=== PATIENT | female | born 1985 | race Caucasian/White ===

== ENCOUNTER 2023-10-04 14:52 | Emergency (ER) | payer BC, SELFPAY ==
[2023-10-04 14:54] VITALS: BP 149/94; PULSE 121; RESP 18; TEMP 37.6; O2SAT 96; BMI 41.0
[2023-10-04 15:13] VITALS: BP 152/85; PULSE 120; RESP 20; O2SAT 96
--- NOTE | 2023-10-04 15:29 | EX.ED.DYSGE1 ---
HPI History of Present Illness Chief Complaint: General Illness Detail of Chief Complaint: Presents from [facility] urgent care because of near syncope Informant: patient and spouse/S.O. Onset/Context/Timing Onset: Hours Context: Sudden Onset Timing: Intermittent Quality: Near syncopal episode Location: Urgent care Current Severity: Gone Maximum Severity: Moderate Worsened by: Patient was sitting at the urgent care for 45 minutes Relieved by: Not applicable Associated Symptoms Associated Symptoms: Nausea, pallor tunnel vision Narrative Narrative: Patient is a 38-year-old female who went to the urgent care because of viral-like symptoms. She had an influenza, COVID-19 and rapid strep performed. The rapid strep was negative. Results for the influenza and COVID will not be available until later this evening or tomorrow morning. She does report fever, headache, left ear pain, congestion, sore throat and cough. Cough is productive. There is no hemoptysis. There is no pleuritic chest pain. She also endorsed 1 loose bowel movement today. She apparently was at a elementary school and hugged by 30 different children. She presently has headache and upper respiratory symptoms. The near-syncopal episode is no longer present. She denies black or maroon-colored stool. She denies urologic symptoms. Prior similar symptoms: Yes Recent Illness/Hospitalization: No PFSH PFSH Medical History HTN (hypertension) Home Medications amlodipine 10 mg tablet 10 mg PO DAILY 10/04/23 [History Last Taken Unknown] Allergy/AdvReac Type Severity Reaction Status Date / Time Penicillins Allergy Mild PT UNSURE Verified 10/04/23 14:55 OF REACTION Family History no significant family his Surgical History no surgical history Social History household members: spouse housing: house current occupational status: employed Smoking Status: Never smoker ROS ROS ED Constitutional Constitutional ED: Reports chills, fever(s) and subjective; Denies sweats or weight loss Eyes Eyes: Reports other Details: Tunnel vision ; Denies blurry vision, change in vision or diplopia ENT ENT ED: Reports ear pain left and sore throat; Denies rhinorrhea Cardiovascular Cardiovascular: Reports chest pain, palpitations and racing heartbeat; Denies orthopnea or paroxysmal nocturnal dyspnea Respiratory/Chest Respiratory/Chest: Reports cough, dyspnea and sputum; Denies dyspnea on exertion, orthopnea or paroxysmal nocturnal dyspnea Gastrointestinal Gastrointestinal: Reports diarrhea and nausea; Denies abdominal pain, melena or vomiting Genitourinary Genitourinary ED: Denies dysuria, hematuria or urinary frequency Musculoskeletal Musculoskeletal: Reports myalgias; Denies back pain or neck pain Integumentary Denies rash Neurologic Neurologic: Reports headache(s); Denies paresthesias or weakness Psychiatric Psychiatric: Denies anxiety or depression Endocrine Endocrinology: Denies cold intolerance or heat intolerance Hematologic/Lymphatic Hematologic/Lymphatic: Reports systems reviewed and no addt'l complaints, except as documented EXAM Physical Exam Const Vital Signs: 10/04/23 14:54 10/04/23 15:02 10/04/23 15:13 Temperature 99.7 F H Temperature Source Temporal Pulse Rate 121 H 120 H Pulse Rate [Lying] Pulse Rate [Sitting (for 1 minute prior to obtaining)] Pulse Rate [Standing (for 1 minute prior to obtaining)] Respiratory Rate 18 20 H Respiratory Effort Normal Respiratory Pattern Normal Blood Pressure 149/94 H 152/85 H Blood Pressure [Lying] Blood Pressure [Sitting (for 1 minute prior to obtaining)] Blood Pressure [Standing (for 1 minute prior to obtaining)] Blood Pressure Mean 112 107 Blood Pressure Mean [Lying] Blood Pressure Mean [Sitting (for 1 minute prior to obtaining)] Blood Pressure Mean [Standing (for 1 minute prior to obtaining)] Pulse Ox 96 96 Oxygen Delivery Method Room Air Room Air 10/04/23 15:47 Temperature Temperature Source Pulse Rate Pulse Rate [Lying] 102 H Pulse Rate [Sitting (for 1 minute prior to obtaining)] 117 H Pulse Rate [Standing (for 1 minute prior to obtaining)] 124 H Respiratory Rate Respiratory Effort Respiratory Pattern Blood Pressure Blood Pressure [Lying] 150/74 H Blood Pressure [Sitting (for 1 minute prior to obtaining)] 131/77 H Blood Pressure [Standing (for 1 minute prior to obtaining)] 140/98 H Blood Pressure Mean Blood Pressure Mean [Lying] 99 Blood Pressure Mean [Sitting (for 1 minute prior to obtaining)] 95 Blood Pressure Mean [Standing (for 1 minute prior to obtaining)] 112 Pulse Ox Oxygen Delivery Method Positive well nourished, well developed and obese General Appearance ED: well developed and NAD; Negative for cyanotic, diaphoretic or pallor Nutritional Appearance: obese HEENT Reports dry mucous membranes HEENT Narrative: Head is atraumatic and normocephalic. Ears are normal. TMs are normal. Nares patent. Posterior pharynx erythema or exudate. Mouth ED: Yes dry mucous membranes Mouth: dry mucous membranes Eyes PERRL and EOMs intact bilaterally General Eye ED: Negative for pale conjunctiva or scleral icterus Neck no lymphadenopathy, supple and no JVD Chest Wall inspection of chest normal and palpation of chest normal Resp normal respiratory effort and clear to auscultation bilaterally Cardio regular rhythm, S1 normal heart sound, S2 normal heart sound and no murmurs Rate: tachycardic GI normal to inspection, nondistended, normoactive bowel sounds, non-tender, non-distended and no masses; Negative for hepatosplenomegaly Back/Spine no CVA tenderness Thoracic Spine / Upper Back: Negative for thoracic spinal tenderness Lumbar Spine / Lower Back: Negative for lumbar spinal tenderness Extremity normal to inspection General Extremety ED: Negative for edema or tenderness General Extremity: Negative for edema Neuro oriented x3, CN's II-XII intact bilaterally and no sensory deficits noted Sensorium / Orientation: alert Motor Exam: strength 5/5 throughout Psych mental status grossly normal Skin no rashes or lesions noted, no wounds and skin turgor normal General Skin Exam: Negative for jaundice or pallor MDM MDM MDM Narrative Medical decision making narrative: Has viral upper respiratory symptoms. Patient's near syncopal sounds consistent with near syncope due to vasovagal episode. Will have nurse perform orthostatic vital signs and place patient on monitor for observation and rule out dysrhythmia. History & Record Review Additional record(s) reviewed:: No prior records Treatment and Re-Evaluation :: Static vitals are equivocal. She patient is tachycardic and did complain of dizziness. 1 L of normal saline was ordered since clinically she did appear dehydrated. Reassess after 500 cc of normal saline had infused. Plan is to discharge once the liter has infused. Discharge Plan Triage Chief Complaint: General Illness ED Provider: Chicho Mckeon Dx/Rx/DC Orders Clinical Impression: Acute dehydration, Upper respiratory infection with cough and congestion, Sinus tachycardia seen on cardiac care unit nurse, Diarrhea, Viral infection, Vasovagal near-syncope, Orthostatic dizziness, Hypertension Instructions: ED Viral Syndrome (Adult) Prescriptions: No Action amlodipine 10 mg tablet 10 mg PO DAILY Primary Care Provider: Brendon Roche Referrals: Brendon Roche MD [Primary Care Provider] - 3-5 Days if not improving Disposition Disposition: Home, Self Care
[2023-10-04 15:47] VITALS: BP 131/77; BP 140/98; BP 150/74; PULSE 102; PULSE 117; PULSE 124
[2023-10-04] MEDS: 0.9% Normal Saline (1000mL) 1,000 ML 1000 ML IV (16:55)
[2023-10-04 18:13] VITALS: BP 146/84; PULSE 104; RESP 16; O2SAT 96
== END 2023-10-04 18:14 | disposition home or self-care (01) ==
PROVIDERS: Emergency Provider Emergency Medicine; PCP Family Medicine; Visit Provider Emergency Medicine
DX: E86.0 Dehydration (principal); J06.9 Acute upper respiratory infection, unspecified; R42 Dizziness and giddiness; I10 Essential (primary) hypertension; R55 Syncope and collapse; R00.0 Tachycardia, unspecified; H92.02 Otalgia, left ear; R51.9 Headache, unspecified; Z79.899 Other long term (current) drug therapy; E66.9 Obesity, unspecified
CPT/HCPCS: 96360; 99285; J7030; A4216

== ENCOUNTER 2024-08-10 15:22 | Inpatient (IN) | payer BC, SELFPAY ==
[2024-08-10 15:23] VITALS: BP 130/89; PULSE 74; RESP 20; TEMP 36.1; O2SAT 97; BMI 42.3
--- NOTE | 2024-08-10 15:25 | EKG12_ITS ---
Test Reason : CP Blood Pressure : / mmHG Vent. Rate : 066 BPM Atrial Rate : 066 BPM P-R Int : 154 ms QRS Dur : 116 ms QT Int : 412 ms P-R-T Axes : 040 -17 024 degrees QTc Int : 431 ms Normal sinus rhythm Left ventricular hypertrophy Abnormal ECG Confirmed by BRIAN MEI, [place] ([id number]), communications editor BENNY ESCAMILLA ([id number]) on 08/13/2024 1:57:19 PM Referred By: Jatin Baker Confirmed By:FLORIDA TORRES MD
[2024-08-10 16:07] LABS: Absolute Lymphocyte Count 2.04 X10^3/uL (0.83-4.51); Absolute Neutrophil Count 6.9 X10^3/uL (2.0-7.7); Basophil# 0.07 X10^3/uL; Basophil% 0.7 % (0-1); Eosinophil# 0.06 X10^3/uL; Eosinophils% 0.6 % (0-5); Hematocrit 48.2 % (37-47); Hemoglobin 15.5 g/dL (12.0-15.0); Lymphocyte # 2.04 X10^3/ul (0.83-4.51); Lymphocyte % 21.2 % (19-41); Mean Corp Hgb Conc 32.2 g/dL (32-36); Mean Corpuscular Hgb 28.9 pg (27.0-32.0); Mean Corpuscular Volume 89.8 fL (81-99); Mean Platelet Vol. 8.9 fl (6.2-12.0); Monocyte# 0.54 X10^3/uL; Monocyte% 5.6 % (0-10); NRBC Flagged by Analyzer 0 % (0-5); Neutrophil # 6.87 X10^3/uL (2.7-7.7); Neutrophil % 71.6 % (47-70); Platelet Count 379 K/mm3 (150-450); RBC Distribution Width CV 13.8 % (11.6-14.6); Red Blood Count 5.37 M/mm3 (4.2-5.4); White Blood Count 9.6 K/mm3 (4.4-11.0)
--- NOTE | 2024-08-10 16:15 | RAD_ITS ---
STUDY: X-RAY CHEST REASON FOR EXAM: Female, 39 years old. chest pain TECHNIQUE: Single AP portable view of the chest. COMPARISON: None. FINDINGS: The lungs are clear and expanded. There is no demonstrated pleural abnormality. Normal size heart. Normal mediastinum and wade. Normal visualized pulmonary arteries. Normal visualized aortic arch and descending thoracic aorta. Normal visualized thoracic spine. Normal visualized ribs, clavicles, and shoulders. There is no demonstrated abnormality of the visualized soft tissue structures of the upper abdomen. RAD/Chest 1 View (Portable) IMPRESSION: Normal x-ray examination of the chest. Electronically Signed: Dwight Burton MD at 16:55 EDT ,
[2024-08-10 16:23] VITALS: BP 152/107; PULSE 70; RESP 16; O2SAT 95
[2024-08-10 16:30] LABS: Anion Gap 3 (5-15); BUN 11 mg/dL (7-18); BUN/Creat Ratio 14.5 RATIO (10-20); Calcium,Total 9.7 mg/dL (8.5-10.1); Chloride 105 mmol/L (98-107); Creatinine, Serum 0.76 mg/dL (0.55-1.02); EST Glomerular Filtration Rate 90 mL/min (>60); Est Glom Filt Rate - Afr Amer 109 mL/min (>60); Estimated Creatinine Clearance 133.65 ml/min; Glucose 100 mg/dL (74-106); Potassium 3.3 mmol/L (3.5-5.1); Sodium Level 140 mmol/L (136-145); Troponin-I HS (w/2H Reflex) 6104 pg/mL (3.0-54.0)
--- NOTE | 2024-08-10 16:34 | ED.VIS.CHEST ---
HPI History of Present Illness Chief Complaint: Chest Pain [facility] Medical History (Updated 08/10/24 @ 19:[address] Jatin Baker, DO) HTN (hypertension) Home Medications ?Medication ?Instructions ?Recorded ?Last Taken ?Type amlodipine 10 mg tablet 10 mg PO DAILY 10/04/23 08/10/24 History sertraline 100 mg tablet 100 mg PO DAILY 08/10/24 08/09/24 History Allergy/AdvReac Type Severity Reaction Status Date / Time Penicillins Allergy Mild PT UNSURE Verified 08/10/24 15:23 OF REACTION Family History no significant family his Social History household members: spouse housing: house current occupational status: employed Smoking Status: Never smoker EXAM Physical Exam Const Vital Signs: 08/10/24 15:23 08/10/24 16:23 08/10/24 16:35 Temperature 97 F L Temperature Source Temporal Pulse Rate 74 70 Respiratory Rate 20 H 16 Respiratory Effort Blood Pressure 130/89 H 152/107 H Blood Pressure Mean 102 122 Pulse Ox 97 95 Oxygen Delivery Method Room Air Room Air Room Air 08/10/24 16:35 08/10/24 17:00 Temperature Temperature Source Pulse Rate 69 Respiratory Rate 19 H Respiratory Effort Normal Non-Labored Blood Pressure 147/87 H Blood Pressure Mean 107 Pulse Ox Oxygen Delivery Method MDM MDM MDM Narrative Medical decision making narrative: HISTORY OF PRESENT ILLNESS: 39-year-old female here with chest pain. This started while sitting. No she seen urgent care [place] and given EKG was told it was normal. She is here for further evaluation. She notes the pain is less severe but is still there The patient denies recent surgery in the last 4 weeks or immobilization in the last 3 days, denies previous diagnosis of DVT or PE, hemoptysis, unilateral leg swelling or malignancy with treatment the last 6 months or palliative. No estrogen use noted. Patient denies sudden onset of pain, no tearing sensation, no migratory symptoms, no new numbness, weakness or loss of sensation. Patient denies family history or personal history of Connective tissue disorders (Marfan's Syndrome, Keith Danlos etc) REVIEW OF SYSTEMS: Pertinent positives: Chest pain Pertinent negatives: Syncope, leg swelling, hemoptysis, focal weakness, loss of sensation PHYSICAL EXAM: Nursing triage notes reviewed, Vital signs reviewed Constitutional: please see mdm HENT: MMM Eyes: Pupils equal round and reactive to light, Extraocular muscles intact Neck: No stridor, no JVD, full neck ROM Lungs: Clear to auscultation, No wheezing or rales. No increased work of breathing, no conversational dyspnea, no accessory muscle use, no nasal flaring. No respiratory distress noted Heart: Regular rate and rhythm, No murmurs, No rubs and No gallops, 2+ distal pulses (radial, femoral, posterior tibial) in all extremities Abdomen: Soft, there is no tenderness, rigidity, rebound or guarding, no obvious peritoneal signs, no palpable pulsatile abdominal masses, no auscultated abdominal bruit : No CVAT Extremities: No edema Neuro: No focal neurological deficits, cranial nerves II through XII intact, 5/5 strength in all extremities. Intact sensation to light touch in all extremities, 2+ reflexes bilateral patella tendons. Normal gait. No ataxia. Skin: No rash or lesions noted MEDICAL DECISION MAKING: Chief Complaint: Chest pain External records reviewed: Reviewed prior cardiology records: No recent cardiac catheterizations, stress test or echocardiograms noted in the chart Factors affecting care: Hypertension, family history of early cardiac pathology Social determinants of health denies illicit drug use History obtained from others: Family Consults: Cardiology (Dr. Albert) [facility] Narrative: Patient was hemodynamically stable, afebrile, nontoxic-appearing. No focal cardiopulmonary abnormalities on exam. No stigmata of VTE, dissection or CHF noted initially I considered the following differential diagnosis: ACS, arrhythmia, anemia, electro disturbance, PE, aortic dissection I obtained a broad lab and imaging workup to further elucidate etiology patient complaint given the above ALL IMAGES (IF OBTAINED) HAVE BEEN PERSONALLY REVIEWED AND INTERPRETED BY MYSELF. Protocol orders were placed given poor department conditions including high volume and high acuity. Patient was picked up by me 1 hour after arrival. I immediately reviewed her EKG which showed normal sinus rhythm, n left axis deviation, normal intervals, no STEMI, no signs of right heart strain Initial troponin is elevated consistent with myocardial ischemia CBC without leukocytosis, severe anemia, no thrombocytopenia. BMP with mild hypokalemia otherwise no significant Bell normalities, signs of endorgan hypoperfusion or metabolic acidosis D-dimer negative making VTE less likely I have personally reviewed the patient's chest x-ray. Chest x-ray is unremarkable for pulmonary edema, pneumothorax, pneumonia or focal cardiopulmonary abnormality. Low suspicion for PE or dissection given lack of risk factors, physical exam findings and negative D-dimer. Patient was started on heparin (discussed risk of bleeding, assured patient had no prior bleeding diathesis prior to starting heparin) given aspirin and potassium was replaced I discussed the case with computer systems consultant who recommended admission heparin drip for further evaluation and possible intervention Discussed with hospitalist who agrees admit the patient. The patient and/or family, caregivers express understanding. The patient and/or family, caregivers agrees with the plan. Shared decision making: I will have a discussion with the patient and or visitors regarding risk/benefits of further testing or admission. They will be made aware of of the risk/benefits inherent in this decision they will be given the opportunity to voice understanding. Total critical care time today provided was at least 35 minutes. This excludes separately billable procedures. Critical care time (if documented) is secondary to the patient having high probability of clinically significant/life threatening deterioration in the patient's condition which required my urgent intervention. Impression: 1. Acute chest pain 2. History of hypertension 3. Hypokalemia 4. NSTEMI Dispo: Admit to PCU This note was generated with Clicknation dictation software. It may contain incorrect words, spelling, and punctuation that were not noted in review of the chart prior to signing. Lab Data Labs: Laboratory Results - last 24 hr 08/10/24 08/10/24 15:56 16:45 WBC 9.6 RBC 5.37 Hgb 15.5 H Hct 48.2 H MCV 89.8 MCH 28.9 MCHC 32.2 RDW Std Deviation 45.0 H RDW Coeff of Cristal 13.8 Plt Count 379 MPV 8.9 Immature Gran % (Auto) 0.300 Neut % (Auto) 71.6 H Lymph % (Auto) 21.2 [place] % (Auto) 5.6 Eos % (Auto) 0.6 Baso % (Auto) 0.7 Absolute Neuts (auto) 6.9 Absolute Lymphs (auto) 2.04 Nucleated RBC % 0 D-Dimer Quant (PE/DVT) 0.36 Sodium 140 Potassium 3.3 L Chloride 105 Carbon Dioxide 32.0 Anion Gap 3 L BUN 11 Creatinine 0.76 Estim Creat Clear Calc 133.65 Est GFR (MDRD) Af Amer 109 Est GFR (MDRD) Non-Af 90 BUN/Creatinine Ratio 14.5 Glucose 100 Calcium 9.7 Troponin I High Sens 6104 H* B-Natriuretic Peptide 42.0 Radiography Diagnostic Testing: Clinical Impression(s) from Imaging Studies Chest X-Ray 08/10/24 16:15 IMPRESSION: Normal x-ray examination of the chest. Electronically Signed: Dwight Burton MD at 16:55 EDT , Discharge Plan Disposition Disposition: Acute Care Hospital [facility] Discharge Date/Time: 08/10/24 19:06
--- NOTE | 2024-08-10 16:35 | ED.RN ---
DR. FRANCOIS, DR. ARROYO AND CANDIE MACHINIST JOB SETTER NOTIFIED OF TROPONIN [id number]
[2024-08-10 17:00] VITALS: BP 147/87; PULSE 69; RESP 19
--- OUTSIDE RECORDS SUMMARY | 2024-08-10 17:03 | XMS RPT_ITS | CCD ---
Author Organization [facility] Care Team Providers Care Trailer Rental Clerk Name Role Phone PORTILLO LEON Unavailable Unavailable LEONPORTILLO BLACKWOOD Unavailable Unavailable AA NO PCP, NO PCP Unavailable Unavailable TIFFANY MCCULLOUGH Unavailable YOLANDA Shields Unavailable Unavailable NO PRIMARY CARE, Unavailable Unavailable Kaley MEI, Morales Akbar Primary Care Provider Morales Roche MD Primary Care Provider Tiffany Strong RN Unavailable Unavailable Kaley MEI, Morales Akbar Primary Care Provider Tiffany Strong RN Unavailable Unavailable Kaley MEI, Morales Akbar Primary Care Provider Tiffany Strong RN Unavailable Unavailable Knoble CHEMICAL LABORATORY ASSISTANT.AUTOMOTIVE SERVICE DIRECTOR, Tre Primary Care Provider Knoble CHEMICAL LABORATORY ASSISTANT.AUTOMOTIVE SERVICE DIRECTOR, Tre Primary Care Provider KALEY, MORALES KRISTINA Primary Care Unavailable SELF Referring Unavailable NAHEED MELGAR Attending Unavailable KNOBLE, TRE Referring Unavailable KNOBLE, TRE Primary Care Unavailable KNOBLE, TRE Primary Care Unavailable KNOBLE, TRE Referring Unavailable KNOBLE, TRE Primary Care Unavailable KNOBLE, TRE Attending Unavailable KNOBLE, TRE Primary Care Unavailable KNOBLE, TRE Primary Care Unavailable KNOBLE, TRE Referring Unavailable KALEY, MORALES KRISTINA Primary Care Unavailable SHEREEN NEWTON Referring Unavailable STELLA HARVEY Attending Unavailable KALEY, MORALES KRISTINA Primary Care Unavailable LLAY HARVEYNE Referring Unavailable KALEY, MORALES KRISTINA Primary Care Unavailable KALEY, MORALES KRISTINA Primary Care Unavailable TORY HERNANDEZ Attending Unavailable KALEY, MORALES KRISTINA Primary Care Unavailable KALEY, MORALES KRISTINA Primary Care Unavailable KALEY, MORALES KRISTINA Primary Care Unavailable TRE MAIN Attending Unavailable MORALES ROCHE Primary Care Unavailable Allergies Allergy Classification Reported Allergen(s) Allergy Type Date of Onset Reaction(s) Facility (2 sources) Penicillin; Translations: [PENICILLIN] Drug Allergy 04-19-2018 [facility] Other [place] Repository Medications Current Medications Medication Drug Class(es) Dates Sig (Normalized) Sig (Original) [id number] 200 actuat albuterol 0.09 mg/actuat metered dose inhaler (13 sources) beta2-Adrenergic Agonist Start: 01-21-2024 End: 01-21-2024 take 2 puff(s) by inhalation every four hours as needed for wheezing albuterol HFA (PROVENTIL HFA, VENTOLIN HFA) 90 mcg/actuation inhaler Inhale 2 Puffs as instructed every 4 hours as needed for wheezing/shortne ss of breath. 6.7 g 01/21/2024 Active Comment on above: Inhale 2 Puffs as in structed every 4 hours as needed for wheezing/shortness of breath. amLODIPine 10 mg oral tablet (20 sources) Dihydropyridine Calcium Channel Alvarado Start: 07-08-2024 take 1 tablet by mouth once daily amLODIPine (NORVASC) 10 mg tablet Indications: Hypertension, essential Take 1 tablet by mouth once daily. 90 tablet 07/08/2024 Active Start: 06-09-2023 End: 07-06-2024 take 1 tablet by mouth once daily amLODIPine (NORVASC) 10 mg tablet Indications: Hypertension, essential take 1 tablet by mouth every day 90 tablet 04/02/2024 07/06/2024 Discontinued Start: 12-12-2022 take 1 tablet by tonya th once daily amLODIPine (NORVASC) 10 mg tablet Indications: Hypertension, essential TAKE 1 TABLET BY MOUTH EVERY DAY 90 tablet 1 12/12/2022 Active Start: 12-27-2021 End: 06-23-2022 take 1 tablet by mouth once daily amLODIPine (NORVASC) 10 mg tablet Indications: Hypertension, essential TAKE 1 TABLET BY MOUTH EVERY DAY 90 tablet 1 06/23/2022 Active Comment on above: TAKE 1 TABLET BY TONYA TH EVERY DAY Take 1 tablet by tonya th once daily. chlorthalidone 25 mg oral tablet (13 sources) Thiazide-like Diuretic Start: End: 3 take 1 tablet by mouth once daily chlorthalidone (HYGROTON) 25 mg tablet Indications: Dependent edema TAKE 1 TABLET BY MOUTH EVERY DAY 90 tablet 0 09/19/2022 09/26/2023 Discontinued (Course of therapy completed) Comment on above: Take 1 tablet by tonya th once daily. TAKE 1 TABLET BY TONYA TH EVERY DAY doxycycline hyclate 100 mg oral tablet (4 sources) Tetracycline-clas s Drug Start: End: take 1 tablet by mouth twice daily doxycycline (VIBRA-TABS) 100 mg tablet Take 1 tablet by mouth two times a day for 7 days. 14 tablet 0 01/21/2024 01/28/2024 Active Start: 10-24-2023 End: 10-29-2023 take 1 tablet by mouth twice daily doxycycline (VIBRA-TABS) 100 mg tablet Indications: Acute maxillary sinusitis, recurrence not specified Take 1 tablet by mouth two times a day for 5 days. 10 tablet 0 10/24/2023 10/29/2023 Active Start: 04-09-2023 End: 04-16-2023 take 1 tablet by mouth twice daily doxycycline monohydrate 100 mg tablet Indications: Acute non-recurrent pansinusitis Take 1 tablet by mouth twice daily for 7 days. 14 tablet 0 04/09/2023 04/16/2023 Active Comment on above: Take 1 tablet by tonya th twice daily for 7 days. Take 1 tablet by tonya th two times a day for 5 days. Take 1 tablet by tonya th two times a day for 7 days. fluticasone propionate 0.05 mg/actuat metered dose nasal spray (20 sources) Corticosteroid Start: take 1 spray(s) nasal route twice daily fluticasone (FLONASE) 50 mcg/actuation nasal spray Indications: Acute non-recurrent pansinusitis Use 1 Sage in each nostril two times a day. 16 mL 04/27/2024 Active Start: 05-01-2023 End: 04-25-2024 take 1 spray(s) nasal route twice daily fluticasone (FLONASE) 50 mcg/actuation nasal spray Indications: Acute non-recurrent pansinusitis Use 1 Sage in each nostril twice daily. 16 mL 0 05/01/2023 04/25/2024 Discontinued Start: 04-09-2023 take 1 spray(s) nasa l route twice daily fluticasone (FLONASE) 50 mcg/actuation nasal spray Indications: Acute non-recurrent pansinusitis Use 1 Sage in each nostril twice daily. 16 mL 0 04/09/2023 Active Comment on above: Use 1 Sage in each nostril twice daily. INTRAUTERINE DEVICE, IUD, INTRAUTERINE (20 sources) INTRAUTERINE DEV ICE, IUD, INTRAUTERINE by INTRAUTERINE route. Active INTRAUTERINE DEV ICE, IUD, INTRAUTERINE by INTRAUTERINE route. 0 Active Comment on above: by INTRAUTERINE rout e. meloxicam 15 mg oral tablet (11 sources) Nonsteroidal Anti-inflammatory Drug Start: End: take 1 tablet by mouth once daily meloxicam (MOBIC) 15 mg tablet Indications: Strain of left knee, initial encounter , Chronic pain of left knee TAKE 1 TABLET BY MOUTH EVERY DAY 30 tablet 1 07/05/2022 09/26/2023 Discontinued (Course of therapy completed) Comment on above: Take 1 tablet by tonya th once daily. TAKE 1 TABLET BY TONYA TH EVERY DAY nirmatrelvir tablet 300 mg (150 mg x 2) and ritonavir tablet 100 mg in a dose pack (PAXLOVID) (1 source) Start: End: nirmatrelvir tablet 300 mg (150 mg x 2) and ritonavir tablet 100 mg in a dose pack (PAXLOVID) Indications: COVID Administer TWO pink nirmatrelvir 150 mg tablets and ONE white ritonavir 100 mg tablet for a total of three tablets twice daily. 30 tablet 0 10/06/2023 10/11/2023 Active Comment on above: Administer TWO pink nirmatrelvir 150 mg tablets and ONE white ritonavir 100 mg tablet for a total of three tablets twice daily. nitrofurantoin, macrocrystals 25 mg / nitrofurantoin, monohydrate 75 mg oral capsule (1 source) Nitrofuran Antibacterial Start: End: take 1 capsule by mouth twice daily nitrofurantoin monohydrate and macrocrystal (MACROBID) 100 mg capsule Take 1 capsule by mouth two times a day for 5 days. 10 capsule 0 05/05/2024 05/10/2024 Active predniSONE 20 mg oral tablet (2 sources) Start: End: take 2 tablets by mouth once daily at mealtime predniSONE (DELTASONE) 20 mg tablet Take 2 tablets by mouth once daily for 4 days. Take daily with food. 8 tablet 0 01/21/2024 01/25/2024 Active Comment on above: Take 2 tablets by mo [facility] once daily for 4 days. Take daily with food. sertraline 100 mg oral tablet (11 sources) Serotonin Reuptake Inhibitor Start: take 1 tablet by mouth once daily sertraline (ZOLOFT) 100 mg tablet Indications: AMANDA (generalized anxiety disorder) Take 1 tablet by mouth once daily. 90 tablet 1 06/28/2024 Active Start: 02-22-2024 End: 06-28-2024 take 1 tablet by mouth once daily, then take 0.5 tablet by mouth once daily, then take 1 tablet by mouth once daily sertraline (ZOLOFT) 50 mg tablet Indications: AMANDA (generalized anxiety disorder) Take 1 tablet by mouth once daily. Take 0.5 tab daily x7 days then 1 full tab daily. 60 tablet 0 04/26/2024 06/28/2024 Discontinued Comment on above: Take 1 tablet by tonya once daily. Take 0.5 tab daily x7 days then 1 full tab daily. Completed/Discontinued Medications Medication Drug Class(es) Dates Sig (Normalized) Sig (Original) docusate sodium 100 mg oral capsule (1 source) Start: 11-01-2019 take 2 capsules by mouth once daily at bedtime docusate sodium (COLACE) 100 mg capsule Take 2 capsules by mouth daily at bedtime. 60 capsule 1 11/01/2019 Active Comment on above: Take 2 capsules by m outh daily at bedtime. ibuprofen 600 mg oral tablet (1 source) Nonsteroidal Anti-inflammatory Drug Start: 11-01-2019 take 1 tablet by mouth every six hours ibuprofen (MOTRIN) 600 mg tablet Take 1 tablet by mouth every 6 hours. 60 tablet 1 11/01/2019 Active Comment on above: Take 1 tablet by tonya th every 6 hours. NIFEdipine 60 mg osmotic 24 hr extended release oral tablet (2 sources) Dihydropyridine Calcium Channel Alvarado Start: 11-01-2019 take 1 tablet by mouth once daily NIFEdipine ER (PROCARDIA XL) 30 mg 24 hr tablet Take 1 tablet by mouth once daily. 30 tablet 1 11/01/2019 Active Start: 11-01-2019 take 1 tablet by tonya th once daily NIFEdipine ER (PROCARDIA XL) 60 mg 24 hr tablet Take 1 tablet by mouth once daily. 30 tablet 1 11/01/2019 Active Comment on above: Take 1 tablet by tonya th once daily. vitamin with folic acid 1 mg 60 mg iron-1 mg tab (1 source) Start: 07-09-2018 take 1 tablet by mouth once daily vitamin with folic acid 1 mg 60 mg iron-1 mg tab Take 1 tablet by mouth once daily. 0 07/09/2018 Active Comment on above: Take 1 tablet by tonya th once daily. Problems Active Problems Problem Classification Problem Date Documented Da te Episodic/Chronic Acute myocardial infarction (2 sources) Acute myocardial infarction; Translations: [Acute myocardial infarction, unspecified] Onset: 01-02-2024 01-02-2024 Chronic Anxiety disorders (4 sources) Generalized anxiety disorder; Translations: [Generalized anxiety disorder] Onset: 06-28-2024 02-22-2024 Chronic Essential hypertension (20 sources) Hypertensive disorder; Translations: [Essential (primary) hypertension] Onset: 10-28-2019 10-28-2019 Chronic Fever of unknown origin (1 source) Pyrexia of unknown origin; Translations: [Fever, unspecified] 10-04-2023 Episodic Genitourinary symptoms and ill-defined conditions (1 source) Increased frequency of urination; Translations: [Frequency of micturition] 05-05-2024 Episodic Hypertension complicating ; childbirth and the puerperium (20 sources) Pre-eclampsia added to pre-existing hypertension; Translations: [Pre-existing hypertension with pre-eclampsia, unspecified trimester] Onset: 07-05-2018 10-29-2019 Chronic Other non-traumatic joint disorders (2 sources) Pain in left knee; Translations: [Pain in joint, lower leg] Episodic Other nutritional; endocrine; and metabolic disorders (1 source) Obesity, unspecified; Translations: [OBESITY UNSPECIFIED] Onset: 07-20-2017 Chronic Other screening for suspected conditions (not mental disorders or infectious disease) (4 sources) Platelet count above reference range; Translations: [Other specified abnormal findings of blood chemistry] Onset: 09-30-2023 02-20-2024 Episodic Other upper respiratory infections (1 source) Chronic sinusitis; Translations: [Chronic sinusitis, unspecified] 01-21-2024 Chronic Other upper respiratory infections (5 sources) Acute pansinusitis; Translations: [Acute pansinusitis, unspecified] Episodic Otitis media and related conditions (1 source) Dysfunction of left eustachian tube; Translations: [Unspecified Eustachian tube disorder, left ear] 10-04-2023 Episodic Residual codes; unclassified (4 sources) Dependent edema; Translations: [Edema, unspecified] Episodic Residual codes; unclassified (1 source) FH: Myocardial infarction at less than 60; Translations: [Family history of ischemic heart disease and other diseases of the circulatory system] 09-26-2023 Episodic Residual codes; unclassified (2 sources) FH: premature coronary heart disease; Translations: [Family history of ischemic heart disease and other diseases of the circulatory system] 09-26-2023 Episodic Sprains and strains (2 sources) Strain of knee; Translations: [Strain of unspecified muscle(s) and tendon(s) at lower leg level, left leg, initial encounter] Episodic Syncope (1 source) Near syncope; Translations: [Syncope and collapse] 10-04-2023 Episodic Unclassified (1 source) Body mass index (BMI) 40.0-44.9, adult; Translations: [BODY MASS INDEX BMI 40.0-44.9 ADULT] Onset: 07-20-2017 Chronic Viral infection (1 source) Disease caused by 2019-nCoV; Translations: [COVID-19] 10-06-2023 Episodic Past or Other Problems Problem Classification Problem Date Documented Date Episodic/Chronic Abdominal pain (1 source) Unspecified abdominal pain; Translations: [UNSPECIFIED ABDOMINAL PAIN] Onset: 07-20-2017 Episodic Calculus of urinary tract (1 source) Unspecified renal colic; Translations: [UNSPECIFIED RENAL COLIC] Onset: 07-20-2017 Episodic Early or threatened labor (9 sources) Labor finding; Translations: [False labor, unspecified] Onset: 10-31-2019 Resolved: 10-05-2021 10-31-2019 Episodic Other aftercare (1 source) Other termite helper (current) drug therapy; Translations: [Medication management] Onset: 02-19-2024 Episodic Other complications of (9 sources) RhD negative; Translations: [Other specified related conditions, third trimester] Onset: 10-28-2019 Resolved: 10-05-2021 10-28-2019 Episodic Other complications of (9 sources) Multigravida of advanced maternal age; Translations: [Supervision of elderly multigravida, third trimester] Onset: 10-28-2019 Resolved: 10-05-2021 10-28-2019 Episodic Other complications of (9 sources) History of pre-eclampsia; Translations: [Supervision of with other poor reproductive or obstetric history, unspecified trimester] Onset: 10-28-2019 Resolved: 10-05-2021 10-28-2019 Episodic Other complications of (9 sources) High risk ; Translations: [Supervision of other high risk pregnancies, third trimester] Onset: 10-28-2019 Resolved: 10-05-2021 10-28-2019 Episodic Other diseases of kidney and ureters (1 source) Hydronephrosis with renal and ureteral calculous obstruction; Translations: [HYDRONPHROS RENLANDURETRL CALCUL OBST] Onset: 07-20-2017 Episodic Other diseases of kidney and ureters (8 sources) Hydronephrosis co-occurrent and due to calculus of kidney and ureter; Translations: [Hydronephrosis with renal and ureteral calculous obstruction] Onset: 07-20-2017 Resolved: 10-05-2021 10-05-2021 Episodic Other lower respiratory disease (9 sources) Desaturation of blood; Translations: [Hypoxemia] Onset: 10-29-2019 Resolved: 10-05-2021 10-29-2019 Episodic Other nutritional; endocrine; and metabolic disorders (9 sources) Morbid obesity; Translations: [Morbid (severe) obesity due to excess calories] Onset: 10-28-2019 Resolved: 10-05-2021 10-28-2019 Chronic Other and delivery including normal (14 sources) Patient encounter status; Translations: [Encounter for supervision of normal , unspecified, unspecified trimester] Onset: 10-28-2019 Resolved: 10-05-2021 10-29-2019 Episodic Residual codes; unclassified (8 sources) Gestation period, 37 weeks; Translations: [37 weeks gestation of ] Onset: 10-28-2019 Resolved: 10-28-2019 10-28-2019 Episodic Residual codes; unclassified (1 source) Family history of ischemic heart disease and other diseases of the circulatory system; Translations: [Family history of premature CAD] Onset: 01-02-2024 Episodic Results Test Name Value Interpretation Reference Range Facility [facility] BERE FIORE ([id number]) 1985 F Date Time Provider Department 07/01/24 TRE MAIN [facility] During your visit today, we recorded the following information about you: Tre Main APRN.[facility] 07/01/2024 10:01 AM Signed Please let patient know their labs are normal. Arjun Mckinney MA 07/01/2024 10:06 AM Signed Pt notified and verbalized understanding Arjun Mckinney MA Allergies As of Date: 07/01/2024 Noted Allergy Reaction PENICILLIN 04/19/2018 15 - Unknown Comments: Childhood allergy. Pt unsure of reaction. Date Reviewed: 06/28/2024 Reviewed by: Arjun Mckinney MA - Fully Assessed Reason for Visit: Results [95] Prescriptions as of 07/01/2024 - sertraline (ZOLOFT) 100 mg tablet Take 1 tablet by mouth once daily. - fluticasone (FLONASE) 50 mcg/actuation nasal spray Use 1 Sage in each nostril two times a day. - amLODIPine (NORVASC) 10 mg tablet take 1 tablet by mouth every day - albuterol HFA (PROVENTIL HFA, VENTOLIN HFA) 90 mcg/actuation inhaler Inhale 2 Puffs as instructed every 4 hours as needed for wheezing/shortness of breath. - INTRAUTERINE DEVICE, IUD, INTRAUTERINE by INTRAUTERINE route. Problem List As Of Date 07/01/2024 Noted Resolved Chronic hypertension with superimposed pre-ecla*07/05/2018 37 weeks gestation of [Z3A.37] 10/28/2019 10/28/2019 Rh negative status during in third tr*10/28/2019 10/05/2021 Advanced maternal age in multigravida, third tr*10/28/2019 10/05/2021 Chronic hypertension [I10] 10/28/2019 Encounter for induction of labor [Z34.90] 10/28/2019 10/05/2021 History of pre-eclampsia in prior , cu*10/28/2019 10/05/2021 Morbid obesity (HCC) [E66.01] 10/28/2019 10/05/2021 Short interval between pregnancies affecting pr*10/28/2019 10/05/2021 Oxygen desaturation [R09.02] 10/29/2019 10/05/2021 Threatened labor [O47.9] 10/31/2019 10/05/2021 Hydronephrosis with renal and ureteral calculou*07/20/2017 10/05/2021 Encounter Status:Closed by ARJUN MCKINNEY CMA on 07/01/24 [facility] CNOV[facility] 06-28-2024 CNOV Office Visit (FAMPWS ) BERE FIORE ([id number]) 1985 F Date Time Provider Department 06/28/24 12:40 PM TRE MAINPWS During your visit today, we recorded the following information about you: Pulse Respiration Blood pressure Weight 93/minute 16/minute 135/83 122.9 kg Tre Main APRN.AUTOMOTIVE SERVICE DIRECTOR 06/28/2024 12:21 PM Signed Chief Complaint Patient presents with: Follow Up HPI Bere Sam Adebayo is a 38 year old female who presents here today for Above Complaints.. Patient presents for medication follow up. Patient was started on zoloft in February and has been doing well. Past medical history, appointments, medications, allergies reviewed. Previous Medical History PAST MEDICAL HISTORY 10/28/2019: Advanced maternal age in multigravida, third trimester Comment: -Declined genetic testing -Anatomy wnl per patient No date: Chronic hypertension 10/28/2019: Encounter for induction of labor Comment: -GBS negative -S/p Cytotecx1 and FB -Epi in -S/p AROM 2300 on 10/28, clear fluid -Pit per protocol -PPBC: desires immediate PP Mirena. 10/28/2019: History of pre-eclampsia in prior , currently Comment: -History of pre-eclampsia with features at 39 weeks -Diagnosed with CHTN following pregancy -On bASA this 07/20/2017: Hydronephrosis with renal and ureteral calculous obstruction 10/28/2019: Morbid obesity (HCC) Comment: -BMI 40 on admission -Growth US at 35w 55%, EFW around 6# per pt -H/o 6#13oz -Abnormal 1hr GCT, 3hr GTT wnl -SCDs ordered 10/29/2019: Oxygen desaturation Comment: -O2 saturation intermittently decreased to 93% during/after epidural -Improves to 95-96% with deep breaths -CXR negative -Incentive spirometer ordered -Nasal spray ordered for upper respiratory congestion 10/28/2019: Rh negative status during in third trimester Comment: -S/p Rhogam 08/23/19 -Rhogam as indicated Previous Surgical History PAST SURGICAL HISTORY No date: NONE Family History FAMILY HISTORY Problem Relation Age of Onset Heart disease Father Alzheimer's Disease Maternal Grandmother Dementia Maternal Grandmother Dementia Paternal Grandmother Parkinson?s Disease Paternal Grandmother Heart disease Paternal Grandfather Patient Allergies ALLERGIES Allergen Reactions Penicillin Unknown Childhood allergy. Pt unsure of reaction. Current Medications Current Outpatient Medications on File Prior to Visit Medication Sig fluticasone (FLONASE) 50 mcg/actuation nasal spray Use 1 Sage in each nostril two times a day. sertraline (ZOLOFT) 50 mg tablet Take 1 tablet by mouth once daily. Take 0.5 tab daily x7 days then 1 full tab daily. amLODIPine (NORVASC) 10 mg tablet take 1 tablet by mouth every day albuterol HFA (PROVENTIL HFA, VENTOLIN HFA) 90 mcg/actuation inhaler Inhale 2 Puffs as instructed every 4 hours as needed for wheezing/shortness of breath. INTRAUTERINE DEVICE, IUD, INTRAUTERINE by INTRAUTERINE route. No current facility-administered medications on file prior to visit. Social History Social History Tobacco Use Smoking status: Never Smokeless tobacco: Never Substance Use Topics Alcohol use: Yes Comment: rare Drug use: Yes Types: Marijuana Comment: gummies occasionally Review of Symptoms REVIEW OF SYSTEMS SEE HPI EXAM: BP 135/83 Pulse 93 Resp 16 Wt 122.9 kg (271 lb) BMI 42.44 kg/m? General Appearance: Well appearing, alert, in no acute distress, well-hydrated, well nourished.. Lungs: Lungs clear to auscultation. No wheezing, rhonchi, rales.. Heart: RRR without murmur, gallop, or rubs. No ectopy. Health Maintenance List Influenza Vaccine(1) due on 07/14/2024 Annual PCP Team Chronic Disease Visit due on 02/18/2025 Depression Screening due on 02/18/2025 Anxiety Screening due on 02/18/2025 BP Controlled (<130/80) due on 02/18/2025 Cervical Cancer Screening due on 09/13/2026 DTaP,Tdap,Td Vaccine(5 - Td or Tdap) due on 08/19/2029 Hepatitis B Vaccine Completed Hepatitis C Screening Completed HIV Screening Completed Covid-19 Vaccine Completed HPV Vaccine Aged Out ASSESSMENT/PLAN: 1. Medication management - ICD9: V58.69, ICD10: Z79.899 (primary diagnosis) - THYROID STIMULATING HORMONE 2. AMANDA (generalized anxiety disorder) - ICD9: 300.02, ICD10: F41.1 - SERTRALINE 100 MG TABLET Tre Main, CHEMICAL LABORATORY ASSISTANT.AUTOMOTIVE SERVICE DIRECTOR Allergies As of Date: 06/28/2024 Noted Allergy Reaction PENICILLIN 04/19/2018 16 - Unknown Comments: Childhood allergy. Pt unsure of reaction. Date Reviewed: 06/28/2024 Reviewed by: Arjun Mckinney MA - Fully Assessed Reason for Visit: Follow Up [171] Primary Visit Diagnosis:Medication management [Z79.899] Other Visit Diagnosis:AMANDA (generalized anxiety disorder) [F41.1] Order(s):THYROID STIMULATING HORMONE [SQTSH] Order #: [id number] FUTURE sertraline (ZOLOFT) 100 (more content not included)... Normal [facility] TSH SerPl-aCncon 06-28-2024 TSH Qn 1.830 m[IU]/L Normal 0.270-4.200 [facility] Comment on above: Order Comment: Speci men Type: BLOOD SPECIMENOrdering Facility: [facility] Address: [address] [place] [address] Result Comment: If t he patient is , TSH reference range varies by gestational period: First Trimester (weeks 9-12): 0.180-2.990 mIU/L Second Trimester: 0.110-3.980 mIU/L Third Trimester: 0.480-4.710 mIU/L Flakito Sam et al. A Practical Approach for the Verifications and Determination of Site- and Trimester-Specific Reference Intervals for Thyroid Function tests in . Thyroid, 2019:29:3:412-420. Jatin Duong, et al. 2017 Guidelines of the [place] [employer] for the Diagnosis and Management of Thyroid Disease during and the . Thyroid, 2017:27:3:315-389. Performed By: #### 3 016-3 ####[facility] LABCLIA [id number] [place] [address] [place] Bacteria Ur Culton 4 Bacteria identified Cx Nom (U) ORGANISM ID: 1 50,000-<100,000 CFU/ml Escherichia coli ORGANISM ID: 2 <10,000 CFU/ml Normal urogenital reynold ORGANISM ID: 1 (ESCHERICHIA COLI) ------ ANTIBIOTIC INTERPRETATION ELLIE STATUS REFERENCE RANGE ------ Ampicillin R >=32 F Susceptible <=8 , Intermediate >8 , Resistant >16 Cefazolin S <=4 F Susceptible 0-16 , Intermediate <0 or >16 , Resistant >16 For uncomplicated urinary tract infections, cefazolin results can be used to predict susceptibility or resistance to cephalexin. Ceftriaxone S <=1 F Susceptible <=1 , Intermediate >1 , Resistant >=4 Cefepime S <=1 F Susceptible <=2 , Susceptible-Dose Dependent >2 , Resistant >=16 Ertapenem S <=0.5 F Susceptible <=0.5 , Intermediate >.5 , Resistant >1 Meropenem S <=0.25 F Susceptible <=1 , Intermediate >1 , Resistant >2 Ampicillin/Sulbact R >=32 F Susceptible <=8 , Intermediate >8 , Resistant >16 Piperacillin/Tazobac S <=4 F Susceptible <16 , Susceptible-Dose Dependent >=16 , Resistant >=32 Gentamicin S <=1 F Susceptible <=2 , Intermediate >2 , Resistant >=8 Tobramycin S <=1 F Susceptible <4 , Intermediate >=4 , Resistant >=8 Trimeth sulfameth S <=20 F Susceptible <=40 , Resistant >40 Ciprofloxacin S <=0.25 F Susceptible <0.5 , Intermediate >=.5 , Resistant >=1 Nitrofurantoin S <=16 F Susceptible <=32 , Intermediate >32 , Resistant >64 Abnormal [facility] Comment on above: Performed By: #### 6 30-4 ####[facility] JAIR [id number] [place] [id number] [place] CNOVon 05-05-2024 CNOV Office Visit (UCWSTR ) BERE FIORE ([id number]) 1985 F Date Time Provider Department 05/05/24 1:00 PM MARIAELENA BARKER [facility] During your visit today, we recorded the following information about you: Temperature Pulse Respiration Blood pressure 97.4 degrees 96/minute 16/minute 122/82 Weight 121.9 kg Mariaelena Barker APRN.AUTOMOTIVE SERVICE DIRECTOR 05/05/2024 1:09 PM Signed Subjective HPI Bere present today with one day hx of urinary buring and frequency. She states her periods is regular, she is not and she has a uti in the past. She denies fever, she is eating and drinking well. PAST MEDICAL HISTORY Diagnosis Date Advanced maternal age in multigravida, third trimester 10/28/2019 -Declined genetic testing -Anatomy wnl per patient Chronic hypertension Encounter for induction of labor 10/28/2019 -GBS negative -S/p Cytotecx1 and FB -Epi in -S/p AROM 2300 on 10/28, clear fluid -Pit per protocol -PPBC: desires immediate PP Mirena. History of pre-eclampsia in prior , currently 10/28/2019 -History of pre-eclampsia with features at 39 weeks -Diagnosed with CHTN following pregancy -On bASA this Hydronephrosis with renal and ureteral calculous obstruction 07/20/2017 Morbid obesity (HCC) 10/28/2019 -BMI 40 on admission -Growth US at 35w 55%, EFW around 6# per pt -H/o 6#13oz -Abnormal 1hr GCT, 3hr GTT wnl -SCDs ordered Oxygen desaturation 10/29/2019 -O2 saturation intermittently decreased to 93% during/after epidural -Improves to 95-96% with deep breaths -CXR negative -Incentive spirometer ordered -Nasal spray ordered for upper respiratory congestion Rh negative status during in third trimester 10/28/2019 -S/p Rhogam 08/23/19 -Rhogam as indicated PAST SURGICAL HISTORY Procedure Laterality Date NONE ALLERGIES Penicillin MEDICATIONS fluticasone (FLONASE) 50 mcg/actuation nasal spray Use 1 Sage in each nostril two times a day. sertraline (ZOLOFT) 50 mg tablet Take 1 tablet by mouth once daily. Take 0.5 tab daily x7 days then 1 full tab daily. amLODIPine (NORVASC) 10 mg tablet take 1 tablet by mouth every day albuterol HFA (PROVENTIL HFA, VENTOLIN HFA) 90 mcg/actuation inhaler Inhale 2 Puffs as instructed every 4 hours as needed for wheezing/shortness of breath. INTRAUTERINE DEVICE, IUD, INTRAUTERINE by INTRAUTERINE route. nitrofurantoin monohydrate and macrocrystal (MACROBID) 100 mg capsule Take 1 capsule by mouth two times a day for 5 days. FAMILY HISTORY Problem Relation Age of Onset Heart disease Father Alzheimer's Disease Maternal Grandmother Dementia Maternal Grandmother Dementia Paternal Grandmother Parkinson?s Disease Paternal Grandmother Heart disease Paternal Grandfather Social History Tobacco Use Smoking status: Never Smokeless tobacco: Never Substance Use Topics Alcohol use: Yes Comment: rare Drug use: Yes Types: Marijuana Comment: gummies occasionally Review of Systems Genitourinary: Positive for dysuria, frequency and urgency. Objective Physical Exam Vitals and nursing note reviewed. Constitutional: Appearance: Normal appearance. HENT: Head: Normocephalic. Nose: Nose normal. Mouth/Throat: Mouth: Mucous membranes are dry. Eyes: Extraocular Movements: Extraocular movements intact. Pupils: Pupils are equal, round, and reactive to light. Cardiovascular: Rate and Rhythm: Normal rate and regular rhythm. Pulses: Normal pulses. Pulmonary: Effort: Pulmonary effort is normal. Breath sounds: Normal breath sounds. Abdominal: General: Abdomen is flat. There is no distension. Palpations: Abdomen is soft. There is no mass. Tenderness: There is no abdominal tenderness. There is no right CVA tenderness, left CVA tenderness, guarding or rebound. Hernia: No hernia is present. Musculoskeletal: General: Normal range of motion. Cervical back: Normal range of motion. Lymphadenopathy: Cervical: No cervical adenopathy. Skin: General: Skin is warm. Capillary Refill: Capillary refill takes less than 2 seconds. Neurological: General: No focal deficit present. Mental Status: She is alert and oriented to person, place, and time. ASSESSMENT/PLAN: 1. Urinary frequency - ICD9: 788.41, ICD10: R35.0 acute - UA positive for daphne esterase, hematuria, and proteinuria - Send urine for culture - Begin treatment with Macrobid 100 mg BID for 7 days - Patient education for prevention given - UA DIP, URINE (POC) - URINE CULTURE Mariaelena Barker APRN.AUTOMOTIVE SERVICE DIRECTOR Allergies As of Date: 05/05/2024 Noted Allergy Reaction PENICILLIN 04/19/2018 16 - Unknown Comments: Childhood allergy. Pt unsure of reaction. Date Reviewed: 05/05/2024 Reviewed by: Mary Blankenship LPN - Fully Assessed Reason for Visit: Urinary Frequency [1086] Cmt: Frequency, urgency and burning x 1 day Primary Visit Diagnosis:Urinary fr (more content not included)... Normal [facility] UA DIP, URINE (POC)on 2023 BILIRUBIN UA (POCT) Negative Negative [facility] CLARITY UA (POCT) Turbid [facility] COLOR UA (POCT) Dark yellow [facility] GLUCOSE UA (POCT) Negative Negative mg/dL [facility] Hemoglobin Ql (U) Large Abnormal Negative [facility] Interpretation and review of laboratory results Abnormal [facility] KETONE UA (POCT) Trace Negative mg/dL [facility] LEUKOCYTES UA (POCT) Small Abnormal Negative [facility] NITRITE UA (POCT) Negative Negative [facility] PH UA (POCT) 5.5 4.5 - 8.0 [facility] Protein Ql (U) 100 mg/dL Abnormal Negative [facility] SPECIFIC GRAVITY UA (POCT) >=1.030 1.005 - 1.030 [facility] UROBILINOGEN UA (POCT) 0.2 Normal E.U./dL [facility] Location:[address], [place], [place], [address] [place] [address] POINT OF CARE [facility] BERE FIORE ([id number]) 1985 F Date Time Provider Department 05/02/24 SHER STARKS [facility] During your visit today, we recorded the following information about you: Sher Starks MD 05/02/2024 9:07 AM Signed Let patient know her repeat blood count was ok. Rebekah Kaur MA 05/02/2024 9:17 AM Signed Left message on confidential vm Rebekah Kaur MA Allergies As of Date: 05/02/2024 Noted Allergy Reaction PENICILLIN 04/19/2018 16 - Unknown Comments: Childhood allergy. Pt unsure of reaction. Date Reviewed: 02/19/2024 Reviewed by: Arjun Mckinney MA - Fully Assessed Reason for Visit: Results [95] Prescriptions as of 05/02/2024 - fluticasone (FLONASE) 50 mcg/actuation nasal spray Use 1 Sage in each nostril two times a day. - sertraline (ZOLOFT) 50 mg tablet Take 1 tablet by mouth once daily. Take 0.5 tab daily x7 days then 1 full tab daily. - amLODIPine (NORVASC) 10 mg tablet take 1 tablet by mouth every day - albuterol HFA (PROVENTIL HFA, VENTOLIN HFA) 90 mcg/actuation inhaler Inhale 2 Puffs as instructed every 4 hours as needed for wheezing/shortness of breath. - INTRAUTERINE DEVICE, IUD, INTRAUTERINE by INTRAUTERINE route. Problem List As Of Date 05/02/2024 Noted Resolved Chronic hypertension with superimposed pre-ecla*07/05/2018 37 weeks gestation of [Z3A.37] 10/28/2019 10/28/2019 Rh negative status during in third tr*10/28/2019 10/05/2021 Advanced maternal age in multigravida, third tr*10/28/2019 10/05/2021 Chronic hypertension [I10] 10/28/2019 Encounter for induction of labor [Z34.90] 10/28/2019 10/05/2021 History of pre-eclampsia in prior , cu*10/28/2019 10/05/2021 Morbid obesity (HCC) [E66.01] 10/28/2019 10/05/2021 Short interval between pregnancies affecting pr*10/28/2019 10/05/2021 Oxygen desaturation [R09.02] 10/29/2019 10/05/2021 Threatened labor [O47.9] 10/31/2019 10/05/2021 Hydronephrosis with renal and ureteral calculou*07/20/2017 10/05/2021 Encounter Status:Closed by REBEKAH KAUR on 05/02/[address] [facility] CBC W Auto Differential pane l (Bld)on 05-01-2024 Basophils (Bld) [#/Vol] 0.08 10*3/uL Normal <0.11 [facility] Comment on above: Order Comment: Speci men Type: BLOOD SPECIMENOrdering Facility: [facility] Address: [address] [place] [address] Performed By: #### 5 7021-8 ####[facility] LABCLIA [id number] [place] [address] [place] Basophils/100 WBC (Bld) 0.7 % Normal [facility] Comment on above: Order Comment: Speci men Type: BLOOD SPECIMENOrdering Facility: [facility] Address: [address] [place] [address] Performed By: #### 5 7021-8 ####[facility] LABCLIA [id number] [place] [address] [place] Differential cell count method Nom (Bld) Auto Normal [facility] Comment on above: Order Comment: Speci men Type: BLOOD SPECIMENOrdering Facility: [facility] Address: [address] [place] [address] Performed By: #### 5 7021-8 ####[facility] LABCLIA [id number] [place] [address] [place] Eosinophils (Bld) [#/Vol] 0.21 10*3/uL Normal <0.46 [facility] Comment on above: Order Comment: Speci men Type: BLOOD SPECIMENOrdering Facility: [facility] Address: [address] [place] [address] Performed By: #### 5 7021-8 ####[facility] LABCLIA [id number] [place] [address] [place] Eosinophils/100 WBC (Bld) 1.9 % Normal [facility] Comment on above: Order Comment: Speci men Type: BLOOD SPECIMENOrdering Facility: [facility] Address: [address] [place] [address] Performed By: #### 5 7021-8 ####[facility] LABCLIA [id number] [place] [address] [place] Erythrocyte distribution width (RBC) [Ratio] 14.1 % Normal 11.5-15.0 [facility] Comment on above: Order Comment: Speci men Type: BLOOD SPECIMENOrdering Facility: [facility] Address: [address] [place] [address] Performed By: #### 5 7021-8 ####[facility] LABCLIA [id number] [place] [address] [place] Hematocrit (Bld) [Volume fraction] 43.5 % Normal 36.0-46.0 [facility] Comment on above: Order Comment: Speci men Type: BLOOD SPECIMENOrdering Facility: [facility] Address: [address] [place] [address] Performed By: #### 5 7021-8 ####[facility] LABCLIA [id number] [place] [address] [place] Hemoglobin (Bld) [Mass/Vol] 14.2 g/dL Normal 11.5-15.5 [facility] Comment on above: Order Comment: Speci men Type: BLOOD SPECIMENOrdering Facility: [facility] Address: [address] [place] [address] Performed By: #### 5 7021-8 ####[facility] LABCLIA [id number] [place] [address] [place] Immature granulocytes (Bld) [#/Vol] 10*3/uL Normal <0.10 [facility] Comment on above: Order Comment: Speci men Type: BLOOD SPECIMENOrdering Facility: [facility] Address: [address] [place] [address] Performed By: #### 5 7021-8 ####[facility] LABCLIA [id number] [place] [address] [place] Immature granulocytes/100 WBC (Bld) 0.2 % Normal [facility] Comment on above: Order Comment: Speci men Type: BLOOD SPECIMENOrdering Facility: [facility] Address: [address] [place] [address] Performed By: #### 5 7021-8 ####[facility] LABCLIA [id number] [place] [address] [place] Lymphocytes (Bld) [#/Vol] 3.61 10*3/uL Normal 1.00-4.00 [facility] Comment on above: Order Comment: Speci men Type: BLOOD SPECIMENOrdering Facility: [facility] Address: [address] [place] [address] Performed By: #### 5 7021-8 ####[facility] LABCLIA [id number] [place] [address] [place] Lymphocytes/100 WBC (Bld) 32.6 % Normal [facility] Comment on above: Order Comment: Speci men Type: BLOOD SPECIMENOrdering Facility: [facility] Address: [address] [place] [address] Performed By: #### 5 7021-8 ####[facility] LABCLIA [id number] [place] [address] [place] MCH (RBC) [Entitic mass] 29.3 pg Normal 26.0-34.0 [facility] Comment on above: Order Comment: Speci men Type: BLOOD SPECIMENOrdering Facility: [facility] Address: [address] [place] [address] Performed By: #### 5 7021-8 ####[facility] LABCLIA [id number] [place] [address] [place] MCHC (RBC) [Mass/Vol] 32.6 g/dL Normal 30.5-36.0 [facility] Comment on above: Order Comment: Speci men Type: BLOOD SPECIMENOrdering Facility: [facility] Address: [address] [place] [address] Performed By: #### 5 7021-8 ####[facility] LABCLIA [id number] [place] [address] [place] MCV (RBC) [Entitic vol] 89.9 fL Normal 80.0-100.0 [facility] Comment on above: Order Comment: Speci men Type: BLOOD SPECIMENOrdering Facility: [facility] Address: [address] [place] [address] Performed By: #### 5 7021-8 ####[facility] LABCLIA [id number] [place] [address] [place] Monocytes (Bld) [#/Vol] 0.77 10*3/uL Normal <0.87 [facility] Comment on above: Order Comment: Speci men Type: BLOOD SPECIMENOrdering Facility: [facility] Address: [address] [place] [address] Performed By: #### 5 7021-8 ####[facility] LABCLIA [id number] [place] [address] [place] Monocytes/100 WBC (Bld) 7.0 % Normal [facility] Comment on above: Order Comment: Speci men Type: BLOOD SPECIMENOrdering Facility: [facility] Address: [address] [place] [address] Performed By: #### 5 7021-8 ####[facility] LABCLIA [id number] [place] [address] [place] Neutrophils (Bld) [#/Vol] 6.38 10*3/uL Normal 1.45-7.50 [facility] Comment on above: Order Comment: Speci men Type: BLOOD SPECIMENOrdering Facility: [facility] Address: [address] [place] [address] Performed By: #### 5 7021-8 ####[facility] LABCLIA [id number] [place] [address] [place] Neutrophils/100 WBC (Bld) 57.6 % Normal [facility] Comment on above: Order Comment: Speci men Type: BLOOD SPECIMENOrdering Facility: [facility] Address: [address] [place] [address] Performed By: #### 5 7021-8 ####[facility] LABIA [id number] [place] [address] [place] Nucleated RBC (Bld) [#/Vol] 10*3/uL Normal <0.01 [facility] Comment on above: Order Comment: Speci men Type: BLOOD SPECIMENOrdering Facility: [facility] Address: [address] [place] [address] Performed By: #### 5 7021-8 ####[facility] LABIA [id number] [place] [address] [place] Nucleated RBC/100 WBC (Bld) [Ratio] 0.0 /100 WBC Normal [facility] Comment on above: Order Comment: Speci men Type: BLOOD SPECIMENOrdering Facility: [facility] Address: [address] [place] [address] Performed By: #### 5 7021-8 ####[facility] LABCLIA [id number] [place] [address] [place] Platelet mean volume (Bld) [Entitic vol] 9.6 fL Normal 9.0-12.7 [facility] Comment on above: Order Comment: Speci men Type: BLOOD SPECIMENOrdering Facility: [facility] Address: [address] [place] [address] Performed By: #### 5 7021-8 ####[facility] LABCLIA [id number] [place] [address] [place] Platelets (Bld) [#/Vol] 376 10*3/uL Normal 150-400 [facility] Comment on above: Order Comment: Speci men Type: BLOOD SPECIMENOrdering Facility: [facility] Address: [address] [place] [address] Performed By: #### 5 7021-8 ####[facility] LABIA [id number] [place] [address] [place] RBC (Bld) [#/Vol] 4.84 10*6/uL Normal 3.90-5.20 [facility] Comment on above: Order Comment: Speci men Type: BLOOD SPECIMENOrdering Facility: [facility] Address: [address] [place] [address] Performed By: #### 5 7021-8 ####[facility] LABIA [id number] [place] [address] [place] WBC (Bld) [#/Vol] 11.07 10*3/uL High 3.70-11.00 [facility] Comment on above: Order Comment: Speci men Type: BLOOD SPECIMENOrdering Facility: [facility] Address: [address] [place] [address] Performed By: #### 5 7021-8 ####[facility] [id number] [place] [address] [place] 02-22-2024 [facility] Telephone ([facility]) BERE FIORE ([id number]) 1985 F Date Time Provider Department 02/22/24 TRE MAIN During your visit today, we recorded the following information about you: Debora Ruiz 02/22/2024 1:13 PM Addendum Bere has her spouse Edgar calling Tre Main APRN.CNP today to request the medication Zoloft discussed at new patient appointment on 02/19/2024. Per spouse Edgar this was to be sent to pharmacy [facility] in [place] on [address] [facility] Please call patient spouse, Edgar to advise when RX has been sent to pharmacy at Edgar cell phone only [phone] Patient has been identified by name and birthdate. Duration of symptoms: ongoing Person calling: spouse: Edgar Please call patient spouse,patient does not answer her phone Was an appointment scheduled: No Closing statement: Results or non-symptom based questions: Thank you for calling [facility], your call will be returned within the next business day. [facility] APRN.CNP 02/22/2024 1:36 PM Signed Please let know rx has been sent. Tre Main APRN.CNP 02/22/2024 1:36 PM Signed Addended by: TRE MAIN on: 02/22/2024 01:36 PM Modules accepted: Orders Arjun Mckinney MA 02/22/2024 1:48 PM Signed Edgar notified and verbalized understanding Arjun Mckinney MA Allergies As of Date: 02/22/2024 Noted Allergy Reaction PENICILLIN 04/19/2018 16 - Unknown Comments: Childhood allergy. Pt unsure of reaction. Date Reviewed: 02/19/2024 Reviewed by: Arjun Mckinney MA - Fully Assessed Reason for Visit: Medication Request [138] Primary Visit Diagnosis:AMANDA (generalized anxiety disorder) [F41.1] Order(s):sertraline (ZOLOFT) 50 mg tabletTake 1 tablet by mouth once daily. Take 0.5 tab daily x7 days then 1 full tab daily.Disp: 60 tabletRfl: 0 Prescriptions as of 02/22/2024 - sertraline (ZOLOFT) 50 mg tablet Take 1 tablet by mouth once daily. Take 0.5 tab daily x7 days then 1 full tab daily. - albuterol HFA (PROVENTIL HFA, VENTOLIN HFA) 90 mcg/actuation inhaler Inhale 2 Puffs as instructed every 4 hours as needed for wheezing/shortness of breath. - amLODIPine (NORVASC) 10 mg tablet Take 1 tablet by mouth once daily. - fluticasone (FLONASE) 50 mcg/actuation nasal spray Use 1 Sage in each nostril twice daily. - INTRAUTERINE DEVICE, IUD, INTRAUTERINE by INTRAUTERINE route. Problem List As Of Date 02/22/2024 Noted Resolved Chronic hypertension with superimposed pre-ecla*07/05/2018 37 weeks gestation of [Z3A.37] 10/28/2019 10/28/2019 Rh negative status during in third tr*10/28/2019 10/05/2021 Advanced maternal age in multigravida, third tr*10/28/2019 10/05/2021 Chronic hypertension [I10] 10/28/2019 Encounter for induction of labor [Z34.90] 10/28/2019 10/05/2021 History of pre-eclampsia in prior , cu*10/28/2019 10/05/2021 Morbid obesity (HCC) [E66.01] 10/28/2019 10/05/2021 Short interval between pregnancies affecting pr*10/28/2019 10/05/2021 Oxygen desaturation [R09.02] 10/29/2019 10/05/2021 Threatened labor [O47.9] 10/31/2019 10/05/2021 Hydronephrosis with renal and ureteral calculou*07/20/2017 10/05/2021 Prescriptions ordered this encounter Disp Refills Start End SERTRALINE 50 MG TABLET 60 t* 0 02/22/2024 Route: ORAL Sig: Take 1 tablet by mouth once daily. Take 0.5 tab daily x7 days then 1 full tab daily. Encounter Status:Closed by TRE MAIN on 02/22/24 [facility] [place] 02-20-2024 [facility] Telephone ([facility]) BERE FIORE ([id number]) 1985 F Date Time Provider Department 02/20/24 TRE MAIN During your visit today, we recorded the following information about you: Tre Main APRN.AUTOMOTIVE SERVICE DIRECTOR 02/20/2024 9:24 AM Signed Please let patient know her labs show elevated platelets. I would like her to repeat her blood count in 1 month. Shefali Doe, FERNANDO 02/20/2024 9:45 AM Signed Called and left a voicemail for the Patient to call back and ask for a nurse to receive the providers message. FERNANDO Verdugo Laurie Lynn, LPN 02/20/2024 10:39 AM Signed Spoke with pt and information listed below given. Pt verbalizes understanding. Harini Guadarrama LPN Allergies As of Date: 02/20/2024 Noted Allergy Reaction PENICILLIN 04/19/2018 16 - Unknown Comments: Childhood allergy. Pt unsure of reaction. Date Reviewed: 02/19/2024 Reviewed by: Arjun Mckinney MA - Fully Assessed Reason for Visit: Results [95] Primary Visit Diagnosis:Elevated platelet count [R79.89] Order(s):CBC + DIFF [SQCBCDIF] Order #: [id number] FUTURE Prescriptions as of 02/20/2024 - albuterol HFA (PROVENTIL HFA, VENTOLIN HFA) 90 mcg/actuation inhaler Inhale 2 Puffs as instructed every 4 hours as needed for wheezing/shortness of breath. - amLODIPine (NORVASC) 10 mg tablet Take 1 tablet by mouth once daily. - fluticasone (FLONASE) 50 mcg/actuation nasal spray Use 1 Sage in each nostril twice daily. - INTRAUTERINE DEVICE, IUD, INTRAUTERINE by INTRAUTERINE route. Problem List As Of Date 02/20/2024 Noted Resolved Chronic hypertension with superimposed pre-ecla*07/05/2018 37 weeks gestation of [Z3A.37] 10/28/2019 10/28/2019 Rh negative status during in third tr*10/28/2019 10/05/2021 Advanced maternal age in multigravida, third tr*10/28/2019 10/05/2021 Chronic hypertension [I10] 10/28/2019 Encounter for induction of labor [Z34.90] 10/28/2019 10/05/2021 History of pre-eclampsia in prior , cu*10/28/2019 10/05/2021 Morbid obesity (HCC) [E66.01] 10/28/2019 10/05/2021 Short interval between pregnancies affecting pr*10/28/2019 10/05/2021 Oxygen desaturation [R09.02] 10/29/2019 10/05/2021 Threatened labor [O47.9] 10/31/2019 10/05/2021 Hydronephrosis with renal and ureteral calculou*07/20/2017 10/05/2021 Encounter Status:Closed by HARINI GUADARRAMA on 02/20/24 Normal [facility] CBC W Auto Differential pane l (Bld)on 02-19-2024 Basophils (Bld) [#/Vol] 0.07 10*3/uL Normal <0.11 [facility] Comment on above: Order Comment: Speci men Type: BLOOD SPECIMENOrdering Facility: [facility] Address: [address] [place] [address] Performed By: #### 5 7021-8 ####[facility] LABCLIA [id number] [place] [address] [place] Basophils/100 WBC (Bld) 0.8 % Normal [facility] Comment on above: Order Comment: Speci men Type: BLOOD SPECIMENOrdering Facility: [facility] Address: [address] [place] [address] Performed By: #### 5 7021-8 ####[facility] LABCLIA [id number] [place] [address] [place] Differential cell count method Nom (Bld) Auto Normal [facility] Comment on above: Order Comment: Speci men Type: BLOOD SPECIMENOrdering Facility: [facility] Address: [address] [place] [address] Performed By: #### 5 7021-8 ####[facility] LABCLIA [id number] [place] [address] [place] Eosinophils (Bld) [#/Vol] 0.21 10*3/uL Normal <0.46 [facility] Comment on above: Order Comment: Speci men Type: BLOOD SPECIMENOrdering Facility: [facility] Address: [address] [place] [address] Performed By: #### 5 7021-8 ####[facility] LABCLIA [id number] [place] [address] [place] Eosinophils/100 WBC (Bld) 2.5 % Normal [facility] Comment on above: Order Comment: Speci men Type: BLOOD SPECIMENOrdering Facility: [facility] Address: [address] [place] [address] Performed By: #### 5 7021-8 ####[facility] LABCLIA [id number] [place] [address] [place] Erythrocyte distribution width (RBC) [Ratio] 13.3 % Normal 11.5-15.0 [facility] Comment on above: Order Comment: Speci men Type: BLOOD SPECIMENOrdering Facility: [facility] Address: [address] [place] [address] Performed By: #### 5 7021-8 ####[facility] LABCLIA [id number] [place] [address] [place] Hematocrit (Bld) [Volume fraction] 46.8 % High 36.0-46.0 [facility] Comment on above: Order Comment: Speci men Type: BLOOD SPECIMENOrdering Facility: [facility] Address: [address] [place] [address] Performed By: #### 5 7021-8 ####[facility] LABCLIA [id number] [place] [address] [place] Hemoglobin (Bld) [Mass/Vol] 15.1 g/dL Normal 11.5-15.5 [facility] Comment on above: Order Comment: Speci men Type: BLOOD SPECIMENOrdering Facility: [facility] Address: [address] [place] [address] Performed By: #### 5 7021-8 ####[facility] LABCLIA [id number] [place] [address] [place] Immature granulocytes (Bld) [#/Vol] 10*3/uL Normal <0.10 [facility] Comment on above: Order Comment: Speci men Type: BLOOD SPECIMENOrdering Facility: [facility] Address: [address] [place] [address] Performed By: #### 5 7021-8 ####[facility] LABCLIA [id number] [place] [address] [place] Immature granulocytes/100 WBC (Bld) 0.2 % Normal [facility] Comment on above: Order Comment: Speci men Type: BLOOD SPECIMENOrdering Facility: [facility] Address: [address] [place] [address] Performed By: #### 5 7021-8 ####[facility] LABCLIA [id number] [place] [address] [place] Lymphocytes (Bld) [#/Vol] 2.81 10*3/uL Normal 1.00-4.00 [facility] Comment on above: Order Comment: Speci men Type: BLOOD SPECIMENOrdering Facility: [facility] Address: [address] [place] [address] Performed By: #### 5 7021-8 ####[facility] LABCLIA [id number] [place] [address] [place] Lymphocytes/100 WBC (Bld) 33.7 % Normal [facility] Comment on above: Order Comment: Speci men Type: BLOOD SPECIMENOrdering Facility: [facility] Address: [address] [place] [address] Performed By: #### 5 7021-8 ####[facility] LABIA [id number] [place] [address] [place] MCH (RBC) [Entitic mass] 28.4 pg Normal 26.0-34.0 [facility] Comment on above: Order Comment: Speci men Type: BLOOD SPECIMENOrdering Facility: [facility] Address: [address] [place] [address] Performed By: #### 5 7021-8 ####[facility] LABIA [id number] [place] [address] [place] MCHC (RBC) [Mass/Vol] 32.3 g/dL Normal 30.5-36.0 [facility] Comment on above: Order Comment: Speci men Type: BLOOD SPECIMENOrdering Facility: [facility] Address: [address] [place] [address] Performed By: #### 5 7021-8 ####[facility] [id number] [place] [address] [place] MCV (RBC) [Entitic vol] 88.0 fL Normal 80.0-100.0 [facility] Comment on above: Order Comment: Speci men Type: BLOOD SPECIMENOrdering Facility: [facility] Address: [address] [place] [address] Performed By: #### 5 7021-8 ####[facility] [id number] [place] [address] [place] Monocytes (Bld) [#/Vol] 0.51 10*3/uL Normal <0.87 [facility] Comment on above: Order Comment: Speci men Type: BLOOD SPECIMENOrdering Facility: [facility] Address: [address] [place] [address] Performed By: #### 5 7021-8 ####[facility] LABIA [id number] [place] [address] [place] Monocytes/100 WBC (Bld) 6.1 % Normal [facility] Comment on above: Order Comment: Speci men Type: BLOOD SPECIMENOrdering Facility: [facility] Address: [address] [place] [address] Performed By: #### 5 7021-8 ####[facility] LABCLIA [id number] [place] [address] [place] Neutrophils (Bld) [#/Vol] 4.72 10*3/uL Normal 1.45-7.50 [facility] Comment on above: Order Comment: Speci men Type: BLOOD SPECIMENOrdering Facility: [facility] Address: [address] [place] [address] Performed By: #### 5 7021-8 ####[facility] LABCLIA [id number] [place] [address] [place] Neutrophils/100 WBC (Bld) 56.7 % Normal [facility] Comment on above: Order Comment: Speci men Type: BLOOD SPECIMENOrdering Facility: [facility] Address: [address] [place] [address] Performed By: #### 5 7021-8 ####[facility] LABCLIA [id number] [place] [address] [place] Nucleated RBC (Bld) [#/Vol] 10*3/uL Normal <0.01 [facility] Comment on above: Order Comment: Speci men Type: BLOOD SPECIMENOrdering Facility: [facility] Address: [address] [place] [address] Performed By: #### 5 7021-8 ####[facility] LABCLIA [id number] [place] [address] [place] Nucleated RBC/100 WBC (Bld) [Ratio] 0.0 /100 WBC Normal [facility] Comment on above: Order Comment: Speci men Type: BLOOD SPECIMENOrdering Facility: [facility] Address: [address] [place] [address] Performed By: #### 5 7021-8 ####[facility] LABCLIA [id number] [address] [address] [place] Platelet mean volume (Bld) [Entitic vol] 9.0 fL Normal 9.0-12.7 [facility] Comment on above: Order Comment: Speci men Type: BLOOD SPECIMENOrdering Facility: [facility] Address: [address] [place] [address] Performed By: #### 5 7021-8 ####[facility] LABCLIA [id number] [place] [address] [place] Platelets (Bld) [#/Vol] 435 10*3/uL High 150-400 [facility] Comment on above: Order Comment: Speci men Type: BLOOD SPECIMENOrdering Facility: [facility] Address: [address] [place] [address] Performed By: #### 5 7021-8 ####[facility] LABIA [id number] [place] [address] [place] RBC (Bld) [#/Vol] 5.32 10*6/uL High 3.90-5.20 [facility] Comment on above: Order Comment: Speci men Type: BLOOD SPECIMENOrdering Facility: [facility] Address: [address] [place] [address] Performed By: #### 5 7021-8 ####[facility] LABIA [id number] [place] [address] [place] WBC (Bld) [#/Vol] 8.34 10*3/uL Normal 3.70-11.00 [facility] Comment on above: Order Comment: Speci men Type: BLOOD SPECIMENOrdering Facility: [facility] Address: [address] [place] [address] Performed By: #### 5 7021-8 ####[facility] LABIA [id number] [place] [address] [place] [facility] CNOVon 02-19-2024 CNOV Office Visit (FAMPWS ) BERE FIORE ([id number]) 1985 F Date Time Provider Department 02/19/24 8:00 [facility] During your visit today, we recorded the following information about you: Pulse Respiration Blood pressure Weight 88/minute 14/minute 128/80 122.5 kg Tre Main APRN.AUTOMOTIVE SERVICE DIRECTOR 02/19/2024 8:33 AM Signed Chief Complaint Patient presents with: [facility] HPI Bere Fiore is a 38 year old female who presents here today for Above Complaints.. Patient presents to establish [facility]. Patient reports she has intermittent chest tightness/pain with numbness to fingers as well as having periods of overstimulated. Has seen cardiology and had workup to r/o cardiac issues which was negative. Past medical history, appointments, medications, allergies reviewed. Previous Medical History PAST MEDICAL HISTORY Diagnosis Date Advanced maternal age in multigravida, third trimester 10/28/2019 -Declined genetic testing -Anatomy wnl per patient Chronic hypertension Encounter for induction of labor 10/28/2019 -GBS negative -S/p Cytotecx1 and FB -Epi in -S/p AROM 2300 on 10/28, clear fluid -Pit per protocol -PPBC: desires immediate PP Mirena. History of pre-eclampsia in prior , currently 10/28/2019 -History of pre-eclampsia with features at 39 weeks -Diagnosed with CHTN following pregancy -On bASA this Hydronephrosis with renal and ureteral calculous obstruction 07/20/2017 Morbid obesity (HCC) 10/28/2019 -BMI 40 on admission -Growth US at 35w 55%, EFW around 6# per pt -H/o 6#13oz -Abnormal 1hr GCT, 3hr GTT wnl -SCDs ordered Oxygen desaturation 10/29/2019 -O2 saturation intermittently decreased to 93% during/after epidural -Improves to 95-96% with deep breaths -CXR negative -Incentive spirometer ordered -Nasal spray ordered for upper respiratory congestion Rh negative status during in third trimester 10/28/2019 -S/p Rhogam 08/23/19 -Rhogam as indicated Previous Surgical History PAST SURGICAL HISTORY Procedure Laterality Date NONE Family History FAMILY HISTORY Problem Relation Age of Onset Heart disease Father Alzheimer's Disease Maternal Grandmother Dementia Maternal Grandmother Dementia Paternal Grandmother Parkinson?s Disease Paternal Grandmother Patient Allergies ALLERGIES Allergen Reactions Penicillin Unknown Childhood allergy. Pt unsure of reaction. Current Medications Current Outpatient Medications on File Prior to Visit Medication Sig albuterol HFA (PROVENTIL HFA, VENTOLIN HFA) 90 mcg/actuation inhaler Inhale 2 Puffs as instructed every 4 hours as needed for wheezing/shortness of breath. amLODIPine (NORVASC) 10 mg tablet Take 1 tablet by mouth once daily. fluticasone (FLONASE) 50 mcg/actuation nasal spray Use 1 Sage in each nostril twice daily. INTRAUTERINE DEVICE, IUD, INTRAUTERINE by INTRAUTERINE route. No current facility-administered medications on file prior to visit. Social History Social History Tobacco Use Smoking status: Never Smokeless tobacco: Never Substance Use Topics Alcohol use: Yes Comment: rare Drug use: Yes Types: Marijuana Comment: gummies Review of Symptoms REVIEW OF SYSTEMS GENERAL: No weight loss, malaise or fevers HEENT: No changes in hearing or vision, no nose bleeds or other nasal problems NECK: Negative for lumps, goiter, pain and significant neck swelling RESPIRATORY: Cough; dry CARDIOVASCULAR: leg swelling, improves with elevation GI: Positive for diarrhea : No history of dysuria, frequency or incontinence SENIOR ENERGY MARKET COORDINATOR: Negative for abnormal vaginal bleeding, abnormal vaginal discharge MUSCULOSKELETAL: joint pain or swelling, back pain, and muscle pain SKIN: Negative for lesions, rash, and itching PSYCH: Positive for depression: and anxiety: HEMATOLOGY/LYMPHOLOGY: Negative for prolonged bleeding, bruising easily or swollen nodes ENDOCRINE: Negative for cold or heat intolerance, polyuria, polydipsia and goiter NEURO: No history of headaches, syncope, paralysis, seizures or tremors EXAM: BP 128/80 Pulse 88 Resp 14 Wt 122.5 kg (270 lb) BMI 42.29 kg/m? General Appearance: Well appearing, alert, in no acute distress, well-hydrated, well nourished.. Skin: Skin color, texture, turgor normal, no suspicious rashes or lesions. Neck: Supple, no adenopathy; thyroid symmetric, normal size, no bruits. Lungs: Lungs clear to auscultation. No wheezing, rhonchi, rales.. Heart: RRR without murmur, gallop, or rubs. No ectopy. Abdomen: Normal abdominal exam, Abdomen soft, non-tender. Bowel sounds normal. No masses, organomegaly Extremities: No deformities, edema, skin discoloration, clubbing or cyanosis. Good capillary refill. . Peripheral Pulses: Normal. Neurologic: Gait normal. Reflexes normal and symmetric. Sensation grossly intact. (more content not included)... Normal [facility] Comprehensive metabolic 2000 panelon 02-19-2024 Albumin [Mass/Vol] 4.0 g/dL Normal 3.9-4.9 [facility] Comment on above: Order Comment: Speci men Type: BLOOD SPECIMENOrdering Facility: [facility] Address: [address] [place] [address] Performed By: #### 2 4323-8 ####[facility] LABCLIA [id number] [place] [address] [place] ALP [Catalytic activity/Vol] 89 U/L Normal 34-123 [facility] Comment on above: Order Comment: Speci men Type: BLOOD SPECIMENOrdering Facility: [facility] Address: [address] [place] [address] Performed By: #### 2 4323-8 ####[facility] LABCLIA [id number] [place] [address] [place] ALT [Catalytic activity/Vol] 39 U/L High 7-38 [facility] Comment on above: Order Comment: Speci men Type: BLOOD SPECIMENOrdering Facility: [facility] Address: [address] [place] [address] Performed By: #### 2 4323-8 ####[facility] LABCLIA [id number] [place] [address] [place] Anion gap [Moles/Vol] 11 mmol/L Normal 9-18 [facility] Comment on above: Order Comment: Speci men Type: BLOOD SPECIMENOrdering Facility: [facility] Address: [address] [place] [address] Performed By: #### 2 4323-8 ####[facility] LABCLIA [id number] [place] [address] [place] AST [Catalytic activity/Vol] 24 U/L Normal 13-35 [facility] Comment on above: Order Comment: Speci men Type: BLOOD SPECIMENOrdering Facility: [facility] Address: [address] [place] [address] Performed By: #### 2 4323-8 ####[facility] LABCLIA [id number] [place] [address] [place] Bilirubin [Mass/Vol] 0.7 mg/dL Normal 0.2-1.3 [facility] Comment on above: Order Comment: Speci men Type: BLOOD SPECIMENOrdering Facility: [facility] Address: [address] [place] [address] Performed By: #### 2 4323-8 ####[facility] LABCLIA [id number] [place] [address] [place] Calcium [Mass/Vol] 9.6 mg/dL Normal 8.5-10.2 [facility] Comment on above: Order Comment: Speci men Type: BLOOD SPECIMENOrdering Facility: [facility] Address: [address] [place] [address] Performed By: #### 2 4323-8 ####[facility] LABCLIA [id number] [place] [address] [place] Chloride [Moles/Vol] 104 mmol/L Normal 97-105 [facility] Comment on above: Order Comment: Speci men Type: BLOOD SPECIMENOrdering Facility: [facility] Address: [address] [place] [address] Performed By: #### 2 4323-8 ####[facility] LABCLIA [id number] [place] [address] [place] CO2 [Moles/Vol] 29 mmol/L Normal 22-30 [facility] Comment on above: Order Comment: Speci men Type: BLOOD SPECIMENOrdering Facility: [facility] Address: [address] [place] [address] Performed By: #### 2 4323-8 ####[facility] LABIA [id number] [place] [address] [place] Creatinine [Mass/Vol] 0.69 mg/dL Normal 0.58-0.96 [facility] Comment on above: Order Comment: Speci men Type: BLOOD SPECIMENOrdering Facility: [facility] Address: [address] [place] [address] Performed By: #### 2 4323-8 ####[facility] LABIA [id number] [place] [address] [place] Creatinine and Glomerular filtration rate.predicted panel (S/P/Bld) 113 mL/min/1.73m??? Normal >=60 [facility] Comment on above: Order Comment: Speci men Type: BLOOD SPECIMENOrdering Facility: [facility] Address: [address] [place] [address] Result Comment: Rosana mated Glomerular Filtration Rate (eGFR) is calculated using the 2020 CKD-EPI creatinine equation. This equation utilizes serum creatinine, sex, and age as parameters. The creatinine assay has traceable calibration to isotope dilution-mass spectrometry. Refer to KDIGO guidelines for clinical interpretation. In patients with unstable renal function, e.g. those with acute kidney injury, the eGFR may not accurately reflect actual GFR. Performed By: #### 2 4323-8 ####[facility] LABCLIA [id number] [place] [address] [place] Glucose [Mass/Vol] 95 mg/dL Normal 74-99 [facility] Comment on above: Order Comment: Speci men Type: BLOOD SPECIMENOrdering Facility: [facility] Address: [address] [place] [address] Result Comment: The [place] Diabetes Association (ADA) provides guidance for cutoff values for fasting glucose and random glucose. The ADA defines fasting as no caloric intake for at least 8 hours. Fasting plasma glucose results between 100 to 125 mg/dL indicate increased risk for diabetes (prediabetes). Fasting plasma glucose results greater than or equal to 126 mg/dL meet the criteria for diagnosis of diabetes. In the absence of unequivocal hyperglycemia, results should be confirmed by repeat testing. In a patient with classic symptoms of hyperglycemia or hyperglycemic crisis, random plasma glucose results greater than or equal to 200 mg/dL meet the criteria for diagnosis of diabetes. Reference: Standards of Medical Care in Diabetes 2016, [place] Diabetes Association. Diabetes Care. 2016.39(Suppl 1). Performed By: #### 2 4323-8 ####[facility] LABCLIA [id number] [place] [address] [place] Potassium [Moles/Vol] 3.9 mmol/L Normal 3.7-5.1 [facility] Comment on above: Order Comment: Aashish carson Type: BLOOD SPECIMENOrdering Facility: [facility] Address: [address] [place] [address] Performed By: #### 2 4323-8 ####[facility] LABCLIA [id number] [place] [address] [place] Protein [Mass/Vol] 7.1 g/dL Normal 6.3-8.0 [facility] Comment on above: Order Comment: Speci men Type: BLOOD SPECIMENOrdering Facility: [facility] Address: [address] [place], [place] [address] Performed By: #### 2 4323-8 ####[facility] LABCLIA [id number] [place] [address] [place] Sodium [Moles/Vol] 144 mmol/L Normal 136-144 [facility] Comment on above: Order Comment: Speci men Type: BLOOD SPECIMENOrdering Facility: [facility] Address: [address] [place] [address] Performed By: #### 2 4323-8 ####[facility] LABCLIA [id number] [place] [address] [place] Urea nitrogen [Mass/Vol] 11 mg/dL Normal 7-21 [facility] Comment on above: Order Comment: Speci men Type: BLOOD SPECIMENOrdering Facility: [facility] Address: [address] [place] [address] Performed By: #### 2 4323-8 ####[facility] LABCLIA [id number] [place] [address] [place] HbA1c (Bld)on 02-19-2024 Average glucose Estimated from glycated hemoglobin (Bld) [Mass/Vol] 100 mg/dL Normal [facility] Comment on above: Order Comment: Speci men Type: BLOOD SPECIMENOrdering Facility: [facility] Address: [address] [place] [address] Result Comment: eAG: (Estimated average glucose) is a calculated value from HgbA1c and is labor union business representative of the average blood glucose level in the last 2-3 month period. Performed By: #### 5 5454-3 ####[facility] LABCLIA [id number] [place] [address] [place] HbA1c (Bld) [Mass fraction] 5.1 % Normal 4.3-5.6 [facility] Comment on above: Order Comment: Speci men Type: BLOOD SPECIMENOrdering Facility: [facility] Address: [address] [place] [address] Result Comment: [place] Diabetes Association guidelines indicate that patients with HgbA1c in the range 5.7-6.4% are at increased risk for development of diabetes, and intervention by lifestyle modification may be beneficial. HgbA1c greater or equal to 6.5% is considered diagnostic of diabetes. Performed By: #### 5 5454-3 ####[facility] LABCLIA [id number] [place] [id number] [place] CNOVon 01-21-2024 CNOV Office Visit (UCWSTR ) BERE FIORE ([id number]) 1985 F Date Time Provider Department 01/21/24 10:45 AM SARAH FRANKLIN [facility] During your visit today, we recorded the following information about you: Temperature Pulse Respiration Blood pressure 98.4 degrees 98/minute 16/minute 132/84 Weight 123.1 kg Sarah Franklin PA 01/21/2024 11:16 AM Signed This note was created using [employer]. Subjective Bere Fiore is a 38 year old female. HPI 38-year-old female presents for productive cough, congestion, sinus pressure. Patient states she has had a productive cough for the past month. She has no history of COPD or asthma. States she has had some congestion over the past week or so and started getting sinus pressure this morning. She has not had any fevers. No vomiting or diarrhea or diarrhea. Her and children are also sick with similar symptoms. PAST MEDICAL HISTORY Diagnosis Date Advanced maternal age in multigravida, third trimester 10/28/2019 -Declined genetic testing -Anatomy wnl per patient Chronic hypertension Encounter for induction of labor 10/28/2019 -GBS negative -S/p Cytotecx1 and FB -Epi in -S/p AROM 2300 on 10/28, clear fluid -Pit per protocol -PPBC: desires immediate PP Mirena. History of pre-eclampsia in prior , currently 10/28/2019 -History of pre-eclampsia with features at 39 weeks -Diagnosed with CHTN following pregancy -On bASA this Hydronephrosis with renal and ureteral calculous obstruction 07/20/2017 Morbid obesity (HCC) 10/28/2019 -BMI 40 on admission -Growth US at 35w 55%, EFW around 6# per pt -H/o 6#13oz -Abnormal 1hr GCT, 3hr GTT wnl -SCDs ordered Oxygen desaturation 10/29/2019 -O2 saturation intermittently decreased to 93% during/after epidural -Improves to 95-96% with deep breaths -CXR negative -Incentive spirometer ordered -Nasal spray ordered for upper respiratory congestion Rh negative status during in third trimester 10/28/2019 -S/p Rhogam 08/23/19 -Rhogam as indicated PAST SURGICAL HISTORY Procedure Laterality Date NONE ALLERGIES Penicillin MEDICATIONS amLODIPine (NORVASC) 10 mg tablet Take 1 tablet by mouth once daily. fluticasone (FLONASE) 50 mcg/actuation nasal spray Use 1 Sage in each nostril twice daily. INTRAUTERINE DEVICE, IUD, INTRAUTERINE by INTRAUTERINE route. predniSONE (DELTASONE) 20 mg tablet Take 2 tablets by mouth once daily for 4 days. Take daily with food. doxycycline (VIBRA-TABS) 100 mg tablet Take 1 tablet by mouth two times a day for 7 days. albuterol HFA (PROVENTIL HFA, VENTOLIN HFA) 90 mcg/actuation inhaler Inhale 2 Puffs as instructed every 4 hours as needed for wheezing/shortness of breath. FAMILY HISTORY Problem Relation Age of Onset Heart disease Father Alzheimer's Disease Maternal Grandmother Dementia Maternal Grandmother Dementia Paternal Grandmother Parkinson?s Disease Paternal Grandmother Social History Tobacco Use Smoking status: Never Smokeless tobacco: Never Substance Use Topics Alcohol use: Yes Comment: rare Drug use: Yes Types: Marijuana Comment: gummies Review of Systems Constitutional: Negative for chills and fever. HENT: Positive for congestion and sinus pressure. Negative for ear pain and sore throat. Respiratory: Positive for cough. Negative for shortness of breath. Cardiovascular: Negative for chest pain. Gastrointestinal: Negative for diarrhea and vomiting. Objective BP 132/84 Pulse 98 Temp 36.9 ?C (98.4 ?F) Resp 16 Wt 123.1 kg (271 lb 6.2 oz) SpO2 98% BMI 42.51 kg/m? Physical Exam Vitals and nursing note reviewed. Constitutional: General: She is not in acute distress. Appearance: Normal appearance. She is not toxic-appearing. HENT: Right Ear: Tympanic membrane and ear canal normal. Left Ear: Tympanic membrane and ear canal normal. Nose: Congestion present. Right Sinus: Maxillary sinus tenderness present. Left Sinus: Maxillary sinus tenderness present. Mouth/Throat: Mouth: Mucous membranes are moist. Pharynx: No oropharyngeal exudate or posterior oropharyngeal erythema. Eyes: Conjunctiva/sclera: Conjunctivae normal. Cardiovascular: Rate and Rhythm: Normal rate and regular rhythm. Pulmonary: Effort: Pulmonary effort is normal. Breath sounds: Wheezing present. No rhonchi or rales. Neurological: Mental Status: She is alert. Assessment and Plan ASSESSMENT/PLAN: 1. Sinobronchitis - ICD9: 473.9, 490, ICD10: J32.9, J40 - Will begin treatment with Doxycycline -Rx for prednisone. Rx for albuterol inhaler. Wheezing noted on exam. -No XR available at time of exam. I am treating patient with doxycycline for sinobronchitis. -Advised if symptoms persist despite medications, she needs to follow-up with PCP or return. She understands - Supportive care with plenty (more content not included)... Normal [facility] CNOVon 01-02-2024 CNOV Office Visit (AGCARD POB) BERE FIORE ([id number]) 1985 F Date Time Provider Department 01/02/24 10:40 AM NAHEED MELGAR AGCARDPOB During your visit today, we recorded the following information about you: Pulse Blood pressure Weight Height 101/minute 140/83 120.7 kg 1.702 m Yodit Madrigal MA 01/02/2024 10:32 AM Signed Patient denies cardiac complaints or symptoms. Naheed Melgar MD 01/02/2024 11:02 AM Signed Cardiology Consult Office Note Referring provider: Stella Harvey APRN, CNP Reason for consultation: Family history of premature CAD HPI: Ms. Fiore is a 38 year old female with h/o Hypertension, family history of premature AK, morbid obesity (BMI 40). Patient denies any SOB or exertional CP or palpitation or syncope. She can walk around [employer] without stopping. Father had first AK in his 40s but he was a heavy smoker. Grandfather was diagnosed with severe CAD in his 70s. Previous cardiac testing: ECG today: mild LVH (aVL >=11 mm) Previous pertinent labs: Cholesterol, Total (mg/dL) Date Value 09/30/2023 187 HDL Cholesterol (mg/dL) Date Value 09/30/2023 38 LDL Cholesterol (mg/dL) Date Value 09/30/2023 131 Triglyceride (mg/dL) Date Value 09/30/2023 90 No results found for: PBNP No results found for: HBA1C Most recent labs: PMH: PAST MEDICAL HISTORY Diagnosis Date Advanced maternal age in multigravida, third trimester 10/28/2019 -Declined genetic testing -Anatomy wnl per patient Chronic hypertension Encounter for induction of labor 10/28/2019 -GBS negative -S/p Cytotecx1 and FB -Epi in -S/p AROM 2300 on 10/28, clear fluid -Pit per protocol -PPBC: desires immediate PP Mirena. History of pre-eclampsia in prior , currently 10/28/2019 -History of pre-eclampsia with features at 39 weeks -Diagnosed with CHTN following pregancy -On bASA this Hydronephrosis with renal and ureteral calculous obstruction 07/20/2017 Morbid obesity (HCC) 10/28/2019 -BMI 40 on admission -Growth US at 35w 55%, EFW around 6# per pt -H/o 6#13oz -Abnormal 1hr GCT, 3hr GTT wnl -SCDs ordered Oxygen desaturation 10/29/2019 -O2 saturation intermittently decreased to 93% during/after epidural -Improves to 95-96% with deep breaths -CXR negative -Incentive spirometer ordered -Nasal spray ordered for upper respiratory congestion Rh negative status during in third trimester 10/28/2019 -S/p Rhogam 08/23/19 -Rhogam as indicated PAST SURGICAL HISTORY Procedure Laterality Date NONE Allergies: ALLERGIES Allergen Reactions Penicillin Unknown Childhood allergy. Pt unsure of reaction. Social History: Social History Tobacco Use Smoking status: Never Smokeless tobacco: Never Substance Use Topics Alcohol use: Yes Comment: rare Drug use: Yes Types: Marijuana Comment: altagracia Family History: family history includes Alzheimer's Disease in her maternal grandmother; Dementia in her maternal grandmother and paternal grandmother; Heart disease in her father; Parkinson?s Disease in her paternal grandmother. ROS All 12 systems reviewed. All are negative except for what is noted in the HPI O/E: BP 140/83 (BP Site: Left Arm, BP Position: Sitting, BP Cuff Size: Large Adult) Pulse 101 Ht 5' 7 (1.702 m) Wt 266 lb 3.2 oz (120.7 kg) SpO2 95% BMI 41.69 kg/m? The pt is alert and oriented X 3 HEENT: No Icterus/Pale Conjunctiva/LAD CVS : RR, S1 - S2 heard, no murmurs, rubs or gallops appreciated, JVP not raised. PUL : CTA B/L. No wheezes/crackles heard ABD : BS +, soft. No tenderness elicited LE : No Edema. Distal Pulses palpable B/L Home Medications: Current Outpatient Medications on File Prior to Visit Medication Sig amLODIPine (NORVASC) 10 mg tablet Take 1 tablet by mouth once daily. fluticasone (FLONASE) 50 mcg/actuation nasal spray Use 1 Sage in each nostril twice daily. INTRAUTERINE DEVICE, IUD, INTRAUTERINE by INTRAUTERINE route. No current facility-administered medications on file prior to visit. Assessment FH of premature CAD (Father first AK in his 40s but heavy smoker) Morbid obesity HTN Mild LVH on ECG, likely related to morbid obesity. Recommendations/Plan: At this time I have low suspicion for high genetic predisposition for CAD since her father was a heavy smoker when he had his first AK. Her lipid is only borderline abnormal (LDL 131, HDL 38, TG 90, TC 187 in 09/2023), this confers to 10-year ASCVD risk 1.4 to 2.8%. No indication for statin yet. My recommendation for her to lose weight which will be the biggest modifiable risk factor to help her BP control and avoid future CVD risk including CAD and HF. Continue amlodipine 10 mg daily. No additional medication or work up needed for now. Patient can be seen as needed. Thank you for the referral Referring P (more content not included)... Normal [facility] Beka 12-19-2023 [facility] Tele[facility] (AGCARDPOB ) ADEBAYOBERE ([id number]) 1985 F Date Time Provider Department 12/19/23 AG CARD AGCARDPOB During your visit today, we recorded the following information about you: Kelley Lopez 12/19/2023 2:26 PM Signed Lvm to notify pt that the taran on 12/28/23 w/ Dr. Crawford has been cancelled and rescheduled for 01/02/24 @10:40 am in [place] w/ Dr. Melgar. Kelley Lopez December 19, 2023 2:26 PM Allergies As of Date: 12/19/2023 Noted Allergy Reaction PENICILLIN 04/19/2018 16 - Unknown Comments: Childhood allergy. Pt unsure of reaction. Date Reviewed: 10/24/2023 Reviewed by: Titus Mathews PA-C - Fully Assessed Reason for Visit: Appointment [[id number]] Prescriptions as of 12/19/2023 - amLODIPine (NORVASC) 10 mg tablet Take 1 tablet by mouth once daily. - fluticasone (FLONASE) 50 mcg/actuation nasal spray Use 1 Sage in each nostril twice daily. - INTRAUTERINE DEVICE, IUD, INTRAUTERINE by INTRAUTERINE route. Problem List As Of Date 12/19/2023 Noted Resolved Chronic hypertension with superimposed pre-ecla*07/05/2018 37 weeks gestation of [Z3A.37] 10/28/2019 10/28/2019 Rh negative status during in third tr*10/28/2019 10/05/2021 Advanced maternal age in multigravida, third tr*10/28/2019 10/05/2021 Chronic hypertension [I10] 10/28/2019 Encounter for induction of labor [Z34.90] 10/28/2019 10/05/2021 History of pre-eclampsia in prior , cu*10/28/2019 10/05/2021 Morbid obesity (HCC) [E66.01] 10/28/2019 10/05/2021 Short interval between pregnancies affecting pr*10/28/2019 10/05/2021 Oxygen desaturation [R09.02] 10/29/2019 10/05/2021 Threatened labor [O47.9] 10/31/2019 10/05/2021 Hydronephrosis with renal and ureteral calculou*07/20/2017 10/05/2021 Encounter Status:Closed by KELLEY LOPEZ on 12/19/[address] [facility] CNOVon 10-24-2023 CNOV Office Visit (UCWSTR ) BERE FIORE ([id number]) 1985 F Date Time Provider Department 10/24/23 1:00 PM TITUS MATHEWS [facility] During your visit today, we recorded the following information about you: Temperature Pulse Respiration Blood pressure 96.9 degrees 94/minute 18/minute 148/74 Weight 120.2 kg Titus Mathews PA-C 10/24/2023 2:48 PM Signed 10/24/2023 Patient presents with: Pain, Sinus: Pressure, congestion, headache, cough, x 1 week SUBJECTIVE: This is a 38 year old that is here today for Complaint(s) of sinus pressure and drainage x 1 week. + pain radiating to teeth now. She was having a cough, but that seems to be improving. Started afrin 2 days ago, taking q 12 hours mostly. Denies fever/chills, [place], SOB, wheezing, vomiting, diarrhea, sore throat, chest pain. PAST MEDICAL HISTORY Diagnosis Date Advanced maternal age in multigravida, third trimester 10/28/2019 -Declined genetic testing -Anatomy wnl per patient Chronic hypertension Encounter for induction of labor 10/28/2019 -GBS negative -S/p Cytotecx1 and FB -Epi in -S/p AROM 2300 on 10/28, clear fluid -Pit per protocol -PPBC: desires immediate PP Mirena. History of pre-eclampsia in prior , currently 10/28/2019 -History of pre-eclampsia with features at 39 weeks -Diagnosed with CHTN following pregancy -On bASA this Hydronephrosis with renal and ureteral calculous obstruction 07/20/2017 Morbid obesity (HCC) 10/28/2019 -BMI 40 on admission -Growth US at 35w 55%, EFW around 6# per pt -H/o 6#13oz -Abnormal 1hr GCT, 3hr GTT wnl -SCDs ordered Oxygen desaturation 10/29/2019 -O2 saturation intermittently decreased to 93% during/after epidural -Improves to 95-96% with deep breaths -CXR negative -Incentive spirometer ordered -Nasal spray ordered for upper respiratory congestion Rh negative status during in third trimester 10/28/2019 -S/p Rhogam 08/23/19 -Rhogam as indicated ALLERGIES Penicillin MEDICATIONS Current Outpatient Medications Medication Sig amLODIPine (NORVASC) 10 mg tablet Take 1 tablet by mouth once daily. fluticasone (FLONASE) 50 mcg/actuation nasal spray Use 1 Sage in each nostril twice daily. INTRAUTERINE DEVICE, IUD, INTRAUTERINE by INTRAUTERINE route. No current facility-administered medications for this visit. SOCIAL HISTORY Social History Tobacco Use Smoking status: Never Smokeless tobacco: Never Substance Use Topics Alcohol use: Yes Comment: rare Drug use: Never REVIEW OF SYSTEMS See HPI OBJECTIVE: BP 148/74 Pulse 94 Temp 36.1 ?C (96.9 ?F) Resp 18 Wt 120.2 kg (265 lb) SpO2 98% BMI 40.29 kg/m? APPEARANCE Well appearing, alert, in no acute distress, well-hydrated, well nourished. EYES PERRLA, conjunctiva and sclera normal. EARS External ears normal, canals clear. TMs normal CECI NOSE/SINUS Nares normal. Septum midline. Mucosa erythematous. No drainage or sinus tenderness. THROAT normal, no erythema NECK Supple, no adenopathy;HEART RRR with normal S1 and S2, LUNG clear to auscultation, No wheezing, rhonchi, rales. ASSESSMENT/PLAN: 1. Acute maxillary sinusitis, recurrence not specified - ICD9: 461.0, ICD10: J01.00 (primary diagnosis) Discussed possible viral etiology - The patient should also be given OTC cough and cold meds as needed, warm salt water gargles, throat lozenges and/or OTC throat spray as needed, and nasal saline gtts and suction prn for the first 5-7 days of treatment. - Supportive care with plenty of fluids, rest, and analgesia prn. - Follow up in 3-5 days if symptoms persist or worsen. - DOXYCYCLINE HYCLATE 100 MG TABLET -printed, okay to start if not improving in 5-7 days, sooner if worsening. Reviewed possible reaction while taking with sun exposure. Use sun protection while on medication. Recommend discontinuing afrin. Flonase prn. 2. Chronic hypertension - ICD9: 401.9, ICD10: I10 - Worsening control - Recommend home blood pressure monitoring, to bring results to next visit - Encouraged sodium restriction, DASH or Mediterranean diet - Recommend regular aerobic exercise F/u with PCP in 2 weeks for recheck Reviewed red flags and when to seek care sooner. .emma Mathews PA-C Referring Provider: SELF [200] Allergies As of Date: 10/24/2023 Noted Allergy Reaction PENICILLIN 04/19/2018 16 - Unknown Comments: Childhood allergy. Pt unsure of reaction. Date Reviewed: 10/24/2023 Reviewed by: Titus Mathews PA-C - Fully Assessed Reason for Visit: Pain, Sinus [857] Cmt: Pressure, congestion, headache, cough, x 1 week Primary Visit Diagnosis:Acute maxillary sinusitis, recurrence not specified [J01.00] Other Visit Diagnosis:Chronic hypertension [I10] Order(s):doxycycline (VIBRA-TABS) 100 mg tabletTake 1 tablet by mouth two times a day for 5 days.Disp: 10 ta (more content not included)... Normal [facility] Pratibha 10-04-2023 CNOV Office Visit (UCWSTR ) BERE FIORE ([id number]) 1985 F Date Time Provider Department 10/04/23 2:00 PM NAT CHACON During your visit today, we recorded the following information about you: Temperature Pulse Respiration Blood pressure 99.1 degrees 112/minute 18/minute 136/82 Weight 119 kg Nat Chacon APRN.AUTOMOTIVE SERVICE DIRECTOR 10/04/2023 3:58 PM Signed Subjective HPI HPI Bere Fiore is a 38 year old female who presents today for CC of congestion, ear pain, fever 101F. This started 1 day ago. Has tried otc medication for relief. Symptoms are worsened by nothing. Risk factors sick exposures recently. .Patient presents with: Sinus Problem: Headache, left ear pain x1 day PAST MEDICAL HISTORY Diagnosis Date Advanced maternal age in multigravida, third trimester 10/28/2019 -Declined genetic testing -Anatomy wnl per patient Chronic hypertension Encounter for induction of labor 10/28/2019 -GBS negative -S/p Cytotecx1 and FB -Epi in -S/p AROM 2300 on 10/28, clear fluid -Pit per protocol -PPBC: desires immediate PP Mirena. History of pre-eclampsia in prior , currently 10/28/2019 -History of pre-eclampsia with features at 39 weeks -Diagnosed with CHTN following pregancy -On bASA this Hydronephrosis with renal and ureteral calculous obstruction 07/20/2017 Morbid obesity (HCC) 10/28/2019 -BMI 40 on admission -Growth US at 35w 55%, EFW around 6# per pt -H/o 6#13oz -Abnormal 1hr GCT, 3hr GTT wnl -SCDs ordered Oxygen desaturation 10/29/2019 -O2 saturation intermittently decreased to 93% during/after epidural -Improves to 95-96% with deep breaths -CXR negative -Incentive spirometer ordered -Nasal spray ordered for upper respiratory congestion Rh negative status during in third trimester 10/28/2019 -S/p Rhogam 08/23/19 -Rhogam as indicated PAST SURGICAL HISTORY Procedure Laterality Date NONE ALLERGIES Penicillin MEDICATIONS amLODIPine (NORVASC) 10 mg tablet Take 1 tablet by mouth once daily. fluticasone (FLONASE) 50 mcg/actuation nasal spray Use 1 Sage in each nostril twice daily. INTRAUTERINE DEVICE, IUD, INTRAUTERINE by INTRAUTERINE route. FAMILY HISTORY Problem Relation Age of Onset Heart disease Father Alzheimer's Disease Maternal Grandmother Dementia Maternal Grandmother Dementia Paternal Grandmother Parkinson?s Disease Paternal Grandmother Social History Tobacco Use Smoking status: Never Smokeless tobacco: Never Substance Use Topics Alcohol use: Yes Comment: rare Drug use: Never ROS Objective Blood pressure 136/82, pulse 112, temperature 37.3 ?C (99.1 ?F), resp. rate 18, weight 119 kg (262 lb 6.4 oz), SpO2 96 %. Physical Exam Constitutional: General: She is not in acute distress. Appearance: She is not toxic-appearing or diaphoretic. HENT: Head: Normocephalic and atraumatic. Right Ear: Hearing, tympanic membrane, ear canal and external ear normal. Left Ear: Hearing, tympanic membrane, ear canal and external ear normal. Nose: Nose normal. Mouth/Throat: Pharynx: Uvula midline. No pharyngeal swelling, oropharyngeal exudate, posterior oropharyngeal erythema or uvula swelling. Eyes: General: Lids are normal. No scleral icterus. Right eye: No discharge. Left eye: No discharge. Conjunctiva/sclera: Conjunctivae normal. Pupils: Pupils are equal, round, and reactive to light. Neck: Trachea: Trachea normal. Cardiovascular: Rate and Rhythm: Normal rate and regular rhythm. Heart sounds: Normal heart sounds. Pulmonary: Effort: Pulmonary effort is normal. Breath sounds: Normal breath sounds. Musculoskeletal: Cervical back: Normal range of motion and neck supple. Lymphadenopathy: Cervical: No cervical adenopathy. Right cervical: No superficial cervical adenopathy. Left cervical: No superficial cervical adenopathy. Skin: Findings: No rash. Neurological: Mental Status: She is alert and oriented to person, place, and time. ASSESSMENT/PLAN: 1. Pre-syncope - ICD9: 780.2, ICD10: R55 (primary diagnosis) Near end of exam patient began feeling faint, did not correct with positioning. I will refer to ER. 2. FUO (fever of unknown origin) - ICD9: 780.60, ICD10: R50.9 High suspicion for flu or covid. - ALERE STREP A TEST (AG) - COVID AND INFLUENZA A/B NAAT, ROUTINE 3. URI, acute - ICD9: 465.9, ICD10: J06.9 - Discussed viral etiology and rationale for treatment. - Symptomatic treatment with prn analgesia - Supportive care with fluids and rest - COVID AND INFLUENZA A/B NAAT, ROUTINE 4. ETD (Eustachian tube dysfunction), left - ICD9: 381.81, ICD10: H69.92 We talked about steroids for ETD/sinus pressure, did not prescribe d/t referral to ER. Nat Chacon APRN.AUTOMOTIVE SERVICE DIRECTOR Allergies As of Date: 10/04/2023 Noted Allergy Reaction PENICILLIN 04/19/2018 16 - Unknown Comments: Childh (more content not included)... Normal [facility] FLUABV + SARS-CoV-2 Pnl Resp BALJINDER+prbon 10-04-2023 Influenza virus A and B RNA and SARS-CoV-2 (COVID-19) N gene panel BALJINDER+probe (Resp) COVID 19 RESULT: Detected The method used is RT-PCR or an equivalent NAAT method. Reference Range (the expected result in uninfected individuals): Not detected INFLUENZA A PCR: Not detected INFLUENZA B PCR: Not detected Abnormal [facility] Comment on above: Performed By: #### 9 5422-2 ####[facility] LABCLIA [id number] [place] [address] [place] STREP A MOLECULAR (POC)on Procedural Control Valid [facility] Strep A (POCT) Negative Negative [facility] Lipid 1996 panelon 3 Cholesterol [Mass/Vol] 187 mg/dL Normal <200 [facility] Comment on above: Order Comment: Speci men Type: BLOOD SPECIMENOrdering Facility: [facility] Address: [address] [place] [address] Result Comment: <200 mg/dL, Desirable 200-239 mg/dL, Borderline high >239 mg/dL, High Performed By: #### 2 4331-1 ####[facility] LABCLIA [id number] [place] [address] [place] Cholesterol in HDL [Mass/Vol] 38 mg/dL Low >39 [facility] Comment on above: Order Comment: Aashish alli Type: BLOOD SPECIMENOrdering Facility: [facility] Address: [address] [place] [address] Result Comment: 40-5 9 mg/dL, Acceptable >59 mg/dL, High: Negative risk factor for coronary heart disease <40 mg/dL, Low: Positive risk factor for coronary heart disease Performed By: #### 2 4331-1 ####[facility] LABCLIA [id number] [place] [address] [place] Cholesterol in LDL [Mass/Vol] 131 mg/dL High <100 [facility] Comment on above: Order Comment: Aashish alli Type: BLOOD SPECIMENOrdering Facility: [facility] Address: [address] [place] [address] Result Comment: <100 mg/dL, Optimal 100-129 mg/dL, Near optimal/above optimal 130-159 mg/dL, Borderline high 160-189 mg/dL, High >189 mg/dL, Very high Secondary prevention optimal LDL Cholesterol levels are recommended to be < 70 mg/dL Performed By: #### 2 4331-1 ####[facility] LABCLIA [id number] [place] [address] [place] Cholesterol in LDL/Cholesterol in HDL [Mass ratio] 3.45 {ratio} High <2.54 [facility] Comment on above: Order Comment: Lanejuma carson Type: BLOOD SPECIMENOrdering Facility: [facility] Address: [address] [place] [address] Result Comment: Ward sam: 1. National Cholesterol Education Program ATP III Guideline At-A-Glance Quick Desk Reference: National Heart, Lung, and Blood [place]. National Institutes of Health. 2001: NIH Publication No. 01-3305. 2. An International Atherosclerosis Society position paper: global recommendations for the management of dyslipidemia: executive summary, Atherosclerosis. 2014: 232(2):410-413. Performed By: #### 2 4331-1 ####[facility] LABCLIA [id number] [place] [address] [place] Cholesterol in VLDL [Mass/Vol] 18 mg/dL Normal <30 [facility] Comment on above: Order Comment: Speci men Type: BLOOD SPECIMENOrdering Facility: [facility] Address: [address] [place] [address] Performed By: #### 2 4331-1 ####[facility] LABCLIA [id number] [place] [address] [place] Cholesterol non HDL [Mass/Vol] 149 mg/dL High <130 [facility] Comment on above: Order Comment: Speci men Type: BLOOD SPECIMENOrdering Facility: [facility] Address: [address] [place] [address] Result Comment: <130 mg/dL, Optimal 130-159 mg/dL, Near optimal/above optimal 160-189 mg/dL, Borderline high 190-219 mg/dL, High >219 mg/dL, Very high Secondary prevention optimal non HDL Cholesterol levels are recommended to be <100 mg/dL Performed By: #### 2 4331-1 ####[facility] LABCLIA [id number] [place] [address] [place] Cholesterol.total/ Cholesterol in HDL [Mass ratio] 4.92 {ratio} Normal <5.10 [facility] Comment on above: Order Comment: Speci men Type: BLOOD SPECIMENOrdering Facility: [facility] Address: [address] [place] [address] Performed By: #### 2 4331-1 ####[facility] LABCLIA [id number] [place] [address] [place] FASTING TIME 12 hrs Normal [facility] Comment on above: Order Comment: Speci men Type: BLOOD SPECIMENOrdering Facility: [facility] Address: [address] [place] [address] Performed By: #### 2 4331-1 ####[facility] LABCLIA [id number] [place] [address] [place] Triglyceride [Mass/Vol] 90 mg/dL Normal <150 [facility] Comment on above: Order Comment: Speci men Type: BLOOD SPECIMENOrdering Facility: [facility] Address: [address] [place] [address] Result Comment: <150 mg/dL, Normal 150-199 mg/dL, Borderline high 200-499 mg/dL, High >499 mg/dL, Very high Performed By: #### 2 4331-1 ####[facility] LABCLIA [id number] [place]AD[id number] [id number] [facility] Beka 09-26-2023 CNPN Telephone (STFLF) BERE FIORE ([id number]) 1985 F Date Time Provider Department 09/26/23 [facility] During your visit today, we recorded the following information about you: Stella Harvey APRN.CNP 09/26/2023 7:07 AM Signed Cardiology referral ordered, please assist with scheduling. Stella Harvey APRN.[employer] Bo 09/26/2023 10:36 AM Signed Cardiology Referral information submitted to [facility]. Ref# [id number]. [facility] Specialty office will call the patient within 7-10 business days to set this appointment up. Allergies As of Date: 09/26/2023 Noted Allergy Reaction PENICILLIN 04/19/2018 16 - Unknown Comments: Childhood allergy. Pt unsure of reaction. Date Reviewed: 05/05/2022 Reviewed by: Hoda Jim Ma - Fully Assessed Reason for Visit: Consult [502] Cmt: Cardiology Prescriptions as of 09/26/2023 - amLODIPine (NORVASC) 10 mg tablet Take 1 tablet by mouth once daily. - fluticasone (FLONASE) 50 mcg/actuation nasal spray Use 1 Sage in each nostril twice daily. - INTRAUTERINE DEVICE, IUD, INTRAUTERINE by INTRAUTERINE route. Problem List As Of Date 09/26/2023 Noted Resolved Chronic hypertension with superimposed pre-ecla*07/05/2018 37 weeks gestation of [Z3A.37] 10/28/2019 10/28/2019 Rh negative status during in third tr*10/28/2019 10/05/2021 Advanced maternal age in multigravida, third tr*10/28/2019 10/05/2021 Chronic hypertension [I10] 10/28/2019 Encounter for induction of labor [Z34.90] 10/28/2019 10/05/2021 History of pre-eclampsia in prior , cu*10/28/2019 10/05/2021 Morbid obesity (HCC) [E66.01] 10/28/2019 10/05/2021 Short interval between pregnancies affecting pr*10/28/2019 10/05/2021 Oxygen desaturation [R09.02] 10/29/2019 10/05/2021 Threatened labor [O47.9] 10/31/2019 10/05/2021 Hydronephrosis with renal and ureteral calculou*07/20/2017 10/05/2021 Encounter Status:Closed by CISCO LEZAMA on 09/26/23 Normal [facility] Comprehensive metabolic 2000 panelon 09-22-2023 Albumin [Mass/Vol] 4.3 g/dL Normal 3.9-4.9 [facility] Comment on above: Order Comment: Speci men Type: BLOOD SPECIMENOrdering Facility: [facility] Address: [address] [place] [address] Performed By: #### 2 4323-8 ####[facility] LABCLIA [id number] [place] [address] [place] ALP [Catalytic activity/Vol] 89 U/L Normal 34-123 [facility] Comment on above: Order Comment: Speci men Type: BLOOD SPECIMENOrdering Facility: [facility] Address: [address] [place] [address] Performed By: #### 2 4323-8 ####[facility] LABIA [id number] [place] [address] [place] ALT [Catalytic activity/Vol] 21 U/L Normal 7-38 [facility] Comment on above: Order Comment: Speci men Type: BLOOD SPECIMENOrdering Facility: [facility] Address: [address] [place] [address] Performed By: #### 2 4323-8 ####[facility] LABCLIA [id number] [place] [address] [place] Anion gap [Moles/Vol] 13 mmol/L Normal 9-18 [facility] Comment on above: Order Comment: Speci men Type: BLOOD SPECIMENOrdering Facility: [facility] Address: [address] [place] [address] Performed By: #### 2 4323-8 ####[facility] LABCLIA [id number] [place] [address] [place] AST [Catalytic activity/Vol] 18 U/L Normal 13-35 [facility] Comment on above: Order Comment: Speci men Type: BLOOD SPECIMENOrdering Facility: [facility] Address: [address] [place] [address] Performed By: #### 2 4323-8 ####[facility] LABCLIA [id number] [place] [address] [place] Bilirubin [Mass/Vol] 0.7 mg/dL Normal 0.2-1.3 [facility] Comment on above: Order Comment: Speci men Type: BLOOD SPECIMENOrdering Facility: [facility] Address: [address] [place] [address] Performed By: #### 2 4323-8 ####[facility] LABCLIA [id number] [place] [address] [place] Calcium [Mass/Vol] 9.8 mg/dL Normal 8.5-10.2 [facility] Comment on above: Order Comment: Speci men Type: BLOOD SPECIMENOrdering Facility: [facility] Address: [address] [place] [address] Performed By: #### 2 4323-8 ####[facility] LABCLIA [id number] [place] [address] [place] Chloride [Moles/Vol] 104 mmol/L Normal 97-105 [facility] Comment on above: Order Comment: Speci men Type: BLOOD SPECIMENOrdering Facility: [facility] Address: [address] [place] [address] Performed By: #### 2 4323-8 ####[facility] LABCLIA [id number] [place] [address] [place] CO2 [Moles/Vol] 25 mmol/L Normal 22-30 [facility] Comment on above: Order Comment: Speci men Type: BLOOD SPECIMENOrdering Facility: [facility] Address: [address] [place] [address] Performed By: #### 2 4323-8 ####[facility] LABCLIA [id number] [place] [address] [place] Creatinine [Mass/Vol] 0.71 mg/dL Normal 0.58-0.96 [facility] Comment on above: Order Comment: Speci men Type: BLOOD SPECIMENOrdering Facility: [facility] Address: [address] [place] [address] Performed By: #### 2 4323-8 ####[facility] LABCLIA [id number] [place] [address] [place] Creatinine and Glomerular filtration rate.predicted panel (S/P/Bld) 111 mL/min/1.73m??? Normal >=60 [facility] Comment on above: Order Comment: Speci men Type: BLOOD SPECIMENOrdering Facility: [facility] Address: [address] [place] [address] Result Comment: Rosana mated Glomerular Filtration Rate (eGFR) is calculated using the 2020 CKD-EPI creatinine equation. This equation utilizes serum creatinine, sex, and age as parameters. The creatinine assay has traceable calibration to isotope dilution-mass spectrometry. Refer to KDIGO guidelines for clinical interpretation. In patients with unstable renal function, e.g. those with acute kidney injury, the eGFR may not accurately reflect actual GFR. Performed By: #### 2 4323-8 ####[facility] LABCLIA [id number] [place] [address] [place] Glucose [Mass/Vol] 66 mg/dL Low 74-99 [facility] Comment on above: Order Comment: Speci men Type: BLOOD SPECIMENOrdering Facility: [facility] Address: [address] [place] [address] Result Comment: The [place] Diabetes [employer] (ADA) provides guidance for cutoff values for fasting glucose and random glucose. The ADA defines fasting as no caloric intake for at least 8 hours. Fasting plasma glucose results between 100 to 125 mg/dL indicate increased risk for diabetes (prediabetes). Fasting plasma glucose results greater than or equal to 126 mg/dL meet the criteria for diagnosis of diabetes. In the absence of unequivocal hyperglycemia, results should be confirmed by repeat testing. In a patient with classic symptoms of hyperglycemia or hyperglycemic crisis, random plasma glucose results greater than or equal to 200 mg/dL meet the criteria for diagnosis of diabetes. Reference: Standards of Medical Care in Diabetes 2016, [place] [employer]. Diabetes Care. 2016.39(Suppl 1). Performed By: #### 2 4323-8 ####[facility] LABCLIA [id number] [place] [id number] [place] Potassium [Moles/Vol] 4.1 mmol/L Normal 3.7-5.1 [facility] Comment on above: Order Comment: Speci men Type: BLOOD SPECIMENOrdering Facility: [facility] Address: [address] [place] [address] Performed By: #### 2 4323-8 ####[facility] LABIA [id number] [place] [id number] [place] Protein [Mass/Vol] 7.4 g/dL Normal 6.3-8.0 [facility] Comment on above: Order Comment: Speci men Type: BLOOD SPECIMENOrdering Facility: [facility] Address: [address] [place] [address] Performed By: #### 2 4323-8 ####[facility] LABCLIA [id number] [place] [address] [place] Sodium [Moles/Vol] 142 mmol/L Normal 136-144 [facility] Comment on above: Order Comment: Speci men Type: BLOOD SPECIMENOrdering Facility: [facility] Address: [address] [place] [address] Performed By: #### 2 4323-8 ####[facility] LABIA [id number] [place] [address] [place] Urea nitrogen [Mass/Vol] 14 mg/dL Normal 7-21 [facility] Comment on above: Order Comment: Speci men Type: BLOOD SPECIMENOrdering Facility: [facility] Address: [address] [place] [address] Performed By: #### 2 4323-8 ####[facility] LABIA [id number] [address] [place] [facility] BERE FIORE ([id number]) 1985 F Date Time Provider Department 07/24/23 SHEREEN NEWTON [facility] During your visit today, we recorded the following information about you: Shereen Newton PA-C 07/24/2023 1:00 PM Signed ----- Message from Bere Archer sent at 07/24/2023 10:56 AM EDT ----- Regarding: lab orders Hello! This patient called in requesting lab orders to be placed. Can you please assist? Thank you! Shereen Bello PA-C 07/24/2023 1:07 PM Signed Signed CMP. Shereen Newton PA-C Allergies As of Date: 07/24/2023 Noted Allergy Reaction PENICILLIN 04/19/2018 16 - Unknown Comments: Childhood allergy. Pt unsure of reaction. Date Reviewed: 05/05/2022 Reviewed by: Hoda Jim Ma - Fully Assessed Reason for Visit: Orders [681] Primary Visit Diagnosis:Hypertension, essential [I10] Order(s):COMP METABOLIC PANEL [SQCMP] Order #: [id number] FUTURE Prescriptions as of 07/25/2023 - amLODIPine (NORVASC) 10 mg tablet TAKE 1 TABLET BY MOUTH EVERY DAY - fluticasone (FLONASE) 50 mcg/actuation nasal spray Use 1 Sage in each nostril twice daily. - chlorthalidone (HYGROTON) 25 mg tablet TAKE 1 TABLET BY MOUTH EVERY DAY - meloxicam (MOBIC) 15 mg tablet TAKE 1 TABLET BY MOUTH EVERY DAY - INTRAUTERINE DEVICE, IUD, INTRAUTERINE by INTRAUTERINE route. Problem List As Of Date 07/24/2023 Noted Resolved Chronic hypertension with superimposed pre-ecla*07/05/2018 37 weeks gestation of [Z3A.37] 10/28/2019 10/28/2019 Rh negative status during in third tr*10/28/2019 10/05/2021 Advanced maternal age in multigravida, third tr*10/28/2019 10/05/2021 Chronic hypertension [I10] 10/28/2019 Encounter for induction of labor [Z34.90] 10/28/2019 10/05/2021 History of pre-eclampsia in prior , cu*10/28/2019 10/05/2021 Morbid obesity (HCC) [E66.01] 10/28/2019 10/05/2021 Short interval between pregnancies affecting pr*10/28/2019 10/05/2021 Oxygen desaturation [R09.02] 10/29/2019 10/05/2021 Threatened labor [O47.9] 10/31/2019 10/05/2021 Hydronephrosis with renal and ureteral calculou*07/20/2017 10/05/2021 Encounter Status:Closed by SHEREEN NEWTON on 07/25/23 Normal [facility] XR HIP CECI 5V PEL+ AP/LAT EA HIPon 04-03-2020 XR HIP CECI 5V PEL+ AP/LAT EA HIP * * *Final Report* * * DATE OF EXAM: Apr 03 2020 8:19AM ANX 5353 - XR HIP CECI 5V PEL+ AP/LAT EA HIP / PROCEDURE REASON: M25.552 hip pain * * * * Physician Interpretation * * * * EXAM TITLE: XR HIP CECI 5V PEL+ AP/LAT EA HIP DATE: 04/03/2020 COMPARISON: None. CLINICAL INDICATION/HISTORY: Bilateral hip pain TECHNIQUE: AP pelvis along with AP and frog-leg lateral views of each hip FINDINGS: No acute bony abnormality is identified. There is no fracture, dislocation or bone destruction. No significant arthritic change is present at either hip and there is no femoral head AVN. The sacroiliac joints and symphysis pubis appear normal. No obvious soft tissue abnormality. An IUD is present. IMPRESSION: Normal study. Crna: PSCSafia Transcribe Date/Time: Apr 03 2020 8:23A Dictated by : SUMIT JEAN BAPTISTE MD This examination was interpreted and the report reviewed and electronically signed by: SUMIT JEAN BAPTISTE MD on Apr 03 2020 8:26AM EST Normal [facility] Rh Immune D Workupon 019 Rh Immune D Workup See Below Normal NEGATIVE [facility] Comment on above: Result Comment: Feta l screen negative - give 1 vial of Rh Immune Globulin. Performed By: #### R HIMD #### [place] [address] XR CHEST 1V FRONTALon 2018 XR CHEST 1V FRONTAL * * *Final Report* * * DATE OF EXAM: Oct 29 2019 12:26AM AKX [id number] - XR CHEST 1V FRONTAL / PROCEDURE REASON: Acute respiratory illness * * * * Physician Interpretation * * * * EXAMINATION: CHEST RADIOGRAPH (SINGLE VIEW AP OR PA) Clinical History: Acute respiratory illness Comparison: None available RESULT: Lines, tubes, and devices: N/A Lungs and pleura: No confluent infiltrate, large pleural effusion or pneumothorax. Cardiomediastinal silhouette: Within normal limits. Other: No acute bony abnormality identified. IMPRESSION: No significant acute radiographic abnormality. Crna: PSCB Transcribe Date/Time: Oct 29 2019 12:41A Dictated by : JEFF ABEBE MD This examination was interpreted and the report reviewed and electronically signed by: JEFF ABEBE MD on Oct 29 2019 12:41AM EST Normal [facility] Comprehensive Panelon 2018 ALP [Catalytic activity/Vol] 117 U/L Normal 45-117 [facility] Comment on above: Performed By: #### P 14 #### [facility] [address] [place], [place] [address] Protein [Mass/Vol] 6.6 g/dL Normal 6.4-8.2 [facility] Comment on above: Performed By: #### P 14 #### [facility] [address] [place], [place] [address] Bilirubin [Mass/Vol] 0.4 mg/dL Normal 0.2-1.0 [facility] Comment on above: Performed By: #### P 14 #### [facility] [address] [place], [place] [address] ALT [Catalytic activity/Vol] 56 U/L Normal 12-78 [facility] Comment on above: Performed By: #### P 14 #### [facility] [address] [place], [place] [address] Creatinine [Mass/Vol] 0.61 mg/dL Normal 0.51-0.95 [facility] Comment on above: Performed By: #### P 14 #### [facility] [address] [place], [place] [address] AST [Catalytic activity/Vol] 39 U/L High 15-37 [facility] Comment on above: Performed By: #### P 14 #### [facility] [address] [place], [place] [address] Albumin [Mass/Vol] 2.4 g/dL Low 3.4-5.0 [facility] Comment on above: Performed By: #### P 14 #### [facility] [address] [place], [place] [address] Glucose [Mass/Vol] 104 mg/dL High 70-99 [facility] Comment on above: Performed By: #### P 14 #### [facility] [address] [place], [place] [address] Anion gap [Moles/Vol] 12 mmol/L Normal 8-16 [facility] Comment on above: Performed By: #### P 14 #### [facility] [address] [place], [place] [address] Calcium [Mass/Vol] 9.1 mg/dL Normal 8.5-10.1 [facility] Comment on above: Performed By: #### P 14 #### [facility] [address] [place], [place] [address] CO2 [Moles/Vol] 21 mmol/L Normal 21-32 [facility] Comment on above: Performed By: #### P 14 #### [facility] [address] [place], [place] [address] Urea nitrogen [Mass/Vol] 10 mg/dL Normal 7-18 [facility] Comment on above: Performed By: #### P 14 #### [facility] [address] [place], [place] [address] Chloride [Moles/Vol] 110 mmol/L High 98-107 [facility] Comment on above: Performed By: #### P 14 #### [facility] [address] [place], [place] [address] Potassium [Moles/Vol] 3.6 mmol/L Normal 3.5-5.1 [facility] Comment on above: Performed By: #### P 14 #### [facility] [address] [place], [place] [address] Sodium [Moles/Vol] 139 mmol/L Normal 136-145 [facility] Comment on above: Performed By: #### P 14 #### [facility] [address] [place], [place] [address] Hemogramon 10-28-2019 Erythrocyte distribution width (RBC) [Ratio] 13.9 % Normal 11.7-14.4 [facility] Comment on above: Performed By: #### C BC1 #### [facility] [address] [place], [place] [address] Hematocrit (Bld) [Volume fraction] 39.1 % Normal 34.1-44.9 [facility] Comment on above: Performed By: #### C BC1 #### [facility] [address] [place] [address] Hemoglobin (Bld) [Mass/Vol] 13.0 g/dL Normal 11.2-15.7 [facility] Comment on above: Performed By: #### C BC1 #### [facility] [address] [place] [address] MCH (RBC) [Entitic mass] 30.4 pg Normal 25.6-32.2 [facility] Comment on above: Performed By: #### C BC1 #### [facility] [address] [place] [address] MCHC (RBC) [Mass/Vol] 33.2 % Normal 31.6-34.8 [facility] Comment on above: Performed By: #### C BC1 #### [facility] [address] [place] [address] MCV (RBC) [Entitic vol] 91.6 fL Normal 79.4-94.8 [facility] Comment on above: Performed By: #### C BC1 #### [facility] [address] [place] [address] Platelet mean volume (Bld) [Entitic vol] 10.0 fL Normal 9.4-12.3 [facility] Comment on above: Performed By: #### C BC1 #### [facility] [address] [place] [address] Platelets (Bld) [#/Vol] 310 thou/cmm Normal 182-369 [facility] Comment on above: Performed By: #### C BC1 #### [facility] [address] [place] [address] RBC (Bld) [#/Vol] 4.27 mil/cmm Normal 3.93-5.22 [facility] Comment on above: Performed By: #### C BC1 #### [facility] [address] [place] [address] RDW SD 46.6 fl High 36.4-46.3 [facility] Comment on above: Performed By: #### C BC1 #### [facility] [address] [place] [address] WBC (Bld) [#/Vol] 10.29 thou/cmm High 3.98-10.04 [facility] [place] Comment on above: Performed By: #### C BC1 #### [place] [address] MDRD GFRon 10-28-2019 GFR/1.73 sq M predicted among non-blacks MDRD (S/P/Bld) [Vol rate/Area] mL/min/{1.73_m2} Normal >60mL/min/1. 73m2 [facility] Comment on above: Result Comment: If t he patient is , multiply the result by 1.210. Performed By: #### G FR #### [place] [address] Type and Screenon 10-28-2019 ABO group Nom (Bld) O Normal [facility] Comment on above: Performed By: #### T &S #### [place] [address] Comment See Below Normal [facility] Comment on above: Result Comment: Scre en &/or Xmatch expires in 3 days at 12 midnight. Redraw patient at that time. Performed By: #### T &S #### [place] [address] RH Type Negative Normal [facility] Comment on above: Performed By: #### T &S #### [place] [address] Urine Protein/Creatinine Rat ioon 10-28-2019 Creatinine,Urine 41.2 mg/dL Normal [facility] Comment on above: Performed By: #### U PCRE #### [place] [address] Prot/Creat Ratio 0.22 mg/mg creat High 0.02-0.16 [facility] Comment on above: Performed By: #### U PCRE #### [place] [address] Protein Ql (U) 9.1 mg/dL Normal 0.0-11.9 [facility] Comment on above: Performed By: #### U PCRE #### [place] [address] Gluc Challnge/50 gm Dose/Pre gnton 08-23-2019 Glucose [Mass/Vol] 152 mg/dL High 70-139 [facility] Comment on above: Performed By: #### G LUCC #### [place] [address] Hemogram/Diffon 08-23-2019 Abs Immature Grans 0.05 thou/cmm Normal 0.00-0.05 [facility] [place] Comment on above: Performed By: #### C BCD1 #### [place] [address] Abs Neut (ANC) 8.77 thou/cmm High 1.56-6.13 [facility] Comment on above: Performed By: #### C BCD1 #### [place] [address] Abs. Baso 0.04 thou/cmm Normal 0.01-0.08 [facility] Comment on above: Performed By: #### C BCD1 #### [place] [address] Abs. [place] 0.83 thou/cmm High 0.27-0.70 [facility] Comment on above: Performed By: #### C BCD1 #### [place] [address] Basophils/100 WBC (Bld) 0.3 % Normal [facility] Comment on above: Performed By: #### C BCD1 #### [place] [address] Eosinophils (Bld) [#/Vol] 0.14 thou/cmm Normal 0.00-0.31 [facility] Comment on above: Performed By: #### C BCD1 #### [place] [address] Eosinophils/100 WBC (Bld) 1.2 % Normal [facility] Comment on above: Performed By: #### C BCD1 #### [facility] [address] [place] [address] Erythrocyte distribution width (RBC) [Ratio] 13.6 % Normal 11.7-14.4 [facility] Comment on above: Performed By: #### C BCD1 #### [facility] [address] [place] [address] Hematocrit (Bld) [Volume fraction] 41.0 % Normal 34.1-44.9 [facility] Comment on above: Performed By: #### C BCD1 #### [facility] [address] [place] [address] Hemoglobin (Bld) [Mass/Vol] 13.4 g/dL Normal 11.2-15.7 [facility] Comment on above: Performed By: #### C BCD1 #### [facility] [address] [place] [address] Immature Grans 0.40 % Normal [facility] Comment on above: Performed By: #### C BCD1 #### [facility] [address] [place] [address] Lymphocytes (Bld) [#/Vol] 2.14 thou/cmm Normal 1.18-3.74 [facility] Comment on above: Performed By: #### C BCD1 #### [place] [address] Lymphocytes/100 WBC (Bld) 17.9 % Normal [facility] Comment on above: Performed By: #### C BCD1 #### [facility] [address] [place] [address] MCH (RBC) [Entitic mass] 30.2 pg Normal 25.6-32.2 [facility] Comment on above: Performed By: #### C BCD1 #### [facility] [address] [place] [address] MCHC (RBC) [Mass/Vol] 32.7 % Normal 31.6-34.8 [facility] Comment on above: Performed By: #### C BCD1 #### [facility] [address] [place] [address] MCV (RBC) [Entitic vol] 92.3 fL Normal 79.4-94.8 [facility] Comment on above: Performed By: #### C BCD1 #### [facility] [address] [place] [address] Monocytes/100 WBC (Bld) 6.9 % Normal [facility] Comment on above: Performed By: #### C BCD1 #### [facility] [address] [place] [address] Platelet mean volume (Bld) [Entitic vol] 9.7 fL Normal 9.4-12.3 [facility] Comment on above: Performed By: #### C BCD1 #### [facility] [address] [place] [address] Platelets (Bld) [#/Vol] 318 thou/cmm Normal 182-369 [facility] Comment on above: Performed By: #### C BCD1 #### [facility] [address] [place] [address] RBC (Bld) [#/Vol] 4.44 mil/cmm Normal 3.93-5.22 [facility] Comment on above: Performed By: #### C BCD1 #### [facility] [address] [place] [address] RDW SD 46.4 fl High 36.4-46.3 [facility] Comment on above: Performed By: #### C BCD1 #### [facility] [address] [place] [address] Seg Neutrophil 73.3 % Normal [facility] Comment on above: Performed By: #### C BCD1 #### [facility] [address] [place] [address] WBC (Bld) [#/Vol] 11.97 thou/cmm High 3.98-10.04 [facility] [place] Comment on above: Performed By: #### C BCD1 #### [place] [address] Type and Screenon 08-23-2019 ABO group Nom (Bld) O Normal [facility] Comment on above: Performed By: #### T &S #### [facility] [address] [place] [address] Comment Out Patient Normal [facility] Comment on above: Performed By: #### T &S #### [facility] [address] [place] [address] RH Type Negative Normal [facility] Comment on above: Performed By: #### T &S #### [facility] [address] [place] [id number] [address] Abdomen / Pelvis without contraston 07-11-2017 CT Abdomen / Pelvis without contrast CT scan abdomen: 07/11/2017 .CT scan pelvis: 07/11/2017 .Clinical Information: Left-sided pain .CT scan abdomen:CT scans of the abdomen were performed at 3 mm slice thickness with no oral orintravenous contrast as requested. No prior studies for comparison.Limited slices through the lower lung rai reveal no pleural or parenchymalabnormalities in the lung bases.Without the administration of oral or intravenous contrast, evaluation of solidand hollow organs is limited.The liver, spleen and pancreas are grossly normal. No free peritoneal fluid orair is seen. No retroperitoneal lymphadenopathy is identified.There is a nonobstructing pelvicalyceal calculus in the midpole of the leftkidney. There is some mild left hydronephrosis. There are mild inflammatorychanges surrounding the proximal left ureter. No abnormal calcifications areidentified along the expected course of the left ureter. The findings could beconsistent with a recently passed calculus.The kidneys are otherwise within normal limits. No right hydronephrosis orcalculi are identified.CT scan pelvis:CT scans the pelvis were performed at 3 mm slice thickness with no oral orintravenous contrast as requested.No abnormal loops of bowel are identified. No inflammatory changes in themesentery are seen.No pelvic mass lesions, fluid collections or lymphadenopathy is seen. No otherabnormal calcifications are identified to suggest distal ureteral calculi.Impression: Nonobstructing left pelvicalyceal calculus. Mild left hydronephrosiswith inflammatory changes surrounding the proximal left ureter. No source ofobstruction identified. The findings could be consistent with recently passedstone. Study limited due to lack of contrast.Report Dictated on Workstation: [id number] by: Karthik Granados: 07/11/2017 08:08Read by: MY PATINOate: 07/11/2017 08:11 [facility] Vital Signs Date Time Vital Sign Value Performing Clinician Shelly samano 06-28-2024 12:12-0400 Body mass index (BMI) [Ratio] 42.44 kg/m2 Tre Main CHEMICAL LABORATORY ASSISTANT.AUTOMOTIVE SERVICE DIRECTOR Work Phone: [facility] 06-28-2024 12:12-0400 Body weight 122.92 kg Tre Main CHEMICAL LABORATORY ASSISTANT.AUTOMOTIVE SERVICE DIRECTOR Work Phone: [facility] 06-28-2024 12:12-0400 Diastolic blood pressure 83 mm[Hg] Tre Main CHEMICAL LABORATORY ASSISTANT.AUTOMOTIVE SERVICE DIRECTOR Work Phone: [facility] 06-28-2024 12:12-0400 Heart rate 93 /min Tre Main CHEMICAL LABORATORY ASSISTANT.AUTOMOTIVE SERVICE DIRECTOR Work Phone: [facility] 06-28-2024 12:12-0400 Respiratory rate 16 /min Tre Main CHEMICAL LABORATORY ASSISTANT.AUTOMOTIVE SERVICE DIRECTOR Work Phone: [facility] 06-28-2024 12:12-0400 Systolic blood pressure 135 mm[Hg] Tre Main CHEMICAL LABORATORY ASSISTANT.AUTOMOTIVE SERVICE DIRECTOR Work Phone: [facility] 05-05-2024 12:59-0400 Body mass index (BMI) [Ratio] 42.09 kg/m2 Mariaelena Barker CHEMICAL LABORATORY ASSISTANT.AUTOMOTIVE SERVICE DIRECTOR Work Phone: [facility] 05-05-2024 12:59-0400 Body temperature 97.39 [degF] Mariaelena Barker CHEMICAL LABORATORY ASSISTANT.AUTOMOTIVE SERVICE DIRECTOR Work Phone: [facility] 05-05-2024 12:59-0400 Body weight 121.9 kg Mariaelena Barker CHEMICAL LABORATORY ASSISTANT.AUTOMOTIVE SERVICE DIRECTOR Work Phone: [facility] 05-05-2024 12:59-0400 Diastolic blood pressure 82 mm[Hg] Mariaelena Barker CHEMICAL LABORATORY ASSISTANT.AUTOMOTIVE SERVICE DIRECTOR Work Phone: [facility] 05-05-2024 12:59-0400 Heart rate 96 /min Mariaelena Barker CHEMICAL LABORATORY ASSISTANT.AUTOMOTIVE SERVICE DIRECTOR Work Phone: [facility] 05-05-2024 12:59-0400 Respiratory rate 16 /min Mariaelena Barker CHEMICAL LABORATORY ASSISTANT.AUTOMOTIVE SERVICE DIRECTOR Work Phone: [facility] 05-05-2024 12:59-0400 SaO2% (BldA) [Mass fraction] 98 % Mariaelena Barker CHEMICAL LABORATORY ASSISTANT.AUTOMOTIVE SERVICE DIRECTOR Work Phone: [facility] 05-05-2024 12:59-0400 Systolic blood pressure 122 mm[Hg] Mariaelena Barker CHEMICAL LABORATORY ASSISTANT.AUTOMOTIVE SERVICE DIRECTOR Work Phone: [facility] 02-19-2024 07:51-0400 Body weight 122.47 kg Tre Main CHEMICAL LABORATORY ASSISTANT.AUTOMOTIVE SERVICE DIRECTOR Work Phone: [facility] 02-19-2024 07:51-0400 Diastolic blood pressure 80 mm[Hg] Tre Main CHEMICAL LABORATORY ASSISTANT.AUTOMOTIVE SERVICE DIRECTOR Work Phone: [facility] 02-19-2024 07:51-0400 Heart rate 88 /min Tre Main CHEMICAL LABORATORY ASSISTANT.AUTOMOTIVE SERVICE DIRECTOR Work Phone: [facility] 02-19-2024 07:51-0400 Respiratory rate 14 /min Tre Main CHEMICAL LABORATORY ASSISTANT.AUTOMOTIVE SERVICE DIRECTOR Work Phone: [facility] 02-19-2024 07:51-0400 Systolic blood pressure 128 mm[Hg] Tre Main CHEMICAL LABORATORY ASSISTANT.AUTOMOTIVE SERVICE DIRECTOR Work Phone: [facility] 01-21-2024 10:51-0400 Body temperature 98.4 [degF] Krislyn Aberegg PA Work Phone: [facility] 01-21-2024 10:51-0400 Body weight 123.1 kg Krislyn Aberegg PA Work Phone: [facility] 01-21-2024 10:51-0400 Diastolic blood pressure 84 mm[Hg] Krislyn Aberegg PA Work Phone: [facility] 01-21-2024 10:51-0400 Heart rate 98 /min Krislyn Aberegg PA Work Phone: [facility] 01-21-2024 10:51-0400 Respiratory rate 16 /min Krislyn Aberegg PA Work Phone: [facility] 01-21-2024 10:51-0400 SaO2% (BldA) [Mass fraction] 98 % Krislyn Aberegg PA Work Phone: [facility] 01-21-2024 10:51-0400 Systolic blood pressure 132 mm[Hg] Krislyn Aberegg PA Work Phone: [facility] 01-02-2024 10:28-0500 Body height 170.2 cm Naheed Melgar MD Work Phone: [facility] 01-02-2024 10:28-0500 Body weight 120.75 kg Naheed Melgar MD Work Phone: [facility] 01-02-2024 10:28-0500 Diastolic blood pressure 83 mm[Hg] Naheed Melgar MD Work Phone: [facility] 01-02-2024 10:28-0500 Heart rate 101 /min Naheed Melgar MD Work Phone: [facility] 01-02-2024 10:28-0500 SaO2% (BldA) [Mass fraction] 95 % Naheed Melgar MD Work Phone: [facility] 01-02-2024 10:28-0500 Systolic blood pressure 140 mm[Hg] Naheed Melgar MD Work Phone: [facility] 10-24-2023 12:46-0500 Body temperature 96.91 [degF] Titus Bogner PA-C Work Phone: [facility] 10-24-2023 12:46-0500 Body weight 120.2 kg Titus Bogner PA-C Work Phone: [facility] 10-24-2023 12:46-0500 Diastolic blood pressure 74 mm[Hg] Titus Bogner PA-C Work Phone: [facility] 10-24-2023 12:46-0500 Heart rate 94 /min Titus Bogner PA-C Work Phone: [facility] 10-24-2023 12:46-0500 Respiratory rate 18 /min Titus Bogner PA-C Work Phone: [facility] 10-24-2023 12:46-0500 SaO2% (BldA) [Mass fraction] 98 % Titus Bogner PA-C Work Phone: [facility] 10-24-2023 12:46-0500 Systolic blood pressure 148 mm[Hg] Titus Bogner PA-C Work Phone: [facility] 10-04-2023 14:01-0500 Body temperature 99.1 [degF] Nat Oswaldo CHEMICAL LABORATORY ASSISTANT.AUTOMOTIVE SERVICE DIRECTOR Work Phone: [facility] 10-04-2023 14:01-0500 Body weight 119.02 kg Nat Oswaldo CHEMICAL LABORATORY ASSISTANT.AUTOMOTIVE SERVICE DIRECTOR Work Phone: [facility] 10-04-2023 14:01-0500 Diastolic blood pressure 82 mm[Hg] Nat Oswaldo CHEMICAL LABORATORY ASSISTANT.AUTOMOTIVE SERVICE DIRECTOR Work Phone: [facility] 10-04-2023 14:01-0500 Heart rate 112 /min Nat Oswaldo CHEMICAL LABORATORY ASSISTANT.AUTOMOTIVE SERVICE DIRECTOR Work Phone: [facility] 10-04-2023 14:01-0500 Respiratory rate 18 /min Nat Oswaldo CHEMICAL LABORATORY ASSISTANT.AUTOMOTIVE SERVICE DIRECTOR Work Phone: [facility] 10-04-2023 14:01-0500 SaO2% (BldA) [Mass fraction] 96 % Nat Oswaldo CHEMICAL LABORATORY ASSISTANT.AUTOMOTIVE SERVICE DIRECTOR Work Phone: [facility] 10-04-2023 14:01-0500 Systolic blood pressure 136 mm[Hg] Nat Oswaldo CHEMICAL LABORATORY ASSISTANT.AUTOMOTIVE SERVICE DIRECTOR Work Phone: [facility] 05-05-2022 16:20-0400 Body temperature 98.6 [degF] Reynaldo Stallworth DO Work Phone: [facility] 05-05-2022 16:20-0400 Body weight 123.38 kg Reynaldo Stallworth DO Work Phone: [facility] 05-05-2022 16:20-0400 Diastolic blood pressure 94 mm[Hg] Reynaldo Stallworth DO Work Phone: [facility] 05-05-2022 16:20-0400 Heart rate 104 /min Reynaldo Stallworth DO Work Phone: [facility] 05-05-2022 16:20-0400 Systolic blood pressure 142 mm[Hg] Reynaldo Stallworth DO Work Phone: [facility] Encounters Encounter Date Encounter Type Care Provider Facility Start: 07-06-2024 End: 07-08-2024 Refill Stella Harvey APRN.AUTOMOTIVE SERVICE DIRECTOR Work Phone: Family [facility] Comment on above: Refill Request Start: 07-01-2024 End: 07-01-2024 Telephone encounter Tre Main APRN.AUTOMOTIVE SERVICE DIRECTOR Work Phone: [facility] Comment on above: Results Start: 06-28-2024 End: 06-28-2024 Patient encounter procedure Tre Main APRN.AUTOMOTIVE SERVICE DIRECTOR Work Phone: [facility] [place] Comment on above: Medication managemen t (Primary Dx); AMANDA (generalized anxiety disorder) Start: 06-28-2024 End: 06-28-2024 ambulatory TRE MAIN Facility:[facility] Start: 05-05-2024 End: 05-05-2024 ambulatory T[facility] MA[facility] Facility:[facility] Start: 05-05-2024 End: 05-05-2024 Patient encounter procedure Mariaelena Barker APRN.AUTOMOTIVE SERVICE DIRECTOR Work Phone: [facility] Comment on above: Urinary frequency (P rimary Dx) Start: 05-02-2024 Telephone encounter Sher Starks MD Work Phone: [facility] Comment on above: Results Start: 05-01-2024 End: 05-01-2024 ambulatory TRE MAIN Facility:[facility] Start: 04-25-2024 Refill Tre duong CHEMICAL LABORATORY ASSISTANT.AUTOMOTIVE SERVICE DIRECTOR Work Phone: [facility] Comment on above: Refill Request Start: 04-02-2024 Refill Stella Burciaga vkaylah CHEMICAL LABORATORY ASSISTANT.AUTOMOTIVE SERVICE DIRECTOR Work Phone: [facility] Comment on above: Refill Request Start: 02-22-2024 Telephone encounter Tre dias APRN.AUTOMOTIVE SERVICE DIRECTOR Work Phone: [facility] Comment on above: Medication Request Start: 02-20-2024 Telephone encounter Tre dias CHEMICAL LABORATORY ASSISTANT.AUTOMOTIVE SERVICE DIRECTOR Work Phone: [facility] [place] Comment on above: Results Start: 02-19-2024 End: 02-19-2024 ambulatory TRE MAIN Facility:[facility] Start: 02-19-2024 End: 02-19-2024 Patient encounter procedure Tre Main APRN.AUTOMOTIVE SERVICE DIRECTOR Work Phone: [facility] Comment on above: Encounter for immuni zation (Primary Dx); Wellness examination; Screening for diabetes mellitus; Medication management; Chronic hypertension Start: 02-19-2024 End: 02-19-2024 Patient encounter status Tre Main APRN.AUTOMOTIVE SERVICE DIRECTOR Work Phone: [facility] Work Phone: Start: 01-21-2024 End: 01-21-2024 [facility] Facility:[facility] Start: 01-21-2024 End: 01-21-2024 Patient encounter procedure Sarah RESENDIZ Work Phone: [facility] Comment on above: Sinobronchitis (Prim lowell Dx) Start: 01-02-2024 End: 01-02-2024 Office outpatient new 30 minutes Naheed Melgar MD Work Phone: [facility] [place] Comment on above: Acute myocardial inf arction, unspecified [place] type, unspecified artery (HCC); Family history of premature CAD Start: 01-02-2024 End: 01-02-2024 ambulatory [facility] Facility:[facility] Start: 12-19-2023 Telephone encounter Ag Card Work Phone: [facility] [place] Comment on above: Appointment Start: 10-24-2023 End: 10-24-2023 ambulatory [facility] Facility:[facility] Start: 10-24-2023 End: 10-24-2023 Office outpatient visit 15 minutes Titus Mathews PA-C Work Phone: [facility] Comment on above: Acute maxillary sinu sitis, recurrence not specified (Primary Dx); Chronic hypertension Start: 10-06-2023 End: 10-06-2023 ambulatory Tory Cecy David CHEMICAL LABORATORY ASSISTANT.AUTOMOTIVE SERVICE DIRECTOR Work Phone: [facility] [place] Comment on above: please review and re ana MORRIS (Primary Dx) Start: 10-06-2023 E-mail encounter fro m caregiver Tory Sam David SAMUELS.AUTOMOTIVE SERVICE DIRECTOR Work Phone: [facility] Start: 10-06-2023 End: 10-06-2023 Telemedicine consultation with patient Tory Hernandez CHEMICAL LABORATORY ASSISTANT.AUTOMOTIVE SERVICE DIRECTOR Work Phone: [facility] Start: 10-04-2023 End: 10-04-2023 ambulatory [facility] Facility:[facility] Start: 10-04-2023 End: 10-04-2023 Patient encounter procedure aNt Chacon APRN.AUTOMOTIVE SERVICE DIRECTOR Work Phone: [facility] Comment on above: Pre-syncope (Primary Dx); FUO (fever of unknown origin); URI, acute; ETD (Eustachian tube dysfunction), left Start: 09-30-2023 End: 09-30-2023 [facility] Facility:[facility] Start: 09-26-2023 End: 09-26-2023 [facility] CHEMICAL LABORATORY ASSISTANT.AUTOMOTIVE SERVICE DIRECTOR Work Phone: [facility] Comment on above: Hypertension, essent ial (Primary Dx); Family history of myocardial infarction at age less than 60; Family history of premature coronary heart disease; Screening for lipid disorders Consult (Cardiology ) Start: 09-22-2023 End: 09-22-2023 ambulatory MORALES ROCHE Facility:[facility] Start: 07-24-2023 Telephone encounter Shereen blank PA-C Work Phone: [facility] Comment on above: Orders Start: 05-19-2023 Refill Morales harkins MD Work Phone: [facility] Comment on above: Med Change Request Start: 04-09-2023 End: 04-09-2023 ambulatory Nakia Funmi Stallworth CHEMICAL LABORATORY ASSISTANT.AUTOMOTIVE SERVICE DIRECTOR Work Phone: [facility]icine Comment on above: Acute non-recurrent pansinusitis (Primary Dx) Start: 04-09-2023 End: 04-09-2023 Telemedicine consultation with patient Nakia Choudhary Basim SAMUELS.AUTOMOTIVE SERVICE DIRECTOR Work Phone: [facility] Start: 09-17-2022 Refill Zora Martinez APRN.AUTOMOTIVE SERVICE DIRECTOR Work Phone: [facility] [place] Comment on above: Refill Request Start: 07-04-2022 Refill Reynaldo Stallworth DO Work Phone: [facility] Comment on above: Refill Request Start: 06-23-2022 Refill Shereen Newton PA-C Work Phone: [facility] Comment on above: Refill Request Start: 06-20-2022 Refill Morales harkins MD Work Phone: [facility] Comment on above: Refill Request Start: 05-27-2022 Refill Reynaldo Stallworth DO Work Phone: [facility] Comment on above: Refill Request Start: 05-05-2022 End: 05-05-2022 Patient encounter procedure Reynaldo Stallworth DO Work Phone: [facility] Comment on above: Strain of left knee, initial encounter (Primary Dx); Chronic pain of left knee; Dependent edema Start: 10-04-2021 ambulatory No [facility]cp [facility] Comment on above: Abdominal Pain Start: 05-18-2018 Ambulatory TIFFANY WATSON [facility] Start: 07-11-2017 End: 07-11-2017 Ambulatory PORTILLO LEON Facility[facility] Procedures Date Procedure Procedure Detail Performing Clinician Start: 05-05-2024 Urnls dip stick/tabl et rgnt auto w/o microscopy Sher Rockwell CHEMICAL LABORATORY ASSISTANT.AUTOMOTIVE SERVICE DIRECTOR Work Phone: Start: 02-19-2024 [employer] COVI D-19 VACCINE ( SEASON) AGE 12+ YR Tre Main CHEMICAL LABORATORY ASSISTANT.AUTOMOTIVE SERVICE DIRECTOR Work Phone: Start: 02-19-2024 Adult depression screening assessment Tre Main CHEMICAL LABORATORY ASSISTANT.AUTOMOTIVE SERVICE DIRECTOR Work Phone: Start: 10-04-2023 STREP A MOLECULAR (POC) [facility] Provider Start: 12-06-2021 Adult depression screening assessment Reynaldo Stallworth DO Work Phone: Start: 10-28-2019 Antibody screen Comment on above: Performed By: #### T &S #### [place] [id number] Start: 10-28-2019 Adult depression screening assessment No Pcp Start: 08-23-2019 Antibody screen Comment on above: Performed By: #### T &S #### [place] [id number] Plan of Treatment Date Care Activity Detail Author Start: 08-19-2029 Urine microalbumin profile [facility] Start: 09-13-2028 Screening for malign ant neoplasm of cervix [facility] Start: 09-13-2026 Screening for malign ant neoplasm of cervix Cervical Cancer Screening [facility] Start: 06-28-2025 Annual PCP Team Housekeeping Worker lópez Disease Visit Annual PCP Team Chronic Disease Visit [facility] Start: 02-18-2025 Annual PCP Team Housekeeping Worker lópez Disease Visit Annual PCP Team Chronic Disease Visit [facility] Start: 02-18-2025 Anxiety Screening Anxiety Screening [facility] Start: 02-18-2025 BP Controlled (<130/80) BP Controlle d (<130/80) [facility] Start: 02-18-2025 Depression Screening Depression Scre ening [facility] Start: 10-06-2024 Annual PCP Team Housekeeping Worker lópez Disease Visit Annual PCP Team Chronic Disease Visit [facility] Start: 09-30-2024 End: 09-30-2024 Patient encounter procedure 09/30/2024 1:00 PM EST Office Visit Family [facility] [address] [place] [address] Tre Main APRN.AUTOMOTIVE SERVICE DIRECTOR [address] [place], [place] [id number] 3 month follow up [facility] Comment on above: 3 month follow up Start: 09-26-2024 Annual PCP Team Housekeeping Worker lópez Disease Visit Annual PCP Team Chronic Disease Visit [facility] Start: 07-14-2024 Influenza vaccination [facility] Start: 06-28-2024 End: 09-27-2024 Thyrotropin [Units/volume] in Serum or Plasma [facility] Work Phone: Comment on above: Expected: 06/28/2024 , Expires: 09/27/2024 Start: 02-20-2024 End: 05-21-2024 CBC W Auto Differential panel - Blood CBC + DIFF Lab Routine Elevated platelet count Expected: 02/20/2024, Expires: 05/21/2024 [facility] Work Phone: Comment on above: Expected: 02/20/2024 , Expires: 05/21/2024 Start: 02-19-2024 End: 05-20-2024 CBC W Auto Differential panel - Blood [facility] Work Phone: Comment on above: Expected: 02/19/2024 , Expires: 05/20/2024 Start: 02-19-2024 End: 05-20-2024 Comprehensive metabolic 2000 panel - Serum or Plasma [facility] Work Phone: Comment on above: Expected: 02/19/2024 , Expires: 05/20/2024 Start: 02-19-2024 End: 05-20-2024 Hemoglobin A1c in Blood [facility] Work Phone: Comment on above: Expected: 02/19/2024 , Expires: 05/20/2024 Start: 11-13-2023 Depression Assessment Depression Ass essment [facility] Start: 09-26-2023 End: 12-26-2023 Lipid 1996 panel - Serum or Plasma LIPID PANEL BASIC Lab Routine Screening for lipid disorders Expected: 09/26/2023, Expires: 12/26/2023 [facility] Work Phone: Comment on above: Expected: 09/26/2023 , Expires: 12/26/2023 Start: 07-24-2023 End: 09-23-2023 Comprehensive metabolic 2000 panel - Serum or Plasma COMP METABOLIC PANEL Lab Routine Hypertension, essential Expected: 07/24/2023, Expires: 09/23/2023 [facility] Work Phone: Comment on above: Expected: 07/24/2023 , Expires: 09/23/2023 Start: 07-14-2023 Covid-19 Vaccine () Covid-19 Vaccine () [facility] Start: 07-14-2023 Influenza vaccination [facility] Start: 05-05-2023 ANNUAL PCP TEAM GLOBAL SUPPLY CHAIN DIRECTOR LÓPEZ DISEASE VISIT ANNUAL PCP TEAM CHRONIC DISEASE VISIT [facility] Start: 12-06-2022 Adult depression screening assessment DEPRESSION SCREENING [facility] Start: 11-13-2022 [facility]PRESS[facility]MENT [facility] Start: 07-14-2022 Influenza vaccination INFLUENZA (#1) [facility] Start: 12-28-2021 COVID-19 VACCINE (4 - Booster for Moderna series) COVID-19 VACCINE (4 - Booster for Moderna series) [facility] Start: 12-28-2021 COVID-19 VACCINE (4 - Moderna series) COVID-19 VACCINE (4 - Moderna series) [facility] Start: 11-13-2021 DEPRESSION ASSESSMENT DEPRESSION ASS ESSMENT [facility] Start: 07-14-2021 Influenza vaccination INFLUENZA (#1) [facility] Start: 10-28-2020 Adult depression screening assessment DEPRESSION SCREENING [facility] Start: 2014 HPV TESTING HPV TESTING [facility] Start: 2014 Screening for malign ant neoplasm of cervix HPV Testing [facility] Start: 2005 PAP TESTING PAP TESTING [facility] Start: 2005 Screening for malign ant neoplasm of cervix Pap Testing [facility] Start: 2002 ANNUAL PCP TEAM GLOBAL SUPPLY CHAIN DIRECTOR LÓPEZ DISEASE VISIT ANNUAL PCP TEAM CHRONIC DISEASE VISIT [facility] Start: 2002 BP CONTROLLED (<130/80) BP CONTROLLE D (<130/80) [facility] Start: 2002 HEPATITIS C SCREENING HEPATITIS C SC REENING [facility] Start: 1989 COVID-19 VACCINE (1) COVID-19 VACCIN E (1) [facility] ALERE STREP A TEST (AG) ALERE ST REP A TEST (AG) Lab Routine FUO (fever of unknown origin) Ordered: 10/04/2023 [facility] Work Phone: Comment on above: Ordered: 10/04/2023 Bacteria identified in Urine by Culture URINE CULTURE Microbiology Routine Urinary frequency Ordered: 05/05/2024 [facility] Work Phone: Comment on above: Ordered: 05/05/2024 ECG B/O W INTERP (ME D OFFICE) ECG B/O W INTERP (MED OFFICE) ECG Routine Family history of premature CAD Ordered: 01/02/2024 [facility] Work Phone: Comment on above: Ordered: 01/02/2024 Influenza virus A an d B RNA and SARS-CoV-2 (COVID-19) N gene panel - Respiratory specimen by BALJINDER with probe detection COVID & INFLUENZA A/B NAAT, ROUTINE Microbiology Routine FUO (fever of unknown origin) URI, acute 10/04/2023 2:50 PM EST [facility] Work Phone: End: 06-04-2023 XR KNEE GENERAL 4V AP BOTH/PA BOTH/LAT/MERC LEFT XR KNEE GENERAL 4V AP BOTH/PA BOTH/LAT/MERC LEFT Radiology Routine Strain of left knee, initial encounter Chronic pain of left knee 1 Occurrences starting 05/05/2022 until 06/04/2023 [facility] Work Phone: Comment on above: 1 Occurrences starti ng 05/05/2022 until 06/04/2023 [facility] Immunizations Immunization Date Immunization Notes Care Provider Dana mejiatatyana 02-19-2024 COVID-19 vaccine, ag e 12+ yr, season ([facility]) Tre Main APRN.JOSE Work Phone: [facility] 12-06-2021 influenza, injectabl e, quadrivalent, contains preservative Reynaldo Stallworth DO Work Phone: [facility] 12-06-2021 influenza virus vaccine, unspecified formulation Shereen Newton PA-C Work Phone: [facility] 09-23-2020 hepatitis A vaccine, adult dosage Reynaldo Stallworth DO Work Phone: [facility] 08-22-2020 influenza, injectabl e, quadrivalent, contains preservative Reynaldo Stallworth DO Work Phone: [facility] 10-30-2019 RHO(D) immune globul in- IV or IM No [facility] 08-23-2019 RHO(D) immune globul in- IV or IM No [facility] 08-19-2019 tetanus toxoid, redu denia diphtheria toxoid, and acellular pertussis vaccine, adsorbed No [facility] 08-05-2019 influenza, seasonal, injectable, preservative free No [facility] 07-22-2019 influenza, seasonal, injectable Reynaldo Stallworth DO Work Phone: [facility] 07-30-2018 influenza, injectabl e, quadrivalent, contains preservative Reynaldo Stallworth DO Work Phone: [facility] 07-07-2018 RHO(D) immune globul in- IV or IM No [facility] 05-13-2018 tetanus toxoid, redu denia diphtheria toxoid, and acellular pertussis vaccine, adsorbed Reynaldo Stallworth DO Work Phone: [facility] Work Phone: 05-07-2018 tetanus toxoid, redu denia diphtheria toxoid, and acellular pertussis vaccine, adsorbed No [facility] 04-19-2018 RHO(D) immune globul in- IV or IM No [facility] 02-02-1999 hepatitis B vaccine, unspecified formulation Reynaldo Stallworth DO Work Phone: [facility] 09-04-1998 hepatitis B vaccine, unspecified formulation Reynaldo Stallworth DO Work Phone: [facility] 08-01-1998 hepatitis B vaccine, unspecified formulation Reynaldo Stallworth DO Work Phone: [facility] 08-01-1998 tetanus and diphther ia toxoids, adsorbed, preservative free, for adult use (5 Lf of tetanus toxoid and 2 Lf of diphtheria toxoid) Reynaldo Stallworth DO Work Phone: [facility] Payers Date Payer Category Payer Unknown [id number] 2022 Unknown [id number] 2022 Unknown [id number] 2014 Private Health Insurance [employer] A ETNA CHOICE POS II [id number] 2014-Present [phone] [address] [place] [address] POS [id number] 2014 Private Health Insurance [employer] A ETNA CHOICE POS II [id number] 2014-Present [phone] [address] [place] [address] POS [id number] 1959 Private Health Insurance [id number] Social History Date Type Detail Facility Tobacco smoking stat us [facility] Tobacco smoking consumption unknown [facility] Start: 02-22-2019 [facility] Start: 1985 Sex Assigned At Not on file [facility] Start: 04-25-2022 End: 05-05-2022 Exposure to SARS-CoV-2 (event) Not sure [facility] Start: 10-05-2021 End: 10-04-2023 Tobacco smoking status NHIS Never smoked tobacco [facility] Start: 10-05-2021 End: 10-04-2023 Tobacco use and exposure Smokeless tobacco non-user [facility] Start: 05-05-2022 End: 05-05-2024 Alcohol intake Current drinker of alcohol (finding) [facility] Start: 10-05-2021 History SDOH Alcohol Comment rare [facility] Start: 05-05-2022 End: 09-24-2023 Gender identity Not on file [facility] Start: 05-05-2022 End: 09-24-2023 History of Social function [facility] PHQ2 Score [facility] Has the [employer], [employer], [employer], or [employer] threatened to shut off services in your home in past 12Mo No [facility] Are you now , , , , never or living with a partner? [facility] How often to you hav e a drink containing alcohol? 2-4 times a month [facility] How many standard dr inks containing alcohol do you have on a typical day? 1 or 2 [facility] How often do you hav e 6 or more drinks on 1 occasion? Never [facility] How hard is it for y ou to pay for the very basics like food, housing, medical care, and heating Not very hard [facility] Do you feel stress - tense, restless, nervous, or anxious, or unable to sleep at night because your mind is troubled all the time - these days [OSQ] Rather much [facility] (I/We) worried wheth er (my/our) food would run out before (I/we) got money to buy more. Never true [facility] Clinical Notes 10-28-2019 to 07-01-2024 Telephone Encounter - Arjun Mckinney MA - 07/01/2024 10:06 AM EDTTelephone Encounter - Arjun Mckinney MA - 07/01/2024 10:06 AM Tre Cabello APRN.AUTOMOTIVE SERVICE DIRECTOR - 06/28/2024 12:14 PM EDT Note Date & Type Note Facility 07-01-2024 Telephone encounter Note Pt notified and verbalized understanding Arjun Mckinney MA [facility] 07-01-2024 Miscellaneous Notes Pt notified and verbalized understanding Arjun Mckinney MA Please let patient know their labs are normal. documented in this encounter [facility] 07-01-2024 Telephone encounter Note Please let patient know their labs are normal. [facility] 06-28-2024 Note HNO ID: [id number] Author: TRE MAIN APRN.JOSE Service: ? Author Type: Nurse Practitioner Type: Progress Notes Filed: 06/28/2024 12:21 Note Text: Chief Complaint Patient presents with: Follow Up HPI Bere Fiore is a 38 year old female who presents here today for Above Complaints.. Patient presents for medication follow up. Patient was started on zoloft in February and has been doing well. Past medical history, appointments, medications, allergies reviewed. Previous Medical History PAST MEDICAL HISTORY 10/28/2019: Advanced maternal age in multigravida, third trimester Comment: -Declined genetic testing -Anatomy wnl per patient No date: Chronic hypertension 10/28/2019: Encounter for induction of labor Comment: -GBS negative -S/p Cytotecx1 and FB -Epi in -S/p AROM 2300 on 10/28, clear fluid -Pit per protocol -PPBC: desires immediate PP Mirena. 10/28/2019: History of pre-eclampsia in prior , currently Comment: -History of pre-eclampsia with features at 39 weeks -Diagnosed with CHTN following pregancy -On bASA this 07/20/2017: Hydronephrosis with renal and ureteral calculous obstruction 10/28/2019: Morbid obesity (HCC) Comment: -BMI 40 on admission -Growth US at 35w 55%, EFW around 6# per pt -H/o 6#13oz -Abnormal 1hr GCT, 3hr GTT wnl -SCDs ordered 10/29/2019: Oxygen desaturation Comment: -O2 saturation intermittently decreased to 93% during/after epidural -Improves to 95-96% with deep breaths -CXR negative -Incentive spirometer ordered -Nasal spray ordered for upper respiratory congestion 10/28/2019: Rh negative status during in third trimester Comment: -S/p Rhogam 08/23/19 -Rhogam as indicated Previous Surgical History PAST SURGICAL HISTORY No date: NONE Family History FAMILY HISTORY Problem Relation Age of Onset Heart disease Father Alzheimer's Disease Maternal Grandmother Dementia Maternal Grandmother Dementia Paternal Grandmother Parkinson?s Disease Paternal Grandmother Heart disease Paternal Grandfather Patient Allergies ALLERGIES Allergen Reactions Penicillin Unknown Childhood allergy. Pt unsure of reaction. Current Medications Current Outpatient Medications on File Prior to Visit Medication Sig fluticasone (FLONASE) 50 mcg/actuation nasal spray Use 1 Sage in each nostril two times a day. sertraline (ZOLOFT) 50 mg tablet Take 1 tablet by mouth once daily. Take 0.5 tab daily x7 days then 1 full tab daily. amLODIPine (NORVASC) 10 mg tablet take 1 tablet by mouth every day albuterol HFA (PROVENTIL HFA, VENTOLIN HFA) 90 mcg/actuation inhaler Inhale 2 Puffs as instructed every 4 hours as needed for wheezing/shortness of breath. INTRAUTERINE DEVICE, IUD, INTRAUTERINE by INTRAUTERINE route. No current facility-administered medications on file prior to visit. Social History Social History Tobacco Use Smoking status: Never Smokeless tobacco: Never Substance Use Topics Alcohol use: Yes Comment: rare Drug use: Yes Types: Marijuana Comment: gummies occasionally Review of Symptoms REVIEW OF SYSTEMS SEE HPI EXAM: BP 135/83 Pulse 93 Resp 16 Wt 122.9 kg (271 lb) BMI 42.44 kg/m? General Appearance: Well appearing, alert, in no acute distress, well-hydrated, well nourished.. Lungs: Lungs clear to auscultation. No wheezing, rhonchi, rales.. Heart: RRR without murmur, gallop, or rubs. No ectopy. Health Maintenance List Influenza Vaccine(1) due on 07/14/2024 Annual PCP Team Chronic Disease Visit due on 02/18/2025 Depression Screening due on 02/18/2025 Anxiety Screening due on 02/18/2025 BP Controlled (<130/80) due on 02/18/2025 Cervical Cancer Screening due on 09/13/2026 DTaP,Tdap,Td Vaccine(5 - Td or Tdap) due on 08/19/2029 Hepatitis B Vaccine Completed Hepatitis C Screening Completed HIV Screening Completed Covid-19 Vaccine Completed HPV Vaccine Aged Out ASSESSMENT/PLAN: 1. Medication management - ICD9: V58.69, ICD10: Z79.899 (primary diagnosis) - THYROID STIMULATING HORMONE 2. AMANDA (generalized anxiety disorder) - ICD9: 300.02, ICD10: F41.1 - SERTRALINE 100 MG TABLET Tre Main APRN.[facility] 06-28-2024 History of Present illness Narrative Chief Complaint Patient presents with: Follow Up HPI Bere Fiore is a 38 year old female who presents here today for Above Complaints.. Patient presents for medication follow up. Patient was started on zoloft in February and has been doing well. Past medical history, appointments, medications, allergies reviewed. Previous Medical History PAST MEDICAL HISTORY 10/28/2019: Advanced maternal age in multigravida, third trimester Comment: -Declined genetic testing -Anatomy wnl per patient No date: Chronic hypertension 10/28/2019: Encounter for induction of labor Comment: -GBS negative -S/p Cytotecx1 and FB -Epi in -S/p AROM 2300 on 10/28, clear fluid -Pit per protocol -PPBC: desires immediate PP Mirena. 10/28/2019: History of pre-eclampsia in prior , currently Comment: -History of pre-eclampsia with features at 39 weeks -Diagnosed with CHTN following pregancy -On bASA this 07/20/2017: Hydronephrosis with renal and ureteral calculous obstruction 10/28/2019: Morbid obesity (HCC) Comment: -BMI 40 on admission -Growth US at 35w 55%, EFW around 6# per pt -H/o 6#13oz -Abnormal 1hr GCT, 3hr GTT wnl -SCDs ordered 10/29/2019: Oxygen desaturation Comment: -O2 saturation intermittently decreased to 93% during/after epidural -Improves to 95-96% with deep breaths -CXR negative -Incentive spirometer ordered -Nasal spray ordered for upper respiratory congestion 10/28/2019: Rh negative status during in third trimester Comment: -S/p Rhogam 08/23/19 -Rhogam as indicated Previous Surgical History PAST SURGICAL HISTORY No date: NONE Family History FAMILY HISTORY Problem Relation Age of Onset Heart disease Father Alzheimer's Disease Maternal Grandmother Dementia Maternal Grandmother Dementia Paternal Grandmother Parkinson s Disease Paternal Grandmother Heart disease Paternal Grandfather Patient Allergies ALLERGIES Allergen Reactions Penicillin Unknown Childhood allergy. Pt unsure of reaction. Current Medications Current Outpatient Medications on File Prior to Visit Medication Sig fluticasone (FLONASE) 50 mcg/actuation nasal spray Use 1 Sage in each nostril two times a day. sertraline (ZOLOFT) 50 mg tablet Take 1 tablet by mouth once daily. Take 0.5 tab daily x7 days then 1 full tab daily. amLODIPine (NORVASC) 10 mg tablet take 1 tablet by mouth every day albuterol HFA (PROVENTIL HFA, VENTOLIN HFA) 90 mcg/actuation inhaler Inhale 2 Puffs as instructed every 4 hours as needed for wheezing/shortness of breath. INTRAUTERINE DEVICE, IUD, INTRAUTERINE by INTRAUTERINE route. No current facility-administered medications on file prior to visit. Social History Social History Tobacco Use Smoking status: Never Smokeless tobacco: Never Substance Use Topics Alcohol use: Yes Comment: rare Drug use: Yes Types: Marijuana Comment: gummies occasionally Review of Symptoms REVIEW OF SYSTEMS SEE HPI EXAM: BP 135/83 Pulse 93 Resp 16 Wt 122.9 kg (271 lb) BMI 42.44 kg/m General Appearance: Well appearing, alert, in no acute distress, well-hydrated, well nourished.. Lungs: Lungs clear to auscultation. No wheezing, rhonchi, rales.. Heart: RRR without murmur, gallop, or rubs. No ectopy. Health Maintenance List Influenza Vaccine(1) due on 07/14/2024 Annual PCP Team Chronic Disease Visit due on 02/18/2025 Depression Screening due on 02/18/2025 Anxiety Screening due on 02/18/2025 BP Controlled (<130/80) due on 02/18/2025 Cervical Cancer Screening due on 09/13/2026 DTaP,Tdap,Td Vaccine(5 - Td or Tdap) due on 08/19/2029 Hepatitis B Vaccine Completed Hepatitis C Screening Completed HIV Screening Completed Covid-19 Vaccine Completed HPV Vaccine Aged Out ASSESSMENT/PLAN: 1. Medication management - ICD9: V58.69, ICD10: Z79.899 (primary diagnosis) - THYROID STIMULATING HORMONE 2. AMANDA (generalized anxiety disorder) - ICD9: 300.02, ICD10: F41.1 - SERTRALINE 100 MG TABLET Tre Main APRN.AUTOMOTIVE SERVICE DIRECTOR documented in this encounter [facility] 05-05-2024 Note HNO ID: [id number] Author: MARIAELENA BARKER APRN.JOSE Service: ? Author Type: Nurse Practitioner Type: Progress Notes Filed: 05/05/2024 13:09 Note Text: Subjective HPI Bere present today with one day hx of urinary buring and frequency. She states her periods is regular, she is not and she has a uti in the past. She denies fever, she is eating and drinking well. PAST MEDICAL HISTORY Diagnosis Date Advanced maternal age in multigravida, third trimester 10/28/2019 -Declined genetic testing -Anatomy wnl per patient Chronic hypertension Encounter for induction of labor 10/28/2019 -GBS negative -S/p Cytotecx1 and FB -Epi in -S/p AROM 2300 on 10/28, clear fluid -Pit per protocol -PPBC: desires immediate PP Mirena. History of pre-eclampsia in prior , currently 10/28/2019 -History of pre-eclampsia with features at 39 weeks -Diagnosed with CHTN following pregancy -On bASA this Hydronephrosis with renal and ureteral calculous obstruction 07/20/2017 Morbid obesity (HCC) 10/28/2019 -BMI 40 on admission -Growth US at 35w 55%, EFW around 6# per pt -H/o 6#13oz -Abnormal 1hr GCT, 3hr GTT wnl -SCDs ordered Oxygen desaturation 10/29/2019 -O2 saturation intermittently decreased to 93% during/after epidural -Improves to 95-96% with deep breaths -CXR negative -Incentive spirometer ordered -Nasal spray ordered for upper respiratory congestion Rh negative status during in third trimester 10/28/2019 -S/p Rhogam 08/23/19 -Rhogam as indicated PAST SURGICAL HISTORY Procedure Laterality Date NONE ALLERGIES Penicillin MEDICATIONS fluticasone (FLONASE) 50 mcg/actuation nasal spray Use 1 Sage in each nostril two times a day. sertraline (ZOLOFT) 50 mg tablet Take 1 tablet by mouth once daily. Take 0.5 tab daily x7 days then 1 full tab daily. amLODIPine (NORVASC) 10 mg tablet take 1 tablet by mouth every day albuterol HFA (PROVENTIL HFA, VENTOLIN HFA) 90 mcg/actuation inhaler Inhale 2 Puffs as instructed every 4 hours as needed for wheezing/shortness of breath. INTRAUTERINE DEVICE, IUD, INTRAUTERINE by INTRAUTERINE route. nitrofurantoin monohydrate and macrocrystal (MACROBID) 100 mg capsule Take 1 capsule by mouth two times a day for 5 days. FAMILY HISTORY Problem Relation Age of Onset Heart disease Father Alzheimer's Disease Maternal Grandmother Dementia Maternal Grandmother Dementia Paternal Grandmother Parkinson?s Disease Paternal Grandmother Heart disease Paternal Grandfather Social History Tobacco Use Smoking status: Never Smokeless tobacco: Never Substance Use Topics Alcohol use: Yes Comment: rare Drug use: Yes Types: Marijuana Comment: gummies occasionally Review of Systems Genitourinary: Positive for dysuria, frequency and urgency. Objective Physical Exam Vitals and nursing note reviewed. Constitutional: Appearance: Normal appearance. HENT: Head: Normocephalic. Nose: Nose normal. Mouth/Throat: Mouth: Mucous membranes are dry. Eyes: Extraocular Movements: Extraocular movements intact. Pupils: Pupils are equal, round, and reactive to light. Cardiovascular: Rate and Rhythm: Normal rate and regular rhythm. Pulses: Normal pulses. Pulmonary: Effort: Pulmonary effort is normal. Breath sounds: Normal breath sounds. Abdominal: General: Abdomen is flat. There is no distension. Palpations: Abdomen is soft. There is no mass. Tenderness: There is no abdominal tenderness. There is no right CVA tenderness, left CVA tenderness, guarding or rebound. Hernia: No hernia is present. Musculoskeletal: General: Normal range of motion. Cervical back: Normal range of motion. Lymphadenopathy: Cervical: No cervical adenopathy. Skin: General: Skin is warm. Capillary Refill: Capillary refill takes less than 2 seconds. Neurological: General: No focal deficit present. Mental Status: She is alert and oriented to person, place, and time. ASSESSMENT/PLAN: 1. Urinary frequency - ICD9: 788.41, ICD10: R35.0 acute - UA positive for daphne esterase, hematuria, and proteinuria - Send urine for culture - Begin treatment with Macrobid 100 mg BID for 7 days - Patient education for prevention given - UA DIP, URINE (POC) - URINE CULTURE Mariaelena Barker APRN.AUTOMOTIVE SERVICE DIRECTOR [facility] 05-05-2024 History of Present illness Narrative Subjective HPI Bere present today with one day hx of urinary buring and frequency. She states her periods is regular, she is not and she has a uti in the past. She denies fever, she is eating and drinking well. PAST MEDICAL HISTORY Diagnosis Date Advanced maternal age in multigravida, third trimester 10/28/2019 -Declined genetic testing -Anatomy wnl per patient Chronic hypertension Encounter for induction of labor 10/28/2019 -GBS negative -S/p Cytotecx1 and FB -Epi in -S/p AROM 2300 on 10/28, clear fluid -Pit per protocol -PPBC: desires immediate PP Mirena. History of pre-eclampsia in prior , currently 10/28/2019 -History of pre-eclampsia with features at 39 weeks -Diagnosed with CHTN following pregancy -On bASA this Hydronephrosis with renal and ureteral calculous obstruction 07/20/2017 Morbid obesity (HCC) 10/28/2019 -BMI 40 on admission -Growth US at 35w 55%, EFW around 6# per pt -H/o 6#13oz -Abnormal 1hr GCT, 3hr GTT wnl -SCDs ordered Oxygen desaturation 10/29/2019 -O2 saturation intermittently decreased to 93% during/after epidural -Improves to 95-96% with deep breaths -CXR negative -Incentive spirometer ordered -Nasal spray ordered for upper respiratory congestion Rh negative status during in third trimester 10/28/2019 -S/p Rhogam 08/23/19 -Rhogam as indicated PAST SURGICAL HISTORY Procedure Laterality Date NONE ALLERGIES Penicillin MEDICATIONS fluticasone (FLONASE) 50 mcg/actuation nasal spray Use 1 Sage in each nostril two times a day. sertraline (ZOLOFT) 50 mg tablet Take 1 tablet by mouth once daily. Take 0.5 tab daily x7 days then 1 full tab daily. amLODIPine (NORVASC) 10 mg tablet take 1 tablet by mouth every day albuterol HFA (PROVENTIL HFA, VENTOLIN HFA) 90 mcg/actuation inhaler Inhale 2 Puffs as instructed every 4 hours as needed for wheezing/shortness of breath. INTRAUTERINE DEVICE, IUD, INTRAUTERINE by INTRAUTERINE route. nitrofurantoin monohydrate and macrocrystal (MACROBID) 100 mg capsule Take 1 capsule by mouth two times a day for 5 days. FAMILY HISTORY Problem Relation Age of Onset Heart disease Father Alzheimer's Disease Maternal Grandmother Dementia Maternal Grandmother Dementia Paternal Grandmother Parkinson s Disease Paternal Grandmother Heart disease Paternal Grandfather Social History Tobacco Use Smoking status: Never Smokeless tobacco: Never Substance Use Topics Alcohol use: Yes Comment: rare Drug use: Yes Types: Marijuana Comment: gummies occasionally Review of Systems Genitourinary: Positive for dysuria, frequency and urgency. Objective Physical Exam Vitals and nursing note reviewed. Constitutional: Appearance: Normal appearance. HENT: Head: Normocephalic. Nose: Nose normal. Mouth/Throat: Mouth: Mucous membranes are dry. Eyes: Extraocular Movements: Extraocular movements intact. Pupils: Pupils are equal, round, and reactive to light. Cardiovascular: Rate and Rhythm: Normal rate and regular rhythm. Pulses: Normal pulses. Pulmonary: Effort: Pulmonary effort is normal. Breath sounds: Normal breath sounds. Abdominal: General: Abdomen is flat. There is no distension. Palpations: Abdomen is soft. There is no mass. Tenderness: There is no abdominal tenderness. There is no right CVA tenderness, left CVA tenderness, guarding or rebound. Hernia: No hernia is present. Musculoskeletal: General: Normal range of motion. Cervical back: Normal range of motion. Lymphadenopathy: Cervical: No cervical adenopathy. Skin: General: Skin is warm. Capillary Refill: Capillary refill takes less than 2 seconds. Neurological: General: No focal deficit present. Mental Status: She is alert and oriented to person, place, and time. ASSESSMENT/PLAN: 1. Urinary frequency - ICD9: 788.41, ICD10: R35.0 acute - UA positive for daphne esterase, hematuria, and proteinuria - Send urine for culture - Begin treatment with Macrobid 100 mg BID for 7 days - Patient education for prevention given - UA DIP, URINE (POC) - URINE CULTURE Mariaelena Barker APRN.AUTOMOTIVE SERVICE DIRECTOR documented in this encounter [facility] 05-02-2024 Telephone encounter Note Left message on confidential Rebekah Kaur MA [facility] 05-02-2024 Miscellaneous Notes Left message on confidential Rebekah Kaur MA Let patient know her repeat blood count was ok. documented in this encounter [facility] 05-02-2024 Telephone encounter Note Let patient know her repeat blood count was ok. [facility] Work Phone: 04-26-2024 Telephone encounter Note Patient phones requesting refills as follows: RADHA: 02/19/24 Requested Prescriptions Pending Prescriptions Disp Refills fluticasone (FLONASE) 50 mcg/actuation nasal spray 16 mL 0 Sig: Use 1 Sage in each nostril two times a day. Please review and advise. Jeevan Rodriguez RN [facility] 04-26-2024 Miscellaneous Notes Patient phones requesting refills as follows: RADHA: 02/19/24 Requested Prescriptions Pending Prescriptions Disp Refills fluticasone (FLONASE) 50 mcg/actuation nasal spray 16 mL 0 Sig: Use 1 Sage in each nostril two times a day. Please review and advise. Jeevan Rodriguez RN documented in this encounter [facility] 04-26-2024 Telephone encounter Note Patient Earbits[employer] message requesting the following refill Refill(s) Requested: Requested Prescriptions Pending Prescriptions Disp Refills sertraline (ZOLOFT) 50 mg tablet 60 tablet 0 Sig: Take 1 tablet by mouth once daily. Take 0.5 tab daily x7 days then 1 full tab daily. ALLERGIES Allergen Reactions Penicillin Unknown Childhood allergy. Pt unsure of reaction. (home) [phone] (cell) Last Office Visit Date: 02/19/2024 Last Distance Health Visit: Visit date not found Future Appointment: Visit date not found The patients preferred pharmacy has been captured for this encounter? yes Request is for script(s) to be escript to pharmacy. Gabriela Begum LPN [facility] 04-26-2024 Miscellaneous Notes Patient Ear[employer]hart message requesting the following refill Refill(s) Requested: Requested Prescriptions Pending Prescriptions Disp Refills sertraline (ZOLOFT) 50 mg tablet 60 tablet 0 Sig: Take 1 tablet by mouth once daily. Take 0.5 tab daily x7 days then 1 full tab daily. ALLERGIES Allergen Reactions Penicillin Unknown Childhood allergy. Pt unsure of reaction. (home) [phone] (cell) Last Office Visit Date: 02/19/2024 Last Distance Health Visit: Visit date not found Future Appointment: Visit date not found The patients preferred pharmacy has been captured for this encounter? yes Request is for script(s) to be escript to pharmacy. Gabriela Begum LPN documented in this encounter [facility] 04-02-2024 Telephone encounter Note [facility] 09/16/23 Patient phones requesting refills as follows: Requested Prescriptions Pending Prescriptions Disp Refills amLODIPine (NORVASC) 10 mg tablet [Pharmacy Med Name: AMLODIPINE BESYLATE 10 MG TAB] 90 tablet 0 Sig: take 1 tablet by mouth every day Please review and advise. Gena Krueger LPN [facility] 04-02-2024 Miscellaneous Notes [facility] 09/16/23 Patient phones requesting refills as follows: Requested Prescriptions Pending Prescriptions Disp Refills amLODIPine (NORVASC) 10 mg tablet [Pharmacy Med Name: AMLODIPINE BESYLATE 10 MG TAB] 90 tablet 0 Sig: take 1 tablet by mouth every day Please review and advise. Gena Krueger LPN documented in this encounter [facility] 02-22-2024 Miscellaneous Notes Edgar notified and verbalized understanding Arjun Mckinney MA Addended by: TRE MAIN on: 02/22/2024 01:36 PM Modules accepted: Orders Please let know rx has been sent. Bere has her spouse Edgar calling Tre Main APRN.CNP today to request the medication Zoloft discussed at new patient appointment on 02/19/2024. Per spouse Edgar this was to be sent to pharmacy [facility] in [place] on [address] Please call patient spouse, Edgar to advise when RX has been sent to pharmacy at Edgar cell phone only [phone] Patient has been identified by name and birthdate. Duration of symptoms: ongoing Person calling: spouse: Edgar Please call patient spouse,patient does not answer her phone Was an appointment scheduled: No Closing statement: Results or non-symptom based questions: Thank you for calling [facility], your call will be returned within the next business day. Debora Acosta documented in this encounter [facility] 02-20-2024 Miscellaneous Notes Spoke with pt and information listed below given. Pt verbalizes understanding. Harini Guadarrama LPN Called and left a voicemail for the Patient to call back and ask for a nurse to receive the providers message. Shefali Doe RN Please let patient know her labs show elevated platelets. I would like her to repeat her blood count in 1 month. documented in this encounter [facility] 02-19-2024 Note HNO ID: [id number] Author: TRE MAIN APRN.JOSE Service: ? Author Type: Nurse Practitioner Type: Progress Notes Filed: 02/19/2024 08:33 Note Text: Chief Complaint Patient presents with: [facility] HPI Bere Fiore is a 38 year old female who presents here today for Above Complaints.. Patient presents to establish care. Patient reports she has intermittent chest tightness/pain with numbness to fingers as well as having periods of overstimulated. Has seen cardiology and had workup to r/o cardiac issues which was negative. Past medical history, appointments, medications, allergies reviewed. Previous Medical History PAST MEDICAL HISTORY Diagnosis Date Advanced maternal age in multigravida, third trimester 10/28/2019 -Declined genetic testing -Anatomy wnl per patient Chronic hypertension Encounter for induction of labor 10/28/2019 -GBS negative -S/p Cytotecx1 and FB -Epi in -S/p AROM 2300 on 10/28, clear fluid -Pit per protocol -PPBC: desires immediate PP Mirena. History of pre-eclampsia in prior , currently 10/28/2019 -History of pre-eclampsia with features at 39 weeks -Diagnosed with CHTN following pregancy -On bASA this Hydronephrosis with renal and ureteral calculous obstruction 07/20/2017 Morbid obesity (HCC) 10/28/2019 -BMI 40 on admission -Growth US at 35w 55%, EFW around 6# per pt -H/o 6#13oz -Abnormal 1hr GCT, 3hr GTT wnl -SCDs ordered Oxygen desaturation 10/29/2019 -O2 saturation intermittently decreased to 93% during/after epidural -Improves to 95-96% with deep breaths -CXR negative -Incentive spirometer ordered -Nasal spray ordered for upper respiratory congestion Rh negative status during in third trimester 10/28/2019 -S/p Rhogam 08/23/19 -Rhogam as indicated Previous Surgical History PAST SURGICAL HISTORY Procedure Laterality Date NONE Family History FAMILY HISTORY Problem Relation Age of Onset Heart disease Father Alzheimer's Disease Maternal Grandmother Dementia Maternal Grandmother Dementia Paternal Grandmother Parkinson?s Disease Paternal Grandmother Patient Allergies ALLERGIES Allergen Reactions Penicillin Unknown Childhood allergy. Pt unsure of reaction. Current Medications Current Outpatient Medications on File Prior to Visit Medication Sig albuterol HFA (PROVENTIL HFA, VENTOLIN HFA) 90 mcg/actuation inhaler Inhale 2 Puffs as instructed every 4 hours as needed for wheezing/shortness of breath. amLODIPine (NORVASC) 10 mg tablet Take 1 tablet by mouth once daily. fluticasone (FLONASE) 50 mcg/actuation nasal spray Use 1 Sage in each nostril twice daily. INTRAUTERINE DEVICE, IUD, INTRAUTERINE by INTRAUTERINE route. No current facility-administered medications on file prior to visit. Social History Social History Tobacco Use Smoking status: Never Smokeless tobacco: Never Substance Use Topics Alcohol use: Yes Comment: rare Drug use: Yes Types: Marijuana Comment: gummies Review of Symptoms REVIEW OF SYSTEMS GENERAL: No weight loss, malaise or fevers HEENT: No changes in hearing or vision, no nose bleeds or other nasal problems NECK: Negative for lumps, goiter, pain and significant neck swelling RESPIRATORY: Cough; dry CARDIOVASCULAR: leg swelling, improves with elevation GI: Positive for diarrhea : No history of dysuria, frequency or incontinence SENIOR ENERGY MARKET COORDINATOR: Negative for abnormal vaginal bleeding, abnormal vaginal discharge MUSCULOSKELETAL: joint pain or swelling, back pain, and muscle pain SKIN: Negative for lesions, rash, and itching PSYCH: Positive for depression: and anxiety: HEMATOLOGY/LYMPHOLOGY: Negative for prolonged bleeding, bruising easily or swollen nodes ENDOCRINE: Negative for cold or heat intolerance, polyuria, polydipsia and goiter NEURO: No history of headaches, syncope, paralysis, seizures or tremors EXAM: BP 128/80 Pulse 88 Resp 14 Wt 122.5 kg (270 lb) BMI 42.29 kg/m? General Appearance: Well appearing, alert, in no acute distress, well-hydrated, well nourished.. Skin: Skin color, texture, turgor normal, no suspicious rashes or lesions. Neck: Supple, no adenopathy; thyroid symmetric, normal size, no bruits. Lungs: Lungs clear to auscultation. No wheezing, rhonchi, rales.. Heart: RRR without murmur, gallop, or rubs. No ectopy. Abdomen: Normal abdominal exam, Abdomen soft, non-tender. Bowel sounds normal. No masses, organomegaly Extremities: No deformities, edema, skin discoloration, clubbing or cyanosis. Good capillary refill. . Peripheral Pulses: Normal. Neurologic: Gait normal. Reflexes normal and symmetric. Sensation grossly intact.. AMANDA-7: 12 PHQ-9: 10 Health Maintenance List BP Controlled (<130/80) Never done Pap Testing Never done HPV Testing Never done Covid-19 Vaccine(2022- season) due on 07/14/2023 Behavioral Health Screening Never done Influenza Vaccine(Season E (more content not included)... [facility] 02-19-2024 History of Present illness Narrative Chief Complaint Patient presents with: [facility] Bere Fiore is a 38 year old female who presents here today for Above Complaints.. Patient presents to [facility]. Patient reports she has intermittent chest tightness/pain with numbness to fingers as well as having periods of overstimulated. Has seen cardiology and had workup to r/o cardiac issues which was negative. Past medical history, appointments, medications, allergies reviewed. Previous Medical History PAST MEDICAL HISTORY Diagnosis Date Advanced maternal age in multigravida, third trimester 10/28/2019 -Declined genetic testing -Anatomy wnl per patient Chronic hypertension Encounter for induction of labor 10/28/2019 -GBS negative -S/p Cytotecx1 and FB -Epi in -S/p AROM 2300 on 10/28, clear fluid -Pit per protocol -PPBC: desires immediate PP Mirena. History of pre-eclampsia in prior , currently 10/28/2019 -History of pre-eclampsia with features at 39 weeks -Diagnosed with CHTN following pregancy -On bASA this Hydronephrosis with renal and ureteral calculous obstruction 07/20/2017 Morbid obesity (HCC) 10/28/2019 -BMI 40 on admission -Growth US at 35w 55%, EFW around 6# per pt -H/o 6#13oz -Abnormal 1hr GCT, 3hr GTT wnl -SCDs ordered Oxygen desaturation 10/29/2019 -O2 saturation intermittently decreased to 93% during/after epidural -Improves to 95-96% with deep breaths -CXR negative -Incentive spirometer ordered -Nasal spray ordered for upper respiratory congestion Rh negative status during in third trimester 10/28/2019 -S/p Rhogam 08/23/19 -Rhogam as indicated Previous Surgical History PAST SURGICAL HISTORY Procedure Laterality Date NONE Family History FAMILY HISTORY Problem Relation Age of Onset Heart disease Father Alzheimer's Disease Maternal Grandmother Dementia Maternal Grandmother Dementia Paternal Grandmother Parkinson s Disease Paternal Grandmother Patient Allergies ALLERGIES Allergen Reactions Penicillin Unknown Childhood allergy. Pt unsure of reaction. Current Medications Current Outpatient Medications on File Prior to Visit Medication Sig albuterol HFA (PROVENTIL HFA, VENTOLIN HFA) 90 mcg/actuation inhaler Inhale 2 Puffs as instructed every 4 hours as needed for wheezing/shortness of breath. amLODIPine (NORVASC) 10 mg tablet Take 1 tablet by mouth once daily. fluticasone (FLONASE) 50 mcg/actuation nasal spray Use 1 Sage in each nostril twice daily. INTRAUTERINE DEVICE, IUD, INTRAUTERINE by INTRAUTERINE route. No current facility-administered medications on file prior to visit. Social History Social History Tobacco Use Smoking status: Never Smokeless tobacco: Never Substance Use Topics Alcohol use: Yes Comment: rare Drug use: Yes Types: Marijuana Comment: gummies Review of Symptoms REVIEW OF SYSTEMS GENERAL: No weight loss, malaise or fevers HEENT: No changes in hearing or vision, no nose bleeds or other nasal problems NECK: Negative for lumps, goiter, pain and significant neck swelling RESPIRATORY: Cough; dry CARDIOVASCULAR: leg swelling, improves with elevation GI: Positive for diarrhea : No history of dysuria, frequency or incontinence SENIOR ENERGY MARKET COORDINATOR: Negative for abnormal vaginal bleeding, abnormal vaginal discharge MUSCULOSKELETAL: joint pain or swelling, back pain, and muscle pain SKIN: Negative for lesions, rash, and itching PSYCH: Positive for depression: and anxiety: HEMATOLOGY/LYMPHOLOGY: Negative for prolonged bleeding, bruising easily or swollen nodes ENDOCRINE: Negative for cold or heat intolerance, polyuria, polydipsia and goiter NEURO: No history of headaches, syncope, paralysis, seizures or tremors EXAM: BP 128/80 Pulse 88 Resp 14 Wt 122.5 kg (270 lb) BMI 42.29 kg/m General Appearance: Well appearing, alert, in no acute distress, well-hydrated, well nourished.. Skin: Skin color, texture, turgor normal, no suspicious rashes or lesions. Neck: Supple, no adenopathy; thyroid symmetric, normal size, no bruits. Lungs: Lungs clear to auscultation. No wheezing, rhonchi, rales.. Heart: RRR without murmur, gallop, or rubs. No ectopy. Abdomen: Normal abdominal exam, Abdomen soft, non-tender. Bowel sounds normal. No masses, organomegaly Extremities: No deformities, edema, skin discoloration, clubbing or cyanosis. Good capillary refill. . Peripheral Pulses: Normal. Neurologic: Gait normal. Reflexes normal and symmetric. Sensation grossly intact.. AMANDA-7: 12 PHQ-9: 10 Health Maintenance List BP Controlled (<130/80) Never done Pap Testing Never done HPV Testing Never done Covid-19 Vaccine() due on 07/14/2023 Behavioral Health Screening Never done Influenza Vaccine(Season Ended) due on 07/14/2024 Annual PCP Team Chronic Disease Visit due on 10/06/2024 DTaP,Tdap,Td Vaccine(5 - Td or Tdap) due on 08/19/2029 Hepatitis B Vaccine Completed Hepatitis C Screening Completed HIV Screening Completed HPV Vaccine Aged Out ASSESSMENT/PLAN: 1. Encounter for immunization - ICD9: V03.89, ICD10: Z23 (primary diagnosis) - [employer] COVID-19 VACCINE ( SEASON) AGE 12+ YR 2. Wellness examination - ICD9: V70.0, ICD10: Z00.00 - Counseled on healthy diet and regular exercise - Calcium intake with supplements or by diet of 1000 mg/day for under 50, 1600-6793 mg/day for 50+ - Discussed need and benefit for weight loss. BMI 42.29 kg/(m^2) - Depression screening tool completed and reviewed with patient. Based on score and interview, patient is at risk for depression and recommended starting medication. - Patient was counseled [id number] by myself (the billing provider) for the following immunizations and vaccine components, including side effects: COVID-19. Patient consents for immunization and understands risks and benefits. A VIS sheet on each immunization was given to the patient. - Follow up for annual exam in one year 3. Screening for diabetes mellitus - ICD9: V77.1, ICD10: Z13.1 - HGB A1C - COMP METABOLIC PANEL 4. Medication management - ICD9: V58.69, ICD10: Z79.899 - CBC + DIFF 5. Chronic hypertension - ICD9: 401.9, ICD10: I10 - Controlled - Continue current medications - Recommend home blood pressure monitoring, to bring results to next visit - Encouraged sodium restriction, DASH or Mediterranean diet - Recommend regular aerobic exercise - Discussed need for and benefit of weight loss. BMI 42.29 kg/(m^2) Tre Main APRN.JOSE documented in this encounter [facility] 01-21-2024 Note HNO ID: [id number] Author: SARAH FRANKLIN PA Service: ? Author Type: Physician Manager [employer] Director Type: Progress Notes Filed: 01/21/2024 11:16 Note Text: This note was created using NoteWriter. Robyn Sam Grenert is a 38 year old female. HPI 38-year-old female presents for productive cough, congestion, sinus pressure. Patient states she has had a productive cough for the past month. She has no history of COPD or asthma. States she has had some congestion over the past week or so and started getting sinus pressure this morning. She has not had any fevers. No vomiting or diarrhea or diarrhea. Her and children are also sick with similar symptoms. PAST MEDICAL HISTORY Diagnosis Date Advanced maternal age in multigravida, third trimester 10/28/2019 -Declined genetic testing -Anatomy wnl per patient Chronic hypertension Encounter for induction of labor 10/28/2019 -GBS negative -S/p Cytotecx1 and FB -Epi in -S/p AROM 2300 on 10/28, clear fluid -Pit per protocol -PPBC: desires immediate PP Mirena. History of pre-eclampsia in prior , currently 10/28/2019 -History of pre-eclampsia with features at 39 weeks -Diagnosed with CHTN following pregancy -On bASA this Hydronephrosis with renal and ureteral calculous obstruction 07/20/2017 Morbid obesity (HCC) 10/28/2019 -BMI 40 on admission -Growth US at 35w 55%, EFW around 6# per pt -H/o 6#13oz -Abnormal 1hr GCT, 3hr GTT wnl -SCDs ordered Oxygen desaturation 10/29/2019 -O2 saturation intermittently decreased to 93% during/after epidural -Improves to 95-96% with deep breaths -CXR negative -Incentive spirometer ordered -Nasal spray ordered for upper respiratory congestion Rh negative status during in third trimester 10/28/2019 -S/p Rhogam 08/23/19 -Rhogam as indicated PAST SURGICAL HISTORY Procedure Laterality Date NONE ALLERGIES Penicillin MEDICATIONS amLODIPine (NORVASC) 10 mg tablet Take 1 tablet by mouth once daily. fluticasone (FLONASE) 50 mcg/actuation nasal spray Use 1 Sage in each nostril twice daily. INTRAUTERINE DEVICE, IUD, INTRAUTERINE by INTRAUTERINE route. predniSONE (DELTASONE) 20 mg tablet Take 2 tablets by mouth once daily for 4 days. Take daily with food. doxycycline (VIBRA-TABS) 100 mg tablet Take 1 tablet by mouth two times a day for 7 days. albuterol HFA (PROVENTIL HFA, VENTOLIN HFA) 90 mcg/actuation inhaler Inhale 2 Puffs as instructed every 4 hours as needed for wheezing/shortness of breath. FAMILY HISTORY Problem Relation Age of Onset Heart disease Father Alzheimer's Disease Maternal Grandmother Dementia Maternal Grandmother Dementia Paternal Grandmother Parkinson?s Disease Paternal Grandmother Social History Tobacco Use Smoking status: Never Smokeless tobacco: Never Substance Use Topics Alcohol use: Yes Comment: rare Drug use: Yes Types: Marijuana Comment: gummies Review of Systems Constitutional: Negative for chills and fever. HENT: Positive for congestion and sinus pressure. Negative for ear pain and sore throat. Respiratory: Positive for cough. Negative for shortness of breath. Cardiovascular: Negative for chest pain. Gastrointestinal: Negative for diarrhea and vomiting. Objective BP 132/84 Pulse 98 Temp 36.9 ?C (98.4 ?F) Resp 16 Wt 123.1 kg (271 lb 6.2 oz) SpO2 98% BMI 42.51 kg/m? Physical Exam Vitals and nursing note reviewed. Constitutional: General: She is not in acute distress. Appearance: Normal appearance. She is not toxic-appearing. HENT: Right Ear: Tympanic membrane and ear canal normal. Left Ear: Tympanic membrane and ear canal normal. Nose: Congestion present. Right Sinus: Maxillary sinus tenderness present. Left Sinus: Maxillary sinus tenderness present. Mouth/Throat: Mouth: Mucous membranes are moist. Pharynx: No oropharyngeal exudate or posterior oropharyngeal erythema. Eyes: Conjunctiva/sclera: Conjunctivae normal. Cardiovascular: Rate and Rhythm: Normal rate and regular rhythm. Pulmonary: Effort: Pulmonary effort is normal. Breath sounds: Wheezing present. No rhonchi or rales. Neurological: Mental Status: She is alert. Assessment and Plan ASSESSMENT/PLAN: 1. Sinobronchitis - ICD9: 473.9, 490, ICD10: J32.9, J40 - Will begin treatment with Doxycycline -Rx for prednisone. Rx for albuterol inhaler. Wheezing noted on exam. -No XR available at time of exam. I am treating patient with doxycycline for sinobronchitis. -Advised if symptoms persist despite medications, she needs to follow-up with PCP or return. She understands - Supportive care with plenty of fluids, rest, and analgesia prn. Diagnosis and treatment plan were discussed and questions were answered to the patient's satisfaction. Pt acknowledged understanding of concepts and follow up plan. Specific signs and symptoms that would indicate the need for higher level of care were disc (more content not included)... [facility] 01-21-2024 History of Present illness Narrative This note was created using [email or web address]. Subjective Bere Fiore is a 38 year old female. HPI 38-year-old female presents for productive cough, congestion, sinus pressure. Patient states she has had a productive cough for the past month. She has no history of COPD or asthma. States she has had some congestion over the past week or so and started getting sinus pressure this morning. She has not had any fevers. No vomiting or diarrhea or diarrhea. Her and children are also sick with similar symptoms. PAST MEDICAL HISTORY Diagnosis Date Advanced maternal age in multigravida, third trimester 10/28/2019 -Declined genetic testing -Anatomy wnl per patient Chronic hypertension Encounter for induction of labor 10/28/2019 -GBS negative -S/p Cytotecx1 and FB -Epi in -S/p AROM 2300 on 10/28, clear fluid -Pit per protocol -PPBC: desires immediate PP Mirena. History of pre-eclampsia in prior , currently 10/28/2019 -History of pre-eclampsia with features at 39 weeks -Diagnosed with CHTN following pregancy -On bASA this Hydronephrosis with renal and ureteral calculous obstruction 07/20/2017 Morbid obesity (HCC) 10/28/2019 -BMI 40 on admission -Growth US at 35w 55%, EFW around 6# per pt -H/o 6#13oz -Abnormal 1hr GCT, 3hr GTT wnl -SCDs ordered Oxygen desaturation 10/29/2019 -O2 saturation intermittently decreased to 93% during/after epidural -Improves to 95-96% with deep breaths -CXR negative -Incentive spirometer ordered -Nasal spray ordered for upper respiratory congestion Rh negative status during in third trimester 10/28/2019 -S/p Rhogam 08/23/19 -Rhogam as indicated PAST SURGICAL HISTORY Procedure Laterality Date NONE ALLERGIES Penicillin MEDICATIONS amLODIPine (NORVASC) 10 mg tablet Take 1 tablet by mouth once daily. fluticasone (FLONASE) 50 mcg/actuation nasal spray Use 1 Sage in each nostril twice daily. INTRAUTERINE DEVICE, IUD, INTRAUTERINE by INTRAUTERINE route. predniSONE (DELTASONE) 20 mg tablet Take 2 tablets by mouth once daily for 4 days. Take daily with food. doxycycline (VIBRA-TABS) 100 mg tablet Take 1 tablet by mouth two times a day for 7 days. albuterol HFA (PROVENTIL HFA, VENTOLIN HFA) 90 mcg/actuation inhaler Inhale 2 Puffs as instructed every 4 hours as needed for wheezing/shortness of breath. FAMILY HISTORY Problem Relation Age of Onset Heart disease Father Alzheimer's Disease Maternal Grandmother Dementia Maternal Grandmother Dementia Paternal Grandmother Parkinson s Disease Paternal Grandmother Social History Tobacco Use Smoking status: Never Smokeless tobacco: Never Substance Use Topics Alcohol use: Yes Comment: rare Drug use: Yes Types: Marijuana Comment: gummies Review of Systems Constitutional: Negative for chills and fever. HENT: Positive for congestion and sinus pressure. Negative for ear pain and sore throat. Respiratory: Positive for cough. Negative for shortness of breath. Cardiovascular: Negative for chest pain. Gastrointestinal: Negative for diarrhea and vomiting. Objective BP 132/84 Pulse 98 Temp 36.9 C (98.4 F) Resp 16 Wt 123.1 kg (271 lb 6.2 oz) SpO2 98% BMI 42.51 kg/m Physical Exam Vitals and nursing note reviewed. Constitutional: General: She is not in acute distress. Appearance: Normal appearance. She is not toxic-appearing. HENT: Right Ear: Tympanic membrane and ear canal normal. Left Ear: Tympanic membrane and ear canal normal. Nose: Congestion present. Right Sinus: Maxillary sinus tenderness present. Left Sinus: Maxillary sinus tenderness present. Mouth/Throat: Mouth: Mucous membranes are moist. Pharynx: No oropharyngeal exudate or posterior oropharyngeal erythema. Eyes: Conjunctiva/sclera: Conjunctivae normal. Cardiovascular: Rate and Rhythm: Normal rate and regular rhythm. Pulmonary: Effort: Pulmonary effort is normal. Breath sounds: Wheezing present. No rhonchi or rales. Neurological: Mental Status: She is alert. Assessment and Plan ASSESSMENT/PLAN: 1. Sinobronchitis - ICD9: 473.9, 490, ICD10: J32.9, J40 - Will begin treatment with Doxycycline -Rx for prednisone. Rx for albuterol inhaler. Wheezing noted on exam. -No XR available at time of exam. I am treating patient with doxycycline for sinobronchitis. -Advised if symptoms persist despite medications, she needs to follow-up with PCP or return. She understands - Supportive care with plenty of fluids, rest, and analgesia prn. Diagnosis and treatment plan were discussed and questions were answered to the patient's satisfaction. Pt acknowledged understanding of concepts and follow up plan. Specific signs and symptoms that would indicate the need for higher level of care were discussed in detail warranting prompt ER evaluation. MARTÍN Bear documented in this encounter [facility] 01-02-2024 History of Present illness Narrative Images from the original note were not included. Cardiology Consult Office Note Referring provider: Stella Harvey APRN, CNP Reason for consultation: Family history of premature CAD HPI: Ms. Fiore is a 38 year old female with h/o Hypertension, family history of premature AK, morbid obesity (BMI 40). Patient denies any SOB or exertional CP or palpitation or syncope. She can walk around [employer] without stopping. Father had first AK in his 40s but he was a heavy smoker. Grandfather was diagnosed with severe CAD in his 70s. Previous cardiac testing: ECG today: mild LVH (aVL >=11 mm) Previous pertinent labs: Cholesterol, Total (mg/dL) Date Value 09/30/2023 187 HDL Cholesterol (mg/dL) Date Value 09/30/2023 38 LDL Cholesterol (mg/dL) Date Value 09/30/2023 131 Triglyceride (mg/dL) Date Value 09/30/2023 90 No results found for: PBNP No results found for: HBA1C Most recent labs: PMH: PAST MEDICAL HISTORY Diagnosis Date Advanced maternal age in multigravida, third trimester 10/28/2019 -Declined genetic testing -Anatomy wnl per patient Chronic hypertension Encounter for induction of labor 10/28/2019 -GBS negative -S/p Cytotecx1 and FB -Epi in -S/p AROM 2300 on 10/28, clear fluid -Pit per protocol -PPBC: desires immediate PP Mirena. History of pre-eclampsia in prior , currently 10/28/2019 -History of pre-eclampsia with features at 39 weeks -Diagnosed with CHTN following pregancy -On bASA this Hydronephrosis with renal and ureteral calculous obstruction 07/20/2017 Morbid obesity (HCC) 10/28/2019 -BMI 40 on admission -Growth US at 35w 55%, EFW around 6# per pt -H/o 6#13oz -Abnormal 1hr GCT, 3hr GTT wnl -SCDs ordered Oxygen desaturation 10/29/2019 -O2 saturation intermittently decreased to 93% during/after epidural -Improves to 95-96% with deep breaths -CXR negative -Incentive spirometer ordered -Nasal spray ordered for upper respiratory congestion Rh negative status during in third trimester 10/28/2019 -S/p Rhogam 08/23/19 -Rhogam as indicated PAST SURGICAL HISTORY Procedure Laterality Date NONE Allergies: ALLERGIES Allergen Reactions Penicillin Unknown Childhood allergy. Pt unsure of reaction. Social History: Social History Tobacco Use Smoking status: Never Smokeless tobacco: Never Substance Use Topics Alcohol use: Yes Comment: rare Drug use: Yes Types: Marijuana Comment: gummies Family History: family history includes Alzheimer's Disease in her maternal grandmother; Dementia in her maternal grandmother and paternal grandmother; Heart disease in her father; Parkinson s Disease in her paternal grandmother. ROS All 12 systems reviewed. All are negative except for what is noted in the HPI O/E: BP 140/83 (BP Site: Left Arm, BP Position: Sitting, BP Cuff Size: Large Adult) Pulse 101 Ht 5' 7 (1.702 m) Wt 266 lb 3.2 oz (120.7 kg) SpO2 95% BMI 41.69 kg/m The pt is alert and oriented X 3 HEENT: No Icterus/Pale Conjunctiva/LAD CV[facility] : RR, S1 - S2 heard, no murmurs, rubs or gallops appreciated, JVP not raised. PUL : CTA B/L. No wheezes/crackles heard ABD : BS +, soft. No tenderness elicited LE : No Edema. Distal Pulses palpable B/L Home Medications: Current Outpatient Medications on File Prior to Visit Medication Sig amLODIPine (NORVASC) 10 mg tablet Take 1 tablet by mouth once daily. fluticasone (FLONASE) 50 mcg/actuation nasal spray Use 1 Sage in each nostril twice daily. INTRAUTERINE DEVICE, IUD, INTRAUTERINE by INTRAUTERINE route. No current facility-administered medications on file prior to visit. Assessment FH of premature CAD (Father first AK in his 40s but heavy smoker) Morbid obesity HTN Mild LVH on ECG, likely related to morbid obesity. Recommendations/Plan: At this time I have low suspicion for high genetic predisposition for CAD since her father was a heavy smoker when he had his first AK. Her lipid is only borderline abnormal (LDL 131, HDL 38, TG 90, TC 187 in 09/2023), this confers to 10-year ASCVD risk 1.4 to 2.8%. No indication for statin yet. My recommendation for her to lose weight which will be the biggest modifiable risk factor to help her BP control and avoid future CVD risk including CAD and HF. Continue amlodipine 10 mg daily. No additional medication or work up needed for now. Patient can be seen as needed. Thank you for the referral documented in this encounter [facility] 01-02-2024 Note HNO ID: [id number] Author: NAHEED MELGAR MD Service: ? Author Type: Physician Type: Progress Notes Filed: 01/02/2024 11:02 Note Text: Cardiology Consult Office Note Referring provider: Stella Harvey APRN, CNP Reason for consultation: Family history of premature CAD HPI: Ms. Fiore is a 38 year old female with h/o Hypertension, family history of premature AK, morbid obesity (BMI 40). Patient denies any SOB or exertional CP or palpitation or syncope. She can walk around [employer] without stopping. Father had first AK in his 40s but he was a heavy smoker. Grandfather was diagnosed with severe CAD in his 70s. Previous cardiac testing: ECG today: mild LVH (aVL >=11 mm) Previous pertinent labs: Cholesterol, Total (mg/dL) Date Value 09/30/2023 187 HDL Cholesterol (mg/dL) Date Value 09/30/2023 38 LDL Cholesterol (mg/dL) Date Value 09/30/2023 131 Triglyceride (mg/dL) Date Value 09/30/2023 90 No results found for: PBNP No results found for: HBA1C Most recent labs: PMH: PAST MEDICAL HISTORY Diagnosis Date Advanced maternal age in multigravida, third trimester 10/28/2019 -Declined genetic testing -Anatomy wnl per patient Chronic hypertension Encounter for induction of labor 10/28/2019 -GBS negative -S/p Cytotecx1 and FB -Epi in -S/p AROM 2300 on 10/28, clear fluid -Pit per protocol -PPBC: desires immediate PP Mirena. History of pre-eclampsia in prior , currently 10/28/2019 -History of pre-eclampsia with features at 39 weeks -Diagnosed with CHTN following pregancy -On bASA this Hydronephrosis with renal and ureteral calculous obstruction 07/20/2017 Morbid obesity (HCC) 10/28/2019 -BMI 40 on admission -Growth US at 35w 55%, EFW around 6# per pt -H/o 6#13oz -Abnormal 1hr GCT, 3hr GTT wnl -SCDs ordered Oxygen desaturation 10/29/2019 -O2 saturation intermittently decreased to 93% during/after epidural -Improves to 95-96% with deep breaths -CXR negative -Incentive spirometer ordered -Nasal spray ordered for upper respiratory congestion Rh negative status during in third trimester 10/28/2019 -S/p Rhogam 08/23/19 -Rhogam as indicated PAST SURGICAL HISTORY Procedure Laterality Date NONE Allergies: ALLERGIES Allergen Reactions Penicillin Unknown Childhood allergy. Pt unsure of reaction. Social History: Social History Tobacco Use Smoking status: Never Smokeless tobacco: Never Substance Use Topics Alcohol use: Yes Comment: rare Drug use: Yes Types: Marijuana Comment: altagracia Family History: family history includes Alzheimer's Disease in her maternal grandmother; Dementia in her maternal grandmother and paternal grandmother; Heart disease in her father; Parkinson?s Disease in her paternal grandmother. ROS All 12 systems reviewed. All are negative except for what is noted in the HPI O/E: BP 140/83 (BP Site: Left Arm, BP Position: Sitting, BP Cuff Size: Large Adult) Pulse 101 Ht 5' 7 (1.702 m) Wt 266 lb 3.2 oz (120.7 kg) SpO2 95% BMI 41.69 kg/m? The pt is alert and oriented X 3 HEENT: No Icterus/Pale Conjunctiva/LAD CVS : RR, S1 - S2 heard, no murmurs, rubs or gallops appreciated, JVP not raised. PUL : CTA B/L. No wheezes/crackles heard ABD : BS +, soft. No tenderness elicited LE : No Edema. Distal Pulses palpable B/L Home Medications: Current Outpatient Medications on File Prior to Visit Medication Sig amLODIPine (NORVASC) 10 mg tablet Take 1 tablet by mouth once daily. fluticasone (FLONASE) 50 mcg/actuation nasal spray Use 1 Sage in each nostril twice daily. INTRAUTERINE DEVICE, IUD, INTRAUTERINE by INTRAUTERINE route. No current facility-administered medications on file prior to visit. Assessment FH of premature CAD (Father first AK in his 40s but heavy smoker) Morbid obesity HTN Mild LVH on ECG, likely related to morbid obesity. Recommendations/Plan: At this time I have low suspicion for high genetic predisposition for CAD since her father was a heavy smoker when he had his first AK. Her lipid is only borderline abnormal (LDL 131, HDL 38, TG 90, TC 187 in 09/2023), this confers to 10-year ASCVD risk 1.4 to 2.8%. No indication for statin yet. My recommendation for her to lose weight which will be the biggest modifiable risk factor to help her BP control and avoid future CVD risk including CAD and HF. Continue amlodipine 10 mg daily. No additional medication or work up needed for now. Patient can be seen as needed. Thank you for the referral [facility] 01-02-2024 Nurse Note Patient denies cardiac complaints or symptoms. documented in this encounter [facility] 12-19-2023 Miscellaneous Notes Lvm to notify pt that the taran on 12/28/23 w/ Dr. Crawford has been cancelled and rescheduled for 01/02/24 @10:40 am in [place] w/ Dr. Melgar. Kelley Lopez December 19, 2023 2:26 PM documented in this encounter [facility] 10-24-2023 Note HNO ID: [id number] Author: Titus Mathews PA-C Service: ? Author Type: Physician Manager [employer] Director Type: Progress Notes Filed: 10/24/2023 2:48 PM Note Text: 10/24/2023 Patient presents with: Pain, Sinus: Pressure, congestion, headache, cough, x 1 week SUBJECTIVE: This is a 38 year old that is here today for Complaint(s) of sinus pressure and drainage x 1 week. + pain radiating to teeth now. She was having a cough, but that seems to be improving. Started afrin 2 days ago, taking q 12 hours mostly. Denies fever/chills, VELÁSQUEZ, SOB, wheezing, vomiting, diarrhea, sore throat, chest pain. PAST MEDICAL HISTORY Diagnosis Date Advanced maternal age in multigravida, third trimester 10/28/2019 -Declined genetic testing -Anatomy wnl per patient Chronic hypertension Encounter for induction of labor 10/28/2019 -GBS negative -S/p Cytotecx1 and FB -Epi in -S/p AROM 2300 on 10/28, clear fluid -Pit per protocol -PPBC: desires immediate PP Mirena. History of pre-eclampsia in prior , currently 10/28/2019 -History of pre-eclampsia with features at 39 weeks -Diagnosed with CHTN following pregancy -On bASA this Hydronephrosis with renal and ureteral calculous obstruction 07/20/2017 Morbid obesity (HCC) 10/28/2019 -BMI 40 on admission -Growth US at 35w 55%, EFW around 6# per pt -H/o 6#13oz -Abnormal 1hr GCT, 3hr GTT wnl -SCDs ordered Oxygen desaturation 10/29/2019 -O2 saturation intermittently decreased to 93% during/after epidural -Improves to 95-96% with deep breaths -CXR negative -Incentive spirometer ordered -Nasal spray ordered for upper respiratory congestion Rh negative status during in third trimester 10/28/2019 -S/p Rhogam 08/23/19 -Rhogam as indicated ALLERGIES Penicillin MEDICATIONS Current Outpatient Medications Medication Sig amLODIPine (NORVASC) 10 mg tablet Take 1 tablet by mouth once daily. fluticasone (FLONASE) 50 mcg/actuation nasal spray Use 1 Sage in each nostril twice daily. INTRAUTERINE DEVICE, IUD, INTRAUTERINE by INTRAUTERINE route. No current facility-administered medications for this visit. SOCIAL HISTORY Social History Tobacco Use Smoking status: Never Smokeless tobacco: Never Substance Use Topics Alcohol use: Yes Comment: rare Drug use: Never REVIEW OF SYSTEMS See HPI OBJECTIVE: BP 148/74 Pulse 94 Temp 36.1 ?C (96.9 ?F) Resp 18 Wt 120.2 kg (265 lb) SpO2 98% BMI 40.29 kg/m? APPEARANCE Well appearing, alert, in no acute distress, well-hydrated, well nourished. EYES PERRLA, conjunctiva and sclera normal. EARS External ears normal, canals clear. TMs normal CECI NOSE/SINUS Nares normal. Septum midline. Mucosa erythematous. No drainage or sinus tenderness. THROAT normal, no erythema NECK Supple, no adenopathy;HEART RRR with normal S1 and S2, LUNG clear to auscultation, No wheezing, rhonchi, rales. ASSESSMENT/PLAN: 1. Acute maxillary sinusitis, recurrence not specified - ICD9: 461.0, ICD10: J01.00 (primary diagnosis) Discussed possible viral etiology - The patient should also be given OTC cough and cold meds as needed, warm salt water gargles, throat lozenges and/or OTC throat spray as needed, and nasal saline gtts and suction prn for the first 5-7 days of treatment. - Supportive care with plenty of fluids, rest, and analgesia prn. - Follow up in 3-5 days if symptoms persist or worsen. - DOXYCYCLINE HYCLATE 100 MG TABLET -printed, okay to start if not improving in 5-7 days, sooner if worsening. Reviewed possible reaction while taking with sun exposure. Use sun protection while on medication. Recommend discontinuing afrin. Flonase prn. 2. Chronic hypertension - ICD9: 401.9, ICD10: I10 - Worsening control - Recommend home blood pressure monitoring, to bring results to next visit - Encouraged sodium restriction, DASH or Mediterranean diet - Recommend regular aerobic exercise F/u with PCP in 2 weeks for recheck Reviewed red flags and when to seek care sooner. .emma Mathews PA-C [facility] 10-24-2023 History of Present illness Narrative 10/24/2023 Patient presents with: Pain, Sinus: Pressure, congestion, headache, cough, x 1 week SUBJECTIVE: This is a 38 year old that is here today for Complaint(s) of sinus pressure and drainage x 1 week. + pain radiating to teeth now. She was having a cough, but that seems to be improving. Started afrin 2 days ago, taking q 12 hours mostly. Denies fever/chills, VELÁSQUEZ, SOB, wheezing, vomiting, diarrhea, sore throat, chest pain. PAST MEDICAL HISTORY Diagnosis Date Advanced maternal age in multigravida, third trimester 10/28/2019 -Declined genetic testing -Anatomy wnl per patient Chronic hypertension Encounter for induction of labor 10/28/2019 -GBS negative -S/p Cytotecx1 and FB -Epi in -S/p AROM 2300 on 10/28, clear fluid -Pit per protocol -PPBC: desires immediate PP Mirena. History of pre-eclampsia in prior , currently 10/28/2019 -History of pre-eclampsia with features at 39 weeks -Diagnosed with CHTN following pregancy -On bASA this Hydronephrosis with renal and ureteral calculous obstruction 07/20/2017 Morbid obesity (HCC) 10/28/2019 -BMI 40 on admission -Growth US at 35w 55%, EFW around 6# per pt -H/o 6#13oz -Abnormal 1hr GCT, 3hr GTT wnl -SCDs ordered Oxygen desaturation 10/29/2019 -O2 saturation intermittently decreased to 93% during/after epidural -Improves to 95-96% with deep breaths -CXR negative -Incentive spirometer ordered -Nasal spray ordered for upper respiratory congestion Rh negative status during in third trimester 10/28/2019 -S/p Rhogam 08/23/19 -Rhogam as indicated ALLERGIES Penicillin MEDICATIONS Current Outpatient Medications Medication Sig amLODIPine (NORVASC) 10 mg tablet Take 1 tablet by mouth once daily. fluticasone (FLONASE) 50 mcg/actuation nasal spray Use 1 Sage in each nostril twice daily. INTRAUTERINE DEVICE, IUD, INTRAUTERINE by INTRAUTERINE route. No current facility-administered medications for this visit. SOCIAL HISTORY Social History Tobacco Use Smoking status: Never Smokeless tobacco: Never Substance Use Topics Alcohol use: Yes Comment: rare Drug use: Never REVIEW OF SYSTEMS See HPI OBJECTIVE: BP 148/74 Pulse 94 Temp 36.1 C (96.9 F) Resp 18 Wt 120.2 kg (265 lb) SpO2 98% BMI 40.29 kg/m APPEARANCE Well appearing, alert, in no acute distress, well-hydrated, well nourished. EYES PERRLA, conjunctiva and sclera normal. EARS External ears normal, canals clear. TMs normal CECI NOSE/SINUS Nares normal. Septum midline. Mucosa erythematous. No drainage or sinus tenderness. THROAT normal, no erythema NECK Supple, no adenopathy;HEART RRR with normal S1 and S2, LUNG clear to auscultation, No wheezing, rhonchi, rales. ASSESSMENT/PLAN: 1. Acute maxillary sinusitis, recurrence not specified - ICD9: 461.0, ICD10: J01.00 (primary diagnosis) Discussed possible viral etiology - The patient should also be given OTC cough and cold meds as needed, warm salt water gargles, throat lozenges and/or OTC throat spray as needed, and nasal saline gtts and suction prn for the first 5-7 days of treatment. - Supportive care with plenty of fluids, rest, and analgesia prn. - Follow up in 3-5 days if symptoms persist or worsen. - DOXYCYCLINE HYCLATE 100 MG TABLET -printed, okay to start if not improving in 5-7 days, sooner if worsening. Reviewed possible reaction while taking with sun exposure. Use sun protection while on medication. Recommend discontinuing afrin. Flonase prn. 2. Chronic hypertension - ICD9: 401.9, ICD10: I10 - Worsening control - Recommend home blood pressure monitoring, to bring results to next visit - Encouraged sodium restriction, DASH or Mediterranean diet - Recommend regular aerobic exercise F/u with PCP in 2 weeks for recheck Reviewed red flags and when to seek care sooner. .emma Mathews PA-C documented in this encounter [facility] 10-06-2023 Instructions Tory Hernandez, ABRIL.AUTOMOTIVE SERVICE DIRECTOR - 10/06/2023 7:14 AM EST Images from the original note were not included. FACT SHEET FOR PATIENTS, PARENTS, AND CAREGIVERS EMERGENCY USE AUTHORIZATION (EUA) OF PAXLOVID FOR CORONAVIRUS DISEASE 2019 (COVID-19) You are being given this Fact Sheet because your healthcare provider believes it is necessary to provide you with PAXLOVID for the treatment of gnbs-wh-iphquarj coronavirus disease (COVID-19) caused by the SARS-CoV-2 virus. This Fact Sheet contains information to help you understand the risks and benefits of taking the PAXLOVID you may receive. This Fact Sheet also contains information about how to take PAXLOVID and how to report side effects or problems with the appearance or packaging of PAXLOVID. The U.S. Food and Drug Administration (FDA) has issued an Emergency Use Authorization (EUA) to make PAXLOVID available for the treatment of dfkw-mr-wyummnqh COVID-19 in adults and children 12 years of age and older weighing at least 88 pounds (40 kg) who are at high risk for progression to severe COVID-19, including hospitalization or (for more details about an EUA please see What is an Emergency Use Authorization? at the end of this document). Read this Fact Sheet for information about PAXLOVID. Talk to your healthcare provider about your options or if you have any questions. It is your choice to take PAXLOVID. What is COVID-19? COVID-19 is caused by a virus called a coronavirus. You can get COVID-19 through close contact with another person who has the virus. COVID-19 illnesses have ranged from very lirh-fq-lwudnj, including illness resulting in . While information so far suggests that most COVID-19 illness is mild, serious illness can happen and may cause some of your other medical conditions to become worse. Older people and people of all ages with severe, long lasting (chronic) medical conditions like heart disease, lung disease, and diabetes, for example seem to be at higher risk of being hospitalized for COVID-19. What is PAXLOVID? PAXLOVID is a medicine that is available under EUA for the treatment of xida-oh-oxsyxflt COVID-19 in adults and children 12 years of age and older weighing at least 88 pounds (40 kg) who are at high risk for progression to severe COVID-19, including hospitalization or . Although PAXLOVID is FDA-approved for the treatment of COVID-19 in certain adults (see section What other treatment choices are there?), PAXLOVID use in children remains investigational because it is still being studied. There is limited information about the safety and effectiveness of using PAXLOVID to treat children with gluh-pk-glaqjkdu COVID-19. What is the most important information I should know about PAXLOVID? PAXLOVID can interact with other medicines causing severe or life-threatening side effects or . It is important to know the medicines that should not be taken with PAXLOVID. Do not take PAXLOVID if: you are taking any of the following medicines: o alfuzosin o amiodarone o apalutamide o carbamazepine o colchicine o dihydroergotamine o dronedarone o eletriptan o eplerenone o ergotamine o finerenone o flecainide o flibanserin o ivabradine o lomitapide o lovastatin o lumacaftor/ivacaftor o lurasidone o methylergonovine o midazolam (oral) o naloxegol o phenobarbital o phenytoin o pimozide o primidone o propafenone o quinidine o ranolazine o rifampin o rifapentine o Thayer s Wort (hypericum perforatum) o sildenafil (Revatio ) for pulmonary arterial hypertension o silodosin o simvastatin o tolvaptan o triazolam o ubrogepant o voclosporin These are not the only medicines that may cause serious or life-threatening side effects if taken with PAXLOVID. PAXLOVID may increase or decrease the levels of multiple other medicines. It is very important to tell your healthcare provider about all of the medicines you are taking because additional laboratory tests or changes in the dose of your other medicines may be necessary during treatment with PAXLOVID. Your healthcare provider may also tell you about specific symptoms to watch out for that may indicate that you need to stop or decrease the dose of some of your other medicines. you are allergic to nirmatrelvir, ritonavir, or any of the ingredients in PAXLOVID. See the end of this leaflet for a complete list of ingredients in PAXLOVID. See What are the important possible side effects of PAXLOVID? for signs and symptoms of allergic reactions. What should I tell my healthcare provider before I take PAXLOVID? Tell your healthcare provider if you: have kidney problems. You may need a different dose of PAXLOVID. have liver problems, including hepatitis. have Human Immunodeficiency Virus 1 (HIV-1) infection. PAXLOVID may lead to some HIV-1 medicines not working as well in the future. are or plan to become . It is not known if PAXLOVID can harm your unborn baby. Tell your healthcare provider right away if you are or if you become . are or plan to breastfeed. It is not known if PAXLOVID can pass into your breast milk. Talk to your healthcare provider about the best way to feed your baby during treatment with PAXLOVID. Some medicines may interact with PAXLOVID and may cause serious side effects. Tell your healthcare provider about all the medicines you take, including prescription and vgdt-wzp-vwskbdm medicines, vitamins, and herbal supplements. Your healthcare provider can tell you if it is safe to take PAXLOVID with other medicines. You can ask your healthcare provider or pharmacist for a list of medicines that interact with PAXLOVID. Do not start taking a new medicine without telling your healthcare provider. Tell your healthcare provider if you are taking combined control (hormonal contraceptive). PAXLOVID may affect how your hormonal contraceptives work. Females who are able to become should use another effective alternative form of contraception or an additional barrier method of contraception during treatment with PAXLOVID. Talk to your healthcare provider if you have any questions about contraceptive methods that might be right for you. How do I take PAXLOVID? Take PAXLOVID exactly as your healthcare provider tells you to take it. PAXLOVID consists of 2 medicines: nirmatrelvir tablets and ritonavir tablets. The 2 medicines are taken together 2 times each day for 5 days. Nirmatrelvir is an oval, pink tablet. Ritonavir is a white or off-white tablet. PAXLOVID is available in 2 Dose Packs (see Figures A and B below). Your healthcare provider will prescribe the PAXLOVID Dose Pack that is right for you. If you have kidney disease, your healthcare provider may prescribe a lower dose (see Figure B). Talk to your healthcare provider to make sure you receive the correct Dose Pack. Do not remove your PAXLOVID tablets from the blister card before you are ready to take your dose. Take your first dose of PAXLOVID in the morning or evening, depending on when you sweet pickle maker your prescription, or as your healthcare provider tells you to. Swallow the tablets whole. Do not chew, break, or crush the tablets. Take PAXLOVID with or without food. Do not stop taking PAXLOVID without talking to your healthcare provider, even if you feel better. If you miss a dose of PAXLOVID within 8 hours of the time it is usually taken, take it as soon as you remember. If you miss a dose by more than 8 hours, skip the missed dose and take the next dose at your regular time. Do not take 2 doses of PAXLOVID at the same time. If you take too much PAXLOVID, call your healthcare provider or go to the nearest hospital emergency room right away. If you are taking a ritonavir- or cobicistat-containing medicine to treat hepatitis C or HIV-1 infection, you should continue to take your medicine as prescribed by your healthcare provider. Talk to your healthcare provider if you do not feel better or if you feel worse after 5 days. What are the important possible side effects of PAXLOVID? PAXLOVID may cause serious side effects, including: Allergic reactions, including severe allergic reactions (anaphylaxis) have happened during treatment with PAXLOVID. Stop taking PAXLOVID and get medical help right away if you get any of the following symptoms of an allergic reaction: o skin rash, hives, blisters or peeling skin o painful sores or ulcers in the mouth, nose, throat or genital area o swelling of the mouth, lips, tongue or face o trouble swallowing or breathing o throat tightness o hoarseness Liver Problems. Tell your healthcare provider right away if you get any of the following signs and symptoms of liver problems during treatment with PAXLOVID: o loss of appetite o yellowing of your skin and the white of eyes o dark-colored urine o pale colored stools o itchy skin o stomach-area (abdominal) pain The most common side effects of PAXLOVID include: altered sense of taste and diarrhea. Other possible side effects include: headache vomiting abdominal pain nausea high blood pressure feeling generally unwell These are not all the possible side effects of PAXLOVID. For more information, ask your healthcare provider or pharmacist. What other treatment choices are there? PAXLOVID is FDA-approved for the treatment of sefe-kr-iliwmxxq COVID-19 in certain adults; however, there are not sufficient quantities of the approved presentations (i.e., dose packs) of PAXLOVID at this time. This EUA continues to authorize the emergency use of PAXLOVID for the approved patient population to ensure continued access in order to meet the public health need. VEKLURY (remdesivir) is FDA-approved for the treatment of gvvz-zz-pyotnzhe COVID-19 in certain adults and children. Talk with your healthcare provider to see if VEKLURY is appropriate for you. For information on the emergency use of other medicines that are authorized by FDA to treat people with COVID-19, please go to https://www.fda.gov/emergency-pre csmwhxfod-wov-dvpnkgmz/mcm-legal- vzbaqdaygo-esv-ktxhba-framework/e tjhlykyi-qab-xlpwzcofdzsrr. Your healthcare provider may talk with you about clinical trials for which you may be eligible. It is your choice to be treated or not to be treated with PAXLOVID. Should you decide not to receive it or for your child not to receive it, it will not change your standard medical care. What if I am or ? There is limited experience treating women or mothers with PAXLOVID. For a mother and unborn baby, the benefit of taking PAXLOVID may be greater than the risk from the treatment. If you are , discuss your options and specific situation with your healthcare provider. If you are , discuss your options and specific situation with your healthcare provider. How do I report side effects or problems with the appearance or packaging of PAXLOVID? Contact your healthcare provider if you have any side effects that bother you or do not go away. Report side effects or problems with the appearance or packaging of PAXLOVID (see Figures A and B above for examples of PAXLOVID Dose Packs) to FDA MedWatch at www.fda.gov/medwatch or call 9-998-VOU-2559 or you can report side effects to [employer]. at the contact information provided below. How should I store PAXLOVID? Store PAXLOVID tablets at room temperature, between 68?F to 77?F (20?C to 25?C). Keep PAXLOVID and all medicines out of the reach of children. What if I have questions about the expiration date for my PAXLOVID? The FDA has extended the expiration date (shelf-life) for some lots of PAXLOVID. To find the extended expiration date, enter the lot number found on the side of carton or bottom of blister pack at this website: https://www.[employer] / or talk with your healthcare provider. Information on the authorized shelf-life extensions for PAXLOVID may also be found at https://www.fda.gov/emergency-pre lphmxncfw-ejw-ygqyxzej/mcm-legal- bawjaugqop-dpv-itnnya-framework/e jwnyjgtfy-fusymd-iosajscux. How can I learn more about COVID-19? Ask your healthcare provider. Visit https://www.cdc.gov/COVID19. Contact your local or state public health department. What is an Emergency Use Authorization (EUA)? The [place] FDA has made PAXLOVID available under an emergency access mechanism called an Emergency Use Authorization (EUA). The EUA is supported by a [employer] of Health and Human Services (HHS) declaration that circumstances exist to justify the emergency use of drugs and biological products during the COVID-19 pandemic. In issuing an EUA, the FDA has determined, among other things, that based on the total amount of scientific evidence available including data from adequate and well-controlled clinical trials, if available, it is reasonable to believe that the product may be effective for diagnosing, treating, or preventing COVID-19, or a serious or life-threatening disease or condition caused by COVID-19; that the known and potential benefits of the product, when used to diagnose, treat, or prevent such disease or condition, outweigh the known and potential risks of such product; and that there are no adequate, approved, and available alternatives. All of these criteria must be met to allow for the product to be available under an EUA. The EUA for PAXLOVID is in effect for the duration of the COVID-19 declaration justifying emergency use of this product, unless the relevant EUA declaration is terminated or the EUA revoked (after which the products may no longer be used under the EUA). What are the ingredients in PAXLOVID? Active ingredient: nirmatrelvir and ritonavir Nirmatrelvir inactive ingredients: colloidal silicon dioxide, croscarmellose sodium, lactose monohydrate, microcrystalline cellulose, and sodium stearyl fumarate. Film-coating contains: hydroxy propyl methylcellulose, iron oxide red, polyethylene glycol, and titanium dioxide. Ritonavir inactive ingredients: anhydrous dibasic calcium phosphate, colloidal silicon dioxide, copovidone, sodium stearyl fumarate, and sorbitan monolaurate. The film coating may contain: colloidal anhydrous silica, colloidal silicon dioxide, hydroxypropyl cellulose, hypromellose, polyethylene glycol, polysorbate 80, talc, and titanium dioxide. Additional Information For general questions, visit the website or call the telephone number provided below. Website: [email or web address] Telephone number: (2-891-L80-PACK) Distributed by [employer] [place] [address] [id number] Revised: 03/2023 documented in this encounter [facility] 10-06-2023 Note HNO ID: [id number] Author: Tory Hernandez APRN.AUTOMOTIVE SERVICE DIRECTOR Service: ? Author Type: Nurse Practitioner Type: Progress Notes Filed: 10/06/2023 7:16 AM Note Text: VIRTUAL VISIT PROGRESS NOTE This is a virtual visit using [employer] Zoom Video Visit. It required patient-provider interaction for the medical decision making as documented below. I have communicated my name and active licensure. The patient's identity and physical location were verified at the time of this visit. Either the patient or their legal labor union business representative has been informed of the risks and benefits of -- and alternatives to -- treatment through a remote evaluation and consents to proceed with the evaluation remotely. Bere Fiore is a 38 year old female seen for covid. Sx started 10/03 and tested +10/04. Sx include nasal congestion, nasal stuffiness, chills and sweats.left ear pain, cough productive of green phlegm. No fever, sob or cough. Using ibuprofen, flonase. Would like antiviral HISTORY REVIEWED (electronic chart updated): PAST MEDICAL HISTORY Diagnosis Date Advanced maternal age in multigravida, third trimester 10/28/2019 -Declined genetic testing -Anatomy wnl per patient Chronic hypertension Encounter for induction of labor 10/28/2019 -GBS negative -S/p Cytotecx1 and FB -Epi in -S/p AROM 2300 on 10/28, clear fluid -Pit per protocol -PPBC: desires immediate PP Mirena. History of pre-eclampsia in prior , currently 10/28/2019 -History of pre-eclampsia with features at 39 weeks -Diagnosed with CHTN following pregancy -On bASA this Hydronephrosis with renal and ureteral calculous obstruction 07/20/2017 Morbid obesity (HCC) 10/28/2019 -BMI 40 on admission -Growth US at 35w 55%, EFW around 6# per pt -H/o 6#13oz -Abnormal 1hr GCT, 3hr GTT wnl -SCDs ordered Oxygen desaturation 10/29/2019 -O2 saturation intermittently decreased to 93% during/after epidural -Improves to 95-96% with deep breaths -CXR negative -Incentive spirometer ordered -Nasal spray ordered for upper respiratory congestion Rh negative status during in third trimester 10/28/2019 -S/p Rhogam 08/23/19 -Rhogam as indicated PAST SURGICAL HISTORY Procedure Laterality Date NONE FAMILY HISTORY Problem Relation Age of Onset Heart disease Father Alzheimer's Disease Maternal Grandmother Dementia Maternal Grandmother Dementia Paternal Grandmother Parkinson?s Disease Paternal Grandmother Social History Tobacco Use Smoking status: Never Smokeless tobacco: Never Substance Use Topics Alcohol use: Yes Comment: rare Drug use: Never Current Outpatient Medications Medication Sig amLODIPine (NORVASC) 10 mg tablet Take 1 tablet by mouth once daily. fluticasone (FLONASE) 50 mcg/actuation nasal spray Use 1 Sage in each nostril twice daily. INTRAUTERINE DEVICE, IUD, INTRAUTERINE by INTRAUTERINE route. No current facility-administered medications for this visit. ALLERGIES Allergen Reactions Penicillin Unknown Childhood allergy. Pt unsure of reaction. REVIEW OF SYSTEMS: As noted in HPI PHYSICAL EXAMINATION: VIDEO EXAM: (if completed, performed via video enabled technology) GENERAL: alert and appropriate, in no distress, well-hydrated, well nourished, and happy, smiling, interactive EARS: hearing grossly normal and external ears normal, no mastoid tenderness NECK: full ROM, no cervical LNs noted RESPIRATORY: breathing non-labored CHEST: equal chest rise with normal respiratory effort ASSESSMENT: (U07.1) COVID (primary encounter diagnosis) Plan: nirmatrelvir tablet 300 mg (150 mg x 2) and ritonavir tablet 100 mg in a dose pack (PAXLOVID) Discussed medication dosage, usage, goals of therapy, and side effects. Suggested otc product for symptom management Discussed guidelines per CDC Follow up with pcp if worsening or not gradually improving Nirmatrelvir/Ritonavir (Paxlovid) Considerations Paxlovid is FDA-approved for treatment of mild to moderate COVID-19 in adults who are at high risk for progression to severe COVID-19. Consider use of Paxlovid in the following examples of high risk patients (list is not all inclusive): Age over 65 years Cardiovascular and cerebrovascular disease Chronic disease state (kidney, liver, lung) Diabetes (type 1 or type 2) Immunocompromised state (cancer, solid organ or blood stem cell transplant, HIV) Obesity Paxlovid warnings include serious drug interactions (co-administration with drugs highly dependent on CYP3A for clearance), hypersensitivity reactions, hepatotoxicity, and risk of HIV-1 resistance development. Tory Hernandez, ABRIL.AUTOMOTIVE SERVICE DIRECTOR October 06, 2023 7:14 AM [facility] 10-06-2023 History of Present illness Narrative VIRTUAL VISIT PROGRESS NOTE This is a virtual visit using [employer] Zoom Video Visit. It required patient-provider interaction for the medical decision making as documented below. I have communicated my name and active licensure. The patient's identity and physical location were verified at the time of this visit. Either the patient or their legal labor union business representative has been informed of the risks and benefits of -- and alternatives to -- treatment through a remote evaluation and consents to proceed with the evaluation remotely. Bere Fiore is a 38 year old female seen for covid. Sx started 10/03 and tested +10/04. Sx include nasal congestion, nasal stuffiness, chills and sweats.left ear pain, cough productive of green phlegm. No fever, sob or cough. Using ibuprofen, flonase. Would like antiviral HISTORY REVIEWED (electronic chart updated): PAST MEDICAL HISTORY Diagnosis Date Advanced maternal age in multigravida, third trimester 10/28/2019 -Declined genetic testing -Anatomy wnl per patient Chronic hypertension Encounter for induction of labor 10/28/2019 -GBS negative -S/p Cytotecx1 and FB -Epi in -S/p AROM 2300 on 10/28, clear fluid -Pit per protocol -PPBC: desires immediate PP Mirena. History of pre-eclampsia in prior , currently 10/28/2019 -History of pre-eclampsia with features at 39 weeks -Diagnosed with CHTN following pregancy -On bASA this Hydronephrosis with renal and ureteral calculous obstruction 07/20/2017 Morbid obesity (HCC) 10/28/2019 -BMI 40 on admission -Growth US at 35w 55%, EFW around 6# per pt -H/o 6#13oz -Abnormal 1hr GCT, 3hr GTT wnl -SCDs ordered Oxygen desaturation 10/29/2019 -O2 saturation intermittently decreased to 93% during/after epidural -Improves to 95-96% with deep breaths -CXR negative -Incentive spirometer ordered -Nasal spray ordered for upper respiratory congestion Rh negative status during in third trimester 10/28/2019 -S/p Rhogam 08/23/19 -Rhogam as indicated PAST SURGICAL HISTORY Procedure Laterality Date NONE FAMILY HISTORY Problem Relation Age of Onset Heart disease Father Alzheimer's Disease Maternal Grandmother Dementia Maternal Grandmother Dementia Paternal Grandmother Parkinson s Disease Paternal Grandmother Social History Tobacco Use Smoking status: Never Smokeless tobacco: Never Substance Use Topics Alcohol use: Yes Comment: rare Drug use: Never Current Outpatient Medications Medication Sig amLODIPine (NORVASC) 10 mg tablet Take 1 tablet by mouth once daily. fluticasone (FLONASE) 50 mcg/actuation nasal spray Use 1 Sage in each nostril twice daily. INTRAUTERINE DEVICE, IUD, INTRAUTERINE by INTRAUTERINE route. No current facility-administered medications for this visit. ALLERGIES Allergen Reactions Penicillin Unknown Childhood allergy. Pt unsure of reaction. REVIEW OF SYSTEMS: As noted in HPI PHYSICAL EXAMINATION: VIDEO EXAM: (if completed, performed via video enabled technology) GENERAL: alert and appropriate, in no distress, well-hydrated, well nourished, and happy, smiling, interactive EARS: hearing grossly normal and external ears normal, no mastoid tenderness NECK: full ROM, no cervical LNs noted RESPIRATORY: breathing non-labored CHEST: equal chest rise with normal respiratory effort ASSESSMENT: (U07.1) COVID (primary encounter diagnosis) Plan: nirmatrelvir tablet 300 mg (150 mg x 2) and ritonavir tablet 100 mg in a dose pack (PAXLOVID) Discussed medication dosage, usage, goals of therapy, and side effects. Suggested otc product for symptom management Discussed guidelines per CDC Follow up with pcp if worsening or not gradually improving Nirmatrelvir/Ritonavir (Paxlovid) Considerations Paxlovid is FDA-approved for treatment of mild to moderate COVID-19 in adults who are at high risk for progression to severe COVID-19. Consider use of Paxlovid in the following examples of high risk patients (list is not all inclusive): Age over 65 years Cardiovascular and cerebrovascular disease Chronic disease state (kidney, liver, lung) Diabetes (type 1 or type 2) Immunocompromised state (cancer, solid organ or blood stem cell transplant, HIV) Obesity Paxlovid warnings include serious drug interactions (co-administration with drugs highly dependent on CYP3A for clearance), hypersensitivity reactions, hepatotoxicity, and risk of HIV-1 resistance development. Tory Hernandez APRN.CNP October 06, 2023 7:14 AM documented in this encounter [facility] 10-04-2023 Note HNO ID: [id number] Author: Nat Chacon APRN.CNP Service: ? Author Type: Nurse Practitioner Type: Progress Notes Filed: 10/04/2023 3:58 PM Note Text: Subjective HPI HPI Bere Fiore is a 38 year old female who presents today for CC of congestion, ear pain, fever 101F. This started 1 day ago. Has tried otc medication for relief. Symptoms are worsened by nothing. Risk factors sick exposures recently. .Patient presents with: Sinus Problem: Headache, left ear pain x1 day PAST MEDICAL HISTORY Diagnosis Date Advanced maternal age in multigravida, third trimester 10/28/2019 -Declined genetic testing -Anatomy wnl per patient Chronic hypertension Encounter for induction of labor 10/28/2019 -GBS negative -S/p Cytotecx1 and FB -Epi in -S/p AROM 2300 on 10/28, clear fluid -Pit per protocol -PPBC: desires immediate PP Mirena. History of pre-eclampsia in prior , currently 10/28/2019 -History of pre-eclampsia with features at 39 weeks -Diagnosed with CHTN following pregancy -On bASA this Hydronephrosis with renal and ureteral calculous obstruction 07/20/2017 Morbid obesity (HCC) 10/28/2019 -BMI 40 on admission -Growth US at 35w 55%, EFW around 6# per pt -H/o 6#13oz -Abnormal 1hr GCT, 3hr GTT wnl -SCDs ordered Oxygen desaturation 10/29/2019 -O2 saturation intermittently decreased to 93% during/after epidural -Improves to 95-96% with deep breaths -CXR negative -Incentive spirometer ordered -Nasal spray ordered for upper respiratory congestion Rh negative status during in third trimester 10/28/2019 -S/p Rhogam 08/23/19 -Rhogam as indicated PAST SURGICAL HISTORY Procedure Laterality Date NONE ALLERGIES Penicillin MEDICATIONS amLODIPine (NORVASC) 10 mg tablet Take 1 tablet by mouth once daily. fluticasone (FLONASE) 50 mcg/actuation nasal spray Use 1 Sage in each nostril twice daily. INTRAUTERINE DEVICE, IUD, INTRAUTERINE by INTRAUTERINE route. FAMILY HISTORY Problem Relation Age of Onset Heart disease Father Alzheimer's Disease Maternal Grandmother Dementia Maternal Grandmother Dementia Paternal Grandmother Parkinson?s Disease Paternal Grandmother Social History Tobacco Use Smoking status: Never Smokeless tobacco: Never Substance Use Topics Alcohol use: Yes Comment: rare Drug use: Never ROS Objective Blood pressure 136/82, pulse 112, temperature 37.3 ?C (99.1 ?F), resp. rate 18, weight 119 kg (262 lb 6.4 oz), SpO2 96 %. Physical Exam Constitutional: General: She is not in acute distress. Appearance: She is not toxic-appearing or diaphoretic. HENT: Head: Normocephalic and atraumatic. Right Ear: Hearing, tympanic membrane, ear canal and external ear normal. Left Ear: Hearing, tympanic membrane, ear canal and external ear normal. Nose: Nose normal. Mouth/Throat: Pharynx: Uvula midline. No pharyngeal swelling, oropharyngeal exudate, posterior oropharyngeal erythema or uvula swelling. Eyes: General: Lids are normal. No scleral icterus. Right eye: No discharge. Left eye: No discharge. Conjunctiva/sclera: Conjunctivae normal. Pupils: Pupils are equal, round, and reactive to light. Neck: Trachea: Trachea normal. Cardiovascular: Rate and Rhythm: Normal rate and regular rhythm. Heart sounds: Normal heart sounds. Pulmonary: Effort: Pulmonary effort is normal. Breath sounds: Normal breath sounds. Musculoskeletal: Cervical back: Normal range of motion and neck supple. Lymphadenopathy: Cervical: No cervical adenopathy. Right cervical: No superficial cervical adenopathy. Left cervical: No superficial cervical adenopathy. Skin: Findings: No rash. Neurological: Mental Status: She is alert and oriented to person, place, and time. ASSESSMENT/PLAN: 1. Pre-syncope - ICD9: 780.2, ICD10: R55 (primary diagnosis) Near end of exam patient began feeling faint, did not correct with positioning. I will refer to ER. 2. FUO (fever of unknown origin) - ICD9: 780.60, ICD10: R50.9 High suspicion for flu or covid. - ALERE STREP A TEST (AG) - COVID AND INFLUENZA A/B NAAT, ROUTINE 3. URI, acute - ICD9: 465.9, ICD10: J06.9 - Discussed viral etiology and rationale for treatment. - Symptomatic treatment with prn analgesia - Supportive care with fluids and rest - COVID AND INFLUENZA A/B NAAT, ROUTINE 4. ETD (Eustachian tube dysfunction), left - ICD9: 381.81, ICD10: H69.92 We talked about steroids for ETD/sinus pressure, did not prescribe d/t referral to ER. Nat Chacon APRN.[facility] 10-04-2023 History of Present illness Narrative Subjective HPI HPI Bere Fiore is a 38 year old female who presents today for CC of congestion, ear pain, fever 101F. This started 1 day ago. Has tried otc medication for relief. Symptoms are worsened by nothing. Risk factors sick exposures recently. .Patient presents with: Sinus Problem: Headache, left ear pain x1 day PAST MEDICAL HISTORY Diagnosis Date Advanced maternal age in multigravida, third trimester 10/28/2019 -Declined genetic testing -Anatomy wnl per patient Chronic hypertension Encounter for induction of labor 10/28/2019 -GBS negative -S/p Cytotecx1 and FB -Epi in -S/p AROM 2300 on 10/28, clear fluid -Pit per protocol -PPBC: desires immediate PP Mirena. History of pre-eclampsia in prior , currently 10/28/2019 -History of pre-eclampsia with features at 39 weeks -Diagnosed with CHTN following pregancy -On bASA this Hydronephrosis with renal and ureteral calculous obstruction 07/20/2017 Morbid obesity (HCC) 10/28/2019 -BMI 40 on admission -Growth US at 35w 55%, EFW around 6# per pt -H/o 6#13oz -Abnormal 1hr GCT, 3hr GTT wnl -SCDs ordered Oxygen desaturation 10/29/2019 -O2 saturation intermittently decreased to 93% during/after epidural -Improves to 95-96% with deep breaths -CXR negative -Incentive spirometer ordered -Nasal spray ordered for upper respiratory congestion Rh negative status during in third trimester 10/28/2019 -S/p Rhogam 08/23/19 -Rhogam as indicated PAST SURGICAL HISTORY Procedure Laterality Date NONE ALLERGIES Penicillin MEDICATIONS amLODIPine (NORVASC) 10 mg tablet Take 1 tablet by mouth once daily. fluticasone (FLONASE) 50 mcg/actuation nasal spray Use 1 Sage in each nostril twice daily. INTRAUTERINE DEVICE, IUD, INTRAUTERINE by INTRAUTERINE route. FAMILY HISTORY Problem Relation Age of Onset Heart disease Father Alzheimer's Disease Maternal Grandmother Dementia Maternal Grandmother Dementia Paternal Grandmother Parkinson s Disease Paternal Grandmother Social History Tobacco Use Smoking status: Never Smokeless tobacco: Never Substance Use Topics Alcohol use: Yes Comment: rare Drug use: Never ROS Objective Blood pressure 136/82, pulse 112, temperature 37.3 C (99.1 F), resp. rate 18, weight 119 kg (262 lb 6.4 oz), SpO2 96 %. Physical Exam Constitutional: General: She is not in acute distress. Appearance: She is not toxic-appearing or diaphoretic. HENT: Head: Normocephalic and atraumatic. Right Ear: Hearing, tympanic membrane, ear canal and external ear normal. Left Ear: Hearing, tympanic membrane, ear canal and external ear normal. Nose: Nose normal. Mouth/Throat: Pharynx: Uvula midline. No pharyngeal swelling, oropharyngeal exudate, posterior oropharyngeal erythema or uvula swelling. Eyes: General: Lids are normal. No scleral icterus. Right eye: No discharge. Left eye: No discharge. Conjunctiva/sclera: Conjunctivae normal. Pupils: Pupils are equal, round, and reactive to light. Neck: Trachea: Trachea normal. Cardiovascular: Rate and Rhythm: Normal rate and regular rhythm. Heart sounds: Normal heart sounds. Pulmonary: Effort: Pulmonary effort is normal. Breath sounds: Normal breath sounds. Musculoskeletal: Cervical back: Normal range of motion and neck supple. Lymphadenopathy: Cervical: No cervical adenopathy. Right cervical: No superficial cervical adenopathy. Left cervical: No superficial cervical adenopathy. Skin: Findings: No rash. Neurological: Mental Status: She is alert and oriented to person, place, and time. ASSESSMENT/PLAN: 1. Pre-syncope - ICD9: 780.2, ICD10: R55 (primary diagnosis) Near end of exam patient began feeling faint, did not correct with positioning. I will refer to ER. 2. FUO (fever of unknown origin) - ICD9: 780.60, ICD10: R50.9 High suspicion for flu or covid. - ALERE STREP A TEST (AG) - COVID & INFLUENZA A/B NAAT, ROUTINE 3. URI, acute - ICD9: 465.9, ICD10: J06.9 - Discussed viral etiology and rationale for treatment. - Symptomatic treatment with prn analgesia - Supportive care with fluids and rest - COVID & INFLUENZA A/B NAAT, ROUTINE 4. ETD (Eustachian tube dysfunction), left - ICD9: 381.81, ICD10: H69.92 We talked about steroids for ETD/sinus pressure, did not prescribe d/t referral to ER. Nat Chacon APRN.AUTOMOTIVE SERVICE DIRECTOR documented in this encounter [facility] 09-26-2023 Miscellaneous Notes Cardiology Referral information submitted to [facility]. Ref# [id number]. [facility] Specialty office will call the patient within 7-10 business days to set this appointment up. Cardiology referral ordered, please assist with scheduling. Stella Harvey APRN.CNP documented in this encounter [facility] 09-26-2023 Note HNO ID: [id number] Author: Stella Harvey APRN.CNP Service: ? Author Type: Nurse Practitioner Type: Progress Notes Filed: 09/26/2023 7:06 AM Note Text: DISTANCE HEALTH VISIT This Team Access Model visit is a virtual encounter. It required patient-provider interaction for the medical decision making as documented below. I have communicated my name and active licensure. The patient's identity and physical location were verified at the time of this visit. Either the patient or their legal labor union business representative has been informed of the risks and benefits of -- and alternatives to -- treatment through a remote evaluation and consents to proceed with the evaluation remotely. Bere Fiore is a 38 year old female established patient of Dr. Morales Roche MD seen for hypertension follow up. Needs refills on amlodipine. She has a blood pressure cuff at home, but does not check her BP regularly. Reports her father and grandfather have a history of heart disease. Her father had his first AK at age 40. She would like to be checked for heart problems. HISTORY REVIEWED (electronic chart updated): - medical history - medications - allergies REVIEW OF SYSTEMS: GENERAL: feeling well without fatigue RESPIRATORY: no wheezing or shortness of breath CARDIOVASCULAR: no chest pain NEURO: no numbness or paresthesias and no weakness of the extremities PHYSICAL EXAMINATION: VIDEO EXAM: (if done, performed via video enabled technology) GENERAL: alert and appropriate, in no distress and well-hydrated, well nourished OROPHARYNX: moist mucus membranes RESPIRATORY: breathing non-labored NEUROLOGIC: no obvious deficit ASSESSMENT/PLAN: 1. Hypertension, essential - ICD9: 401.9, ICD10: I10 (primary diagnosis) - Controlled - Continue current medications - Recommend home blood pressure monitoring, to send results in MyChart in 1-2 weeks - Encouraged sodium restriction, DASH or Mediterranean diet - Recommend regular aerobic exercise - AMLODIPINE 10 MG TABLET 2. Family history of myocardial infarction at age less than 60 - ICD9: V17.3, ICD10: Z82.49 - CONSULT TO CARDIOLOGY 3. Family history of premature coronary heart disease - ICD9: V17.3, ICD10: Z82.49 - CONSULT TO CARDIOLOGY 4. Screening for lipid disorders - ICD9: V77.91, ICD10: Z13.220 - LIPID PANEL BASIC I spent a total of 12 minutes on the date of the service which included preparing to see the patient, [id number] patient care, completing clinical documentation, performing a medically appropriate examination, counseling and educating the patient/family/caregiver, and ordering medications, tests, or procedures. Stella Harvey APRN.[facility] 09-26-2023 History of Present illness Narrative DISTANCE HEALTH VISIT This Team Access Model visit is a virtual encounter. It required patient-provider interaction for the medical decision making as documented below. I have communicated my name and active licensure. The patient's identity and physical location were verified at the time of this visit. Either the patient or their legal labor union business representative has been informed of the risks and benefits of -- and alternatives to -- treatment through a remote evaluation and consents to proceed with the evaluation remotely. Bere Fiore is a 38 year old female established patient of Dr. Morales Roche MD seen for hypertension follow up. Needs refills on amlodipine. She has a blood pressure cuff at home, but does not check her BP regularly. Reports her father and grandfather have a history of heart disease. Her father had his first AK at age 40. She would like to be checked for heart problems. HISTORY REVIEWED (electronic chart updated): - medical history - medications - allergies REVIEW OF SYSTEMS: GENERAL: feeling well without fatigue RESPIRATORY: no wheezing or shortness of breath CARDIOVASCULAR: no chest pain NEURO: no numbness or paresthesias and no weakness of the extremities PHYSICAL EXAMINATION: VIDEO EXAM: (if done, performed via video enabled technology) GENERAL: alert and appropriate, in no distress and well-hydrated, well nourished OROPHARYNX: moist mucus membranes RESPIRATORY: breathing non-labored NEUROLOGIC: no obvious deficit ASSESSMENT/PLAN: 1. Hypertension, essential - ICD9: 401.9, ICD10: I10 (primary diagnosis) - Controlled - Continue current medications - Recommend home blood pressure monitoring, to send results in MyChart in 1-2 weeks - Encouraged sodium restriction, DASH or Mediterranean diet - Recommend regular aerobic exercise - AMLODIPINE 10 MG TABLET 2. Family history of myocardial infarction at age less than 60 - ICD9: V17.3, ICD10: Z82.49 - CONSULT TO CARDIOLOGY 3. Family history of premature coronary heart disease - ICD9: V17.3, ICD10: Z82.49 - CONSULT TO CARDIOLOGY 4. Screening for lipid disorders - ICD9: V77.91, ICD10: Z13.220 - LIPID PANEL BASIC I spent a total of 12 minutes on the date of the service which included preparing to see the patient, [id number] patient care, completing clinical documentation, performing a medically appropriate examination, counseling and educating the patient/family/caregiver, and ordering medications, tests, or procedures. Stella Harvey APRN.[employer] SERVICE DIRECTOR documented in this encounter [facility] 07-24-2023 Miscellaneous Notes Signed CMP. Shereen Newton PA-C ----- Message from Bere Archer sent at 07/24/2023 10:56 AM EDT ----- Regarding: lab orders Hello! This patient called in requesting lab orders to be placed. Can you please assist? Thank you! Bere documented in this encounter [facility] 05-22-2023 Miscellaneous Notes Please call and schedule for appointment prior to refill. documented in this encounter [facility] 04-09-2023 Instructions Nakia Stallworth APRN.AUTOMOTIVE SERVICE DIRECTOR - 04/09/2023 10:31 AM EDT SINUS INFECTION (SINUSITIS) WHAT YOU NEED TO KNOW: Sinusitis is inflammation or infection of your sinuses. It is most often caused by a virus. Acute sinusitis may last up to 12 weeks. Chronic sinusitis lasts longer than 12 weeks. Recurrent sinusitis means you have 4 or more times in 1 year. DISCHARGE INSTRUCTIONS: GO to the emergency department if: Your eye and eyelid are red, swollen, and painful. You cannot open your eye. You have vision changes, such as double vision. Your eyeball bulges out or you cannot move your eye. You are more sleepy than normal, or you notice changes in your ability to think, move, or talk. You have a stiff neck, a fever, or a bad headache. You have swelling of your forehead or scalp. Contact your healthcare provider if: Your symptoms do not improve after 3 days. Your symptoms do not go away after 10 days. You have nausea and are vomiting. Your nose is bleeding. You have questions or concerns about your condition or care. Medicines: Your symptoms may go away on their own. Your healthcare provider may recommend watchful waiting for up to 10 days before starting antibiotics. You may need any of the following: Acetaminophen decreases pain and fever. It is available without a doctor's order. Ask how much to take and how often to take it. Follow directions. Read the labels of all other medicines you are using to see if they also contain acetaminophen, or ask your doctor or pharmacist. Acetaminophen can cause liver damage if not taken correctly. Do not use more than 4 grams (4,000 milligrams) total of acetaminophen in one day. NSAIDs , such as ibuprofen, help decrease swelling, pain, and fever. This medicine is available with or without a doctor's order. NSAIDs can cause stomach bleeding or kidney problems in certain people. If you take blood thinner medicine, always ask your healthcare provider if NSAIDs are safe for you. Always read the medicine label and follow directions. Nasal steroid sprays may help decrease inflammation in your nose and sinuses. Decongestants help reduce swelling and drain mucus in the nose and sinuses. They may help you breathe easier. Antihistamines help dry mucus in the nose and relieve sneezing. Antibiotics help treat or prevent a bacterial infection. Take your medicine as directed. Contact your healthcare provider if you think your medicine is not helping or if you have side effects. Tell him or her if you are allergic to any medicine. Keep a list of the medicines, vitamins, and herbs you take. Include the amounts, and when and why you take them. Bring the list or the pill bottles to follow-up visits. Carry your medicine list with you in case of an emergency. Self-care: Rinse your sinuses. Use a sinus rinse device to rinse your nasal passages with a saline (salt water) solution or distilled water. Do not use tap water. This will help thin the mucus in your nose and rinse away pollen and dirt. It will also help reduce swelling so you can breathe normally. Ask your healthcare provider how often to do this. Breathe in steam. Heat a bowl of water until you see steam. Lean over the bowl and make a tent over your head with a large towel. Breathe deeply for about 20 minutes. Be careful not to get too close to the steam or burn yourself. Do this 3 times a day. You can also breathe deeply when you take a hot shower. Sleep with your head elevated. Place an extra pillow under your head before you go to sleep to help your sinuses drain. Drink liquids as directed. Ask your healthcare provider how much liquid to drink each day and which liquids are best for you. Liquids will thin the mucus in your nose and help it drain. Avoid drinks that contain alcohol or caffeine. Do not smoke, and avoid secondhand smoke. Nicotine and other chemicals in cigarettes and cigars can make your symptoms worse. Ask your healthcare provider for information if you currently smoke and need help to quit. E-cigarettes or smokeless tobacco still contain nicotine. Talk to your healthcare provider before you use these products. Prevent the spread of germs that cause sinusitis: Wash your hands often with soap and water. Wash your hands after you use the bathroom, change a child's diaper, or sneeze. Wash your hands before you prepare or eat food. documented in this encounter [facility] 04-09-2023 History of Present illness Narrative Images from the original note were not included. April 09, 2023 Bere Fiore 1985 VIRTUAL VISIT PROGRESS NOTE This is a virtual visit. It required patient-provider interaction for the medical decision making as documented below. Informed verbal consent was obtained from this patient to communicate and provide care using virtual and other telecommunications tools. This patient has been explained the risks related to unauthorized disclosure or interception of personal health information and steps they can take to help protect their information. We have discussed that care provided through video or audio communication cannot replace the need for physical examination or an in person visit for some disorders or urgent problems and patient understands the need to seek urgent care in an Emergency Department as necessary. I have communicated my name and active licensure. The patient's identity and physical location were verified at the time of this visit. Either the patient or their legal labor union business representative has been informed of the risks and benefits of -- and alternatives to -- treatment through a remote evaluation and consents to proceed with the evaluation remotely. Platform patient seen on: [employer] platform Location of patient: [place] Fi[place] is a 37 year old female seen for Patient presents with: Sinusitis Sinusitis This is a new problem. The current episode started in the past 7 days. The problem has been gradually worsening since onset. There has been no fever. Associated symptoms include congestion, coughing (from drainage), a hoarse voice, sinus pressure and swollen glands. Pertinent negatives include no chills, diaphoresis, ear pain, headaches, neck pain, shortness of breath, sneezing or sore throat. Past treatments include acetaminophen. The treatment provided no relief. HISTORY REVIEWED (electronic chart updated): PAST MEDICAL HISTORY Diagnosis Date Advanced maternal age in multigravida, third trimester 10/28/2019 -Declined genetic testing -Anatomy wnl per patient Chronic hypertension Encounter for induction of labor 10/28/2019 -GBS negative -S/p Cytotecx1 and FB -Epi in -S/p AROM 2300 on 10/28, clear fluid -Pit per protocol -PPBC: desires immediate PP Mirena. History of pre-eclampsia in prior , currently 10/28/2019 -History of pre-eclampsia with features at 39 weeks -Diagnosed with CHTN following pregancy -On bASA this Hydronephrosis with renal and ureteral calculous obstruction 07/20/2017 Morbid obesity (HCC) 10/28/2019 -BMI 40 on admission -Growth US at 35w 55%, EFW around 6# per pt -H/o 6#13oz -Abnormal 1hr GCT, 3hr GTT wnl -SCDs ordered Oxygen desaturation 10/29/2019 -O2 saturation intermittently decreased to 93% during/after epidural -Improves to 95-96% with deep breaths -CXR negative -Incentive spirometer ordered -Nasal spray ordered for upper respiratory congestion Rh negative status during in third trimester 10/28/2019 -S/p Rhogam 08/23/19 -Rhogam as indicated PAST SURGICAL HISTORY Procedure Laterality Date NONE FAMILY HISTORY Problem Relation Age of Onset Heart disease Father Alzheimer's Disease Maternal Grandmother Dementia Maternal Grandmother Dementia Paternal Grandmother Parkinson s Disease Paternal Grandmother Social History Tobacco Use Smoking status: Never Smokeless tobacco: Never Substance Use Topics Alcohol use: Yes Comment: rare Drug use: Never Current Outpatient Medications Medication Sig doxycycline monohydrate 100 mg tablet Take 1 tablet by mouth twice daily for 7 days. fluticasone (FLONASE) 50 mcg/actuation nasal spray Use 1 Sage in each nostril twice daily. amLODIPine (NORVASC) 10 mg tablet TAKE 1 TABLET BY MOUTH EVERY DAY chlorthalidone (HYGROTON) 25 mg tablet TAKE 1 TABLET BY MOUTH EVERY DAY meloxicam (MOBIC) 15 mg tablet TAKE 1 TABLET BY MOUTH EVERY DAY INTRAUTERINE DEVICE, IUD, INTRAUTERINE by INTRAUTERINE route. No current facility-administered medications for this visit. ALLERGIES Allergen Reactions Penicillin Unknown Childhood allergy. Pt unsure of reaction. REVIEW OF SYSTEMS: Review of Systems Constitutional: Negative for activity change, appetite change, chills, diaphoresis, fatigue, fever and unexpected weight change. HENT: Positive for congestion, hoarse voice, postnasal drip, rhinorrhea, sinus pressure, sinus pain and voice change. Negative for ear pain, sneezing and sore throat. Eyes: Negative for visual disturbance. Respiratory: Positive for cough (from drainage). Negative for apnea, choking, chest tightness, shortness of breath, wheezing and stridor. Cardiovascular: Negative for chest pain, palpitations and leg swelling. Endocrine: Negative for cold intolerance, heat intolerance, polydipsia, polyphagia and polyuria. Musculoskeletal: Negative for myalgias and neck pain. Skin: Negative for color change, rash and wound. Neurological: Negative for headaches. Psychiatric/Behavioral: Negative. PHYSICAL EXAMINATION: VIDEO EXAM: (performed via video enabled technology) GENERAL: alert and appropriate, in no distress, well-hydrated, well nourished, happy, smiling, interactive, and appears tired SKIN: no rash noted HEAD: normocephalic, no abnormality or lesion noted EYES: no injection and visual acuity is grossly normal EARS: hearing grossly normal NOSE: external nose normal without rhinorrhea Frontal sinus tenderness by self palpation;Yes Maxillary sinus tenderness by self palpation :Yes Ethmoid sinus tenderness by self palpation: Yes OROPHARYNX: moist mucus membranes NECK: full ROM Tender cervical adenopathy by self palpation :Yes RESPIRATORY: breathing non-labored Respiratory distress :No Coughing noted :No Audible wheezing noted :No CHEST: equal chest rise with normal respiratory effort NEUROLOGIC: no obvious deficit ASSESSMENT: (J01.40) Acute non-recurrent pansinusitis (primary encounter diagnosis) PLAN: Encounter Diagnosis ICD-10-CM 1. Acute non-recurrent pansinusitis J01.40 doxycycline monohydrate 100 mg tablet fluticasone (FLONASE) 50 mcg/actuation nasal spray Return if symptoms worsen or fail to improve, for recheck with PCP. Patient Instructions SINUS INFECTION (SINUSITIS) WHAT YOU NEED TO KNOW: Sinusitis is inflammation or infection of your sinuses. It is most often caused by a virus. Acute sinusitis may last up to 12 weeks. Chronic sinusitis lasts longer than 12 weeks. Recurrent sinusitis means you have 4 or more times in 1 year. DISCHARGE INSTRUCTIONS: GO to the emergency department if: Your eye and eyelid are red, swollen, and painful. You cannot open your eye. You have vision changes, such as double vision. Your eyeball bulges out or you cannot move your eye. You are more sleepy than normal, or you notice changes in your ability to think, move, or talk. You have a stiff neck, a fever, or a bad headache. You have swelling of your forehead or scalp. Contact your healthcare provider if: Your symptoms do not improve after 3 days. Your symptoms do not go away after 10 days. You have nausea and are vomiting. Your nose is bleeding. You have questions or concerns about your condition or care. Medicines: Your symptoms may go away on their own. Your healthcare provider may recommend watchful waiting for up to 10 days before starting antibiotics. You may need any of the following: Acetaminophen decreases pain and fever. It is available without a doctor's order. Ask how much to take and how often to take it. Follow directions. Read the labels of all other medicines you are using to see if they also contain acetaminophen, or ask your doctor or pharmacist. Acetaminophen can cause liver damage if not taken correctly. Do not use more than 4 grams (4,000 milligrams) total of acetaminophen in one day. NSAIDs , such as ibuprofen, help decrease swelling, pain, and fever. This medicine is available with or without a doctor's order. NSAIDs can cause stomach bleeding or kidney problems in certain people. If you take blood thinner medicine, always ask your healthcare provider if NSAIDs are safe for you. Always read the medicine label and follow directions. Nasal steroid sprays may help decrease inflammation in your nose and sinuses. Decongestants help reduce swelling and drain mucus in the nose and sinuses. They may help you breathe easier. Antihistamines help dry mucus in the nose and relieve sneezing. Antibiotics help treat or prevent a bacterial infection. Take your medicine as directed. Contact your healthcare provider if you think your medicine is not helping or if you have side effects. Tell him or her if you are allergic to any medicine. Keep a list of the medicines, vitamins, and herbs you take. Include the amounts, and when and why you take them. Bring the list or the pill bottles to follow-up visits. Carry your medicine list with you in case of an emergency. Self-care: Rinse your sinuses. Use a sinus rinse device to rinse your nasal passages with a saline (salt water) solution or distilled water. Do not use tap water. This will help thin the mucus in your nose and rinse away pollen and dirt. It will also help reduce swelling so you can breathe normally. Ask your healthcare provider how often to do this. Breathe in steam. Heat a bowl of water until you see steam. Lean over the bowl and make a tent over your head with a large towel. Breathe deeply for about 20 minutes. Be careful not to get too close to the steam or burn yourself. Do this 3 times a day. You can also breathe deeply when you take a hot shower. Sleep with your head elevated. Place an extra pillow under your head before you go to sleep to help your sinuses drain. Drink liquids as directed. Ask your healthcare provider how much liquid to drink each day and which liquids are best for you. Liquids will thin the mucus in your nose and help it drain. Avoid drinks that contain alcohol or caffeine. Do not smoke, and avoid secondhand smoke. Nicotine and other chemicals in cigarettes and cigars can make your symptoms worse. Ask your healthcare provider for information if you currently smoke and need help to quit. E-cigarettes or smokeless tobacco still contain nicotine. Talk to your healthcare provider before you use these products. Prevent the spread of germs that cause sinusitis: Wash your hands often with soap and water. Wash your hands after you use the bathroom, change a child's diaper, or sneeze. Wash your hands before you prepare or eat food. Medical Decision Making: Problems: Low: Acute, uncomplicated illness or injury Risk: Low: Low risk from testing/treatment Medical Decision Making Level: 3 - Low -I have reviewed and updated with the patient: allergies, VS, current medications, Past Medical History,Past Surgical History,Past Family Medical History, Past Social History. - Patient education provided today. - Discussed with patient medications that are indicated and how to use the medications and what the potential side effects are. - Follow up with PCP in 2-3 days if symptoms progress - Warning signs of worsening condition explained to patient, Red flags discussed - Patient in stable condition after questions answered and patient verbalizes understanding - Report to ED with any worsening symptoms or life-threatening concerns Nakia Stallworth APRN.AUTOMOTIVE SERVICE DIRECTOR If you let us know who your primary care provider is, we will send them a notification of today s visit through our electronic medical records system. Since not all providers have access to our notifications, we strongly encourage you to share the following record of today s visit with your primary care provider at your next visit. This will help in providing you the best care. If you do not have an established Primary Care physician and would like to continue care with a [facility] Virtual Primary Care physician, please ask your provider to place a Establish Primary Care order. Use [employer] to manage your care, wherever you are, 05/06, on your mobile device or computer. [employer] connects you to [employer] so you can access all your health information in one place and also schedule and request virtual appointments with primary care providers. documented in this encounter [facility] 07-04-2022 Miscellaneous Notes Last office visit 05/05/22 with [facility]. Patient's request for medication is as follows: Requested Prescriptions Pending Prescriptions Disp Refills meloxicam (MOBIC) 15 mg tablet [Pharmacy Med Name: MELOXICAM 15 MG TABLET] 30 tablet 1 Sig: TAKE 1 TABLET BY MOUTH EVERY DAY Prescription(s) as above. Please process accordingly. Perla Blank LPN documented in this encounter [facility] 05-05-2022 History of Present illness Narrative l knee pain months now. No acute injury but began after being on trip and getting in and out of high truck repeatedly. Pain laterally and over patella bl le edema over last several days with no sob or assoc s/s The history is provided by the patient. HISTORY REVIEWED PAST MEDICAL HISTORY Diagnosis Date Advanced maternal age in multigravida, third trimester 10/28/2019 -Declined genetic testing -Anatomy wnl per patient Chronic hypertension Encounter for induction of labor 10/28/2019 -GBS negative -S/p Cytotecx1 and FB -Epi in -S/p AROM 2300 on 10/28, clear fluid -Pit per protocol -PPBC: desires immediate PP Mirena. History of pre-eclampsia in prior , currently 10/28/2019 -History of pre-eclampsia with features at 39 weeks -Diagnosed with CHTN following pregancy -On bASA this Hydronephrosis with renal and ureteral calculous obstruction 07/20/2017 Morbid obesity (HCC) 10/28/2019 -BMI 40 on admission -Growth US at 35w 55%, EFW around 6# per pt -H/o 6#13oz -Abnormal 1hr GCT, 3hr GTT wnl -SCDs ordered Oxygen desaturation 10/29/2019 -O2 saturation intermittently decreased to 93% during/after epidural -Improves to 95-96% with deep breaths -CXR negative -Incentive spirometer ordered -Nasal spray ordered for upper respiratory congestion Rh negative status during in third trimester 10/28/2019 -S/p Rhogam 08/23/19 -Rhogam as indicated PAST SURGICAL HISTORY Procedure Laterality Date NONE FAMILY HISTORY Problem Relation Age of Onset Heart disease Father Alzheimer's Disease Maternal Grandmother Dementia Maternal Grandmother Dementia Paternal Grandmother Parkinson s Disease Paternal Grandmother Social History Social History Narrative Merged History Encounter Allergies: ALLERGIES Allergen Reactions Penicillin Unknown Childhood allergy. Pt unsure of reaction. Medications: amLODIPine (NORVASC) 10 mg tablet TAKE 1 TABLET BY MOUTH EVERY DAY INTRAUTERINE DEVICE, IUD, INTRAUTERINE by INTRAUTERINE route. Problem List: ACTIVE PROBLEM LIST Chronic Hypertension - 10/28/2019 Chronic Hypertension With Superimposed Pre-Eclampsia - 07/05/2018 Comment: -Persistent severe range BP intrapartum, asymptomatic -On Procardia 30mg QD->increased intrapartum to BID dosing due to severe range Bps -S/p Labetalol 20 -Magnesium for seizure prophylaxis -Labs on admission: -CBC wnl -CMP with mildly elevated AST (39) that is not 2x UL of normal -UPC 0.22 -Continue to monitor closely Review of Systems Constitutional: Negative. Respiratory: Negative. Cardiovascular: Positive for leg swelling. Gastrointestinal: Negative. Endocrine: Negative. Musculoskeletal: Positive for arthralgias. Physical Exam Vitals and nursing note reviewed. Constitutional: Appearance: She is well-developed. She is obese. Cardiovascular: Rate and Rhythm: Normal rate and regular rhythm. Pulmonary: Effort: Pulmonary effort is normal. Breath sounds: Normal breath sounds. Abdominal: General: Bowel sounds are normal. Palpations: Abdomen is soft. Musculoskeletal: General: Tenderness (mild laterally and over patella. nec drawer, macy/nathaniel stress, compression. stable joint. pain over patella and tendon infra) present. Right lower leg: Edema present. Left lower leg: Edema present. Neurological: Mental Status: She is alert. Psychiatric: Behavior: Behavior normal. BP 142/94 Pulse 104 Temp 37 C (98.6 F) (Tympanic) Wt 123.4 kg (272 lb) BMI 41.36 kg/m ASSESSMENT/PLAN: 1. Strain of left knee, initial encounter - ICD9: 844.9, ICD10: S86.912A (primary diagnosis) Ice, given pt and stretching to do. Offer formal pt as well - XR KNEE GENERAL 4V AP BOTH/PA BOTH/LAT/MERC LEFT - MELOXICAM 15 MG TABLET 2. Chronic pain of left knee - ICD9: 719.46, 338.29, ICD10: M25.562, G89.29 above - XR KNEE GENERAL 4V AP BOTH/PA BOTH/LAT/MERC LEFT - MELOXICAM 15 MG TABLET 3. Dependent edema - ICD9: 782.3, ICD10: R60.9 Low salt, inc exercise, wt control moving forward. Will diurese. No s/s pulm edema - CHLORTHALIDONE 25 MG TABLET Reynaldo Stallworth DO documented in this encounter [facility] 10-04-2021 Miscellaneous Notes Reason for Disposition [1] MILD pain (e.g., does not interfere with normal activities) AND [2] pain comes and goes (cramps) AND [3] present > 48 hours (Exception: this same abdominal pain is a chronic symptom recurrent or ongoing AND present > 4 weeks) Answer Assessment - Initial Assessment Questions 1. LOCATION: Where does it hurt? Unsure 2. RADIATION: Does the pain shoot anywhere else? (e.g., chest, back) Unsure 3. ONSET: When did the pain begin? (e.g., minutes, hours or days ago) 1 week 4. SUDDEN: Gradual or sudden onset? Sudden onset 5. PATTERN Does the pain come and go, or is it constant? - If constant: Is it getting better, staying the same, or worsening? (Note: Constant means the pain never goes away completely; most serious pain is constant and it progresses) - If intermittent: How long does it last? Do you have pain now? (Note: Intermittent means the pain goes away completely between bouts) Comes and goes 6. SEVERITY: How bad is the pain? (e.g., Scale 1-10; mild, moderate, or severe) - MILD (1-3): doesn't interfere with normal activities, abdomen soft and not tender to touch - MODERATE (4-7): interferes with normal activities or awakens from sleep, tender to touch - SEVERE (8-10): excruciating pain, doubled over, unable to do any normal activities Unsure 7. RECURRENT SYMPTOM: Have you ever had this type of stomach pain before? If Yes, ask: When was the last time? and What happened that time? Unsure 8. CAUSE: What do you think is causing the stomach pain? Unsure 9. RELIEVING/AGGRAVATING FACTORS: What makes it better or worse? (e.g., movement, antacids, bowel movement) Unsure 10. OTHER SYMPTOMS: Has there been any vomiting, diarrhea, constipation, or urine problems? diarrhea 11. : Is there any chance you are ? When was your last menstrual period? Unsure- pt has IUD Protocols used: ABDOMINAL PAIN - [id number] documented in this encounter [facility] 10-31-2019 History of Past i llness Narrative Problem Noted Date Resolved Date Threatened labor 10/31/2019 10/05/2021 Oxygen desaturation 10/29/2019 10/05/2021 Overview: -O2 saturation intermittently decreased to 93% during/after epidural -Improves to 95-96% with deep breaths -CXR negative -Incentive spirometer ordered -Nasal spray ordered for upper respiratory congestion 37 weeks gestation of 10/28/2019 10/28/2019 Rh negative status during in [facility] 10/28/2019 10/05/2021 Overview: -S/p Rhogam 08/23/19 -Rhogam as indicated Advanced maternal age in multigravida, [facility] 10/28/2019 10/05/2021 Overview: -Declined genetic testing -Anatomy wnl per patient Encounter for induction of labor 10/28/2019 10/05/2021 Overview: -GBS negative -S/p Cytotecx1 and FB -Epi in -S/p AROM 2300 on 10/28, clear fluid -Pit per protocol -PPBC: desires immediate PP Mirena. History of pre-eclampsia in prior , currently 10/28/2019 10/05/2021 Overview: -History of pre-eclampsia with features at 39 weeks -Diagnosed with CHTN following pregancy -On bASA this Morbid obesity 10/28/2019 10/05/2021 Overview: -BMI 40 on admission -Growth US at 35w 55%, EFW around 6# per pt -H/o 6#13oz -Abnormal 1hr GCT, 3hr GTT wnl -SCDs ordered Short interval between pregn ancies affecting in third trimester, antepartum 10/28/2019 10/05/2021 Overview: -Delivered 06/2018 -Desires Mirena Hydronephrosis with renal and ureteral calculous obstruction 07/20/2017 10/05/2021 documented as of this encounter (statuses as of 05/05/2022) [facility] History of Past illness Narrative* Problem Noted Date Resolved Date Threatened labor 10/31/2019 10/05/2021 Oxygen desaturation 10/29/2019 10/05/2021 Overview: -O2 saturation intermittently decreased to 93% during/after epidural -Improves to 95-96% with deep breaths -CXR negative -Incentive spirometer ordered -Nasal spray ordered for upper respiratory congestion 37 weeks gestation of 10/28/2019 10/28/2019 Rh negative status during in [facility] 10/28/2019 10/05/2021 Overview: -S/p Rhogam 08/23/19 -Rhogam as indicated Advanced maternal age in multigravida, [facility] 10/28/2019 10/05/2021 Overview: -Declined genetic testing -Anatomy wnl per patient Encounter for induction of labor 10/28/2019 10/05/2021 Overview: -GBS negative -S/p Cytotecx1 and FB -Epi in -S/p AROM 2300 on 10/28, clear fluid -Pit per protocol -PPBC: desires immediate PP Mirena. History of pre-eclampsia in prior , currently 10/28/2019 10/05/2021 Overview: -History of pre-eclampsia with features at 39 weeks -Diagnosed with CHTN following pregancy -On bASA this Morbid obesity 10/28/2019 10/05/2021 Overview: -BMI 40 on admission -Growth US at 35w 55%, EFW around 6# per pt -H/o 6#13oz -Abnormal 1hr GCT, 3hr GTT wnl -SCDs ordered Short interval between pregn ancies affecting in third trimester, antepartum 10/28/2019 10/05/2021 Overview: -Delivered 06/2018 -Desires Mirena Hydronephrosis with renal and ureteral calculous obstruction 07/20/2017 10/05/2021 documented as of this encounter (statuses as of 05/30/2022) [facility] History of Past illness Narrative* Problem Noted Date Resolved Date Threatened labor 10/31/2019 10/05/2021 Oxygen desaturation 10/29/2019 10/05/2021 Overview: -O2 saturation intermittently decreased to 93% during/after epidural -Improves to 95-96% with deep breaths -CXR negative -Incentive spirometer ordered -Nasal spray ordered for upper respiratory congestion 37 weeks gestation of 10/28/2019 10/28/2019 Rh negative status during in [facility] 10/28/2019 10/05/2021 Overview: -S/p Rhogam 08/23/19 -Rhogam as indicated Advanced maternal age in multigravida, [facility] 10/28/2019 10/05/2021 Overview: -Declined genetic testing -Anatomy wnl per patient Encounter for induction of labor 10/28/2019 10/05/2021 Overview: -GBS negative -S/p Cytotecx1 and FB -Epi in -S/p AROM 2300 on 10/28, clear fluid -Pit per protocol -PPBC: desires immediate PP Mirena. History of pre-eclampsia in prior , currently 10/28/2019 10/05/2021 Overview: -History of pre-eclampsia with features at 39 weeks -Diagnosed with CHTN following pregancy -On bASA this Morbid obesity 10/28/2019 10/05/2021 Overview: -BMI 40 on admission -Growth US at 35w 55%, EFW around 6# per pt -H/o 6#13oz -Abnormal 1hr GCT, 3hr GTT wnl -SCDs ordered Short interval between pregn ancies affecting in third trimester, antepartum 10/28/2019 10/05/2021 Overview: -Delivered 06/2018 -Desires Mirena Hydronephrosis with renal and ureteral calculous obstruction 07/20/2017 10/05/2021 documented as of this encounter (statuses as of 06/23/2022) [facility] History of Past illness Narrative* Problem Noted Date Resolved Date Threatened labor 10/31/2019 10/05/2021 Oxygen desaturation 10/29/2019 10/05/2021 Overview: -O2 saturation intermittently decreased to 93% during/after epidural -Improves to 95-96% with deep breaths -CXR negative -Incentive spirometer ordered -Nasal spray ordered for upper respiratory congestion 37 weeks gestation of 10/28/2019 10/28/2019 Rh negative status during in [facility] 10/28/2019 10/05/2021 Overview: -S/p Rhogam 08/23/19 -Rhogam as indicated Advanced maternal age in multigravida, [facility] 10/28/2019 10/05/2021 Overview: -Declined genetic testing -Anatomy wnl per patient Encounter for induction of labor 10/28/2019 10/05/2021 Overview: -GBS negative -S/p Cytotecx1 and FB -Epi in -S/p AROM 2300 on 10/28, clear fluid -Pit per protocol -PPBC: desires immediate PP Mirena. History of pre-eclampsia in prior , currently 10/28/2019 10/05/2021 Overview: -History of pre-eclampsia with features at 39 weeks -Diagnosed with CHTN following pregancy -On bASA this Morbid obesity 10/28/2019 10/05/2021 Overview: -BMI 40 on admission -Growth US at 35w 55%, EFW around 6# per pt -H/o 6#13oz -Abnormal 1hr GCT, 3hr GTT wnl -SCDs ordered Short interval between pregn ancies affecting in third trimester, antepartum 10/28/2019 10/05/2021 Overview: -Delivered 06/2018 -Desires Mirena Hydronephrosis with renal and ureteral calculous obstruction 07/20/2017 10/05/2021 documented as of this encounter (statuses as of 06/25/2022) [facility] History of Past illness Narrative* Problem Noted Date Resolved Date Threatened labor 10/31/2019 10/05/2021 Oxygen desaturation 10/29/2019 10/05/2021 Overview: -O2 saturation intermittently decreased to 93% during/after epidural -Improves to 95-96% with deep breaths -CXR negative -Incentive spirometer ordered -Nasal spray ordered for upper respiratory congestion 37 weeks gestation of 10/28/2019 10/28/2019 Rh negative status during in [facility] 10/28/2019 10/05/2021 Overview: -S/p Rhogam 08/23/19 -Rhogam as indicated Advanced maternal age in multigravida, [facility] 10/28/2019 10/05/2021 Overview: -Declined genetic testing -Anatomy wnl per patient Encounter for induction of labor 10/28/2019 10/05/2021 Overview: -GBS negative -S/p Cytotecx1 and FB -Epi in -S/p AROM 2300 on 10/28, clear fluid -Pit per protocol -PPBC: desires immediate PP Mirena. History of pre-eclampsia in prior , currently 10/28/2019 10/05/2021 Overview: -History of pre-eclampsia with features at 39 weeks -Diagnosed with CHTN following pregancy -On bASA this Morbid obesity 10/28/2019 10/05/2021 Overview: -BMI 40 on admission -Growth US at 35w 55%, EFW around 6# per pt -H/o 6#13oz -Abnormal 1hr GCT, 3hr GTT wnl -SCDs ordered Short interval between pregn ancies affecting in third trimester, antepartum 10/28/2019 10/05/2021 Overview: -Delivered 06/2018 -Desires Mirena Hydronephrosis with renal and ureteral calculous obstruction 07/20/2017 10/05/2021 documented as of this encounter (statuses as of 07/05/2022) [facility] History of Past illness Narrative* Problem Noted Date Resolved Date Threatened labor 10/31/2019 10/05/2021 Oxygen desaturation 10/29/2019 10/05/2021 Overview: -O2 saturation intermittently decreased to 93% during/after epidural -Improves to 95-96% with deep breaths -CXR negative -Incentive spirometer ordered -Nasal spray ordered for upper respiratory congestion 37 weeks gestation of 10/28/2019 10/28/2019 Rh negative status during in [facility] 10/28/2019 10/05/2021 Overview: -S/p Rhogam 08/23/19 -Rhogam as indicated Advanced maternal age in multigravida, [facility] 10/28/2019 10/05/2021 Overview: -Declined genetic testing -Anatomy wnl per patient Encounter for induction of labor 10/28/2019 10/05/2021 Overview: -GBS negative -S/p Cytotecx1 and FB -Epi in -S/p AROM 2300 on 10/28, clear fluid -Pit per protocol -PPBC: desires immediate PP Mirena. History of pre-eclampsia in prior , currently 10/28/2019 10/05/2021 Overview: -History of pre-eclampsia with features at 39 weeks -Diagnosed with CHTN following pregancy -On bASA this Morbid obesity 10/28/2019 10/05/2021 Overview: -BMI 40 on admission -Growth US at 35w 55%, EFW around 6# per pt -H/o 6#13oz -Abnormal 1hr GCT, 3hr GTT wnl -SCDs ordered Short interval between pregn ancies affecting in third trimester, antepartum 10/28/2019 10/05/2021 Overview: -Delivered 06/2018 -Desires Mirena Hydronephrosis with renal and ureteral calculous obstruction 07/20/2017 10/05/2021 documented as of this encounter (statuses as of 09/19/2022) [facility] History of Past illness Narrative* Problem Noted Date Resolved Date Threatened labor 10/31/2019 10/05/2021 Oxygen desaturation 10/29/2019 10/05/2021 Overview: -O2 saturation intermittently decreased to 93% during/after epidural -Improves to 95-96% with deep breaths -CXR negative -Incentive spirometer ordered -Nasal spray ordered for upper respiratory congestion 37 weeks gestation of 10/28/2019 10/28/2019 Rh negative status during in [facility] 10/28/2019 10/05/2021 Overview: -S/p Rhogam 08/23/19 -Rhogam as indicated Advanced maternal age in multigravida, third [facility] 10/28/2019 10/05/2021 Overview: -Declined genetic testing -Anatomy wnl per patient Encounter for induction of labor 10/28/2019 10/05/2021 Overview: -GBS negative -S/p Cytotecx1 and FB -Epi in -S/p AROM 2300 on 10/28, clear fluid -Pit per protocol -PPBC: desires immediate PP Mirena. History of pre-eclampsia in prior , currently 10/28/2019 10/05/2021 Overview: -History of pre-eclampsia with features at 39 weeks -Diagnosed with CHTN following pregancy -On bASA this Morbid obesity 10/28/2019 10/05/2021 Overview: -BMI 40 on admission -Growth US at 35w 55%, EFW around 6# per pt -H/o 6#13oz -Abnormal 1hr GCT, 3hr GTT wnl -SCDs ordered Short interval between pregn ancies affecting in third trimester, antepartum 10/28/2019 10/05/2021 Overview: -Delivered 06/2018 -Desires Mirena Hydronephrosis with renal and ureteral calculous obstruction 07/20/2017 10/05/2021 documented as of this encounter (statuses as of 04/09/2023) [facility] History of Past illness Narrative* Problem Noted Date Diagnosed Date Resolved Date Threatened labor 10/31/2019 10/05/2021 Oxygen desaturation 10/29/2019 10/05/20 21 Overview: -O2 saturation intermittently decreased to 93% during/after epidural -Improves to 95-96% with deep breaths -CXR negative -Incentive spirometer ordered -Nasal spray ordered for upper respiratory congestion 37 weeks gestation of 10/28/2019 10/28/2019 Rh negative status during pr egnancy in third trimester 10/28/2019 10/05/2021 Overview: -S/p Rhogam 08/23/19 -Rhogam as indicated Advanced maternal age in [place], third trimester 10/28/2019 10/05/2021 Overview: -Declined genetic testing -Anatomy wnl per patient Encounter for induction of labor 10/28/2019 10/05/2021 Overview: -GBS negative -S/p Cytotecx1 and FB -Epi in -S/p AROM 2300 on 10/28, clear fluid -Pit per protocol -PPBC: desires immediate PP Mirena. History of pre-eclampsia in prior , currently 10/28/2019 10/05/2021 Overview: -History of pre-eclampsia with features at 39 weeks -Diagnosed with CHTN following pregancy -On bASA this Morbid obesity 10/28/2019 10/05/2021 Overview: -BMI 40 on admission -Growth US at 35w 55%, EFW around 6# per pt -H/o 6#13oz -Abnormal 1hr GCT, 3hr GTT wnl -SCDs ordered Short interval between pregn ancies affecting in third trimester, antepartum 10/28/2019 10/05/2021 Overview: -Delivered 06/2018 -Desires Mirena Hydronephrosis with renal an d ureteral calculous obstruction 07/20/2017 10/05/2021 documented as of this encounter (statuses as of 05/22/2023) [facility] of Past illness Narrative* Problem Noted Date Diagnosed Date Resolved Date Threatened labor 10/31/2019 10/05/2021 Oxygen desaturation 10/29/2019 10/05/20 21 Overview: -O2 saturation intermittently decreased to 93% during/after epidural -Improves to 95-96% with deep breaths -CXR negative -Incentive spirometer ordered -Nasal spray ordered for upper respiratory congestion 37 weeks gestation of 10/28/2019 10/28/2019 Rh negative status during pr egnancy in third trimester 10/28/2019 10/05/2021 Overview: -S/p Rhogam 08/23/19 -Rhogam as indicated Advanced maternal age in [place], third trimester 10/28/2019 10/05/2021 Overview: -Declined genetic testing -Anatomy wnl per patient Encounter for induction of labor 10/28/2019 10/05/2021 Overview: -GBS negative -S/p Cytotecx1 and FB -Epi in -S/p AROM 2300 on 10/28, clear fluid -Pit per protocol -PPBC: desires immediate PP Mirena. History of pre-eclampsia in prior , currently 10/28/2019 10/05/2021 Overview: -History of pre-eclampsia with features at 39 weeks -Diagnosed with CHTN following pregancy -On bASA this Morbid obesity 10/28/2019 10/05/2021 Overview: -BMI 40 on admission -Growth US at 35w 55%, EFW around 6# per pt -H/o 6#13oz -Abnormal 1hr GCT, 3hr GTT wnl -SCDs ordered Short interval between pregn ancies affecting in third trimester, antepartum 10/28/2019 10/05/2021 Overview: -Delivered 06/2018 -Desires Mirena Hydronephrosis with renal an d ureteral calculous obstruction 07/20/2017 10/05/2021 documented as of this encounter (statuses as of 07/26/2023) [facility] of Past illness Narrative* Problem Noted Date Diagnosed Date Resolved Date Threatened labor 10/31/2019 10/05/2021 Oxygen desaturation 10/29/2019 10/05/20 21 Overview: -O2 saturation intermittently decreased to 93% during/after epidural -Improves to 95-96% with deep breaths -CXR negative -Incentive spirometer ordered -Nasal spray ordered for upper respiratory congestion 37 weeks gestation of 10/28/2019 10/28/2019 Rh negative status during pr egnancy in third trimester 10/28/2019 10/05/2021 Overview: -S/p Rhogam 08/23/19 -Rhogam as indicated Advanced maternal age in [place], third trimester 10/28/2019 10/05/2021 Overview: -Declined genetic testing -Anatomy wnl per patient Encounter for induction of labor 10/28/2019 10/05/2021 Overview: -GBS negative -S/p Cytotecx1 and FB -Epi in -S/p AROM 2300 on 10/28, clear fluid -Pit per protocol -PPBC: desires immediate PP Mirena. History of pre-eclampsia in prior , currently 10/28/2019 10/05/2021 Overview: -History of pre-eclampsia with features at 39 weeks -Diagnosed with CHTN following pregancy -On bASA this Morbid obesity 10/28/2019 10/05/2021 Overview: -BMI 40 on admission -Growth US at 35w 55%, EFW around 6# per pt -H/o 6#13oz -Abnormal 1hr GCT, 3hr GTT wnl -SCDs ordered Short interval between pregn ancies affecting in third trimester, antepartum 10/28/2019 10/05/2021 Overview: -Delivered 06/2018 -Desires Mirena Hydronephrosis with renal an d ureteral calculous obstruction 07/20/2017 10/05/2021 documented as of this encounter (statuses as of 09/26/2023) [facility] illness Narrative* Problem Noted Date Diagnosed Date Resolved Date Threatened labor 10/31/2019 10/05/2021 Oxygen desaturation 10/29/2019 10/05/20 21 Overview: -O2 saturation intermittently decreased to 93% during/after epidural -Improves to 95-96% with deep breaths -CXR negative -Incentive spirometer ordered -Nasal spray ordered for upper respiratory congestion 37 weeks gestation of 10/28/2019 10/28/2019 Rh negative status during pr egnancy in third trimester 10/28/2019 10/05/2021 Overview: -S/p Rhogam 10/11/19 -Rhogam as indicated Advanced maternal age in [place], third trimester 10/28/2019 10/05/2021 Overview: -Declined genetic testing -Anatomy wnl per patient Encounter for induction of labor 10/28/2019 10/05/2021 Overview: -GBS negative -S/p Cytotecx1 and FB -Epi in -S/p AROM 2300 on 10/28, clear fluid -Pit per protocol -PPBC: desires immediate PP Mirena. History of pre-eclampsia in prior , currently 10/28/2019 10/05/2021 Overview: -History of pre-eclampsia with features at 39 weeks -Diagnosed with CHTN following pregancy -On bASA this Morbid obesity 10/28/2019 10/05/2021 Overview: -BMI 40 on admission -Growth US at 35w 55%, EFW around 6# per pt -H/o 6#13oz -Abnormal 1hr GCT, 3hr GTT wnl -SCDs ordered Short interval between pregn ancies affecting in third trimester, antepartum 10/28/2019 10/05/2021 Overview: -Delivered 06/2018 -Desires Mirena Hydronephrosis with renal an d ureteral calculous obstruction 07/20/2017 10/05/2021 documented as of this encounter (statuses as of 09/26/2023) [facility] Narrative* Problem Noted Date Diagnosed Date Resolved Date Threatened labor 10/31/2019 10/05/2021 Oxygen desaturation 10/29/2019 10/05/20 Overview: -O2 saturation intermittently decreased to 93% during/after epidural -Improves to 95-96% with deep breaths -CXR negative -Incentive spirometer ordered -Nasal spray ordered for upper respiratory congestion 37 weeks gestation of 10/28/2019 10/28/2019 Rh negative status during pr egnancy in third trimester 10/28/2019 10/05/2021 Overview: -S/p Rhogam 08/23/19 -Rhogam as indicated Advanced maternal age in [place], third trimester 10/28/2019 10/05/2021 Overview: -Declined genetic testing -Anatomy wnl per patient Encounter for induction of labor 10/28/2019 10/05/2021 Overview: -GBS negative -S/p Cytotecx1 and FB -Epi in -S/p AROM 2300 on 10/28, clear fluid -Pit per protocol -PPBC: desires immediate PP Mirena. History of pre-eclampsia in prior , currently 10/28/2019 10/05/2021 Overview: -History of pre-eclampsia with features at 39 weeks -Diagnosed with CHTN following pregancy -On bASA this Morbid obesity 10/28/2019 10/05/2021 Overview: -BMI 40 on admission -Growth US at 35w 55%, EFW around 6# per pt -H/o 6#13oz -Abnormal 1hr GCT, 3hr GTT wnl -SCDs ordered Short interval between pregn ancies affecting in third trimester, antepartum 10/28/2019 10/05/2021 Overview: -Delivered 06/2018 -Desires Mirena Hydronephrosis with renal an d ureteral calculous obstruction 07/20/2017 10/05/2021 documented as of this encounter (statuses as of 10/04/2023) [facility] Narrative* Problem Noted Date Diagnosed Date Resolved Date Threatened labor 10/31/2019 10/05/2021 Oxygen desaturation 10/29/2019 10/05/20 21 Overview: -O2 saturation intermittently decreased to 93% during/after epidural -Improves to 95-96% with deep breaths -CXR negative -Incentive spirometer ordered -Nasal spray ordered for upper respiratory congestion 37 weeks gestation of 10/28/2019 10/28/2019 Rh negative status during pr egnancy in third trimester 10/28/2019 10/05/2021 Overview: -S/p Rhogam 08/23/19 -Rhogam as indicated Advanced maternal age in [place], third trimester 10/28/2019 10/05/2021 Overview: -Declined genetic testing -Anatomy wnl per patient Encounter for induction of labor 10/28/2019 10/05/2021 Overview: -GBS negative -S/p Cytotecx1 and FB -Epi in -S/p AROM 2300 on 10/28, clear fluid -Pit per protocol -PPBC: desires immediate PP Mirena. History of pre-eclampsia in prior , currently 10/28/2019 10/05/2021 Overview: -History of pre-eclampsia with features at 39 weeks -Diagnosed with CHTN following pregancy -On bASA this Morbid obesity 10/28/2019 10/05/2021 Overview: -BMI 40 on admission -Growth US at 35w 55%, EFW around 6# per pt -H/o 6#13oz -Abnormal 1hr GCT, 3hr GTT wnl -SCDs ordered Short interval between pregn ancies affecting in third trimester, antepartum 10/28/2019 10/05/2021 Overview: -Delivered 06/2018 -Desires Mirena Hydronephrosis with renal an d ureteral calculous obstruction 07/20/2017 10/05/2021 documented as of this encounter (statuses as of 10/06/2023) [facility] illness Narrative* Problem Noted Date Diagnosed Date Resolved Date Threatened labor 10/31/2019 10/05/2021 Oxygen desaturation 10/29/2019 10/05/20 21 Overview: -O2 saturation intermittently decreased to 93% during/after epidural -Improves to 95-96% with deep breaths -CXR negative -Incentive spirometer ordered -Nasal spray ordered for upper respiratory congestion 37 weeks gestation of 10/28/2019 10/28/2019 Rh negative status during pr egnancy in third trimester 10/28/2019 10/05/2021 Overview: -S/p Rhogam 08/23/19 -Rhogam as indicated Advanced maternal age in [place], third trimester 10/28/2019 10/05/2021 Overview: -Declined genetic testing -Anatomy wnl per patient Encounter for induction of labor 10/28/2019 10/05/2021 Overview: -GBS negative -S/p Cytotecx1 and FB -Epi in -S/p AROM 2300 on 10/28, clear fluid -Pit per protocol -PPBC: desires immediate PP Mirena. History of pre-eclampsia in prior , currently 10/28/2019 10/05/2021 Overview: -History of pre-eclampsia with features at 39 weeks -Diagnosed with CHTN following pregancy -On bASA this Morbid obesity 10/28/2019 10/05/2021 Overview: -BMI 40 on admission -Growth US at 35w 55%, EFW around 6# per pt -H/o 6#13oz -Abnormal 1hr GCT, 3hr GTT wnl -SCDs ordered Short interval between pregn ancies affecting in third trimester, antepartum 10/28/2019 10/05/2021 Overview: -Delivered 06/2018 -Desires Mirena Hydronephrosis with renal an d ureteral calculous obstruction 07/20/2017 10/05/2021 documented as of this encounter (statuses as of 10/06/2023) [facility] History of Past illness Narrative* Problem Noted Date Diagnosed Date Resolved Date Threatened labor 10/31/2019 10/05/2021 Oxygen desaturation 10/29/2019 10/05/20 21 Overview: -O2 saturation intermittently decreased to 93% during/after epidural -Improves to 95-96% with deep breaths -CXR negative -Incentive spirometer ordered -Nasal spray ordered for upper respiratory congestion 37 weeks gestation of 10/28/2019 10/28/2019 Rh negative status during pr egnancy in third trimester 10/28/2019 10/05/2021 Overview: -S/p Rhogam 08/23/19 -Rhogam as indicated Advanced maternal age in [place], third trimester 10/28/2019 10/05/2021 Overview: -Declined genetic testing -Anatomy wnl per patient Encounter for induction of labor 10/28/2019 10/05/2021 Overview: -GBS negative -S/p Cytotecx1 and FB -Epi in -S/p AROM 2300 on 10/28, clear fluid -Pit per protocol -PPBC: desires immediate PP Mirena. History of pre-eclampsia in prior , currently 10/28/2019 10/05/2021 Overview: -History of pre-eclampsia with features at 39 weeks -Diagnosed with CHTN following pregancy -On bASA this Morbid obesity 10/28/2019 10/05/2021 Overview: -BMI 40 on admission -Growth US at 35w 55%, EFW around 6# per pt -H/o 6#13oz -Abnormal 1hr GCT, 3hr GTT wnl -SCDs ordered Short interval between pregn ancies affecting in third trimester, antepartum 10/28/2019 10/05/2021 Overview: -Delivered 06/2018 -Desires Mirena Hydronephrosis with renal an d ureteral calculous obstruction 07/20/2017 10/05/2021 documented as of this encounter (statuses as of 10/25/2023) [facility] History of Past illness Narrative* Problem Noted Date Diagnosed Date Resolved Date Threatened labor 10/31/2019 10/05/2021 Oxygen desaturation 10/29/2019 10/05/20 Overview: -O2 saturation intermittently decreased to 93% during/after epidural -Improves to 95-96% with deep breaths -CXR negative -Incentive spirometer ordered -Nasal spray ordered for upper respiratory congestion 37 weeks gestation of 10/28/2019 10/28/2019 Rh negative status during pr egnancy in third trimester 10/28/2019 10/05/2021 Overview: -S/p Rhogam 08/23/19 -Rhogam as indicated Advanced maternal age in [place], third trimester 10/28/2019 10/05/2021 Overview: -Declined genetic testing -Anatomy wnl per patient Encounter for induction of labor 10/28/2019 10/05/2021 Overview: -GBS negative -S/p Cytotecx1 and FB -Epi in -S/p AROM 2300 on 10/28, clear fluid -Pit per protocol -PPBC: desires immediate PP Mirena. History of pre-eclampsia in prior , currently 10/28/2019 10/05/2021 Overview: -History of pre-eclampsia with features at 39 weeks -Diagnosed with CHTN following pregancy -On bASA this Morbid obesity 10/28/2019 10/05/2021 Overview: -BMI 40 on admission -Growth US at 35w 55%, EFW around 6# per pt -H/o 6#13oz -Abnormal 1hr GCT, 3hr GTT wnl -SCDs ordered Short interval between pregn ancies affecting in third trimester, antepartum 10/28/2019 10/05/2021 Overview: -Delivered 06/2018 -Desires Mirena Hydronephrosis with renal an d ureteral calculous obstruction 07/20/2017 10/05/2021 documented as of this encounter (statuses as of 12/20/2023) [facility] History of Past illness Narrative* Problem Noted Date Diagnosed Date Resolved Date Threatened labor 10/31/2019 10/05/2021 Oxygen desaturation 10/29/2019 10/05/20 Overview: -O2 saturation intermittently decreased to 93% during/after epidural -Improves to 95-96% with deep breaths -CXR negative -Incentive spirometer ordered -Nasal spray ordered for upper respiratory congestion 37 weeks gestation of 10/28/2019 10/28/2019 Rh negative status during pr egnancy in third trimester 10/28/2019 10/05/2021 Overview: -S/p Rhogam 08/23/19 -Rhogam as indicated Advanced maternal age in [place], third trimester 10/28/2019 10/05/2021 Overview: -Declined genetic testing -Anatomy wnl per patient Encounter for induction of labor 10/28/2019 10/05/2021 Overview: -GBS negative -S/p Cytotecx1 and FB -Epi in -S/p AROM 2300 on 10/28, clear fluid -Pit per protocol -PPBC: desires immediate PP Mirena. History of pre-eclampsia in prior , currently 10/28/2019 10/05/2021 Overview: -History of pre-eclampsia with features at 39 weeks -Diagnosed with CHTN following pregancy -On bASA this Morbid obesity 10/28/2019 10/05/2021 Overview: -BMI 40 on admission -Growth US at 35w 55%, EFW around 6# per pt -H/o 6#13oz -Abnormal 1hr GCT, 3hr GTT wnl -SCDs ordered Short interval between pregn ancies affecting in third trimester, antepartum 10/28/2019 10/05/2021 Overview: -Delivered 06/2018 -Desires Mirena Hydronephrosis with renal an d ureteral calculous obstruction 07/20/2017 10/05/2021 documented as of this encounter (statuses as of 01/02/2024) [facility] History of Past illness Narrative* Problem Noted Date Diagnosed Date Resolved Date Threatened labor 10/31/2019 10/05/2021 Oxygen desaturation 10/29/2019 10/05/20 Overview: -O2 saturation intermittently decreased to 93% during/after epidural -Improves to 95-96% with deep breaths -CXR negative -Incentive spirometer ordered -Nasal spray ordered for upper respiratory congestion 37 weeks gestation of 10/28/2019 10/28/2019 Rh negative status during pr egnancy in third trimester 10/28/2019 10/05/2021 Overview: -S/p Rhogam 08/23/19 -Rhogam as indicated Advanced maternal age in [place], third trimester 10/28/2019 10/05/2021 Overview: -Declined genetic testing -Anatomy wnl per patient Encounter for induction of labor 10/28/2019 10/05/2021 Overview: -GBS negative -S/p Cytotecx1 and FB -Epi in -S/p AROM 2300 on 10/28, clear fluid -Pit per protocol -PPBC: desires immediate PP Mirena. History of pre-eclampsia in prior , currently 10/28/2019 10/05/2021 Overview: -History of pre-eclampsia with features at 39 weeks -Diagnosed with CHTN following pregancy -On bASA this Morbid obesity 10/28/2019 10/05/2021 Overview: -BMI 40 on admission -Growth US at 35w 55%, EFW around 6# per pt -H/o 6#13oz -Abnormal 1hr GCT, 3hr GTT wnl -SCDs ordered Short interval between pregn ancies affecting in third trimester, antepartum 10/28/2019 10/05/2021 Overview: -Delivered 06/2018 -Desires Mirena Hydronephrosis with renal an d ureteral calculous obstruction 07/20/2017 10/05/2021 documented as of this encounter (statuses as of 01/21/2024) [facility] History of Past illness Narrative* Problem Noted Date Diagnosed Date Resolved Date Threatened labor 10/31/2019 10/05/2021 Oxygen desaturation 10/29/2019 10/05/20 Overview: -O2 saturation intermittently decreased to 93% during/after epidural -Improves to 95-96% with deep breaths -CXR negative -Incentive spirometer ordered -Nasal spray ordered for upper respiratory congestion 37 weeks gestation of 10/28/2019 10/28/2019 Rh negative status during pr egnancy in third trimester 10/28/2019 10/05/2021 Overview: -S/p Rhogam 08/23/19 -Rhogam as indicated Advanced maternal age in [place], third trimester 10/28/2019 10/05/2021 Overview: -Declined genetic testing -Anatomy wnl per patient Encounter for induction of labor 10/28/2019 10/05/2021 Overview: -GBS negative -S/p Cytotecx1 and FB -Epi in -S/p AROM 2300 on 10/28, clear fluid -Pit per protocol -PPBC: desires immediate PP Mirena. History of pre-eclampsia in prior , currently 10/28/2019 10/05/2021 Overview: -History of pre-eclampsia with features at 39 weeks -Diagnosed with CHTN following pregancy -On bASA this Morbid obesity 10/28/2019 10/05/2021 Overview: -BMI 40 on admission -Growth US at 35w 55%, EFW around 6# per pt -H/o 6#13oz -Abnormal 1hr GCT, 3hr GTT wnl -SCDs ordered Short interval between pregn ancies affecting in third trimester, antepartum 10/28/2019 10/05/2021 Overview: -Delivered 06/2018 -Desires Mirena Hydronephrosis with renal an d ureteral calculous obstruction 07/20/2017 10/05/2021 documented as of this encounter (statuses as of 02/19/2024) [facility] History of Past illness Narrative* Problem Noted Date Diagnosed Date Resolved Date Threatened labor 10/31/2019 10/05/2021 Oxygen desaturation 10/29/2019 10/05/20 Overview: -O2 saturation intermittently decreased to 93% during/after epidural -Improves to 95-96% with deep breaths -CXR negative -Incentive spirometer ordered -Nasal spray ordered for upper respiratory congestion 37 weeks gestation of 10/28/2019 10/28/2019 Rh negative status during pr egnancy in third trimester 10/28/2019 10/05/2021 Overview: -S/p Rhogam 08/23/19 -Rhogam as indicated Advanced maternal age in [place], third trimester 10/28/2019 10/05/2021 Overview: -Declined genetic testing -Anatomy wnl per patient Encounter for induction of labor 10/28/2019 10/05/2021 Overview: -GBS negative -S/p Cytotecx1 and FB -Epi in -S/p AROM 2300 on 10/28, clear fluid -Pit per protocol -PPBC: desires immediate PP Mirena. History of pre-eclampsia in prior , currently 10/28/2019 10/05/2021 Overview: -History of pre-eclampsia with features at 39 weeks -Diagnosed with CHTN following pregancy -On bASA this Morbid obesity 10/28/2019 10/05/2021 Overview: -BMI 40 on admission -Growth US at 35w 55%, EFW around 6# per pt -H/o 6#13oz -Abnormal 1hr GCT, 3hr GTT wnl -SCDs ordered Short interval between pregn ancies affecting in third trimester, antepartum 10/28/2019 10/05/2021 Overview: -Delivered 06/2018 -Desires Mirena Hydronephrosis with renal an d ureteral calculous obstruction 07/20/2017 10/05/2021 documented as of this encounter (statuses as of 02/21/2024) [facility] History of Past illness Narrative* Problem Noted Date Diagnosed Date Resolved Date Threatened labor 10/31/2019 10/05/2021 Oxygen desaturation 10/29/2019 10/05/20 Overview: -O2 saturation intermittently decreased to 93% during/after epidural -Improves to 95-96% with deep breaths -CXR negative -Incentive spirometer ordered -Nasal spray ordered for upper respiratory congestion 37 weeks gestation of 10/28/2019 10/28/2019 Rh negative status during pr egnancy in third trimester 10/28/2019 10/05/2021 Overview: -S/p Rhogam 08/23/19 -Rhogam as indicated Advanced maternal age in [place], third trimester 10/28/2019 10/05/2021 Overview: -Declined genetic testing -Anatomy wnl per patient Encounter for induction of labor 10/28/2019 10/05/2021 Overview: -GBS negative -S/p Cytotecx1 and FB -Epi in -S/p AROM 2300 on 10/28, clear fluid -Pit per protocol -PPBC: desires immediate PP Mirena. History of pre-eclampsia in prior , currently 10/28/2019 10/05/2021 Overview: -History of pre-eclampsia with features at 39 weeks -Diagnosed with CHTN following pregancy -On bASA this Morbid obesity 10/28/2019 10/05/2021 Overview: -BMI 40 on admission -Growth US at 35w 55%, EFW around 6# per pt -H/o 6#13oz -Abnormal 1hr GCT, 3hr GTT wnl -SCDs ordered Short interval between pregn ancies affecting in third trimester, antepartum 10/28/2019 10/05/2021 Overview: -Delivered 06/2018 -Desires Mirena Hydronephrosis with renal an d ureteral calculous obstruction 07/20/2017 10/05/2021 documented as of this encounter (statuses as of 02/22/2024) [facility] History of Past illness Narrative* Problem Noted Date Resolved Date 37 weeks gestation of 10/28/2019 10/28/2019 documented as of this encounter (statuses as of 10/04/2021) [facility] note* Diagnosis Strain of left knee, initial encounter- Primary Chronic pain of left knee Pain in joint, lower leg Dependent edema Edema [facility] Diagnosis Dependent edema Edema [facility] Diagnosis Hypertension, essential Unspecified essential hypertension [facility] Diagnosis Strain of left knee, initial encounter Chronic pain of left knee Pain in joint, lower leg [facility] Diagnosis Acute non-recurrent pansinusitis- Primary [facility] Diagnosis Acute non-recurrent pansinusitis [facility] Diagnosis Hypertension, essential- Primary Unspecified essential hypertension [facility] Diagnosis Hypertension, essential- Primary Unspecified essential hypertension Family history of myocardial infarction at age less than 60 Family history of ischemic heart disease Family history of premature coronary heart disease Family history of ischemic heart disease Screening for lipid disorders [facility] Diagnosis Pre-syncope- Primary Syncope and collapse FUO (fever of unknown origin) Fever, unspecified URI, acute Acute upper respiratory infections of unspecified site ETD (Eustachian tube dysfunction), left [facility] Diagnosis COVID- Primary [facility] Diagnosis Acute maxillary sinusitis, recurrence not specified- Primary Chronic hypertension [facility] Diagnosis Acute myocardial infarction, unspecified [place] type, unspecified artery (HCC) Family history of premature CAD Family history of ischemic heart disease [facility] Diagnosis Sinobronchitis- Primary Unspecified sinusitis (chronic) [facility] Diagnosis Encounter for immunization- Primary Need for other specified prophylactic vaccination against single bacterial disease Wellness examination Screening for diabetes mellitus Medication management Encounter for long-term (current) use of other medications Chronic hypertension documented in this encounter [facility] note* Diagnosis Elevated platelet count- Primary Essential thrombocythemia documented in this encounter [facility] note* Diagnosis AMANDA (generalized anxiety disorder)- Primary Generalized anxiety disorder documented in this encounter [facility] note* Diagnosis Hypertension, essential Unspecified essential hypertension documented in this encounter [facility] note* Diagnosis AMANDA (generalized anxiety disorder) Generalized anxiety disorder documented in this encounter [facility] note* Diagnosis Acute non-recurrent pansinusitis documented in this encounter [facility] note* Diagnosis Urinary frequency- Primary documented in this encounter [facility] note* Diagnosis Medication management- Primary Encounter for long-term (current) use of other medications AMANDA (generalized anxiety disorder) Generalized anxiety disorder documented in this encounter [facility] for referral (narrative)* Diagnostic Procedure Only (Routine) - Pending Review Specialty Diagnoses / Procedures Referred By Contac t Referred To Contact XR IMAGING Diagnoses Strain of left knee, initial encounter Chronic pain of left knee Procedures XR KNEE GENERAL 4V AP BOTH/PA BOTH/LAT/MERC LEFT RADIOLOGIC EXAM KNEE COMPLETE 4/MORE VIEWS Reynaldo Stallworth, [address] [place] [address] Xr Imaging Referral ID Status Reason Start Date Expiration Date Visits Requested Visits Authorized [id number] Pending Review Auto-Generat ed Referral 05/05/2022 06/04/2023 1 1 [facility] Summary Purpose Family History No Family History Records FoundNo Family History Records FoundNo Family History Records FoundNo Family History Records FoundNo Family History Records Found Advance Directives Documents on File Type Date Recorded 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 Advance Directive(s) 10/30/2019 1:42 PM Advance Directive(s) 10/28/2019 4:40 PM Advance Directive(s) 10/28/2019 10:02 PM Advance Directive(s) 07/07/2018 12:28 PM Advance Directive(s) 07/06/2018 6:16 AM Advance Directive(s) 06/29/2018 1:14 PM Documents on File Type Date Recorded 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 60-74 MINUTES Stella Harvey APRN.AUTOMOTIVE SERVICE DIRECTOR [address] [place] [address] Referral ID Status Reason Start Date Expiration Date Visits Requested Visits Authorized [id number] Authorized PCP Requested Referral 3 09/25/2024 1 1 Health Concerns Infection Onset Date Last Indicated Resolved Time COVID-19 Confirmed 10/04/2023 10/04/2023 Additional Source Comments INFORMATION SOURCE (unrecogn ized section and content) DATE CREATED AUTHOR 05/09/2018 [facility] DATE CREATED AUTHOR AUTHOR'S ORGANIZ ATION 05/19/2018 [facility] DATE CREATED AUTHOR AUTHOR'S ORGANIZ ATION 04/06/2020 [facility] DATE CREATED AUTHOR AUTHOR'S ORGANIZ ATION 05/03/2024 [facility] DATE CREATED AUTHOR AUTHOR'S ORGANIZ ATION 07/03/2024 [facility] Source Comments (unrecognize d section and content) In the event this informatio n is protected by the Federal Confidentiality of Alcohol and Drug Abuse Patient Records regulations: The Federal rules restrict any use of the information to criminally investigate or prosecute any alcohol or drug abuse patient.[facility] the event this information is protected by the Federal Confidentiality of Alcohol and Drug Abuse Patient Records regulations: The Federal rules restrict any use of the information to criminally investigate or prosecute any alcohol or drug abuse patient.[facility] the event this information is protected by the Federal Confidentiality of Alcohol and Drug Abuse Patient Records regulations: The Federal rules restrict any use of the information to criminally investigate or prosecute any alcohol or drug abuse patient.[facility] the event this information is protected by the Federal Confidentiality of Alcohol and Drug Abuse Patient Records regulations: The Federal rules restrict any use of the information to criminally investigate or prosecute any alcohol or drug abuse patient.[facility] the event this information is protected by the Federal Confidentiality of Alcohol and Drug Abuse Patient Records regulations: The Federal rules restrict any use of the information to criminally investigate or prosecute any alcohol or drug abuse patient.[facility] the event this information is protected by the Federal Confidentiality of Alcohol and Drug Abuse Patient Records regulations: The Federal rules restrict any use of the information to criminally investigate or prosecute any alcohol or drug abuse patient.[facility] the event this information is protected by the Federal Confidentiality of Alcohol and Drug Abuse Patient Records regulations: The Federal rules restrict any use of the information to criminally investigate or prosecute any alcohol or drug abuse patient.[facility] the event this information is protected by the Federal Confidentiality of Alcohol and Drug Abuse Patient Records regulations: The Federal rules restrict any use of the information to criminally investigate or prosecute any alcohol or drug abuse patient.[facility] the event this information is protected by the Federal Confidentiality of Alcohol and Drug Abuse Patient Records regulations: The Federal rules restrict any use of the information to criminally investigate or prosecute any alcohol or drug abuse patient.[facility] the event this information is protected by the Federal Confidentiality of Alcohol and Drug Abuse Patient Records regulations: The Federal rules restrict any use of the information to criminally investigate or prosecute any alcohol or drug abuse patient.[facility] the event this information is protected by the Federal Confidentiality of Alcohol and Drug Abuse Patient Records regulations: The Federal rules restrict any use of the information to criminally investigate or prosecute any alcohol or drug abuse patient.[facility] the event this information is protected by the Federal Confidentiality of Alcohol and Drug Abuse Patient Records regulations: The Federal rules restrict any use of the information to criminally investigate or prosecute any alcohol or drug abuse patient.[facility] the event this information is protected by the Federal Confidentiality of Alcohol and Drug Abuse Patient Records regulations: The Federal rules restrict any use of the information to criminally investigate or prosecute any alcohol or drug abuse patient.[facility] the event this information is protected by the Federal Confidentiality of Alcohol and Drug Abuse Patient Records regulations: The Federal rules restrict any use of the information to criminally investigate or prosecute any alcohol or drug abuse patient.[facility] the event this information is protected by the Federal Confidentiality of Alcohol and Drug Abuse Patient Records regulations: The Federal rules restrict any use of the information to criminally investigate or prosecute any alcohol or drug abuse patient.[facility] the event this information is protected by the Federal Confidentiality of Alcohol and Drug Abuse Patient Records regulations: The Federal rules restrict any use of the information to criminally investigate or prosecute any alcohol or drug abuse patient.[facility] the event this information is protected by the Federal Confidentiality of Alcohol and Drug Abuse Patient Records regulations: The Federal rules restrict any use of the information to criminally investigate or prosecute any alcohol or drug abuse patient.[facility] CenterIn the event this information is protected by the Federal Confidentiality of Alcohol and Drug Abuse Patient Records regulations: The Federal rules restrict any use of the information to criminally investigate or prosecute any alcohol or drug abuse patient.[facility] CenterIn the event this information is protected by the Federal Confidentiality of Alcohol and Drug Abuse Patient Records regulations: The Federal rules restrict any use of the information to criminally investigate or prosecute any alcohol or drug abuse patient.[facility] CenterIn the event this information is protected by the Federal Confidentiality of Alcohol and Drug Abuse Patient Records regulations: The Federal rules restrict any use of the information to criminally investigate or prosecute any alcohol or drug abuse patient.[facility] CenterIn the event this information is protected by the Federal Confidentiality of Alcohol and Drug Abuse Patient Records regulations: The Federal rules restrict any use of the information to criminally investigate or prosecute any alcohol or drug abuse patient.[facility] CenterIn the event this information is protected by the Federal Confidentiality of Alcohol and Drug Abuse Patient Records regulations: The Federal rules restrict any use of the information to criminally investigate or prosecute any alcohol or drug abuse patient.[facility] CenterIn the event this information is protected by the Federal Confidentiality of Alcohol and Drug Abuse Patient Records regulations: The Federal rules restrict any use of the information to criminally investigate or prosecute any alcohol or drug abuse patient.[facility] CenterIn the event this information is protected by the Federal Confidentiality of Alcohol and Drug Abuse Patient Records regulations: The Federal rules restrict any use of the information to criminally investigate or prosecute any alcohol or drug abuse patient.[facility] CenterIn the event this information is protected by the Federal Confidentiality of Alcohol and Drug Abuse Patient Records regulations: The Federal rules restrict any use of the information to criminally investigate or prosecute any alcohol or drug abuse patient.[facility] the event this information is protected by the Federal Confidentiality of Alcohol and Drug Abuse Patient Records regulations: The Federal rules restrict any use of the information to criminally investigate or prosecute any alcohol or drug abuse patient.[facility] CenterIn the event this information is protected by the Federal Confidentiality of Alcohol and Drug Abuse Patient Records regulations: The Federal rules restrict any use of the information to criminally investigate or prosecute any alcohol or drug abuse patient.[facility] CenterIn the event this information is protected by the Federal Confidentiality of Alcohol and Drug Abuse Patient Records regulations: The Federal rules restrict any use of the information to criminally investigate or prosecute any alcohol or drug abuse patient.[facility]In the event this information is protected by the Federal Confidentiality of Alcohol and Drug Abuse Patient Records regulations: The Federal rules restrict any use of the information to criminally investigate or prosecute any alcohol or drug abuse patient.[facility] CenterIn the event this information is protected by the Federal Confidentiality of Alcohol and Drug Abuse Patient Records regulations: The Federal rules restrict any use of the information to criminally investigate or prosecute any alcohol or drug abuse patient.[facility] Reason for Visit (unrecogniz ed section and content) Reason Onset Date Comments Abdominal Pain 10/04/2021 Reason Comments Knee Pain left x 5 months Edema left leg x 2 months Reason Comments Refill Request Reason Comments Sinusitis Reason Comments Med Change Request Reason Comments Orders Reason Comments Refill Request Reason Comments Consult Cardiology Reason Comments Sinus Problem Headache, left ear p ain x1 day Reason Comments Telemedicine Reason Comments Pain, Sinus Pressure, congestion , headache, cough, x 1 week Reason Comments Appointment Reason Comments CARD New Patient Consult Reason Comments Cough x 1 month, sinus pre ssure x today Reason Comments Establish Care Reason Comments Results Reason Comments Medication Request Reason Onset Date Comments Refill Request 04/25/2024 Reason Comments Urinary Frequency Frequency, urgency a nd burning x 1 day Reason Comments Follow Up Reason Onset Date Comments Refill Request 07/06/2024 Care Teams (unrecognized sec tion and content) Trailer Rental Clerk Relationship Specialty Start Date End Date Morales Roche MD [address] [place] [address] PCP - General Family Practice 10/04/21 Trailer Rental Clerk Relationship Specialty Start Date End Date Morales Roche MD [address] [place] [address] PCP - General Family Practice 10/04/21 Trailer Rental Clerk Relationship Specialty Start Date End Date Morales Roche MD [address] [place] [address] PCP - General Family Practice 10/04/21 Trailer Rental Clerk Relationship Specialty Start Date End Date Morales Roche MD [address] [place] [address] PCP - General Family Practice 10/04/21 Trailer Rental Clerk Relationship Specialty Start Date End Date Morales Roche MD [address] [place] [address] PCP - General Family Practice 10/04/21 Tiffany Strong, FERNANDO Registered Nurse 06/29/22 Trailer Rental Clerk Relationship Specialty Start Date End Date Morales Roche MD [address] [place] [address] PCP - General Family Medicine 10/04/21 Tiffany Strong, RN Registered Nurse 06/29/22 Trailer Rental Clerk Relationship Specialty Start Date End Date Morales Roche MD [address] [place] [address] PCP - General Family Medicine 10/04/21 Tiffany Strong, RN Registered Nurse 06/29/22 Trailer Rental Clerk Relationship Specialty Start Date End Date Morales Roche MD [address] [place] [address] PCP - General Family Medicine 10/04/21 Tiffany Strong, RN Registered Nurse 06/29/22 Trailer Rental Clerk Relationship Specialty Start Date End Date Morales Roche MD [address] [place] [address] PCP - General Family Medicine 10/04/21 Tiffany Strong, RN Registered Nurse 06/29/22 Trailer Rental Clerk Relationship Specialty Start Date End Date Morales Roche MD [address] [place] [address] PCP - General Family Medicine 10/04/21 Tiffany Strong, RN Registered Nurse 06/29/22 Trailer Rental Clerk Relationship Specialty Start Date End Date Morales Roche MD [address] [place] [address] PCP - General Family Medicine 10/04/21 Tiffany Strong RN Registered Nurse 06/29/22 Trailer Rental Clerk Relationship Specialty Start Date End Date Morales Roche MD [address] [place] [address] PCP - General Family Medicine 10/04/21 Tiffany Strong RN Registered Nurse 06/29/22 Trailer Rental Clerk Relationship Specialty Start Date End Date Morales Roche MD [address] [place] [address] PCP - General Family Medicine 10/04/21 Tiffany Strong, RN Registered Nurse 06/29/22 Trailer Rental Clerk Relationship Specialty Start Date End Date Morales Roche MD [address] [place] [address] PCP - General Family Medicine 10/04/21 Tiffany Strong, RN Registered Nurse 06/29/22 Trailer Rental Clerk Relationship Specialty Start Date End Date Morales Roche MD [address] [place] [address] PCP - General Family Medicine 10/04/21 Tiffany Strong, RN Registered Nurse 06/29/22 Trailer Rental Clerk Relationship Specialty Start Date End Date Morales Roche MD [address] [place] [address] PCP - General Family Medicine 10/04/21 Tiffany Strong, RN Registered Nurse 06/29/22 Trailer Rental Clerk Relationship Specialty Start Date End Date Tre Main APRN.AUTOMOTIVE SERVICE DIRECTOR [address] [place] [address] PCP - General Family Medicine 02/19/24 Tiffany Strong, RN Registered Nurse 06/29/22 Trailer Rental Clerk Relationship Specialty Start Date End Date Tre Main APRN.AUTOMOTIVE SERVICE DIRECTOR [address] [place] [address] PCP - General Family Medicine 02/19/24 Tiffany Strong, RN Registered Nurse 06/29/22 Trailer Rental Clerk Relationship Specialty Start Date End Date Tre Main CHEMICAL LABORATORY ASSISTANT.AUTOMOTIVE SERVICE DIRECTOR [address] [place] [address] PCP - General Family Medicine 02/19/24 Tiffany Strong, RN Registered Nurse 06/29/22 Trailer Rental Clerk Relationship Specialty Start Date End Date Tre Main APRN.AUTOMOTIVE SERVICE DIRECTOR [address] [place] [address] [phone] PCP - General Family Medicine 02/19/24 Tiffany Strong, FERNANDO Registered Nurse 06/29/22 Trailer Rental Clerk Relationship Specialty Start Date End Date Tre Main APRN.AUTOMOTIVE SERVICE DIRECTOR [address] [place], [place] [phone] PCP - General Family Medicine 02/19/24 Tiffany Strong, FERNANDO Registered Nurse 06/29/22 Trailer Rental Clerk Relationship Specialty Start Date End Date Tre Main CHEMICAL LABORATORY ASSISTANT.AUTOMOTIVE SERVICE DIRECTOR [address] [place] [address] PCP - General Family Medicine 02/19/24 Tiffany Strong RN Registered Nurse 06/29/22 FOR RECORDS PERTAINING TO PATIENTS WHO ARE OR HAVE BEEN ENROLLED IN A CHEMICAL DEPENDENCY/SUBSTANCEABUSE PROGRAM, SOME INFORMATION MAY BE OMITTED. This clinical summary was aggregated from multiple sources. Caution should be exercised in using it in the provision of clinical care. This summary normalizes information from multiple sources, and as a consequence, information in this document may materially change the coding, format and clinical context of patient data. In addition, data may be omitted in some cases. CLINICAL DECISIONS SHOULD BE BASED ON THE PRIMARY CLINICAL RECORDS. [facility]. provides no warranty or guarantee of the accuracy or completeness of information in this document.
[2024-08-10 17:04] LABS: D-Dimer Quantitative (DVT/PE) 0.36 FEU/ug/m (0.27-0.49)
[2024-08-10 17:49] LABS: Prothrombin Time (Protime)PT. 13.2 SECONDS (11.7-14.9)
[2024-08-10] MEDS: Heparin Injection (Vial) 5,000 UNIT/ML VIAL 4000 UNIT IV (17:49)
[2024-08-10] MEDS: HEPARIN/D5w 25,000 UNITS 25,000 UNITS/250 ML IV.SOLN. 10 UNITS CONT INF (17:49)
--- NOTE | 2024-08-10 17:49 | HP.PCM.HOS_ITS ---
HPI - General General Date of Admission: 08/10/24 Date of Service: 08/10/24 Chief Complaint: NSTEMI HPI Narrative TINO BARRIGA, is a 39 F who presented to [facility] ED on 08/10/2024 with chest pain. Saw patient at bedside in the ED, significant other present. Patient was sitting up comfortably in bed, conversing normally, in no acute distress. She was hemodynamically stable on room air. She was very pleasant with conversation. She was in [place] earlier today visiting family and had an episode of chest pain while eating lunch at [employer]. She went to an urgent care there and they did an EKG that apparently was normal. However her chest pain continued so they decided to come back up here and come to the ED for further workup. EKG here was also unremarkable. However her initial troponin was 6104. Second troponin 3 hours later was 37852. Patient has strong family history of cardiac disease. Both her father and grandfather had heart attacks in their 40s. Patient has never had chest pain like this before. She has history of high blood pressure and depression/anxiety, takes amlodipine and sertraline and reports compliance with these medications. Blood pressure was mildly elevated to the 140s in the ED the patient was otherwise hemodynamically stable. Lab workup was largely unremarkable. Chest x-ray was unremarkable. Patient denies tobacco use. She drinks alcohol on occasion but not regularly. She does use a vape pen with marijuana on a daily basis. She denies any recent illnesses. She currently reports very mild left-sided chest discomfort. Denies any radiation of pain to her neck or her arms. Denies any nausea or abdominal discomfort. Denies any palpitations. Denies any lower extremity edema. No other acute concerns at this time. [facility] Medical History (Updated 08/10/24 @ 19:[address] Jatin Baker, DO) HTN (hypertension) Home Medications ?Medication ?Instructions ?Recorded ?Last Taken ?Type amlodipine 10 mg tablet 10 mg PO DAILY 10/04/23 08/10/24 History sertraline 100 mg tablet 100 mg PO DAILY 08/10/24 08/09/24 History Allergy/AdvReac Type Severity Reaction Status Date / Time Penicillins Allergy Mild PT UNSURE Verified 08/10/24 15:23 OF REACTION Family History no significant family his Social History household members: spouse housing: house current occupational status: employed Smoking Status: Never smoker ROS Constitutional Constitutional: Denies chills, fatigue, fever(s) or weakness Eyes Eyes: Denies change in vision Cardiovascular Cardiovascular: Reports chest pain; Denies edema, lightheadedness, palpitations or rapid heart rate Respiratory/Chest Respiratory/Chest: Denies cough or shortness of breath at rest Gastrointestinal Gastrointestinal: Denies abdominal pain, constipation, diarrhea, nausea or vomiting Genitourinary Genitourinary: Denies dysuria Musculoskeletal Musculoskeletal: Denies back pain Psychiatric Psychiatric: Denies anxiety or depression Vital Signs Vital Signs Vital Signs: 08/10/24 15:23 08/10/24 16:23 08/10/24 16:35 Temperature 97 F L Temperature Source Temporal Pulse Rate 74 70 Respiratory Rate 20 H 16 Respiratory Effort Blood Pressure 130/89 H 152/107 H Blood Pressure Mean 102 122 Pulse Ox 97 95 Oxygen Delivery Method Room Air Room Air Room Air 08/10/24 16:35 08/10/24 17:00 Temperature Temperature Source Pulse Rate 69 Respiratory Rate 19 H Respiratory Effort Normal Non-Labored Blood Pressure 147/87 H Blood Pressure Mean 107 Pulse Ox Oxygen Delivery Method Weight Weight: 122.7 kg Body Mass Index (BMI) 42.3 Physical Exam Const alert, oriented x3 and no apparent distress Constitutional Narrative: Pleasant middle-age female, morbidly obese, sitting up comfortably in bed, conversing normally, in no acute distress. General Appearance: cooperative and comfortable HEENT normocephalic, head/scalp atraumatic, hearing grossly normal bilaterally, nasal mucous membranes and turbinates normal and moist oral mucous membranes Eyes PERRL, EOMs intact bilaterally and conjunctivae normal Neck full ROM Chest inspection of chest normal Resp normal respiratory effort, normal air movement, no use of accessory muscles and clear to auscultation bilaterally Cardio regular rate, regular rhythm, no murmurs and peripheral pulses 2+ throughout GI normal to inspection, nondistended, normoactive bowel sounds, soft to palpation, non-tender and non-distended Back/Spine normal ROM Extremity normal to inspection, full ROM and no pedal edema Skin no rashes or lesions noted Neuro moves all extremities and no focal motor deficits Speech: speech normal Psych mental status grossly normal Results Lab / Micro Data 08/10/24 15:56 08/10/24 15:56 Labs: Laboratory Results - last 24 hr 08/10/24 15:56: WBC 9.6, RBC 5.37, Hgb 15.5 H, Hct 48.2 H, MCV 89.8, MCH 28.9, MCHC 32.2, RDW Std Deviation 45.0 H, RDW Coeff of Cristal 13.8, Plt Count 379, MPV 8.9, Immature Gran % (Auto) 0.300, Neut % (Auto) 71.6 H, Lymph % (Auto) 21.2, [place] % (Auto) 5.6, Eos % (Auto) 0.6, Baso % (Auto) 0.7, Absolute Neuts (auto) 6.9, Absolute Lymphs (auto) 2.04, Nucleated RBC % 0, Sodium 140, Potassium 3.3 L , Chloride 105, Carbon Dioxide 32.0, Anion Gap 3 L, BUN 11, Creatinine 0.76, Estim Creat Clear Calc 133.65, Est GFR (MDRD) Af Amer 109, Est GFR (MDRD) Non-Af 90, BUN/Creatinine Ratio 14.5, Glucose 100, Calcium 9.7, Troponin I High Sens 6104 H* 08/10/24 16:45: D-Dimer Quant (PE/DVT) 0.36 Imaging Radiology Impression Chest X-Ray 08/10/24 16:15 IMPRESSION: Normal x-ray examination of the chest. Electronically Signed: Dwight Burton MD at 16:55 EDT , Assessment & Plan Assessment/Plan (1) NSTEMI, initial episode of care: (2) Hypokalemia: (3) HTN (hypertension): PLAN: Plan Patient is a 39-year-old female who presented [facility] ED on 08/10/2024 with chest pain. 1. NSTEMI ? Admit under inpatient status to PCU. Cardiology consulted. Suspect NSTEMI type I given significant troponin elevation with centralized chest pain and strong family history of cardiac disease. Continue heparin drip. Start baby aspirin and high intensity statin. Will start low-dose Coreg with history of hypertension. N.p.o. at midnight for left heart cath tomorrow. Lipid panel, A1c, TSH ordered. Echo ordered. 2. Hypokalemia ? Potassium 3.3 on admit. Mag and Phos normal. Replete potassium as needed. 3. Hypertension ? On home amlodipine 10 mg daily. Will hold this and start Coreg as noted above. 4. Depression/anxiety ? Stable. Continue home sertraline. 5. Marijuana use ? Reports daily use with vape pen. No intervention needed at this time. 6. Morbid obesity ? BMI 42 on admit. Encouraged lifestyle modifications. Complicates hospital course, care and prognosis. DVT prophylaxis: Not indicated, on heparin drip CODE STATUS: Full code, verified Expected disposition: Home, 2 to 3 days Total clinical time spent by myself addressing the patient's medical issues, reviewing all the data, and collaborating with patient's care team: 55 minutes. Charges/Coding Visit Charges Inpatient E&M: 78985 Init Hosp L2
[2024-08-10] MEDS: Potassium Chloride Oral Tablet 20 MEQ 40 MEQ PO (17:51)
[2024-08-10] MEDS: Aspirin 325 MG Tablet PO (17:53)
[2024-08-10 18:00] VITALS: BP 139/82; PULSE 67; RESP 22; TEMP 36.8; O2SAT 99
[2024-08-10 18:03] LABS: Reflex Troponin-HS? (from REC) Y
--- OUTSIDE RECORDS SUMMARY | 2024-08-10 18:43 | XMS RPT_ITS | CCD ---
Author Organization [facility] Care Team Providers Care City Treasurer Name Role Phone PORTILLO LEON Unavailable Unavailable LEONPORTILLO BLACKWOOD Unavailable Unavailable AA NO PCP, NO PCP Unavailable Unavailable TIFFANY MCCULLOUGH Unavailable YOLANDA Shields Unavailable Unavailable NO PRIMARY CARE, Unavailable Unavailable Kaley MEI, Morales Akbar Primary Care Provider 1( [phone] Morales Roche MD Primary Care Provider 1( [phone] Tiffany Strong RN Unavailable Unavailable Kaley MEI, Morales Akbar Primary Care Provider Tiffany Strong RN Unavailable Unavailable Kaley MEI, Morales Akbar Primary Care Provider Tiffany Strong RN Unavailable Unavailable Knoble PRODUCT DEVELOPMENT SCIENTIST.VEHICLE DELIVERY WORKER, Tre Primary Care Provider [place]le PRODUCT DEVELOPMENT SCIENTIST.VEHICLE DELIVERY WORKER, Tre Primary Care Provider KALEY, MORALES KRISTINA [...] Unavailable KALEY, MORALES KRISTINA Primary Care Unavailable LALY HARVEYNE Referring Unavailable KALEY, MORALES KRISTINA Primary [...] Allergy 04-19-2018 [facility] Other [place] Repository Medications Current Medications Medication Drug Class(es) Dates Sig (Normalized) Sig (Original) [id number] 200 actuat albuterol 0.09 mg/actuat metered dose [...] spray Indications: Acute non-recurrent pansinusitis Use 1 Johnson in each nostril two times a day. 16 mL 04/27/2024 Active Start: 05-01-2023 End: 04-25-2024 take 1 spray(s) nasal route twice daily fluticasone (FLONASE) 50 mcg/actuation nasal spray Indications: Acute non-recurrent pansinusitis Use 1 Johnson in each nostril twice daily. 16 mL 0 05/01/2023 04/25/2024 Discontinued Start: 04-09-2023 take 1 spray(s) nasa l route twice daily fluticasone (FLONASE) 50 mcg/actuation nasal spray Indications: Acute non-recurrent pansinusitis Use 1 Johnson in each nostril twice daily. 16 mL 0 04/09/2023 Active Comment on above: Use 1 Johnson in each nostril twice daily. INTRAUTERINE DEVICE, [...] on above: Take 2 tablets by mo [facility] once daily for 4 days. 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 [...] Status:Closed by ARJUN MCKINNEY CMA on 07/01/24 [facility] CNOVon 06-28-2024 CNOV Office Visit (FAMPWS ) BERE FIORE ([id number]) 1985 F Date Time Provider Department 06/28/24 12:40 PM TRE MAINPWS During your visit today, we recorded the following information about you: Pulse Respiration Blood pressure Weight 93/minute 16/minute 135/83 122.9 kg Tre Main APRN.VEHICLE DELIVERY WORKER 06/28/2024 12:21 PM Signed Chief Complaint Patient [...] (FLONASE) 50 mcg/actuation nasal spray Use 1 Johnson in each nostril two times a day. [...] - SERTRALINE 100 MG TABLET Tre Main, PRODUCT DEVELOPMENT SCIENTIST.VEHICLE DELIVERY WORKER Allergies As of Date: 06/28/2024 Noted Allergy Reaction PENICILLIN 04/19/2018 16 - Unknown Comments: Childhood allergy. Pt unsure of reaction. Date Reviewed: 06/28/2024 Reviewed by: Arjun Mckinney MA - Fully Assessed Reason for Visit: Follow Up [171] Primary Visit Diagnosis:Medication management [Z79.899] Other Visit Diagnosis:AMANDA (generalized anxiety disorder) [F41.1] Order(s):THYROID STIMULATING HORMONE [SQTSH] Order #: [id number] FUTURE sertraline (ZOLOFT) 100 (more content not included)... Normal [facility] TSH SerPl-aCncon 06-28-2024 TSH Qn 1.830 m[IU]/L Normal 0.270-4.200 [facility] Comment on above: Order Comment: Speci men Type: BLOOD SPECIMENOrdering Facility: [facility] Address: [address] [place] [address] Result Comment: If t he patient is , TSH reference range varies by gestational period: First Trimester (weeks 9-12): 0.180-2.990 mIU/L Second Trimester: 0.110-3.980 mIU/L Third Trimester: 0.480-4.710 mIU/L Flakito Sam et al. A Practical Approach for the Verifications and Determination of Site- and Trimester-Specific Reference Intervals for Thyroid Function tests in . Thyroid, 2019:29:3:412-420. Jatin Duong, et al. 2017 Guidelines of the [place] Thyroid Association for the Diagnosis and Management of Thyroid Disease during and the . Thyroid, 2017:27:3:315-389. Performed By: #### 3 016-3 ####[facility] LABCLIA [id number] [place] [address] [place] Bacteria Ur Culton [...] , Intermediate >32 , Resistant >64 Abnormal [facility] Comment on above: Performed By: #### 6 30-4 ####[facility] JAIR [id number] [place] [id number] [place] CNOVon 05-05-2024 CNOV Office Visit (UCWSTR ) BERE FIORE ([id number]) 1985 F Date Time Provider Department 05/05/24 1:00 PM MARIAELENA BARKER [facility] During your visit today, we recorded the following information about you: Temperature Pulse Respiration Blood pressure 97.4 degrees 96/minute 16/minute 122/82 Weight 121.9 kg Mariaelena Barker APRN.VEHICLE DELIVERY WORKER 05/05/2024 1:09 PM Signed Subjective HPI Bere [...] (FLONASE) 50 mcg/actuation nasal spray Use 1 Johnson in each nostril two times a day. [...] URINE (POC) - URINE CULTURE Mariaelena Barker APRN.VEHICLE DELIVERY WORKER Allergies As of Date: 05/05/2024 Noted Allergy Reaction PENICILLIN 04/19/2018 16 - Unknown Comments: Childhood allergy. Pt unsure of reaction. Date Reviewed: 05/05/2024 Reviewed by: Mary Blankenship LPN - Fully Assessed Reason for Visit: Urinary Frequency [1086] Cmt: Frequency, urgency and burning x 1 day Primary Visit Diagnosis:Urinary fr (more content not included)... Normal [facility] UA DIP, URINE (POC)on 2023 BILIRUBIN UA (POCT) Negative Negative [facility] CLARITY UA (POCT) Turbid [facility] COLOR UA (POCT) Dark yellow [facility] GLUCOSE UA (POCT) Negative Negative mg/dL [facility] Hemoglobin Ql (U) Large Abnormal Negative [facility] Interpretation and review of laboratory results Abnormal [facility] KETONE UA (POCT) Trace Negative mg/dL [facility] LEUKOCYTES UA (POCT) Small Abnormal Negative [facility] NITRITE UA (POCT) Negative Negative [facility] PH UA (POCT) 5.5 4.5 - 8.0 [facility] Protein Ql (U) 100 mg/dL Abnormal Negative [facility] SPECIFIC GRAVITY UA (POCT) >=1.030 1.005 - 1.030 [facility] UROBILINOGEN UA (POCT) 0.2 Normal E.U./dL [facility] Location:[address], [place], [place], [address] [place] [address] POINT OF CARE [facility] [place] [facility] BERE FIORE ([id number]) 1985 F Date Time Provider Department 05/02/24 SHER TSARKS [facility] During your visit today, we recorded [...] reaction. Date Reviewed: 02/19/2024 Reviewed by: Arjun Mkcinney MA - Fully Assessed Reason for Visit: Results [95] Prescriptions as of 05/02/2024 - fluticasone (FLONASE) 50 mcg/actuation nasal spray Use 1 Johnson in each nostril two times a day. [...] Status:Closed by REBEKAH KAUR on 05/02/24 Normal [facility] CBC W Auto Differential pane l (Bld)on 05-01-2024 Basophils (Bld) [#/Vol] 0.08 10*3/uL Normal <0.11 [facility] Comment on above: Order Comment: Speci men Type: BLOOD SPECIMENOrdering Facility: [facility] Address: [address] [place] [address] Performed By: #### 5 7021-8 ####[facility] LABCLIA [id number] [place] [address] [place] Basophils/100 WBC (Bld) 0.7 % Normal [facility] Comment on above: Order Comment: Speci men Type: BLOOD SPECIMENOrdering Facility: [facility] Address: [address] [place] [address] Performed By: #### 5 7021-8 ####[facility] LABCLIA [id number] [place] [address] [place] Differential cell count method Nom (Bld) Auto Normal [facility] Comment on above: Order Comment: Speci men Type: BLOOD SPECIMENOrdering Facility: [facility] Address: [address] [place] [address] Performed By: #### 5 7021-8 ####[facility] LABCLIA [id number] [place] [address] [place] Eosinophils (Bld) [#/Vol] 0.21 10*3/uL Normal <0.46 [facility] Comment on above: Order Comment: Speci men Type: BLOOD SPECIMENOrdering Facility: [facility] Address: [address] [place] [address] Performed By: #### 5 7021-8 ####[facility] LABCLIA [id number] [place] [address] [place] Eosinophils/100 WBC (Bld) 1.9 % Normal [facility] Comment on above: Order Comment: Speci men Type: BLOOD SPECIMENOrdering Facility: [facility] Address: [address] [place] [address] Performed By: #### 5 7021-8 ####[facility] LABCLIA [id number] [place] [address] [place] Erythrocyte distribution width (RBC) [Ratio] 14.1 % Normal 11.5-15.0 [facility] Comment on above: Order Comment: Speci men Type: BLOOD SPECIMENOrdering Facility: [facility] Address: [address] [place] [address] Performed By: #### 5 7021-8 ####[facility] LABCLIA [id number] [place] [address] [place] Hematocrit (Bld) [Volume fraction] 43.5 % Normal 36.0-46.0 [facility] Comment on above: Order Comment: Speci men Type: BLOOD SPECIMENOrdering Facility: [facility] Address: [address] [place] [address] Performed By: #### 5 7021-8 ####[facility] LABCLIA [id number] [place] [address] [place] Hemoglobin (Bld) [Mass/Vol] 14.2 g/dL Normal 11.5-15.5 [facility] Comment on above: Order Comment: Speci men Type: BLOOD SPECIMENOrdering Facility: [facility] Address: [address] [place] [address] Performed By: #### 5 7021-8 ####[facility] LABCLIA [id number] [place] [address] [place] Immature granulocytes (Bld) [#/Vol] 10*3/uL Normal <0.10 [facility] Comment on above: Order Comment: Speci men Type: BLOOD SPECIMENOrdering Facility: [facility] Address: [address] [place] [address] Performed By: #### 5 7021-8 ####[facility] LABCLIA [id number] [place] [address] [place] Immature granulocytes/100 WBC (Bld) 0.2 % Normal [facility] Comment on above: Order Comment: Speci men Type: BLOOD SPECIMENOrdering Facility: [facility] Address: [address] [place] [address] Performed By: #### 5 7021-8 ####[facility] LABCLIA [id number] [place] [address] [place] Lymphocytes (Bld) [#/Vol] 3.61 10*3/uL Normal 1.00-4.00 [facility] Comment on above: Order Comment: Speci men Type: BLOOD SPECIMENOrdering Facility: [facility] Address: [address] [place] [address] Performed By: #### 5 7021-8 ####[facility] LABCLIA [id number] [place] [address] [place] Lymphocytes/100 WBC (Bld) 32.6 % Normal [facility] Comment on above: Order Comment: Speci men Type: BLOOD SPECIMENOrdering Facility: [facility] Address: [address] [place] [address] Performed By: #### 5 7021-8 ####[facility] LABCLIA [id number] [place] [address] [place] MCH (RBC) [Entitic mass] 29.3 pg Normal 26.0-34.0 [facility] Comment on above: Order Comment: Speci men Type: BLOOD SPECIMENOrdering Facility: [facility] Address: [address] [place] [address] Performed By: #### 5 7021-8 ####[facility] LABCLIA [id number] [place] [address] [place] MCHC (RBC) [Mass/Vol] 32.6 g/dL Normal 30.5-36.0 [facility] Comment on above: Order Comment: Speci men Type: BLOOD SPECIMENOrdering Facility: [facility] Address: [address] [place] [address] Performed By: #### 5 7021-8 ####[facility] LABCLIA [id number] [place] [address] [place] MCV (RBC) [Entitic vol] 89.9 fL Normal 80.0-100.0 [facility] Comment on above: Order Comment: Speci men Type: BLOOD SPECIMENOrdering Facility: [facility] Address: [address] [place] [address] Performed By: #### 5 7021-8 ####[facility] LABCLIA [id number] [place] [address] [place] Monocytes (Bld) [#/Vol] 0.77 10*3/uL Normal <0.87 [facility] Comment on above: Order Comment: Speci men Type: BLOOD SPECIMENOrdering Facility: [facility] Address: [address] [place] [address] Performed By: #### 5 7021-8 ####[facility] LABCLIA [id number] [place] [address] [place] Monocytes/100 WBC (Bld) 7.0 % Normal [facility] Comment on above: Order Comment: Speci men Type: BLOOD SPECIMENOrdering Facility: [facility] Address: [address] [place] [address] Performed By: #### 5 7021-8 ####[facility] LABCLIA [id number] [place] [address] [place] Neutrophils (Bld) [#/Vol] 6.38 10*3/uL Normal 1.45-7.50 [facility] Comment on above: Order Comment: Speci men Type: BLOOD SPECIMENOrdering Facility: [facility] Address: [address] [place] [address] Performed By: #### 5 7021-8 ####[facility] LABCLIA [id number] [place] [address] [place] Neutrophils/100 WBC (Bld) 57.6 % Normal [facility] Comment on above: Order Comment: Speci men Type: BLOOD SPECIMENOrdering Facility: [facility] Address: [address] [place] [address] Performed By: #### 5 7021-8 ####[facility] LABIA [id number] [place] [address] [place] Nucleated RBC (Bld) [#/Vol] 10*3/uL Normal <0.01 [facility] Comment on above: Order Comment: Speci men Type: BLOOD SPECIMENOrdering Facility: [facility] Address: [address] [place] [address] Performed By: #### 5 7021-8 ####[facility] LABIA [id number] [place] [address] [place] Nucleated RBC/100 WBC (Bld) [Ratio] 0.0 /100 WBC Normal [facility] Comment on above: Order Comment: Speci men Type: BLOOD SPECIMENOrdering Facility: [facility] Address: [address] [place] [address] Performed By: #### 5 7021-8 ####[facility] LABCLIA [id number] [place] [address] [place] Platelet mean volume (Bld) [Entitic vol] 9.6 fL Normal 9.0-12.7 [facility] Comment on above: Order Comment: Speci men Type: BLOOD SPECIMENOrdering Facility: [facility] Address: [address] [place] [address] Performed By: #### 5 7021-8 ####[facility] LABCLIA [id number] [place] [address] [place] Platelets (Bld) [#/Vol] 376 10*3/uL Normal 150-400 [facility] Comment on above: Order Comment: Speci men Type: BLOOD SPECIMENOrdering Facility: [facility] Address: [address] [place] [address] Performed By: #### 5 7021-8 ####[facility] LABIA [id number] [place] [address] [place] RBC (Bld) [#/Vol] 4.84 10*6/uL Normal 3.90-5.20 [facility] Comment on above: Order Comment: Speci men Type: BLOOD SPECIMENOrdering Facility: [facility] Address: [address] [place] [address] Performed By: #### 5 7021-8 ####[facility] LABIA [id number] [place] [address] [place] WBC (Bld) [#/Vol] 11.07 10*3/uL High 3.70-11.00 [facility] Comment on above: Order Comment: Speci men Type: BLOOD SPECIMENOrdering Facility: [facility] Address: [address] [place] [address] Performed By: #### 5 7021-8 ####[facility] [id number] [place] [address] [place] Beka 02-22-2024 [facility] Telephone (SEBASTIAN) BERE FIORE ([id number]) 1985 F Date Time Provider Department 02/22/24 TRE MAIN During your visit today, we recorded the following information about you: Debora Ruiz 02/22/2024 1:13 PM Addendum Bere has her spouse Edgar calling Tre Main APRN.CNP today to request the medication Zoloft discussed at new patient appointment on 02/19/2024. Per spouse Edgar this was to be sent to pharmacy [facility] in [place] on [address] [facility] Please call patient spouse, Edgar to advise when RX has been sent to pharmacy at Edgar cell phone only [phone] Patient has been identified by name and birthdate. Duration of symptoms: ongoing Person calling: spouse: Edgar Please call patient spouse,patient does not answer her phone Was an appointment scheduled: No Closing statement: Results or non-symptom based questions: Thank you for calling [facility], your call will be returned within the next business day. [facility] APRN.CNP 02/22/2024 1:36 PM Signed Please let know rx has been sent. Tre Main APRN.CNP 02/22/2024 1:36 PM Signed Addended by: TRE MAIN on: 02/22/2024 01:36 PM Modules accepted: Orders rAjun Mckinney MA 02/22/2024 1:48 PM Signed Edgar [...] (FLONASE) 50 mcg/actuation nasal spray Use 1 Johnson in each nostril twice daily. - INTRAUTERINE [...] Encounter Status:Closed by TRE MAIN on 02/22/24 [facility] Bek[place] 02-20-2024 [facility] Telephone (FAMWS) BERE FIORE ([id number]) 1985 F Date Time Provider Department 02/20/24 TRE MAIN During your visit today, we recorded the following information about you: Tre Main APRN.VEHICLE DELIVERY WORKER 02/20/2024 9:24 AM Signed Please let patient [...] [R79.89] Order(s):CBC + DIFF [SQCBCDIF] Order #: [id number] FUTURE Prescriptions as of 02/20/2024 - albuterol HFA (PROVENTIL HFA, VENTOLIN HFA) 90 mcg/actuation inhaler Inhale 2 Puffs as instructed every 4 hours as needed for wheezing/shortness of breath. - amLODIPine (NORVASC) 10 mg tablet Take 1 tablet by mouth once daily. - fluticasone (FLONASE) 50 mcg/actuation nasal spray Use 1 Johnson in each nostril twice daily. - INTRAUTERINE [...] Status:Closed by HARINI GUADARRAMA on 02/20/24 Normal [facility] CBC W Auto Differential pane l (Bld)on 02-19-2024 Basophils (Bld) [#/Vol] 0.07 10*3/uL Normal <0.11 [facility] Comment on above: Order Comment: Speci men Type: BLOOD SPECIMENOrdering Facility: [facility] Address: [address] [place] [address] Performed By: #### 5 7021-8 ####[facility] LABCLIA [id number] [place] [address] [place] Basophils/100 WBC (Bld) 0.8 % Normal [facility] Comment on above: Order Comment: Speci men Type: BLOOD SPECIMENOrdering Facility: [facility] Address: [address] [place] [address] Performed By: #### 5 7021-8 ####[facility] LABCLIA [id number] [place] [address] [place] Differential cell count method Nom (Bld) Auto Normal [facility] Comment on above: Order Comment: Speci men Type: BLOOD SPECIMENOrdering Facility: [facility] Address: [address] [place] [address] Performed By: #### 5 7021-8 ####[facility] LABCLIA [id number] [place] [address] [place] Eosinophils (Bld) [#/Vol] 0.21 10*3/uL Normal <0.46 [facility] Comment on above: Order Comment: Speci men Type: BLOOD SPECIMENOrdering Facility: [facility] Address: [address] [place] [address] Performed By: #### 5 7021-8 ####[facility] LABCLIA [id number] [place] [address] [place] Eosinophils/100 WBC (Bld) 2.5 % Normal [facility] Comment on above: Order Comment: Speci men Type: BLOOD SPECIMENOrdering Facility: [facility] Address: [address] [place] [address] Performed By: #### 5 7021-8 ####[facility] LABCLIA [id number] [place] [address] [place] Erythrocyte distribution width (RBC) [Ratio] 13.3 % Normal 11.5-15.0 [facility] Comment on above: Order Comment: Speci men Type: BLOOD SPECIMENOrdering Facility: [facility] Address: [address] [place] [address] Performed By: #### 5 7021-8 ####[facility] LABCLIA [id number] [place] [address] [place] Hematocrit (Bld) [Volume fraction] 46.8 % High 36.0-46.0 [facility] Comment on above: Order Comment: Speci men Type: BLOOD SPECIMENOrdering Facility: [facility] Address: [address] [place] [address] Performed By: #### 5 7021-8 ####[facility] LABCLIA [id number] [place] [address] [place] Hemoglobin (Bld) [Mass/Vol] 15.1 g/dL Normal 11.5-15.5 [facility] Comment on above: Order Comment: Speci men Type: BLOOD SPECIMENOrdering Facility: [facility] Address: [address] [place] [address] Performed By: #### 5 7021-8 ####[facility] LABCLIA [id number] [place] [address] [place] Immature granulocytes (Bld) [#/Vol] 10*3/uL Normal <0.10 [facility] Comment on above: Order Comment: Speci men Type: BLOOD SPECIMENOrdering Facility: [facility] Address: [address] [place] [address] Performed By: #### 5 7021-8 ####[facility] LABCLIA [id number] [place] [address] [place] Immature granulocytes/100 WBC (Bld) 0.2 % Normal [facility] Comment on above: Order Comment: Speci men Type: BLOOD SPECIMENOrdering Facility: [facility] Address: [address] [place] [address] Performed By: #### 5 7021-8 ####[facility] LABCLIA [id number] [place] [address] [place] Lymphocytes (Bld) [#/Vol] 2.81 10*3/uL Normal 1.00-4.00 [facility] Comment on above: Order Comment: Speci men Type: BLOOD SPECIMENOrdering Facility: [facility] Address: [address] [place] [address] Performed By: #### 5 7021-8 ####[facility] LABCLIA [id number] [place] [address] [place] Lymphocytes/100 WBC (Bld) 33.7 % Normal [facility] Comment on above: Order Comment: Speci men Type: BLOOD SPECIMENOrdering Facility: [facility] Address: [address] [place] [address] Performed By: #### 5 7021-8 ####[facility] LABIA [id number] [place] [address] [place] MCH (RBC) [Entitic mass] 28.4 pg Normal 26.0-34.0 [facility] Comment on above: Order Comment: Speci men Type: BLOOD SPECIMENOrdering Facility: [facility] Address: [address] [place] [address] Performed By: #### 5 7021-8 ####[facility] LABIA [id number] [place] [address] [place] MCHC (RBC) [Mass/Vol] 32.3 g/dL Normal 30.5-36.0 [facility] Comment on above: Order Comment: Speci men Type: BLOOD SPECIMENOrdering Facility: [facility] Address: [address] [place] [address] Performed By: #### 5 7021-8 ####[facility] [id number] [place] [address] [place] MCV (RBC) [Entitic vol] 88.0 fL Normal 80.0-100.0 [facility] Comment on above: Order Comment: Speci men Type: BLOOD SPECIMENOrdering Facility: [facility] Address: [address] [place] [address] Performed By: #### 5 7021-8 ####[facility] [id number] [place] [address] [place] Monocytes (Bld) [#/Vol] 0.51 10*3/uL Normal <0.87 [facility] Comment on above: Order Comment: Speci men Type: BLOOD SPECIMENOrdering Facility: [facility] Address: [address] [place] [address] Performed By: #### 5 7021-8 ####[facility] LABIA [id number] [place] [address] [place] Monocytes/100 WBC (Bld) 6.1 % Normal [facility] Comment on above: Order Comment: Speci men Type: BLOOD SPECIMENOrdering Facility: [facility] Address: [address] [place] [address] Performed By: #### 5 7021-8 ####[facility] LABCLIA [id number] [place] [address] [place] Neutrophils (Bld) [#/Vol] 4.72 10*3/uL Normal 1.45-7.50 [facility] Comment on above: Order Comment: Speci men Type: BLOOD SPECIMENOrdering Facility: [facility] Address: [address] [place] [address] Performed By: #### 5 7021-8 ####[facility] LABCLIA [id number] [place] [address] [place] Neutrophils/100 WBC (Bld) 56.7 % Normal [facility] Comment on above: Order Comment: Speci men Type: BLOOD SPECIMENOrdering Facility: [facility] Address: [address] [place] [address] Performed By: #### 5 7021-8 ####[facility] LABCLIA [id number] [place] [address] [place] Nucleated RBC (Bld) [#/Vol] 10*3/uL Normal <0.01 [facility] Comment on above: Order Comment: Speci men Type: BLOOD SPECIMENOrdering Facility: [facility] Address: [address] [place] [address] Performed By: #### 5 7021-8 ####[facility] LABCLIA [id number] [place] [address] [place] Nucleated RBC/100 WBC (Bld) [Ratio] 0.0 /100 WBC Normal [facility] Comment on above: Order Comment: Speci men Type: BLOOD SPECIMENOrdering Facility: [facility] Address: [address] [place] [address] Performed By: #### 5 7021-8 ####[facility] LABCLIA [id number] [address] [address] [place] Platelet mean volume (Bld) [Entitic vol] 9.0 fL Normal 9.0-12.7 [facility] Comment on above: Order Comment: Speci men Type: BLOOD SPECIMENOrdering Facility: [facility] Address: [address] [place] [address] Performed By: #### 5 7021-8 ####[facility] LABCLIA [id number] [place] [address] [place] Platelets (Bld) [#/Vol] 435 10*3/uL High 150-400 [facility] Comment on above: Order Comment: Speci men Type: BLOOD SPECIMENOrdering Facility: [facility] Address: [address] [place] [address] Performed By: #### 5 7021-8 ####[facility] LABIA [id number] [place] [address] [place] RBC (Bld) [#/Vol] 5.32 10*6/uL High 3.90-5.20 [facility] Comment on above: Order Comment: Speci men Type: BLOOD SPECIMENOrdering Facility: [facility] Address: [address] [place] [address] Performed By: #### 5 7021-8 ####[facility] LABIA [id number] [place] [address] [place] WBC (Bld) [#/Vol] 8.34 10*3/uL Normal 3.70-11.00 [facility] Comment on above: Order Comment: Speci men Type: BLOOD SPECIMENOrdering Facility: [facility] Address: [address] [place] [address] Performed By: #### 5 7021-8 ####[facility] LABIA [id number] [place] [address] [place] [facility] CNOVon 02-19-2024 CNOV Office Visit (FAMPWS ) BERE FIORE ([id number]) 1985 F Date Time Provider Department 02/19/24 8:00 AM [facility] During your visit today, we recorded the following information about you: Pulse Respiration Blood pressure Weight 88/minute 14/minute 128/80 122.5 kg Tre Main APRN.VEHICLE DELIVERY WORKER 02/19/2024 8:33 AM Signed Chief Complaint Patient presents with: [facility] HPI Bere Fiore is a 38 year old female who presents here today for Above Complaints.. [facility]. Patient reports she has intermittent chest [...] (FLONASE) 50 mcg/actuation nasal spray Use 1 Johnson in each nostril twice daily. 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 (more content not included)... Normal [facility] Comprehensive metabolic 2000 panelon 02-19-2024 Albumin [Mass/Vol] 4.0 g/dL Normal 3.9-4.9 [facility] Comment on above: Order Comment: Speci men Type: BLOOD SPECIMENOrdering Facility: [facility] Address: [address] [place] [address] Performed By: #### 2 4323-8 ####[facility] LABCLIA [id number] [place] [address] [place] ALP [Catalytic activity/Vol] 89 U/L Normal 34-123 [facility] Comment on above: Order Comment: Speci men Type: BLOOD SPECIMENOrdering Facility: [facility] Address: [address] [place] [address] Performed By: #### 2 4323-8 ####[facility] LABCLIA [id number] [place] [address] [place] ALT [Catalytic activity/Vol] 39 U/L High 7-38 [facility] Comment on above: Order Comment: Speci men Type: BLOOD SPECIMENOrdering Facility: [facility] Address: [address] [place] [address] Performed By: #### 2 4323-8 ####[facility] LABCLIA [id number] [place] [address] [place] Anion gap [Moles/Vol] 11 mmol/L Normal 9-18 [facility] Comment on above: Order Comment: Speci men Type: BLOOD SPECIMENOrdering Facility: [facility] Address: [address] [place] [address] Performed By: #### 2 4323-8 ####[facility] LABCLIA [id number] [place] [address] [place] AST [Catalytic activity/Vol] 24 U/L Normal 13-35 [facility] Comment on above: Order Comment: Speci men Type: BLOOD SPECIMENOrdering Facility: [facility] Address: [address] [place] [address] Performed By: #### 2 4323-8 ####[facility] LABCLIA [id number] [place] [address] [place] Bilirubin [Mass/Vol] 0.7 mg/dL Normal 0.2-1.3 [facility] Comment on above: Order Comment: Speci men Type: BLOOD SPECIMENOrdering Facility: [facility] Address: [address] [place] [address] Performed By: #### 2 4323-8 ####[facility] LABCLIA [id number] [place] [address] [place] Calcium [Mass/Vol] 9.6 mg/dL Normal 8.5-10.2 [facility] Comment on above: Order Comment: Speci men Type: BLOOD SPECIMENOrdering Facility: [facility] Address: [address] [place] [address] Performed By: #### 2 4323-8 ####[facility] LABCLIA [id number] [place] [address] [place] Chloride [Moles/Vol] 104 mmol/L Normal 97-105 [facility] Comment on above: Order Comment: Speci men Type: BLOOD SPECIMENOrdering Facility: [facility] Address: [address] [place] [address] Performed By: #### 2 4323-8 ####[facility] LABCLIA [id number] [place] [address] [place] CO2 [Moles/Vol] 29 mmol/L Normal 22-30 [facility] Comment on above: Order Comment: Speci men Type: BLOOD SPECIMENOrdering Facility: [facility] Address: [address] [place] [address] Performed By: #### 2 4323-8 ####[facility] LABIA [id number] [place] [address] [place] Creatinine [Mass/Vol] 0.69 mg/dL Normal 0.58-0.96 [facility] Comment on above: Order Comment: Speci men Type: BLOOD SPECIMENOrdering Facility: [facility] Address: [address] [place] [address] Performed By: #### 2 4323-8 ####[facility] LABIA [id number] [place] [address] [place] Creatinine and Glomerular filtration rate.predicted panel (S/P/Bld) 113 mL/min/1.73m??? Normal >=60 [facility] Comment on above: Order Comment: Speci men Type: BLOOD SPECIMENOrdering Facility: [facility] Address: [address] [place] [address] Result Comment: Rosana mated Glomerular Filtration Rate [...] actual GFR. Performed By: #### 2 4323-8 ####[facility] LABCLIA [id number] [place] [address] [place] Glucose [Mass/Vol] 95 mg/dL Normal 74-99 [facility] Comment on above: Order Comment: Speci men Type: BLOOD SPECIMENOrdering Facility: [facility] Address: [address] [place] [address] Result Comment: The [place] Diabetes Association (ADA) provides guidance for cutoff [...] Standards of Medical Care in Diabetes 2016, [place] Diabetes Association. Diabetes Care. 2016.39(Suppl 1). Performed By: #### 2 4323-8 ####[facility] LABCLIA [id number] [place] [address] [place] Potassium [Moles/Vol] 3.9 mmol/L Normal 3.7-5.1 [facility] Comment on above: Order Comment: Aashish carson Type: BLOOD SPECIMENOrdering Facility: [facility] Address: [address] [place] [address] Performed By: #### 2 4323-8 ####[facility] LABCLIA [id number] [place] [address] [place] Protein [Mass/Vol] 7.1 g/dL Normal 6.3-8.0 [facility] Comment on above: Order Comment: Speci men Type: BLOOD SPECIMENOrdering Facility: [facility] Address: [address] [place], [place] [address] Performed By: #### 2 4323-8 ####[facility] LABCLIA [id number] [place] [address] [place] Sodium [Moles/Vol] 144 mmol/L Normal 136-144 [facility] Comment on above: Order Comment: Speci men Type: BLOOD SPECIMENOrdering Facility: [facility] Address: [address] [place] [address] Performed By: #### 2 4323-8 ####[facility] LABCLIA [id number] [place] [address] [place] Urea nitrogen [Mass/Vol] 11 mg/dL Normal 7-21 [facility] Comment on above: Order Comment: Speci men Type: BLOOD SPECIMENOrdering Facility: [facility] Address: [address] [place] [address] Performed By: #### 2 4323-8 ####[facility] LABCLIA [id number] [place] [address] [place] HbA1c (Bld)on 02-19-2024 Average glucose Estimated from glycated hemoglobin (Bld) [Mass/Vol] 100 mg/dL Normal [facility] Comment on above: Order Comment: Speci men Type: BLOOD SPECIMENOrdering Facility: [facility] Address: [address] [place] [address] Result Comment: eAG: (Estimated average glucose) is a calculated value from HgbA1c and is telemarketing sales representative of the average blood glucose level in the last 2-3 month period. Performed By: #### 5 5454-3 ####[facility] LABCLIA [id number] [place] [address] [place] HbA1c (Bld) [Mass fraction] 5.1 % Normal 4.3-5.6 [facility] Comment on above: Order Comment: Speci men Type: BLOOD SPECIMENOrdering Facility: [facility] Address: [address] [place] [address] Result Comment: Amer ican Diabetes Association guidelines indicate that patients with HgbA1c in the range 5.7-6.4% are at increased risk for development of diabetes, and intervention by lifestyle modification may be beneficial. HgbA1c greater or equal to 6.5% is considered diagnostic of diabetes. Performed By: #### 5 5454-3 ####[facility] LABCLIA [id number] [place] [id number] [place] CNOVon 01-21-2024 CNOV Office Visit (UCWSTR ) BERE FIORE ([id number]) 1985 F Date Time Provider Department 01/21/24 10:45 AM SARAH FRANKLIN [facility] During your visit today, we recorded the following information about you: Temperature Pulse Respiration Blood pressure 98.4 degrees 98/minute 16/minute 132/84 Weight 123.1 kg Sarah Franklin PA 01/21/2024 11:16 AM Signed This note was created using [employer]. Subjective Bere Fiore is a 38 year [...] (FLONASE) 50 mcg/actuation nasal spray Use 1 Johnson in each nostril twice daily. INTRAUTERINE DEVICE, [...] with plenty (more content not included)... Normal [facility] CNOVon 01-02-2024 CNOV Office Visit (AGCARD POB) BERE FIORE ([id number]) 1985 F Date Time Provider Department 01/02/24 [...] with h/o Hypertension, family history of premature MA, morbid obesity (BMI 40). Patient denies any SOB or exertional CP or palpitation or syncope. She can walk around [employer] without stopping. Father had first MA in his 40s but he was a [...] (FLONASE) 50 mcg/actuation nasal spray Use 1 Johnson in each nostril twice daily. INTRAUTERINE DEVICE, IUD, INTRAUTERINE by INTRAUTERINE route. No current facility-administered medications on file prior to visit. Assessment FH of premature CAD (Father first MA in his 40s but heavy smoker) Morbid obesity HTN Mild LVH on ECG, likely related to morbid obesity. Recommendations/Plan: At this time I have low suspicion for high genetic predisposition for CAD since her father was a heavy smoker when he had his first MA. Her lipid is only borderline abnormal (LDL [...] Referring P (more content not included)... Normal [facility] Beka 12-19-2023 [facility] Telephone (AGCARDPOB ) ADEBAYOBERE ([id number]) 1985 F Date Time Provider Department 12/19/23 AG CARD AGCARDPOB During your visit today, we recorded the following information about you: Kelley Lopez 12/19/2023 2:26 PM Signed Lvm to notify pt that the taran on 12/28/23 w/ Dr. Crawford has been cancelled and rescheduled for 01/02/24 @10:40 am in [place] w/ Dr. Melgar. Kelley Lopez December 19, [...] (FLONASE) 50 mcg/actuation nasal spray Use 1 Johnson in each nostril twice daily. - INTRAUTERINE [...] Status:Closed by KELLEY LOPEZ on 12/19/23 Normal [facility] CNOVon 10-24-2023 CNOV Office Visit (UCWSTR ) BERE FIORE ([id number]) 1985 F Date Time Provider Department 10/24/23 1:00 PM TITUS MATHEWS [facility] During your visit today, we recorded the [...] (FLONASE) 50 mcg/actuation nasal spray Use 1 Johnson in each nostril twice daily. INTRAUTERINE DEVICE, [...] 10 ta (more content not included)... Normal [facility] Pratibha 10-04-2023 CNOV Office Visit (UCWSTR ) BERE FIORE ([id number]) 1985 F Date Time Provider Department 10/04/23 2:00 PM NAT CHACON During your visit today, we recorded the following information about you: Temperature Pulse Respiration Blood pressure 99.1 degrees 112/minute 18/minute 136/82 Weight 119 kg Nat Chacon APRN.VEHICLE DELIVERY WORKER 10/04/2023 3:58 PM Signed Subjective HPI HPI [...] (FLONASE) 50 mcg/actuation nasal spray Use 1 Johnson in each nostril twice daily. INTRAUTERINE DEVICE, [...] prescribe d/t referral to ER. Nat Chacon APRN.VEHICLE DELIVERY WORKER Allergies As of Date: 10/04/2023 Noted Allergy Reaction PENICILLIN 04/19/2018 16 - Unknown Comments: Childh (more content not included)... Normal [facility] FLUABV + SARS-CoV-2 Pnl Resp BALJINDER+prbon 10-04-2023 Influenza virus A and B RNA and SARS-CoV-2 (COVID-19) N gene panel BALJINDER+probe (Resp) COVID 19 RESULT: Detected The method used is RT-PCR or an equivalent NAAT method. Reference Range (the expected result in uninfected individuals): Not detected INFLUENZA A PCR: Not detected INFLUENZA B PCR: Not detected Abnormal [facility] Comment on above: Performed By: #### 9 5422-2 ####[facility] LABCLIA [id number] [place] [address] [place] STREP A MOLECULAR (POC)on Procedural Control Valid [facility] Strep A (POCT) Negative Negative [facility] Lipid 1996 panelon 3 Cholesterol [Mass/Vol] 187 mg/dL Normal <200 [facility] Comment on above: Order Comment: Speci men Type: BLOOD SPECIMENOrdering Facility: [facility] Address: [address] [place] [address] Result Comment: <200 mg/dL, Desirable 200-239 mg/dL, Borderline high >239 mg/dL, High Performed By: #### 2 4331-1 ####[facility] LABCLIA [id number] [place] [address] [place] Cholesterol in HDL [Mass/Vol] 38 mg/dL Low >39 [facility] Comment on above: Order Comment: Aashish alli Type: BLOOD SPECIMENOrdering Facility: [facility] Address: [address] [place] [address] Result Comment: 40-5 9 mg/dL, Acceptable >59 mg/dL, High: Negative risk factor for coronary heart disease <40 mg/dL, Low: Positive risk factor for coronary heart disease Performed By: #### 2 4331-1 ####[facility] LABCLIA [id number] [place] [address] [place] Cholesterol in LDL [Mass/Vol] 131 mg/dL High <100 [facility] Comment on above: Order Comment: Aashish alli Type: BLOOD SPECIMENOrdering Facility: [facility] Address: [address] [place] [address] Result Comment: <100 mg/dL, Optimal 100-129 mg/dL, Near optimal/above optimal 130-159 mg/dL, Borderline high 160-189 mg/dL, High >189 mg/dL, Very high Secondary prevention optimal LDL Cholesterol levels are recommended to be < 70 mg/dL Performed By: #### 2 4331-1 ####[facility] LABCLIA [id number] [place] [address] [place] Cholesterol in LDL/Cholesterol in HDL [Mass ratio] 3.45 {ratio} High <2.54 [facility] Comment on above: Order Comment: Lanejuma carosn Type: BLOOD SPECIMENOrdering Facility: [facility] Address: [address] [place] [address] Result Comment: Ward sam: 1. National Cholesterol Education Program ATP III Guideline At-A-Glance Quick Desk Reference: National Heart, Lung, and Blood [place]. National Institutes of Health. 2001: NIH Publication No. 01-3305. 2. An International Atherosclerosis Society position paper: global recommendations for the management of dyslipidemia: executive summary, Atherosclerosis. 2014: 232(2):410-413. Performed By: #### 2 4331-1 ####[facility] LABCLIA [id number] [place] [address] [place] Cholesterol in VLDL [Mass/Vol] 18 mg/dL Normal <30 [facility] Comment on above: Order Comment: Speci men Type: BLOOD SPECIMENOrdering Facility: [facility] Address: [address] [place] [address] Performed By: #### 2 4331-1 ####[facility] LABCLIA [id number] [place] [address] [place] Cholesterol non HDL [Mass/Vol] 149 mg/dL High <130 [facility] Comment on above: Order Comment: Speci men Type: BLOOD SPECIMENOrdering Facility: [facility] Address: [address] [place] [address] Result Comment: <130 mg/dL, Optimal 130-159 mg/dL, Near optimal/above optimal 160-189 mg/dL, Borderline high 190-219 mg/dL, High >219 mg/dL, Very high Secondary prevention optimal non HDL Cholesterol levels are recommended to be <100 mg/dL Performed By: #### 2 4331-1 ####[facility] LABCLIA [id number] [place] [address] [place] Cholesterol.total/ Cholesterol in HDL [Mass ratio] 4.92 {ratio} Normal <5.10 [facility] Comment on above: Order Comment: Speci men Type: BLOOD SPECIMENOrdering Facility: [facility] Address: [address] [place] [address] Performed By: #### 2 4331-1 ####[facility] LABCLIA [id number] [place] [address] [place] FASTING TIME 12 hrs Normal [facility] Comment on above: Order Comment: Speci men Type: BLOOD SPECIMENOrdering Facility: [facility] Address: [address] [place] [address] Performed By: #### 2 4331-1 ####[facility] LABCLIA [id number] [place] [address] [place] Triglyceride [Mass/Vol] 90 mg/dL Normal <150 [facility] Comment on above: Order Comment: Speci men Type: BLOOD SPECIMENOrdering Facility: [facility] Address: [address] [place] [address] Result Comment: <150 mg/dL, Normal 150-199 mg/dL, Borderline high 200-499 mg/dL, High >499 mg/dL, Very high Performed By: #### 2 4331-1 ####[facility] LABCLIA [id number] [id number] [id number] [facility] Beka 09-26-2023 CNPN Telephone (STFLF) BERE FIORE ([id number]) 1985 F Date Time Provider Department 09/26/23 STELLA HARVEY [facility] During your visit today, we recorded the following information about you: Stella Harvey APRN.CNP 09/26/2023 7:07 AM Signed Cardiology referral ordered, please assist with scheduling. Stella Harvey APRN.Cisco Bo 09/26/2023 10:36 AM Signed Cardiology Referral information submitted to [facility]. Ref# [id number]. [facility] Specialty office will call the patient [...] (FLONASE) 50 mcg/actuation nasal spray Use 1 Johnson in each nostril twice daily. - INTRAUTERINE [...] Status:Closed by CISCO LEZAMA on 09/26/23 Normal [facility] Comprehensive metabolic 2000 panelon 09-22-2023 Albumin [Mass/Vol] 4.3 g/dL Normal 3.9-4.9 [facility] Comment on above: Order Comment: Speci men Type: BLOOD SPECIMENOrdering Facility: [facility] Address: [address] [place] [address] Performed By: #### 2 4323-8 ####[facility] LABCLIA [id number] [place] [address] [place] ALP [Catalytic activity/Vol] 89 U/L Normal 34-123 [facility] Comment on above: Order Comment: Speci men Type: BLOOD SPECIMENOrdering Facility: [facility] Address: [address] [place] [address] Performed By: #### 2 4323-8 ####[facility] LABIA [id number] [place] [address] [place] ALT [Catalytic activity/Vol] 21 U/L Normal 7-38 [facility] Comment on above: Order Comment: Speci men Type: BLOOD SPECIMENOrdering Facility: [facility] Address: [address] [place] [address] Performed By: #### 2 4323-8 ####[facility] LABCLIA [id number] [place] [address] [place] Anion gap [Moles/Vol] 13 mmol/L Normal 9-18 [facility] Comment on above: Order Comment: Speci men Type: BLOOD SPECIMENOrdering Facility: [facility] Address: [address] [place] [address] Performed By: #### 2 4323-8 ####[facility] LABCLIA [id number] [place] [address] [place] AST [Catalytic activity/Vol] 18 U/L Normal 13-35 [facility] Comment on above: Order Comment: Speci men Type: BLOOD SPECIMENOrdering Facility: [facility] Address: [address] [place] [address] Performed By: #### 2 4323-8 ####[facility] LABCLIA [id number] [place] [address] [place] Bilirubin [Mass/Vol] 0.7 mg/dL Normal 0.2-1.3 [facility] Comment on above: Order Comment: Speci men Type: BLOOD SPECIMENOrdering Facility: [facility] Address: [address] [place] [address] Performed By: #### 2 4323-8 ####[facility] LABCLIA [id number] [place] [address] [place] Calcium [Mass/Vol] 9.8 mg/dL Normal 8.5-10.2 [facility] Comment on above: Order Comment: Speci men Type: BLOOD SPECIMENOrdering Facility: [facility] Address: [address] [place] [address] Performed By: #### 2 4323-8 ####[facility] LABCLIA [id number] [place] [address] [place] Chloride [Moles/Vol] 104 mmol/L Normal 97-105 [facility] Comment on above: Order Comment: Speci men Type: BLOOD SPECIMENOrdering Facility: [facility] Address: [address] [place] [address] Performed By: #### 2 4323-8 ####[facility] LABCLIA [id number] [place] [address] [place] CO2 [Moles/Vol] 25 mmol/L Normal 22-30 [facility] Comment on above: Order Comment: Speci men Type: BLOOD SPECIMENOrdering Facility: [facility] Address: [address] [place] [address] Performed By: #### 2 4323-8 ####[facility] LABCLIA [id number] [place] [address] [place] Creatinine [Mass/Vol] 0.71 mg/dL Normal 0.58-0.96 [facility] Comment on above: Order Comment: Speci men Type: BLOOD SPECIMENOrdering Facility: [facility] Address: [address] [place] [address] Performed By: #### 2 4323-8 ####[facility] LABCLIA [id number] [place] [address] [place] Creatinine and Glomerular filtration rate.predicted panel (S/P/Bld) 111 mL/min/1.73m??? Normal >=60 [facility] Comment on above: Order Comment: Speci men Type: BLOOD SPECIMENOrdering Facility: [facility] Address: [address] [place] [address] Result Comment: Rosana mated Glomerular Filtration Rate [...] actual GFR. Performed By: #### 2 4323-8 ####[facility] LABCLIA [id number] [place] [address] [place] Glucose [Mass/Vol] 66 mg/dL Low 74-99 [facility] Comment on above: Order Comment: Speci men Type: BLOOD SPECIMENOrdering Facility: [facility] Address: [address] [place] [address] Result Comment: The [place] Diabetes Association (ADA) provides guidance for cutoff [...] Standards of Medical Care in Diabetes 2016, [place] Diabetes Association. Diabetes Care. 2016.39(Suppl 1). Performed By: #### 2 4323-8 ####[facility] LABCLIA [id number] [place] [id number] [place] Potassium [Moles/Vol] 4.1 mmol/L Normal 3.7-5.1 [facility] Comment on above: Order Comment: Speci men Type: BLOOD SPECIMENOrdering Facility: [facility] Address: [address] [place] [address] Performed By: #### 2 4323-8 ####[facility] LABIA [id number] [place] [id number] [place] Protein [Mass/Vol] 7.4 g/dL Normal 6.3-8.0 [facility] Comment on above: Order Comment: Speci men Type: BLOOD SPECIMENOrdering Facility: [facility] Address: [address] [place] [address] Performed By: #### 2 4323-8 ####[facility] LABCLIA [id number] [place] [address] [place] Sodium [Moles/Vol] 142 mmol/L Normal 136-144 [facility] Comment on above: Order Comment: Speci men Type: BLOOD SPECIMENOrdering Facility: [facility] Address: [address] [place] [address] Performed By: #### 2 4323-8 ####[facility] LABIA [id number] [place] [address] [place] Urea nitrogen [Mass/Vol] 14 mg/dL Normal 7-21 [facility] Comment on above: Order Comment: Speci men Type: BLOOD SPECIMENOrdering Facility: [facility] Address: [address] [place] [address] Performed By: #### 2 4323-8 ####[facility] LABIA [id number] [address] [place] [facility] BERE FIORE ([id number]) 1985 F Date Time Provider Department 07/24/23 SHEREEN NEWTON [facility] During your visit today, we recorded the [...] [I10] Order(s):COMP METABOLIC PANEL [SQCMP] Order #: [id number] FUTURE Prescriptions as of 07/25/2023 - amLODIPine (NORVASC) 10 mg tablet TAKE 1 TABLET BY MOUTH EVERY DAY - fluticasone (FLONASE) 50 mcg/actuation nasal spray Use 1 Johnson in each nostril twice daily. - chlorthalidone [...] Status:Closed by SHEREEN NEWTON on 07/25/23 Normal [facility] XR HIP CECI 5V PEL+ AP/LAT [...] An IUD is present. IMPRESSION: Normal study. Extension Edger: [email or web address] Transcribe Date/Time: Apr 03 2020 8:23A Dictated by : SUMIT JEAN BAPTISTE MD This examination was interpreted and the report reviewed and electronically signed by: SUMIT JEAN BAPTISTE MD on Apr 03 2020 8:26AM EST Normal [facility] Rh Immune D Workupon 019 Rh Immune D Workup See Below Normal NEGATIVE [facility] Comment on above: Result Comment: Feta l screen negative - give 1 vial of Rh Immune Globulin. Performed By: #### R HIMD #### [place] [address] XR CHEST 1V FRONTALon 2018 XR CHEST [...] identified. IMPRESSION: No significant acute radiographic abnormality. Extension Edger: PSCB Transcribe Date/Time: Oct 29 2019 12:41A Dictated by : JEFF ABEBE MD This examination was interpreted and the report reviewed and electronically signed by: JEFF ABEBE MD on Oct 29 2019 12:41AM EST Normal [facility] Comprehensive Panelon 2018 ALP [Catalytic activity/Vol] 117 U/L Normal 45-117 [facility] Comment on above: Performed By: #### P 14 #### [facility] [address] [place], [place] [address] Protein [Mass/Vol] 6.6 g/dL Normal 6.4-8.2 [facility] Comment on above: Performed By: #### P 14 #### [facility] [address] [place], [place] [address] Bilirubin [Mass/Vol] 0.4 mg/dL Normal 0.2-1.0 [facility] Comment on above: Performed By: #### P 14 #### [facility] [address] [place], [place] [address] ALT [Catalytic activity/Vol] 56 U/L Normal 12-78 [facility] Comment on above: Performed By: #### P 14 #### [facility] [address] [place], [place] [address] Creatinine [Mass/Vol] 0.61 mg/dL Normal 0.51-0.95 [facility] Comment on above: Performed By: #### P 14 #### [facility] [address] [place], [place] [address] AST [Catalytic activity/Vol] 39 U/L High 15-37 [facility] Comment on above: Performed By: #### P 14 #### [facility] [address] [place], [place] [address] Albumin [Mass/Vol] 2.4 g/dL Low 3.4-5.0 [facility] Comment on above: Performed By: #### P 14 #### [facility] [address] [place], [place] [address] Glucose [Mass/Vol] 104 mg/dL High 70-99 [facility] Comment on above: Performed By: #### P 14 #### [facility] [address] [place], [place] [address] Anion gap [Moles/Vol] 12 mmol/L Normal 8-16 [facility] Comment on above: Performed By: #### P 14 #### [facility] [address] [place], [place] [address] Calcium [Mass/Vol] 9.1 mg/dL Normal 8.5-10.1 [facility] Comment on above: Performed By: #### P 14 #### [facility] [address] [place], [place] [address] CO2 [Moles/Vol] 21 mmol/L Normal 21-32 [facility] Comment on above: Performed By: #### P 14 #### [facility] [address] [place], [place] [address] Urea nitrogen [Mass/Vol] 10 mg/dL Normal 7-18 [facility] Comment on above: Performed By: #### P 14 #### [facility] [address] [place], [place] [address] Chloride [Moles/Vol] 110 mmol/L High 98-107 [facility] Comment on above: Performed By: #### P 14 #### [facility] [address] [place], [place] [address] Potassium [Moles/Vol] 3.6 mmol/L Normal 3.5-5.1 [facility] Comment on above: Performed By: #### P 14 #### [facility] [address] [place], [place] [address] Sodium [Moles/Vol] 139 mmol/L Normal 136-145 [facility] Comment on above: Performed By: #### P 14 #### [facility] [address] [place], [place] [address] Hemogramon 10-28-2019 Erythrocyte distribution width (RBC) [Ratio] 13.9 % Normal 11.7-14.4 [facility] Comment on above: Performed By: #### C BC1 #### [facility] [address] [place], [place] [address] Hematocrit (Bld) [Volume fraction] 39.1 % Normal 34.1-44.9 [facility] Comment on above: Performed By: #### C BC1 #### [facility] [address] [place] [address] Hemoglobin (Bld) [Mass/Vol] 13.0 g/dL Normal 11.2-15.7 [facility] Comment on above: Performed By: #### C BC1 #### [facility] [address] [place] [address] MCH (RBC) [Entitic mass] 30.4 pg Normal 25.6-32.2 [facility] Comment on above: Performed By: #### C BC1 #### [facility] [address] [place] [address] MCHC (RBC) [Mass/Vol] 33.2 % Normal 31.6-34.8 [facility] Comment on above: Performed By: #### C BC1 #### [facility] [address] [place] [address] MCV (RBC) [Entitic vol] 91.6 fL Normal 79.4-94.8 [facility] Comment on above: Performed By: #### C BC1 #### [facility] [address] [place] [address] Platelet mean volume (Bld) [Entitic vol] 10.0 fL Normal 9.4-12.3 [facility] Comment on above: Performed By: #### C BC1 #### [facility] [address] [place] [address] Platelets (Bld) [#/Vol] 310 thou/cmm Normal 182-369 [facility] Comment on above: Performed By: #### C BC1 #### [facility] [address] [place] [address] RBC (Bld) [#/Vol] 4.27 mil/cmm Normal 3.93-5.22 [facility] Comment on above: Performed By: #### C BC1 #### [facility] [address] [place] [address] RDW SD 46.6 fl High 36.4-46.3 [facility] Comment on above: Performed By: #### C BC1 #### [facility] [address] [place] [address] WBC (Bld) [#/Vol] 10.29 thou/cmm High 3.98-10.04 [facility] Comment on above: Performed By: #### C BC1 #### [place] [address] MDRD GFRon 10-28-2019 GFR/1.73 sq M predicted among non-blacks MDRD (S/P/Bld) [Vol rate/Area] mL/min/{1.73_m2} Normal >60mL/min/1. 73m2 [facility] Comment on above: Result Comment: If t he patient is , multiply the result by 1.210. Performed By: #### G FR #### [place] [address] Type and Screenon 10-28-2019 ABO group Nom (Bld) O Normal [facility] Comment on above: Performed By: #### T &S #### [place] [address] Comment See Below Normal [facility] Comment on above: Result Comment: Scre en &/or Xmatch expires in 3 days at 12 midnight. Redraw patient at that time. Performed By: #### T &S #### [place] [address] RH Type Negative Normal [facility] Comment on above: Performed By: #### T &S #### [place] [address] Urine Protein/Creatinine Rat ioon 10-28-2019 Creatinine,Urine 41.2 mg/dL Normal [facility] Comment on above: Performed By: #### U PCRE #### [place] [address] Prot/Creat Ratio 0.22 mg/mg creat High 0.02-0.16 [facility] Comment on above: Performed By: #### U PCRE #### [place] [address] Protein Ql (U) 9.1 mg/dL Normal 0.0-11.9 [facility] Comment on above: Performed By: #### U PCRE #### [place] [address] Gluc Challnge/50 gm Dose/Pre gnton 08-23-2019 Glucose [Mass/Vol] 152 mg/dL High 70-139 [facility] Comment on above: Performed By: #### G LUCC #### [place] [address] Hemogram/Diffon 08-23-2019 Abs Immature Grans 0.05 thou/cmm Normal 0.00-0.05 [facility] Comment on above: Performed By: #### C BCD1 #### [place] [address] Abs Neut (ANC) 8.77 thou/cmm High 1.56-6.13 [facility] Comment on above: Performed By: #### C BCD1 #### [place] [address] Abs. Baso 0.04 thou/cmm Normal 0.01-0.08 [facility] Comment on above: Performed By: #### C BCD1 #### [place] [address] Abs. [place] 0.83 thou/cmm High 0.27-0.70 [facility] Comment on above: Performed By: #### C BCD1 #### [place] [address] Basophils/100 WBC (Bld) 0.3 % Normal [facility] Comment on above: Performed By: #### C BCD1 #### [place] [address] Eosinophils (Bld) [#/Vol] 0.14 thou/cmm Normal 0.00-0.31 [facility] Comment on above: Performed By: #### C BCD1 #### [place] [address] Eosinophils/100 WBC (Bld) 1.2 % Normal [facility] Comment on above: Performed By: #### C BCD1 #### [facility] [address] [place] [address] Erythrocyte distribution width (RBC) [Ratio] 13.6 % Normal 11.7-14.4 [facility] Comment on above: Performed By: #### C BCD1 #### [facility] [address] [place] [address] Hematocrit (Bld) [Volume fraction] 41.0 % Normal 34.1-44.9 [facility] Comment on above: Performed By: #### C BCD1 #### [facility] [address] [place] [address] Hemoglobin (Bld) [Mass/Vol] 13.4 g/dL Normal 11.2-15.7 [facility] Comment on above: Performed By: #### C BCD1 #### [facility] [address] [place] [address] Immature Grans 0.40 % Normal [facility] Comment on above: Performed By: #### C BCD1 #### [facility] [address] [place] [address] Lymphocytes (Bld) [#/Vol] 2.14 thou/cmm Normal 1.18-3.74 [facility] Comment on above: Performed By: #### C BCD1 #### [place] [address] Lymphocytes/100 WBC (Bld) 17.9 % Normal [facility] Comment on above: Performed By: #### C BCD1 #### [facility] [address] [place] [address] MCH (RBC) [Entitic mass] 30.2 pg Normal 25.6-32.2 [facility] Comment on above: Performed By: #### C BCD1 #### [facility] [address] [place] [address] MCHC (RBC) [Mass/Vol] 32.7 % Normal 31.6-34.8 [facility] Comment on above: Performed By: #### C BCD1 #### [facility] [address] [place] [address] MCV (RBC) [Entitic vol] 92.3 fL Normal 79.4-94.8 [facility] Comment on above: Performed By: #### C BCD1 #### [facility] [address] [place] [address] Monocytes/100 WBC (Bld) 6.9 % Normal [facility] Comment on above: Performed By: #### C BCD1 #### [facility] [address] [place] [address] Platelet mean volume (Bld) [Entitic vol] 9.7 fL Normal 9.4-12.3 [facility] Comment on above: Performed By: #### C BCD1 #### [facility] [address] [place] [address] Platelets (Bld) [#/Vol] 318 thou/cmm Normal 182-369 [facility] Comment on above: Performed By: #### C BCD1 #### [facility] [address] [place] [address] RBC (Bld) [#/Vol] 4.44 mil/cmm Normal 3.93-5.22 [facility] Comment on above: Performed By: #### C BCD1 #### [facility] [address] [place] [address] RDW SD 46.4 fl High 36.4-46.3 [facility] Comment on above: Performed By: #### C BCD1 #### [facility] [address] [place] [address] Seg Neutrophil 73.3 % Normal [facility] Comment on above: Performed By: #### C BCD1 #### [facility] [address] [place] [address] WBC (Bld) [#/Vol] 11.97 thou/cmm High 3.98-10.04 [facility] Comment on above: Performed By: #### C BCD1 #### [place] [address] Type and Screenon 08-23-2019 ABO group Nom (Bld) O Normal [facility] Comment on above: Performed By: #### T &S #### [facility] [address] [place] [address] Comment Out Patient Normal [facility] Comment on above: Performed By: #### T &S #### [facility] [address] [place] [address] RH Type Negative Normal [facility] Comment on above: Performed By: #### T &S #### [facility] [address] [place] [id number] Abdomen / Pelvis without contraston 07-11-2017 [...] to lack of contrast.Report Dictated on Workstation: [id number] by: Karthik Granados: 07/11/2017 08:08Read by: MY PATINOate: 07/11/2017 08:11 [facility] Vital Signs Date Time Vital Sign Value Performing Clinician Shelly samano 06-28-2024 12:12-0400 Body mass index (BMI) [Ratio] 42.44 kg/m2 Tre Main PRODUCT DEVELOPMENT SCIENTIST.VEHICLE DELIVERY WORKER Work Phone: [facility] 06-28-2024 12:12-0400 Body weight 122.92 kg Tre Main PRODUCT DEVELOPMENT SCIENTIST.VEHICLE DELIVERY WORKER Work Phone: [facility] 06-28-2024 12:12-0400 Diastolic blood pressure 83 mm[Hg] Tre Main PRODUCT DEVELOPMENT SCIENTIST.VEHICLE DELIVERY WORKER Work Phone: [facility] 06-28-2024 12:12-0400 Heart rate 93 /min Tre Main PRODUCT DEVELOPMENT SCIENTIST.VEHICLE DELIVERY WORKER Work Phone: [facility] 06-28-2024 12:12-0400 Respiratory rate 16 /min Tre Main PRODUCT DEVELOPMENT SCIENTIST.VEHICLE DELIVERY WORKER Work Phone: [facility] 06-28-2024 12:12-0400 Systolic blood pressure 135 mm[Hg] Tre Main PRODUCT DEVELOPMENT SCIENTIST.VEHICLE DELIVERY WORKER Work Phone: [facility] 05-05-2024 12:59-0400 Body mass index (BMI) [Ratio] 42.09 kg/m2 Mariaelena Barker PRODUCT DEVELOPMENT SCIENTIST.VEHICLE DELIVERY WORKER Work Phone: [facility] 05-05-2024 12:59-0400 Body temperature 97.39 [degF] Mariaelena Barker PRODUCT DEVELOPMENT SCIENTIST.VEHICLE DELIVERY WORKER Work Phone: [facility] 05-05-2024 12:59-0400 Body weight 121.9 kg Mariaelena Bakrer PRODUCT DEVELOPMENT SCIENTIST.VEHICLE DELIVERY WORKER Work Phone: [facility] 05-05-2024 12:59-0400 Diastolic blood pressure 82 mm[Hg] Mariaelena Barker PRODUCT DEVELOPMENT SCIENTIST.VEHICLE DELIVERY WORKER Work Phone: [facility] 05-05-2024 12:59-0400 Heart rate 96 /min Mariaelena Barker PRODUCT DEVELOPMENT SCIENTIST.VEHICLE DELIVERY WORKER Work Phone: [facility] 05-05-2024 12:59-0400 Respiratory rate 16 /min Mariaelena Barker PRODUCT DEVELOPMENT SCIENTIST.VEHICLE DELIVERY WORKER Work Phone: [facility] 05-05-2024 12:59-0400 SaO2% (BldA) [Mass fraction] 98 % Mariaelena Barker PRODUCT DEVELOPMENT SCIENTIST.VEHICLE DELIVERY WORKER Work Phone: [facility] 05-05-2024 12:59-0400 Systolic blood pressure 122 mm[Hg] Mariaelena Barker PRODUCT DEVELOPMENT SCIENTIST.VEHICLE DELIVERY WORKER Work Phone: [facility] 02-19-2024 07:51-0400 Body weight 122.47 kg Tre Main PRODUCT DEVELOPMENT SCIENTIST.VEHICLE DELIVERY WORKER Work Phone: [facility] 02-19-2024 07:51-0400 Diastolic blood pressure 80 mm[Hg] Tre Main PRODUCT DEVELOPMENT SCIENTIST.VEHICLE DELIVERY WORKER Work Phone: [facility] 02-19-2024 07:51-0400 Heart rate 88 /min Tre Main PRODUCT DEVELOPMENT SCIENTIST.VEHICLE DELIVERY WORKER Work Phone: [facility] 02-19-2024 07:51-0400 Respiratory rate 14 /min Tre Main PRODUCT DEVELOPMENT SCIENTIST.VEHICLE DELIVERY WORKER Work Phone: [facility] 02-19-2024 07:51-0400 Systolic blood pressure 128 mm[Hg] Tre Main PRODUCT DEVELOPMENT SCIENTIST.VEHICLE DELIVERY WORKER Work Phone: [facility] 01-21-2024 [...] 14:01-0500 Body temperature 99.1 [degF] Nat Oswaldo PRODUCT DEVELOPMENT SCIENTIST.VEHICLE DELIVERY WORKER Work Phone: [facility] 10-04-2023 14:01-0500 Body weight 119.02 kg Nat Oswaldo PRODUCT DEVELOPMENT SCIENTIST.VEHICLE DELIVERY WORKER Work Phone: [facility] 10-04-2023 14:01-0500 Diastolic blood pressure 82 mm[Hg] Nat Oswaldo PRODUCT DEVELOPMENT SCIENTIST.VEHICLE DELIVERY WORKER Work Phone: [facility] 10-04-2023 14:01-0500 Heart rate 112 /min Nat Oswaldo PRODUCT DEVELOPMENT SCIENTIST.VEHICLE DELIVERY WORKER Work Phone: [facility] 10-04-2023 14:01-0500 Respiratory rate 18 /min Nat Oswaldo PRODUCT DEVELOPMENT SCIENTIST.VEHICLE DELIVERY WORKER Work Phone: [facility] 10-04-2023 14:01-0500 SaO2% (BldA) [Mass fraction] 96 % Nat Oswaldo PRODUCT DEVELOPMENT SCIENTIST.VEHICLE DELIVERY WORKER Work Phone: [facility] 10-04-2023 14:01-0500 Systolic blood pressure 136 mm[Hg] Nat Oswaldo PRODUCT DEVELOPMENT SCIENTIST.VEHICLE DELIVERY WORKER Work Phone: [facility] 05-05-2022 [...] Start: 07-06-2024 End: 07-08-2024 Refill Stella Harvey APRN.VEHICLE DELIVERY WORKER Work Phone: [facility] Comment on above: Refill Request Start: 07-01-2024 End: 07-01-2024 Telephone encounter Tre Main APRN.VEHICLE DELIVERY WORKER Work Phone: [facility] Comment on above: Results Start: 06-28-2024 End: 06-28-2024 Patient encounter procedure Tre Main APRN.VEHICLE DELIVERY WORKER Work Phone: [facility] Comment on above: Medication managemen t (Primary Dx); AMANDA (generalized anxiety disorder) Start: 06-28-2024 End: 06-28-2024 ambulatory TRE MAIN Facility:[facility] Start: 05-05-2024 End: 05-05-2024 ambulatory TRE MAIN Facility:[facility] Start: 05-05-2024 End: 05-05-2024 Patient encounter procedure Mariaelena Barker APRN.VEHICLE DELIVERY WORKER Work Phone: [facility] Comment on above: Urinary frequency (P rimary Dx) Start: 05-02-2024 Telephone encounter Sher Starks MD Work Phone: [facility] Comment on above: Results Start: 05-01-2024 End: 05-01-2024 ambulatory TRE MAIN Facility:[facility] Start: 04-25-2024 Refill Tre duong PRODUCT DEVELOPMENT SCIENTIST.VEHICLE DELIVERY WORKER Work Phone: [facility] Comment on above: Refill Request Start: 04-02-2024 Refill Stella Burciaga vkaylah PRODUCT DEVELOPMENT SCIENTIST.VEHICLE DELIVERY WORKER Work Phone: [facility] Comment on above: Refill Request Start: 02-22-2024 Telephone encounter Tre dias APRN.VEHICLE DELIVERY WORKER Work Phone: [facility] Comment on above: Medication Request Start: 02-20-2024 Telephone encounter Tre dias PRODUCT DEVELOPMENT SCIENTIST.VEHICLE DELIVERY WORKER Work Phone: [facility] Comment on above: Results Start: 02-19-2024 End: 02-19-2024 ambulatory TRE MAIN Facility:[facility] Start: 02-19-2024 End: 02-19-2024 Patient encounter procedure Tre Main APRN.VEHICLE DELIVERY WORKER Work Phone: [facility] Comment on above: Encounter for immuni zation (Primary Dx); Wellness examination; Screening for diabetes mellitus; Medication management; Chronic hypertension Start: 02-19-2024 End: 02-19-2024 Patient encounter status Tre Main APRN.VEHICLE DELIVERY WORKER Work Phone: [facility] Work Phone: Start: 01-21-2024 End: 01-21-2024 [facility] Facility:[facility] Start: 01-21-2024 End: 01-21-2024 Patient encounter procedure Sarah RESENDIZ Work Phone: [facility] Comment on above: Sinobronchitis (Prim lowell Dx) Start: 01-02-2024 End: 01-02-2024 Office outpatient new 30 minutes Naheed Melgar MD Work Phone: [facility] [place] Comment on above: Acute myocardial inf arction, unspecified MA type, unspecified artery (HCC); Family history of premature CAD Start: 01-02-2024 End: 01-02-2024 ambulatory [facility] Facility:[place] [facility] Start: 12-19-2023 Telephone encounter Ag Card Work Phone: [facility] [place] Comment on above: Appointment Start: 10-24-2023 End: 10-24-2023 [facility]ulatory [facility] [facility] Facility:[facility] Start: 10-24-2023 End: 10-24-2023 Office outpatient visit 15 minutes Titus Mathews PA-C Work Phone: [facility] Comment on above: Acute maxillary sinu sitis, recurrence not specified (Primary Dx); Chronic hypertension Start: 10-06-2023 End: 10-06-2023 ambulatory Tory Cecy David PRODUCT DEVELOPMENT SCIENTIST.VEHICLE DELIVERY WORKER Work Phone: Internal Medicine [place] Comment on above: please review and re ana MORRIS (Primary Dx) Start: 10-06-2023 E-mail encounter fro m caregiver Tory Sam David SAMUELS.VEHICLE DELIVERY WORKER Work Phone: [facility] Start: 10-06-2023 End: 10-06-2023 Telemedicine consultation with patient Tory Hernandez PRODUCT DEVELOPMENT SCIENTIST.VEHICLE DELIVERY WORKER Work Phone: [facility] Start: 10-04-2023 End: 10-04-2023 ambulatory [facility] Facility:[facility] Start: 10-04-2023 End: 10-04-2023 Patient encounter procedure Nat Chacon APRN.VEHICLE DELIVERY WORKER Work Phone: [facility] Comment on above: Pre-syncope (Primary Dx); FUO (fever of unknown origin); URI, acute; ETD (Eustachian tube dysfunction), left Start: 09-30-2023 End: 09-30-2023 [facility] Facility:[facility] Start: 09-26-2023 End: 09-26-2023 [facility] PRODUCT DEVELOPMENT SCIENTIST.VEHICLE DELIVERY WORKER Work Phone: Family Medicine [place] [facility] Comment on above: Hypertension, essent ial (Primary Dx); Family history of myocardial infarction at age less than 60; Family history of premature coronary heart disease; Screening for lipid disorders Consult (Cardiology ) Start: 09-22-2023 End: 09-22-2023 ambulatory MORALES ROCHE Facility:[facility] Start: 07-24-2023 Telephone encounter Shereen blank PA-C Work Phone: [facility] Comment on above: Orders Start: 05-19-2023 Refill Moraels harkins MD Work Phone: [facility] Comment on above: Med Change Request Start: 04-09-2023 End: 04-09-2023 ambulatory Nakia Funmi Stallworth PRODUCT DEVELOPMENT SCIENTIST.VEHICLE DELIVERY WORKER Work Phone: Telemedicine Comment on above: Acute non-recurrent pansinusitis (Primary Dx) Start: 04-09-2023 End: 04-09-2023 Telemedicine consultation with patient Nakia Choudhary Basim SAMUELS.VEHICLE DELIVERY WORKER Work Phone: [facility] Start: 09-17-2022 Refill Zora Martinez APRN.VEHICLE DELIVERY WORKER Work Phone: [facility] [place] Comment on above: Refill Request Start: 07-04-2022 Refill Reynaldo Stallworth DO Work Phone: [facility] Comment on above: Refill Request Start: 06-23-2022 Refill Shereen Newton PA-C Work Phone: [facility] Comment on above: Refill Request Start: 06-20-2022 Refill Morales harkins MD Work Phone: [facility] Comment on above: Refill Request Start: 05-27-2022 Refill Reynaldo Stallworth DO Work Phone: [facility] Comment on above: Refill Request Start: 05-05-2022 End: 05-05-2022 Patient encounter procedure Reynaldo Stallworth DO Work Phone: [facility] Comment on above: Strain of left knee, initial encounter (Primary Dx); Chronic pain of left knee; Dependent edema Start: 10-04-2021 ambulatory No Pcp Family [facility] Comment on above: Abdominal Pain Start: 05-18-2018 Ambulatory TIFFANY WATSON [facility] Start: 07-11-2017 End: 07-11-2017 Ambulatory PORTILLO LEON Facility:[facility] Procedures Date Procedure Procedure Detail Performing Clinician Start: 05-05-2024 Urnls dip stick/tabl et rgnt auto w/o microscopy Sher Rockwell PRODUCT DEVELOPMENT SCIENTIST.VEHICLE DELIVERY WORKER Work Phone: Start: 02-19-2024 ethority-BIONTMadmagz COVI D-19 VACCINE ( SEASON) AGE 12+ YR Tre Main PRODUCT DEVELOPMENT SCIENTIST.VEHICLE DELIVERY WORKER Work Phone: Start: 02-19-2024 Adult depression screening assessment Tre Main PRODUCT DEVELOPMENT SCIENTIST.VEHICLE DELIVERY WORKER Work Phone: Start: 10-04-2023 STREP A MOLECULAR (POC) [facility] Provider Start: 12-06-2021 Adult depression screening assessment Reynaldo Stallworth DO Work Phone: Start: 10-28-2019 Antibody screen Comment on above: Performed By: #### T &S #### [place] [id number] Start: 10-28-2019 Adult depression screening assessment No Pcp Start: 08-23-2019 Antibody screen Comment on above: Performed By: #### T &S #### [place] [id number] Plan of Treatment Date Care Activity Detail Author Start: 08-19-2029 Urine microalbumin profile [facility] Start: 09-13-2028 Screening for malign ant neoplasm of cervix [facility] Start: 09-13-2026 Screening for malign ant neoplasm of cervix Cervical Cancer Screening [facility] Start: 06-28-2025 Annual PCP Team It Coordinator lópez Disease Visit Annual PCP Team Chronic Disease Visit [facility] Start: 02-18-2025 Annual PCP Team It Coordinator lópez Disease Visit Annual PCP Team Chronic Disease Visit [facility] Start: 02-18-2025 Anxiety Screening Anxiety Screening [facility] Start: 02-18-2025 BP Controlled (<130/80) BP Controlle d (<130/80) [facility] Start: 02-18-2025 Depression Screening Depression Scre ening [facility] Start: 10-06-2024 Annual PCP Team It Coordinator lópez Disease Visit Annual PCP Team Chronic Disease Visit [facility] Start: 09-30-2024 End: 09-30-2024 Patient encounter procedure 09/30/2024 1:00 PM EST Office Visit Family [facility] [address] [place] [address] Tre Main APRN.VEHICLE DELIVERY WORKER [address] [place], [place] [id number] 3 month follow up [facility] Comment on above: 3 month follow up Start: 09-26-2024 Annual PCP Team It Coordinator lópez Disease Visit Annual PCP Team Chronic Disease Visit [facility] Start: 07-14-2024 Influenza vaccination [facility] Start: 06-28-2024 End: 09-27-2024 Thyrotropin [Units/volume] in Serum or Plasma [facility] Work Phone: Comment on above: Expected: 06/28/2024 , Expires: 09/27/2024 Start: 02-20-2024 End: 05-21-2024 CBC W Auto Differential panel - Blood CBC + DIFF Lab Routine Elevated platelet count Expected: 02/20/2024, Expires: 05/21/2024 [facility] Work Phone: Comment on above: Expected: 02/20/2024 , Expires: 05/21/2024 Start: 02-19-2024 End: 05-20-2024 CBC W Auto Differential panel - Blood [facility] Work Phone: Comment on above: Expected: 02/19/2024 , Expires: 05/20/2024 Start: 02-19-2024 End: 05-20-2024 Comprehensive metabolic 2000 panel - Serum or Plasma [facility] Work Phone: Comment on above: Expected: 02/19/2024 , Expires: 05/20/2024 Start: 02-19-2024 End: 05-20-2024 Hemoglobin A1c in Blood [facility] Work Phone: Comment on above: Expected: 02/19/2024 , Expires: 05/20/2024 Start: 11-13-2023 Depression Assessment Depression Ass essment [facility] Start: 09-26-2023 End: 12-26-2023 Lipid 1996 panel - Serum or Plasma LIPID PANEL BASIC Lab Routine Screening for lipid disorders Expected: 09/26/2023, Expires: 12/26/2023 [facility] Work Phone: Comment on above: Expected: 09/26/2023 , Expires: 12/26/2023 Start: 07-24-2023 End: 09-23-2023 Comprehensive metabolic 2000 panel - Serum or Plasma COMP METABOLIC PANEL Lab Routine Hypertension, essential Expected: 07/24/2023, Expires: 09/23/2023 [facility] Work Phone: Comment on above: Expected: 07/24/2023 , Expires: 09/23/2023 Start: 07-14-2023 Covid-19 Vaccine () Covid-19 Vaccine () [facility] Start: 07-14-2023 Influenza vaccination [facility] Start: 05-05-2023 ANNUAL PCP TEAM PHTHALIC ACID PURIFIER LÓPEZ DISEASE VISIT ANNUAL PCP TEAM CHRONIC DISEASE VISIT [facility] Start: 12-06-2022 Adult depression screening assessment DEPRESSION SCREENING [facility] Start: 11-13-2022 [facility] Start: 07-14-2022 Influenza [...] [facility] Center Start: 2002 ANNUAL PCP TEAM PHTHALIC ACID PURIFIER LÓPEZ DISEASE VISIT ANNUAL PCP TEAM CHRONIC [...] FUO (fever of unknown origin) Ordered: 10/04/2023 [facility] Work Phone: Comment on above: Ordered: 10/04/2023 Bacteria identified in Urine by Culture URINE CULTURE Microbiology Routine Urinary frequency Ordered: 05/05/2024 [facility] Work Phone: Comment on above: Ordered: 05/05/2024 ECG B/O W INTERP (ME D OFFICE) ECG B/O W INTERP (MED OFFICE) ECG Routine Family history of premature CAD Ordered: 01/02/2024 [facility] Work Phone: Comment on above: Ordered: 01/02/2024 Influenza virus A an d B RNA and SARS-CoV-2 (COVID-19) N gene panel - Respiratory specimen by BALJINDER with probe detection COVID & INFLUENZA A/B NAAT, ROUTINE Microbiology Routine FUO (fever of unknown origin) URI, acute 10/04/2023 2:50 PM EST [facility] Work Phone: End: 06-04-2023 XR KNEE GENERAL 4V AP BOTH/PA BOTH/LAT/MERC LEFT XR KNEE GENERAL 4V AP BOTH/PA BOTH/LAT/MERC LEFT Radiology Routine Strain of left knee, initial encounter Chronic pain of left knee 1 Occurrences starting 05/05/2022 until 06/04/2023 [facility] Work Phone: Comment on above: 1 Occurrences starti ng 05/05/2022 until 06/04/2023 [facility] Immunizations Immunization Date Immunization Notes Care Provider Dana mejiatatyana 02-19-2024 COVID-19 vaccine, ag e 12+ yr, season (PFIZER-BIONTMadmagz) Tre Main APRN.JOSE Work Phone: [facility] 12-06-2021 influenza, injectabl e, quadrivalent, contains preservative Reynaldo Stallworth DO Work Phone: [facility] 12-06-2021 influenza virus vaccine, unspecified formulation Shereen Newton PA-C Work Phone: [facility] 09-23-2020 hepatitis A vaccine, adult dosage Reynaldo Stallworth DO Work Phone: [facility] 08-22-2020 influenza, injectabl e, quadrivalent, contains preservative Reynaldo Stallowrth DO Work Phone: [facility] 10-30-2019 RHO(D) immune globul in- IV or IM No [facility] 08-23-2019 RHO(D) immune globul in- IV or IM No [facility] 08-19-2019 tetanus toxoid, redu denia diphtheria toxoid, and acellular pertussis vaccine, adsorbed No [facility] 08-05-2019 influenza, seasonal, injectable, preservative free No [facility] 07-22-2019 influenza, seasonal, injectable Reynaldo Stallworth DO Work Phone: [facility] 07-30-2018 influenza, injectabl e, quadrivalent, contains preservative Reynaldo Stallworth DO Work Phone: [facility] 07-07-2018 RHO(D) immune globul in- IV or IM No [facility] 05-13-2018 tetanus toxoid, redu denia diphtheria toxoid, and acellular pertussis vaccine, adsorbed Reynaldo Stallworth DO Work Phone: [facility] Work Phone: 05-07-2018 tetanus toxoid, redu denia diphtheria toxoid, and acellular pertussis vaccine, adsorbed No [facility] 04-19-2018 RHO(D) immune globul in- IV or IM No [facility] 02-02-1999 hepatitis B vaccine, unspecified formulation Reynaldo [...] Center Payers Date Payer Category Payer Unknown [id number] 2022 Unknown [id number] 2022 Unknown [id number] 2014 Private Health Insurance [employer] A ETNA CHOICE POS II [id number] 2014-Present [phone] [address] [place] [address] POS [id number] 2014 Private Health Insurance [employer] A ETNA CHOICE POS II [id number] 2014-Present [phone] [address] [place] [address] POS [id number] 1959 Private Health Insurance [id number] Social History Date Type Detail Facility Tobacco smoking stat us [facility] Tobacco smoking consumption unknown [facility] Start: 02-22-2019 [facility] Start: 1985 Sex Assigned At Not on file [facility] Start: 04-25-2022 End: 05-05-2022 Exposure to [...] [facility] Has the [employer], or [employer] threatened to shut off services in your [...] MA - 07/01/2024 10:06 AM Tre Cabello APRN.VEHICLE DELIVERY WORKER - 06/28/2024 12:14 PM EDT Note Date [...] [facility] 06-28-2024 Note HNO ID: [id number] Author: TRE MAIN APRN.JOSE Service: ? Author [...] (FLONASE) 50 mcg/actuation nasal spray Use 1 Johnson in each nostril two times a day. [...] - SERTRALINE 100 MG TABLET Tre Main APRN.[facility] 06-28-2024 History of Present illness Narrative [...] (FLONASE) 50 mcg/actuation nasal spray Use 1 Johnson in each nostril two times a day. [...] - SERTRALINE 100 MG TABLET Tre Main APRN.VEHICLE DELIVERY WORKER documented in this encounter [facility] 05-05-2024 Note HNO ID: [id number] Author: MARIAELENA BARKER APRN.JOSE Service: ? Author [...] (FLONASE) 50 mcg/actuation nasal spray Use 1 Johnson in each nostril two times a day. [...] URINE (POC) - URINE CULTURE Mariaelena Barker APRN.VEHICLE DELIVERY WORKER [facility] 05-05-2024 History of Present illness Narrative [...] (FLONASE) 50 mcg/actuation nasal spray Use 1 Johnson in each nostril two times a day. [...] URINE (POC) - URINE CULTURE Mariaelena Barker APRN.VEHICLE DELIVERY WORKER documented [facility] [...] spray 16 mL 0 Sig: Use 1 Johnson in each nostril two times a day. Please review and advise. Jeevan Rodriguez RN [facility] 04-26-2024 Miscellaneous Notes Patient phones requesting refills as follows: RADHA: 02/19/24 Requested Prescriptions Pending Prescriptions Disp Refills fluticasone (FLONASE) 50 mcg/actuation nasal spray 16 mL 0 Sig: Use 1 Johnson in each nostril two times a day. Please review and advise. Jeevan Rodriguez RN documented in this encounter [facility] 04-26-2024 Telephone encounter Note Patient [facility] message requesting the following refill Refill(s) Requested: Requested Prescriptions Pending Prescriptions Disp Refills sertraline (ZOLOFT) 50 mg tablet 60 tablet 0 Sig: Take 1 tablet by mouth once daily. Take 0.5 tab daily x7 days then 1 full tab daily. ALLERGIES Allergen Reactions Penicillin Unknown Childhood allergy. Pt unsure of reaction. (home) [phone] (cell) Last Office Visit Date: 02/19/2024 Last Distance Health Visit: Visit date not found Future Appointment: Visit date not found The patients preferred pharmacy has been captured for this encounter? yes Request is for script(s) to be escript to pharmacy. Gabriela Begum LPN [facility] 04-26-2024 Miscellaneous Notes Patient [facility] message requesting the following refill Refill(s) Requested: Requested Prescriptions Pending Prescriptions Disp Refills sertraline (ZOLOFT) 50 mg tablet 60 tablet 0 Sig: Take 1 tablet by mouth once daily. Take 0.5 tab daily x7 days then 1 full tab daily. ALLERGIES Allergen Reactions Penicillin Unknown Childhood allergy. Pt unsure of reaction. (home) [phone] (cell) Last Office Visit Date: 02/19/2024 Last Distance Health Visit: Visit date not found Future Appointment: Visit date not found The patients preferred pharmacy has been captured for this encounter? yes Request is for script(s) to be escript to pharmacy. Gabriela Begum LPN documented in this encounter [facility] 04-02-2024 Telephone encounter Note [facility] 09/16/23 Patient phones requesting refills as follows: Requested Prescriptions Pending Prescriptions Disp Refills amLODIPine (NORVASC) 10 mg tablet [Pharmacy Med Name: AMLODIPINE BESYLATE 10 MG TAB] 90 tablet 0 Sig: take 1 tablet by mouth every day Please review and advise. Gena Krueger LPN [facility] 04-02-2024 Miscellaneous Notes [facility] 09/16/23 Patient phones requesting refills as [...] this was to be sent to [facility] in [place] on [address] Please call patient spouse, Edgar to advise when RX has been sent to pharmacy at [place] cell phone only [phone] Patient has been identified by name and [...] information listed below given. Pt verbalizes understanding. Hariin Guadarrama LPN Called and left a voicemail for the Patient to call back and ask for a nurse to receive the providers message. Shefali Doe RN Please let patient know her labs show elevated platelets. I would like her to repeat her blood count in 1 month. documented in this encounter [facility] 02-19-2024 Note HNO ID: [id number] Author: TRE MAIN APRN.JOSE Service: ? Author Type: Nurse Practitioner Type: Progress Notes Filed: 02/19/2024 08:33 Note Text: Chief Complaint Patient presents with: [facility] Care HPI Bere Fiore is a [...] (FLONASE) 50 mcg/actuation nasal spray Use 1 Johnson in each nostril twice daily. 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 [facility] 02-19-2024 History of Present illness Narrative Chief Complaint Patient presents with: [facility] Bere Fiore is a 38 year old female who presents here today for Above Complaints.. Patient presents to [facility]. Patient reports she has intermittent chest tightness/pain [...] (FLONASE) 50 mcg/actuation nasal spray Use 1 Johnson in each nostril twice daily. 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 Wellness examination - ICD9: V70.0, ICD10: Z00.00 - Counseled on healthy diet and regular exercise - Calcium intake with supplements or by diet of 1000 mg/day for under 50, 9375-8477 mg/day for 50+ - Discussed need and benefit for weight loss. BMI 42.29 kg/(m^2) - Depression screening tool completed and reviewed with patient. Based on score and interview, patient is at risk for depression and recommended starting medication. - Patient was counseled chvp-wx-fiaz by myself (the billing provider) for the [...] [facility] 01-[facility]2024 Note HNO ID: [id number] Author: SARAH FRANKLIN PA Service: ? Author Type: Physician Wholesale Diamond Broker Type: Progress Notes Filed: 01/21/2024 11:16 Note [...] (FLONASE) 50 mcg/actuation nasal spray Use 1 Johnson in each nostril twice daily. INTRAUTERINE DEVICE, [...] care were disc (more content not included)... [facility] 01-21-2024 History of Present illness Narrative This note was created using bLiferiter. Subjective Bere Fiore is a 38 year [...] (FLONASE) 50 mcg/actuation nasal spray Use 1 Johnson in each nostril twice daily. INTRAUTERINE DEVICE, [...] with h/o Hypertension, family history of premature MA, morbid obesity (BMI 40). Patient denies any SOB or exertional CP or palpitation or syncope. She can walk around [employer] without stopping. Father had first MA in his 40s but he was a [...] (FLONASE) 50 mcg/actuation nasal spray Use 1 Johnson in each nostril twice daily. INTRAUTERINE DEVICE, IUD, INTRAUTERINE by INTRAUTERINE route. No current facility-administered medications on file prior to visit. Assessment FH of premature CAD (Father first MA in his 40s but heavy smoker) Morbid obesity HTN Mild LVH on ECG, likely related to morbid obesity. Recommendations/Plan: At this time I have low suspicion for high genetic predisposition for CAD since her father was a heavy smoker when he had his first MA. Her lipid is only borderline abnormal (LDL [...] [facility] 01-02-2024 Note HNO ID: [id number] Author: NAHEED MELGAR MD Service: ? Author Type: Physician Type: Progress Notes Filed: 01/02/2024 11:02 Note Text: Cardiology Consult Office Note Referring provider: Stella Harvey APRN, CNP Reason for consultation: Family history of premature CAD HPI: Ms. Fiore is a 38 year old female with h/o Hypertension, family history of premature MA, morbid obesity (BMI 40). Patient denies any SOB or exertional CP or palpitation or syncope. She can walk around [employer] without stopping. Father had first MA in his 40s but he was a [...] (FLONASE) 50 mcg/actuation nasal spray Use 1 Johnson in each nostril twice daily. INTRAUTERINE DEVICE, IUD, INTRAUTERINE by INTRAUTERINE route. No current facility-administered medications on file prior to visit. Assessment FH of premature CAD (Father first MA in his 40s but heavy smoker) Morbid obesity HTN Mild LVH on ECG, likely related to morbid obesity. Recommendations/Plan: At this time I have low suspicion for high genetic predisposition for CAD since her father was a heavy smoker when he had his first MA. Her lipid is only borderline abnormal (LDL [...] as needed. Thank you for the referral [facility] 01-02-2024 Nurse Note Patient denies cardiac complaints or symptoms. documented in this encounter [facility] 12-19-2023 Miscellaneous Notes Lvm to notify pt that the taran on 12/28/23 w/ Dr. Crawford has been cancelled and rescheduled for 01/02/24 @10:40 am in [place] w/ Dr. Melgar. Kelley Lopez December 19, 2023 2:26 PM documented in this encounter [facility] 10-24-2023 Note HNO ID: [id number] Author: Titus Mathews PA-C Service: ? Author Type: Physician Wholesale Diamond Broker Type: Progress Notes Filed: 10/24/2023 2:48 PM [...] (FLONASE) 50 mcg/actuation nasal spray Use 1 Johnson in each nostril twice daily. INTRAUTERINE DEVICE, [...] to seek care sooner. .emma Mathews PA-C [facility] 10-24-2023 History of Present illness Narrative [...] (FLONASE) 50 mcg/actuation nasal spray Use 1 Johnson in each nostril twice daily. INTRAUTERINE DEVICE, [...] [facility] 10-06-2023 Instructions Tory Hernandez, ABRIL.VEHICLE DELIVERY WORKER - 10/06/2023 7:14 AM EST Images from the original note were not included. FACT SHEET FOR PATIENTS, PARENTS, AND CAREGIVERS EMERGENCY USE AUTHORIZATION (EUA) OF PAXLOVID FOR CORONAVIRUS DISEASE 2019 (COVID-19) You are being given this Fact Sheet because your healthcare provider believes it is necessary to provide you with PAXLOVID for the treatment of ucmo-af-msrorvvd coronavirus disease (COVID-19) caused by the SARS-CoV-2 [...] make PAXLOVID available for the treatment of xzea-em-vwxiaeqd COVID-19 in adults and children 12 years [...] virus. COVID-19 illnesses have ranged from very jneb-ic-usuclp, including illness resulting in . While information [...] available under EUA for the treatment of nikz-po-ljclwebd COVID-19 in adults and children 12 years [...] of using PAXLOVID to treat children with ajfa-hl-mfempbwo COVID-19. What is the most important information [...] o ranolazine o rifampin o rifapentine o [place] Wort (hypericum perforatum) o sildenafil (Revatio [...] the medicines you take, including prescription and koib-kvi-ptnwwhq medicines, vitamins, and herbal supplements. Your healthcare [...] morning or evening, depending on when you shrimp picker your prescription, or as your healthcare provider [...] PAXLOVID is FDA-approved for the treatment of aoqb-ef-acheammx COVID-19 in certain adults; however, there are not sufficient quantities of the approved presentations (i.e., dose packs) of PAXLOVID at this time. This EUA continues to authorize the emergency use of PAXLOVID for the approved patient population to ensure continued access in order to meet the public health need. VEKLURY (remdesivir) is FDA-approved for the treatment of ujoo-eu-hpapqcjz COVID-19 in certain adults and children. Talk with your healthcare provider to see if VEKLURY is appropriate for you. For information on the emergency use of other medicines that are authorized by FDA to treat people with COVID-19, please go to https://www.fda.gov/emergency-pre fudndvcor-mul-jmhktuly/mcm-legal- snacervcln-apw-dwjtbs-framework/e zofvator-erm-ygxdoukzpqaqh. Your healthcare provider may talk with you [...] to FDA MedWatch at www.fda.gov/medwatch or call 6-946-TZD-7640 or you can report side effects to [employer]. at the contact information provided below. How [...] bottom of blister pack at this website: https://www.ResQUdlTutum.CityF[employer]re / or talk with your healthcare provider. Information on the authorized shelf-life extensions for PAXLOVID may also be found at https://www.fda.gov/emergency-pre soiotmiet-nlg-eydcbehw/mcm-legal- ygusfpdrxn-yvw-nzohll-framework/e bkppyhpnj-qanzsp-pibpcnmas. How can I learn more about COVID-19? Ask your healthcare provider. Visit https://www.cdc.gov/COVID19. Contact your local or state public health department. What is an Emergency Use Authorization (EUA)? The [place] FDA has made PAXLOVID available under an emergency access mechanism called an Emergency Use Authorization (EUA). The EUA is supported by a Contract Preparer of Health and Human Services (HHS) declaration [...] call the telephone number provided below. Website: www.BAYZI17fvrmFk.com Telephone number: (8-508-W79-PACK) Distributed by [employer] [place] [address] [id number] Revised: 03/2023 documented in this encounter [facility] 10-06-2023 Note HNO ID: [id number] Author: Tory Hernandez APRN.VEHICLE DELIVERY WORKER Service: ? Author Type: Nurse Practitioner Type: Progress Notes Filed: 10/06/2023 7:16 AM Note Text: VIRTUAL VISIT PROGRESS NOTE This is a virtual visit using [employer] Zoom Video Visit. It required patient-provider interaction for the medical decision making as documented below. I have communicated my name and active licensure. The patient's identity and physical location were verified at the time of this visit. Either the patient or their legal telemarketing sales representative has been informed of the risks [...] (FLONASE) 50 mcg/actuation nasal spray Use 1 Johnson in each nostril twice daily. INTRAUTERINE DEVICE, [...] risk of HIV-1 resistance development. Tory Hernandez, ABRIL.VEHICLE DELIVERY WORKER October 06, 2023 7:14 AM [facility] 10-06-2023 History of Present illness Narrative VIRTUAL VISIT PROGRESS NOTE This is a virtual visit using [employer] Zoom Video Visit. It required patient-provider interaction for the medical decision making as documented below. I have communicated my name and active licensure. The patient's identity and physical location were verified at the time of this visit. Either the patient or their legal telemarketing sales representative has been informed of the risks [...] (FLONASE) 50 mcg/actuation nasal spray Use 1 Johnson in each nostril twice daily. INTRAUTERINE DEVICE, [...] [facility] Note HNO ID: [id number] Author: Nat Chacon APRN.CNP Service: ? Author [...] (FLONASE) 50 mcg/actuation nasal spray Use 1 Johnson in each nostril twice daily. INTRAUTERINE DEVICE, [...] prescribe d/t referral to ER. Nat Chacon APRN.[facility] 10-04-2023 History of Present illness Narrative [...] (FLONASE) 50 mcg/actuation nasal spray Use 1 Johnson in each nostril twice daily. INTRAUTERINE DEVICE, [...] prescribe d/t referral to ER. Nat Chacon APRN.VEHICLE DELIVERY WORKER documented in this encounter [facility] 09-26-2023 Miscellaneous Notes Cardiology Referral information submitted to [facility]. Ref# [id number]. [facility] Specialty office will call the patient within 7-10 business days to set this appointment up. Cardiology referral ordered, please assist with scheduling. Stella Harvey APRN.CNP documented in this encounter [facility] 09-26-2023 Note HNO ID: [id number] Author: Stella Harvey APRN.CNP Service: ? Author [...] visit. Either the patient or their legal telemarketing sales representative has been informed of the risks [...] heart disease. Her father had his first MA at age 40. She would like to [...] which included preparing to see the patient, cpae-yd-jeui patient care, completing clinical documentation, performing a medically appropriate examination, counseling and educating the patient/family/caregiver, and ordering medications, tests, or procedures. Stella Harvey APRN.[facility] 09-26-2023 History of Present illness Narrative DISTANCE HEALTH VISIT This Team Access Model visit is a virtual encounter. It required patient-provider interaction for the medical decision making as documented below. I have communicated my name and active licensure. The patient's identity and physical location were verified at the time of this visit. Either the patient or their legal telemarketing sales representative has been informed of the risks [...] heart disease. Her father had his first MA at age 40. She would like to [...] which included preparing to see the patient, rmqg-gs-rzad patient care, completing clinical documentation, performing a medically appropriate examination, counseling and educating the patient/family/caregiver, and ordering medications, tests, or procedures. Stella Harvey APRN.VEHICLE DELIVERY WORKER [facility] Instructions Nakia Stallworth APRN.VEHICLE DELIVERY WORKER - 04/09/2023 10:31 AM EDT SINUS INFECTION [...] visit. Either the patient or their legal telemarketing sales representative has been informed of the risks and benefits of -- and alternatives to -- treatment through a remote evaluation and consents to proceed with the evaluation remotely. Platform patient seen on: [employer] platform Location of patient: [place] [...] (FLONASE) 50 mcg/actuation nasal spray Use 1 Johnson in each nostril twice daily. amLODIPine (NORVASC) [...] worsening symptoms or life-threatening concerns Nakia Stallworth APRN.VEHICLE DELIVERY WORKER If you let us know who your [...] place a Establish Primary Care order. Use Proven to manage your care, wherever you are, 05/06, on your mobile device or computer. Proven connects you to [facility] so you can access all your health [...] has IUD Protocols used: ABDOMINAL PAIN - [id number]-[id number]-UC [facility] [...] 10/28/2019 10/28/2019 Rh negative status during in [facility] 10/28/2019 10/05/2021 Overview: -S/p Rhogam 08/23/19 -Rhogam as indicated Advanced maternal age in multigravida, [facility] 10/28/2019 10/05/2021 Overview: -Declined genetic testing [...] 10/28/2019 10/28/2019 Rh negative status during in [facility] 10/28/2019 10/05/2021 Overview: -S/p Rhogam 08/23/19 -Rhogam as indicated Advanced maternal age in multigravida, [facility] 10/28/2019 10/05/2021 Overview: -Declined genetic testing [...] 10/28/2019 10/28/2019 Rh negative status during in [facility] 10/28/2019 10/05/2021 Overview: -S/p Rhogam 08/23/19 -Rhogam as indicated Advanced maternal age in multigravida, [facility] 10/28/2019 10/05/2021 Overview: -Declined genetic testing [...] 10/28/2019 10/28/2019 Rh negative status during in [facility] 10/28/2019 10/05/2021 Overview: -S/p Rhogam 08/23/19 -Rhogam as indicated Advanced maternal age in multigravida, [facility] 10/28/2019 10/05/2021 Overview: -Declined genetic testing [...] 10/28/2019 10/28/2019 Rh negative status during in [facility] 10/28/2019 10/05/2021 Overview: -S/p Rhogam 08/23/19 -Rhogam as indicated Advanced maternal age in multigravida, [facility] 10/28/2019 10/05/2021 Overview: -Declined genetic testing [...] 10/28/2019 10/28/2019 Rh negative status during in [facility] 10/28/2019 10/05/2021 Overview: -S/p Rhogam 08/23/19 -Rhogam as indicated Advanced maternal age in multigravida, [facility] 10/28/2019 10/05/2021 Overview: -Declined genetic testing [...] 10/28/2019 10/28/2019 Rh negative status during in [facility] 10/28/2019 10/05/2021 Overview: -S/p Rhogam 08/23/19 -Rhogam as indicated Advanced maternal age in multigravida, [facility] 10/28/2019 10/05/2021 Overview: -Declined genetic [...] -Rhogam as indicated Advanced maternal age in [facility], third trimester 10/28/2019 10/05/2021 Overview: -Declined genetic [...] -Rhogam as indicated Advanced maternal age in [facility], third trimester 10/28/2019 10/05/2021 Overview: -Declined genetic [...] -Rhogam as indicated Advanced maternal age in [facility], third trimester 10/28/2019 10/05/2021 Overview: -Declined genetic [...] -Rhogam as indicated Advanced maternal age in [facility], third trimester 10/28/2019 10/05/2021 Overview: -Declined genetic [...] -Rhogam as indicated Advanced maternal age in [facility], third trimester 10/28/2019 10/05/2021 Overview: -Declined genetic [...] -Rhogam as indicated Advanced maternal age in [facility], third trimester 10/28/2019 10/05/2021 Overview: -Declined genetic [...] -Rhogam as indicated Advanced maternal age in [facility], third trimester 10/28/2019 10/05/2021 Overview: -Declined genetic [...] -Rhogam as indicated Advanced maternal age in [facility], third trimester 10/28/2019 10/05/2021 Overview: -Declined genetic [...] -Rhogam as indicated Advanced maternal age in [facility], third trimester 10/28/2019 10/05/2021 Overview: -Declined genetic [...] -Rhogam as indicated Advanced maternal age in [facility], third trimester 10/28/2019 10/05/2021 Overview: -Declined genetic [...] -Rhogam as indicated Advanced maternal age in [facility], third trimester 10/28/2019 10/05/2021 Overview: -Declined genetic [...] -Rhogam as indicated Advanced maternal age in [facility], third trimester 10/28/2019 10/05/2021 Overview: -Declined genetic [...] -Rhogam as indicated Advanced maternal age in [facility], third trimester 10/28/2019 10/05/2021 Overview: -Declined genetic [...] -Rhogam as indicated Advanced maternal age in [facility], third trimester 10/28/2019 10/05/2021 Overview: -Declined genetic [...] of this encounter (statuses as of 10/04/2021) [facility] note* Diagnosis Strain of left knee, initial encounter- Primary Chronic pain of left knee Pain in joint, lower leg Dependent edema Edema [facility] Diagnosis Dependent edema Edema [facility] Diagnosis Hypertension, essential Unspecified essential hypertension [facility] Diagnosis Strain of left knee, initial encounter Chronic pain of left knee Pain in joint, lower leg [facility] Diagnosis Acute non-recurrent pansinusitis- Primary [facility] Diagnosis Acute non-recurrent pansinusitis [facility] Diagnosis Hypertension, essential- Primary Unspecified essential hypertension [facility] Diagnosis Hypertension, essential- Primary Unspecified essential hypertension Family history of myocardial infarction at age less than 60 Family history of ischemic heart disease Family history of premature coronary heart disease Family history of ischemic heart disease Screening for lipid disorders [facility] Diagnosis Pre-syncope- Primary Syncope and collapse FUO (fever of unknown origin) Fever, unspecified URI, acute Acute upper respiratory infections of unspecified site ETD (Eustachian tube dysfunction), left [facility] Diagnosis COVID- Primary [facility] Diagnosis Acute maxillary sinusitis, recurrence not specified- Primary Chronic hypertension [facility] Diagnosis Acute myocardial infarction, unspecified MA type, unspecified artery (HCC) Family history of premature CAD Family history of ischemic heart disease [facility] Diagnosis Sinobronchitis- Primary Unspecified sinusitis (chronic) [facility] Diagnosis Encounter for immunization- Primary Need for other specified prophylactic vaccination against single bacterial disease Wellness examination Screening for diabetes mellitus Medication management Encounter for long-term (current) use of other medications Chronic hypertension documented in this encounter [facility] note* Diagnosis Elevated platelet count- Primary Essential thrombocythemia documented in this encounter [facility] note* Diagnosis AMANDA (generalized anxiety disorder)- Primary Generalized anxiety disorder documented in this encounter [facility] note* Diagnosis Hypertension, essential Unspecified essential hypertension documented in this encounter [facility] note* Diagnosis AMANDA (generalized anxiety disorder) Generalized anxiety disorder documented in this encounter [facility] note* Diagnosis Acute non-recurrent pansinusitis documented in this encounter [facility] note* Diagnosis Urinary frequency- Primary documented in this encounter [facility] note* Diagnosis Medication management- Primary Encounter for long-term (current) use of other medications AMANDA (generalized anxiety disorder) Generalized anxiety disorder documented in this encounter [facility] for referral (narrative)* Diagnostic Procedure Only (Routine) - Pending Review Specialty Diagnoses / Procedures Referred By Contac t Referred To Contact XR IMAGING Diagnoses Strain of left knee, initial encounter Chronic pain of left knee Procedures XR KNEE GENERAL 4V AP BOTH/PA BOTH/LAT/MERC LEFT RADIOLOGIC EXAM KNEE COMPLETE 4/MORE VIEWS Reynaldo Stallworth, [address] [place] [address] Xr Imaging Referral ID Status Reason Start Date Expiration Date Visits Requested Visits Authorized [id number] Pending Review Auto-Generat ed Referral 05/05/2022 06/04/2023 1 1 [facility] Summary Purpose Family History No Family History Records FoundNo Family History Records FoundNo Family History Records FoundNo Family History Records FoundNo Family History Records Found Advance Directives Documents on File Type Date Recorded 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 Advance Directive(s) 10/30/2019 1:42 PM Advance Directive(s) 10/28/2019 4:40 PM Advance Directive(s) 10/28/2019 10:02 PM Advance Directive(s) 07/07/2018 12:28 PM Advance Directive(s) 07/06/2018 6:16 AM Advance Directive(s) 06/29/2018 1:14 PM Documents on File Type Date Recorded 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 Advance Directive(s) 10/30/2019 1:42 PM [...] heart disease Procedures CONSULT TO CARDIOLOGY OFFICE/OUTPATIENT [facility] 60-74 MINUTES Stella Harvey APRN.VEHICLE DELIVERY WORKER [address] [place] [address] Referral ID Status Reason Start Date Expiration Date Visits Requested Visits Authorized [id number] Authorized PCP Requested Referral 3 09/25/2024 1 1 Health Concerns Infection Onset Date Last Indicated Resolved Time COVID-19 Confirmed 10/04/2023 10/04/2023 Additional Source Comments INFORMATION SOURCE (unrecogn ized section and content) DATE CREATED AUTHOR 05/09/2018 [facility] DATE CREATED AUTHOR AUTHOR'S ORGANIZ ATION 05/19/2018 [facility] DATE CREATED AUTHOR AUTHOR'S ORGANIZ ATION 04/06/2020 [facility] DATE CREATED AUTHOR AUTHOR'S ORGANIZ ATION 05/03/2024 [facility] DATE CREATED AUTHOR AUTHOR'S ORGANIZ ATION 07/03/2024 [facility] Source Comments (unrecognize d section and [...] or prosecute any alcohol or drug abuse patient.[facility] the event this information is protected [...] Care Teams (unrecognized sec tion and content) City Treasurer Relationship Specialty Start Date End Date Morales Roche MD [address] [place] [address] PCP - General Family Practice 10/04/21 City Treasurer Relationship Specialty Start Date End Date Morales Roche MD [address] [place] [address] PCP - General Family Practice 10/04/21 City Treasurer Relationship Specialty Start Date End Date Morales Roche MD [address] [place] [address] PCP - General Family Practice 10/04/21 City Treasurer Relationship Specialty Start Date End Date Morales Roche MD [address] [place] [address] PCP - General Family Practice 10/04/21 City Treasurer Relationship Specialty Start Date End Date Morales Roche MD [address] [place] [address] PCP - General Family Practice 10/04/21 Tiffany Strong, FERNANDO Registered Nurse 06/29/22 City Treasurer Relationship Specialty Start Date End Date Moralse Roche MD [address] [place] [address] PCP - General Family Medicine 10/04/21 Tiffany Strong, RN Registered Nurse 06/29/22 City Treasurer Relationship Specialty Start Date End Date Morales Roche MD [address] [place] [address] PCP - General Family Medicine 10/04/21 Tiffany Strong, RN Registered Nurse 06/29/22 City Treasurer Relationship Specialty Start Date End Date Morales oRche MD [address] [place] [address] PCP - General Family Medicine 10/04/21 Tiffany Strong, RN Registered Nurse 06/29/22 City Treasurer Relationship Specialty Start Date End Date Morales Roche MD [address] [place] [address] PCP - General Family Medicine 10/04/21 Tiffany Strong, RN Registered Nurse 06/29/22 City Treasurer Relationship Specialty Start Date End Date Morales Roche MD [address] [place] [address] PCP - General Family Medicine 10/04/21 Tiffany Strong, RN Registered Nurse 06/29/22 City Treasurer Relationship Specialty Start Date End Date Morales Roche MD [address] [place] [address] PCP - General Family Medicine 10/04/21 Tiffany Strong RN Registered Nurse 06/29/22 City Treasurer Relationship Specialty Start Date End Date Morales Roche MD [address] [place] [address] PCP - General Family Medicine 10/04/21 Tiffany Strong RN Registered Nurse 06/29/22 City Treasurer Relationship Specialty Start Date End Date Morales Roche MD [address] [place] [address] PCP - General Family Medicine 10/04/21 Tiffany Strong, RN Registered Nurse 06/29/22 City Treasurer Relationship Specialty Start Date End Date Morales Roche MD [address] [place] [address] PCP - General Family Medicine 10/04/21 Tiffany Strong, RN Registered Nurse 06/29/22 City Treasurer Relationship Specialty Start Date End Date Morales Roche MD [address] [place] [address] PCP - General Family Medicine 10/04/21 Tiffany Strong, RN Registered Nurse 06/29/22 City Treasurer Relationship Specialty Start Date End Date Morales Roche MD [address] [place] [address] PCP - General Family Medicine 10/04/21 Tiffany Strong, RN Registered Nurse 06/29/22 City Treasurer Relationship Specialty Start Date End Date Tre Main APRN.VEHICLE DELIVERY WORKER [address] [place] [address] PCP - General Family Medicine 02/19/24 Tiffany Strong, RN Registered Nurse 06/29/22 City Treasurer Relationship Specialty Start Date End Date Tre Main APRN.VEHICLE DELIVERY WORKER [address] [place] [address] PCP - General Family Medicine 02/19/24 Tiffany Strong, RN Registered Nurse 06/29/22 City Treasurer Relationship Specialty Start Date End Date Tre Main PRODUCT DEVELOPMENT SCIENTIST.VEHICLE DELIVERY WORKER [address] [place] [address] PCP - General Family Medicine 02/19/24 Tiffany Strong, RN Registered Nurse 06/29/22 City Treasurer Relationship Specialty Start Date End Date Tre Main APRN.VEHICLE DELIVERY WORKER [address] [place] [address] [phone] PCP - General Family Medicine 02/19/24 Tiffany Strong, FERNANDO Registered Nurse 06/29/22 City Treasurer Relationship Specialty Start Date End Date Tre Main APRN.VEHICLE DELIVERY WORKER [address] [place], [place] [phone] PCP - General Family Medicine 02/19/24 Tiffany Strong, FERNANDO Registered Nurse 06/29/22 City Treasurer Relationship Specialty Start Date End Date Tre Main PRODUCT DEVELOPMENT SCIENTIST.VEHICLE DELIVERY WORKER [address] [place] [address] PCP - General Family Medicine [...] BE BASED ON THE PRIMARY CLINICAL RECORDS. [facility] [employer] [facility]. provides no warranty or guarantee of the accuracy or completeness of information in this document.
[2024-08-10 18:56] LABS: Phosphorus 3.3 mg/dL (2.5-4.9)
[2024-08-10 19:00] LABS: Troponin-I HS 11610 pg/mL (3.0-54.0)
[2024-08-10 19:14] LABS: Magnesium 2.1 mg/dL (1.6-2.6); Thyroid Stim Hormone (TSH) 0.862 uIU/mL (0.358-3.740)
[2024-08-10 19:40] VITALS: BP 129/94; PULSE 66; RESP 16; TEMP 36.7; O2SAT 99
[2024-08-10 19:42] VITALS: BMI 19.1
--- NOTE | 2024-08-10 19:43 | EKG12_ITS ---
Test Reason : CP Admission Blood Pressure : / mmHG Vent. Rate : 066 BPM Atrial Rate : 066 BPM P-R Int : 158 ms QRS Dur : 112 ms QT Int : 408 ms P-R-T Axes : 036 -17 022 degrees QTc Int : 427 ms Normal sinus rhythm Moderate voltage criteria for LVH, may be normal variant ( R in aVL , Jacobson product ) Borderline ECG When compared with ECG of 10-AUG-2024 15:32, MANUAL COMPARISON REQUIRED, DATA IS UNCONFIRMED Confirmed by BRIAN MEI, LFORIDA ([id number]), material expeditor BENNY ESCAMILLA ([id number]) on 08/13/2024 6:44:01 AM Referred By: Jatin Baker Confirmed By:FLORIDA TORRES MD
[2024-08-10] MEDS: Carvedilol 6.25 MG Tablet PO (19:44)
[2024-08-10] MEDS: Atorvastatin Calcium 80 MG Tablet PO (21:04)
[2024-08-10 21:21] LABS: Troponin-I HS 14904 pg/mL (3.0-54.0)
[2024-08-11] VITALS (13 sets, daily range): BP systolic 115–140; BP diastolic 54–79; PULSE 68–102; RESP 16–18; TEMP 36.4–36.8; O2SAT 94–98
[2024-08-11 00:27] LABS: Partial Thromboplast Time 33.8 Seconds (24.1-36.2)
[2024-08-11] MEDS: Heparin Injection (Vial) 5,000 UNIT/ML VIAL IV (00:40)
[2024-08-11 06:27] LABS: Hematocrit 42.6 % (37-47); Hemoglobin 13.7 g/dL (12.0-15.0); Mean Corp Hgb Conc 32.2 g/dL (32-36); Mean Corpuscular Hgb 28.9 pg (27.0-32.0); Mean Corpuscular Volume 89.9 fL (81-99); Mean Platelet Vol. 8.9 fl (6.2-12.0); Platelet Count 332 K/mm3 (150-450); RBC Distribution Width CV 13.7 % (11.6-14.6); RBC Distribution Width SD 45.8 fl (35.1-43.9); Red Blood Count 4.74 M/mm3 (4.2-5.4); White Blood Count 11.8 K/mm3 (4.4-11.0)
[2024-08-11 06:39] LABS: Partial Thromboplast Time 41.9 Seconds (24.1-36.2)
[2024-08-11 07:02] LABS: Anion Gap 5 (5-15); BUN 11 mg/dL (7-18); BUN/Creat Ratio 16.5 RATIO (10-20); Calcium,Total 9.1 mg/dL (8.5-10.1); Chloride 109 mmol/L (98-107); Cholesterol 150 mg/dL (200); Creatinine, Serum 0.67 mg/dL (0.55-1.02); EST Glomerular Filtration Rate 104 mL/min (>60); Est Glom Filt Rate - Afr Amer 126 mL/min (>60); Estimated Creatinine Clearance 97.59 ml/min; Glucose 101 mg/dL (74-106); High Density Lipoprotein 31 mg/dL; Potassium 3.3 mmol/L (3.5-5.1); Sodium Level 142 mmol/L (136-145); Triglycerides 123 mg/dL; Very Low Density Lipoprotein 25 mg/dL (5-40)
--- NOTE | 2024-08-11 09:10 | PN.HOSP_ITS ---
Reason for Visit Reason for Visit: Chest pain Subjective Subjective Patient is a 39-year-old white female who presented to the emergency department yesterday on 08/10/2024 with a chief complaint of chest pain. She was in [place] early on the day of presentation and was visiting family. She had episode of chest pain while she was there while eating lunch at [employer]. She went to an urgent care and they did an EKG and it was fine however her chest pain continued so she decided to come back to the emergency department here at home. EKG on presentation was unremarkable however initial troponin was 6104. Second troponin 3 hours later was 11,610. Patient has a strong family history of coronary disease with her brother and grandfather both having heart attacks in their 40s. She had never had symptoms like this previously. She has a history of hypertension and takes amlodipine but no other comorbidities and she is a non-smoker. She did admit to utilizing a vape pen with marijuana on a daily basis. No current chest pain. Patient is aware that if she has any further chest pain to please let us know. Denies any complaints at this time. We discussed overall plan. Objective Data Objective Data Vital Signs: Vital Signs Temp Pulse Resp BP Pulse Ox O2 Del Method 98.2 F 68 18 140/77 H 94 Room Air 08/11/24 08:27 08/11/24 08:27 08/11/24 08:27 08/11/24 08:27 08/11/24 08:27 08/11/24 08:27 Oxygen Delivery Method Room Air Weight: 55.384 kg Body Mass Index (BMI) 19.1 Intake & Output: Intake and Output for Last 24 Hours 08/09/24 08/10/24 08/11/24 23:59 23:59 23:59 Intake Total 350 / 350 141.1 / 141.1 Balance 350 / 350 141.1 / 141.1 Lab / Micro Data 08/11/24 06:23 08/11/24 06:23 Labs: Laboratory Results - last 24 hr 08/10/24 15:56: WBC 9.6, RBC 5.37, Hgb 15.5 H, Hct 48.2 H, MCV 89.8, MCH 28.9, MCHC 32.2, RDW Std Deviation 45.0 H, RDW Coeff of Cristal 13.8, Plt Count 379, MPV 8.9, Immature Gran % (Auto) 0.300, Neut % (Auto) 71.6 H, Lymph % (Auto) 21.2, Gregg % (Auto) 5.6, Eos % (Auto) 0.6, Baso % (Auto) 0.7, Absolute Neuts (auto) 6.9, Absolute Lymphs (auto) 2.04, Nucleated RBC % 0, Sodium 140, Potassium 3.3 L , Chloride 105, Carbon Dioxide 32.0, Anion Gap 3 L, BUN 11, Creatinine 0.76, Estim Creat Clear Calc 133.65, Est GFR (MDRD) Af Amer 109, Est GFR (MDRD) Non-Af 90, BUN/Creatinine Ratio 14.5, Glucose 100, Calcium 9.7, Troponin I High Sens 6104 H* 08/10/24 16:45: D-Dimer Quant (PE/DVT) 0.36, B-Natriuretic Peptide 42.0 08/10/24 18:01: Phosphorus 3.3, Magnesium 2.1, Troponin I High Sens 86812 H*, TSH 0.862 08/10/24 20:37: Troponin I High Sens 63021 H* 08/10/24 23:59: APTT 33.8, Hemoglobin A1c 5.0 08/10/24 : PT 13.2, INR 1.0, APTT 26.0 08/11/24 06:23: WBC 11.8 H, RBC 4.74, Hgb 13.7, Hct 42.6, MCV 89.9, MCH 28.9, MCHC 32.2, RDW Std Deviation 45.8 H, RDW Coeff of Cristal 13.7, Plt Count 332, MPV 8.9, APTT 41.9 H, Sodium 142, Potassium 3.3 L, Chloride 109 H, Carbon Dioxide 28.0, Anion Gap 5, BUN 11, Creatinine 0.67, Estim Creat Clear Calc 97.59, Est GFR (MDRD) Af Amer 126, Est GFR (MDRD) Non-Af 104, BUN/Creatinine Ratio 16.5, Glucose 101, Calcium 9.1, Triglycerides 123, Cholesterol 150, LDL Cholesterol 94, VLDL Cholesterol 25, HDL Cholesterol 31 L Radiography Diagnostic Testing: Radiology Impression Chest X-Ray 08/10/24 16:15 IMPRESSION: Normal x-ray examination of the chest. Electronically Signed: Dwight Burton MD at 16:55 EDT , Physical Exam Const alert, oriented x3, no apparent distress, healthy appearing and well nourished; Negative for average body habitus Constitutional Narrative: Obese, middle-aged, white female, sitting up in bed, appears comfortable, nontoxic HEENT head/scalp atraumatic and moist oral mucous membranes Head and Scalp: normocephalic Resp normal respiratory effort, no retractions, no use of accessory muscles and clear to auscultation bilaterally Auscultation: Negative for rales, rhonchi or wheezes Cardio regular rate, regular rhythm, S1 normal heart sound, S2 normal heart sound, no murmurs, no rub, no gallops and no clicks GI normal to inspection, nondistended, normoactive bowel sounds, soft to palpation and non-tender Extremity no clubbing, cyanosis or edema Extremity Narrative: Radial and pedal pulses are 2+. Infiltrated IV area noted in left forearm that is not indurated and seems to be improving Neuro oriented x3 and moves all extremities Speech: speech normal Psych affect normal Psych Narrative: Very pleasant but mildly anxious Assessment & Plan Assessment/Plan (1) NSTEMI, initial episode of care: (2) Hypokalemia: PLAN: Plan NSTEMI -Currently chest pain-free -Marked enzyme elevation presentation -Continue heparin drip -Continue aspirin 81 mg daily -Continue high intensity dose atorvastatin -Continue carvedilol 6.125 twice daily -Add low-dose lisinopril at 5 mg p.o. twice daily with persistent elevated blood pressure -Check echocardiogram -Lipid panel shows a total cholesterol 150/LDL of 94/HDL of 31 and total triglycerides of 123 -Cardiology consultation pending and probable cardiac catheterization tomorrow. Hypokalemia -Will replace again with p.o. 40 mill equivalents -repeat lab in a.m. -Mag is within normal limits Hypertension -Continue to hold home amlodipine -Continue carvedilol as ordered -Add lisinopril 5 mg p.o. daily Marijuana use -Recommend cessation Depression/anxiety -Continue sertraline -Will add low-dose as needed oral Ativan as patient is extremely anxious DVT prophylaxis -Continue heparin drip CODE STATUS Full code Charges/Coding Visit Charges Inpatient E&M: 90919 Subs Hosp L2
[2024-08-11] MEDS: Sertraline 100 MG Tablet PO ×2 (10:13→20:35)
[2024-08-11] MEDS: Carvedilol 6.25 MG Tablet PO ×2 (10:13→17:54)
[2024-08-11] MEDS: Potassium Chloride Oral Tablet 20 MEQ 60 MEQ PO (10:13)
[2024-08-11] MEDS: Aspirin 81 MG TAB.CHEW PO (10:13)
[2024-08-11] MEDS: Lisinopril 5 MG Tablet PO (10:14)
[2024-08-11 13:24] LABS: Partial Thromboplast Time 43.5 Seconds (24.1-36.2)
[2024-08-11] MEDS: HEPARIN/D5w 25,000 UNITS 25,000 UNITS/250 ML IV.SOLN. 14 UNITS CONT INF (13:33)
[2024-08-11] MEDS: FLU VACC 2024-25(6MOS UP)/PF 45 MCG/0.5 ML SYRINGE IM (16:10)
--- NOTE | 2024-08-11 16:24 | PCM.CONS.C ---
Assessment & Plan Assessment/Plan (1) HTN (hypertension): (2) Hypokalemia: (3) NSTEMI, initial episode of care: PLAN: Cardiac care plan recommendations; 39-year-old white female presented to the ED with a chief complaint of chest pain. Evidently patient was in [place] earlier in the day and while taking lunch at the [employer] she developed symptoms of chest pain and went over to the urgent care and EKG seems to be normal and patient was transferred over here to the ER at [facility]. And then she was evaluated with high sensitive troponin which was significant elevated patient had significant family history of CAD brother and grandfather both has a history of myocardial infarction in their 40s. Also of note patient has been using vape with marijuana. Today when I saw her in the progressive care unit she had no further episode of chest pain and she has been on medical treatment for non-ST elevation PA This include low-dose aspirin carvedilol heparin and she was on calcium channel sabrina which was discontinued and started on LANIE inhibitor with lisinopril. Subsequent cardiac markers showed significant elevated troponins more than 14,000. And the D-dimer was negative. Based on her clinical presentation and significant family history symptoms of chest pain change in the cardiac markers there were no significant change in the EKG showed normal sinus rhythm with no ST?T abnormality noted on provider network mgr she remains in sinus rhythm patient will be evaluated by echocardiogram as well as cardiac catheterization which set up for tomorrow. Will continue to monitor electrolytes serum potassium patient was given potassium chloride 40 meq HPI Consult Data Date of Consult: 08/11/24 HPI Narrative Reason for Consultation: Non-STEMI HPI Narrative: TINO BARRIGA, is a 39 F who presents [facility] Medical History (Updated 08/10/24 @ 19:[address] Jatin Baker, DO) HTN (hypertension) Home Medications ?Medication ?Instructions ?Recorded ?Last Taken ?Type amlodipine 10 mg tablet 10 mg PO DAILY 10/04/23 08/10/24 History sertraline 100 mg tablet 100 mg PO DAILY 08/10/24 08/09/24 History Allergy/AdvReac Type Severity Reaction Status Date / Time Penicillins Allergy Mild PT UNSURE Verified 08/10/24 15:23 OF REACTION Family History no significant family his Social History household members: spouse housing: house current occupational status: employed Smoking Status: Never smoker Physical Exam Cardio Cardio Narrative: Patient seen and evaluated at bedside along with the nursing staff She is comfortable not having any symptoms of chest pain at time of evaluation Review of the provider network mgr showed underlying normal sinus rhythm Cardiovascular exam S1-S2 is regular, no systolic or diastolic murmur no pericardial rub. Chest exam clear to auscultation bilateral Examination lower extremity no lower extremity edema. Risk Stratification Risk Stratification Applicable: No Objective Data Vital Signs: Vital Signs Temp Pulse Resp BP Pulse Ox O2 Del Method 97.9 F 72 16 128/69 H 96 Room Air 08/11/24 16:07 08/11/24 16:07 08/11/24 16:07 08/11/24 16:07 08/11/24 16:07 08/11/24 16:07 Oxygen Delivery Method Room Air Weight: 270 lb 0.002 oz Body Mass Index (BMI) 19.1 Intake & Output: Intake and Output for Last 24 Hours 08/09/24 08/10/24 08/11/24 23:59 23:59 23:59 Intake Total 350 / 350 829.97 / 829.97 Balance 350 / 350 829.97 / 829.97 Lab / Micro Data 08/11/24 06:23 08/11/24 06:23 Labs: Laboratory Results - last 24 hr 08/10/24 15:56: Sodium 140, Potassium 3.3 L, Chloride 105, Carbon Dioxide 32.0, Anion Gap 3 L, BUN 11, Creatinine 0.76, Estim Creat Clear Calc 133.65, Est GFR (MDRD) Af Amer 109, Est GFR (MDRD) Non-Af 90, BUN/Creatinine Ratio 14.5, Glucose 100, Calcium 9.7, Troponin I High Sens 6104 H* 08/10/24 16:45: D-Dimer Quant (PE/DVT) 0.36, B-Natriuretic Peptide 42.0 08/10/24 18:01: Phosphorus 3.3, Magnesium 2.1, Troponin I High Sens 13244 H*, TSH 0.862 08/10/24 20:37: Troponin I High Sens 55779 H* 08/10/24 23:59: APTT 33.8, Hemoglobin A1c 5.0 08/10/24 : PT 13.2, INR 1.0, APTT 26.0 08/11/24 06:23: WBC 11.8 H, RBC 4.74, Hgb 13.7, Hct 42.6, MCV 89.9, MCH 28.9, MCHC 32.2, RDW Std Deviation 45.8 H, RDW Coeff of Cristal 13.7, Plt Count 332, MPV 8.9, APTT 41.9 H, Sodium 142, Potassium 3.3 L, Chloride 109 H, Carbon Dioxide 28.0, Anion Gap 5, BUN 11, Creatinine 0.67, Estim Creat Clear Calc 97.59, Est GFR (MDRD) Af Amer 126, Est GFR (MDRD) Non-Af 104, BUN/Creatinine Ratio 16.5, Glucose 101, Calcium 9.1, Triglycerides 123, Cholesterol 150, LDL Cholesterol 94, VLDL Cholesterol 25, HDL Cholesterol 31 L 08/11/24 12:23: APTT 43.5 H, D-Dimer Quant (PE/DVT) 0.30 Cardiology Labs/Tests 08/10/24 15:56: Sodium 140, Potassium 3.3 L, Chloride 105, Carbon Dioxide 32.0, Anion Gap 3 L, BUN 11, Creatinine 0.76, Est GFR (MDRD) Af Amer 109, Est GFR (MDRD) Non-Af 90, BUN/Creatinine Ratio 14.5, Glucose 100, Calcium 9.7 08/10/24 16:45: D-Dimer Quant (PE/DVT) 0.36, B-Natriuretic Peptide 42.0 08/10/24 18:01: Phosphorus 3.3, Magnesium 2.1 08/10/24 23:59: APTT 33.8, Hemoglobin A1c 5.0 08/10/24 : PT 13.2, INR 1.0, APTT 26.0 08/11/24 06:23: WBC 11.8 H, RBC 4.74, Hgb 13.7, Hct 42.6, MCV 89.9, MCH 28.9, MCHC 32.2, Plt Count 332, MPV 8.9, APTT 41.9 H, Sodium 142, Potassium 3.3 L, Chloride 109 H, Carbon Dioxide 28.0, Anion Gap 5, BUN 11, Creatinine 0.67, Est GFR (MDRD) Af Amer 126, Est GFR (MDRD) Non-Af 104, BUN/Creatinine Ratio 16.5, Glucose 101, Calcium 9.1, Triglycerides 123, Cholesterol 150, LDL Cholesterol 94, VLDL Cholesterol 25, HDL Cholesterol 31 L 08/11/24 12:23: APTT 43.5 H, D-Dimer Quant (PE/DVT) 0.30 Rhythm: EKG: ECHO: Stress Test: Cardiac Cath: PCI: CT Surgery: Holter monitor: EPS: PPM: CXR: Chest CT Scan: Radiography Diagnostic Testing: Radiology Impression Chest X-Ray 08/10/24 16:15 IMPRESSION: Normal x-ray examination of the chest. Electronically Signed: Dwight Burton MD at 16:55 EDT ,
--- NOTE | 2024-08-11 16:37 | ECHOCS_ITS ---
Reason For Study: CHEST PAIN Procedure This was a 2D Doppler, Color Flow transthoracic echocardiogram. The study was technically difficult. Contrast injection was performed. Exam performed portable in patient room. Left Ventricle Normal LV size. Left ventricular systolic function is normal. The left ventricular ejection fraction is 55 %. No regional wall motion abnormalities noted. Right Ventricle Normal RV size. Normal systolic function. Atria Normal left atrium. Normal right atrium. Mitral Valve Normal mitral valve. Trivial mitral valve insufficiency. Tricuspid Valve Normal tricuspid valve. Aortic Valve Trisinus/trileaflet aortic valve. Pulmonic Valve Normal pulmonic valve. Great Vessels Normal aortic root. The pulmonary artery is normal size. Inferior vena cava collapse with sniff. Pericardium/Pleural No pericardial effusion. Medication Diluted definity 1ml given slow IV push to enhance endocardial definition. MMode/2D Measurements & Calculations LVIDd: 4.3 cm IVSd: 1.1 cm LVOT diam: 2.4 cm LVIDs: 3.5 cm LVPWd: 1.3 cm FS: 17.9 % LVOT area: 4.6 cm2 Ao root diam: 3.3 cm LAV(MOD-bp): 36.9 ml LVAd ap4: 43.2 cm2 LAV(MOD-bp) Indexed: 16.0 ml/m2 LVLd ap4: 9.6 cm LAV(MOD-sp2): 25.6 ml EDV(MOD-sp4): 161.1 ml LAV(MOD-sp4): 44.0 ml EDV(sp4-el): 164.1 ml LVAs ap4: 25.3 cm2 LVLs ap4: 7.7 cm ESV(MOD-sp4): 72.1 ml ESV(sp4-el): 70.3 ml EF(MOD-sp4): 55.2 % EF(sp4-el): 57.2 % SV(MOD-sp4): 89.0 ml SV(sp4-el): 93.9 ml LA A4 area: 17.5 cm2 LA dimension(2D): 4.0 cm RA A4 area: 14.2 cm2 TAPSE: 2.5 cm Time Measurements MV dec time: 0.25 sec Doppler Measurements & Calculations MV E max jesse: 66.5 cm/sec Lat Peak E' Jesse: 9.4 cm/sec Med Peak E' Jesse: 8.1 cm/sec MV A max jesse: 54.5 cm/sec E/E' lat: 7.1 E/E' med: 8.2 MV E/A: 1.2 MV V2 max: 71.9 cm/sec MV dec slope: 273.1 cm/sec2 Ao V2 max: 151.5 cm/sec MV max P.1 mmHg Ao max P.2 mmHg MV V2 mean: 46.0 cm/sec Ao V2 mean: 105.6 cm/sec MV mean P.97 mmHg Ao mean P.1 mmHg MV V2 VTI: 25.1 cm Ao V2 VTI: 32.0 cm MVA(VTI): 4.6 cm2 AV (velocity ratio): 0.79 BANDAR(I,D): 3.6 cm2 BANDAR(V,D): 3.6 cm2 LV V1 max: 121.1 cm/sec SV(LVOT): 115.9 ml PA V2 max: 130.0 cm/sec LV V1 max P.9 mmHg PA V2 mean: 92.5 cm/sec LV V1 mean P.5 mmHg LV V1 mean: 87.1 cm/sec LV V1 VTI: 25.4 cm ECHO/Echo Complete W/ Contrast Interpretation Summary Normal LV size. Left ventricular systolic function is normal. The left ventricular ejection fraction is 55 %. Structurally normal valves. Ordering Physician: Estefanía Albert Referring Physician: Jatin Baker Performed By: Amie Manzano RCS
--- NOTE | 2024-08-11 17:57 | NURSING ---
heparin drip still running at 1400unit/hr w/at least 200cc still in the bag despite the MAR saying it's completed.
--- NOTE | 2024-08-11 20:25 | EKG12_ITS ---
Test Reason : CP Blood Pressure : / mmHG Vent. Rate : 071 BPM Atrial Rate : 071 BPM P-R Int : 160 ms QRS Dur : 120 ms QT Int : 404 ms P-R-T Axes : 047 -03 069 degrees QTc Int : 439 ms Normal sinus rhythm Non-specific intra-ventricular conduction delay Minimal voltage criteria for LVH, may be normal variant ( Link product ) Borderline ECG When compared with ECG of 10-AUG-2024 20:16, MANUAL COMPARISON REQUIRED, DATA IS UNCONFIRMED Confirmed by BRIAN MEI, [place] ([id number]), news editor BENNY ESCAMILLA ([id number]) on 08/13/2024 6:41:08 AM Referred By: Jatin Baker Confirmed By:FLORIDA TORRES MD
[2024-08-11] MEDS: Acetaminophen 325 MG Tablet 650 MG PO (20:34)
[2024-08-11] MEDS: Atorvastatin Calcium 80 MG Tablet PO (20:35)
[2024-08-11 20:44] LABS: Partial Thromboplast Time 48.1 Seconds (24.1-36.2)
[2024-08-11] MEDS: Nitroglycerin Infusion 250 ML 3 MG CONT INF (22:11)
[2024-08-11] MEDS: HEPARIN/D5w 25,000 UNITS 25,000 UNITS/250 ML IV.SOLN. 15 UNITS CONT INF (22:14)
--- NOTE | 2024-08-11 22:34 | NURSING ---
Heparin drip has been running continuously at correct rate. Hung new bag and wasted about half of old bag to correspond correctly on JAN.
[2024-08-12] VITALS (16 sets, daily range): BP systolic 102–144; BP diastolic 56–87; PULSE 66–81; RESP 12–18; TEMP 36.2–36.6; O2SAT 95–99
[2024-08-12 03:39] LABS: Hematocrit 41.9 % (37-47); Hemoglobin 13.1 g/dL (12.0-15.0); Mean Corp Hgb Conc 31.3 g/dL (32-36); Mean Corpuscular Hgb 28.4 pg (27.0-32.0); Mean Corpuscular Volume 90.7 fL (81-99); Mean Platelet Vol. 9.1 fl (6.2-12.0); Platelet Count 314 K/mm3 (150-450); RBC Distribution Width SD 46.5 fl (35.1-43.9); Red Blood Count 4.62 M/mm3 (4.2-5.4); White Blood Count 10.1 K/mm3 (4.4-11.0)
[2024-08-12 03:50] LABS: Partial Thromboplast Time 63.1 Seconds (24.1-36.2)
[2024-08-12 03:53] LABS: Anion Gap 4 (5-15); BUN 14 mg/dL (7-18); BUN/Creat Ratio 18.9 RATIO (10-20); Calcium,Total 8.9 mg/dL (8.5-10.1); Chloride 108 mmol/L (98-107); Creatinine, Serum 0.74 mg/dL (0.55-1.02); EST Glomerular Filtration Rate 92 mL/min (>60); Est Glom Filt Rate - Afr Amer 112 mL/min (>60); Estimated Creatinine Clearance 137.12 ml/min; Glucose 114 mg/dL (74-106); Potassium 3.4 mmol/L (3.5-5.1); Sodium Level 141 mmol/L (136-145)
--- NOTE | 2024-08-12 05:00 | EKG12_ITS ---
Test Reason : AM EKG Blood Pressure : / mmHG Vent. Rate : 071 BPM Atrial Rate : 071 BPM P-R Int : 170 ms QRS Dur : 122 ms QT Int : 402 ms P-R-T Axes : 060 -04 071 degrees QTc Int : 436 ms Normal sinus rhythm Non-specific intra-ventricular conduction delay Minimal voltage criteria for LVH, may be normal variant ( [place] product ) Borderline ECG When compared with ECG of 11-AUG-2024 20:28, MANUAL COMPARISON REQUIRED, DATA IS UNCONFIRMED Confirmed by BRIAN MEI, [place] ([id number]), loan expeditor BENNY ESCAMILLA ([id number]) on 08/13/2024 6:40:13 AM Referred By: Jatin Baker Confirmed By:[place]OR[place] TORRES MD
[2024-08-12] MEDS: Aspirin 81 MG TAB.CHEW PO (06:04)
[2024-08-12] MEDS: Lisinopril 5 MG Tablet PO (06:04)
[2024-08-12] MEDS: Carvedilol 6.25 MG Tablet PO (06:04)
--- NOTE | 2024-08-12 08:11 | PN.CARD_ITS ---
Subjective Subjective Patient seen and evaluated. Appears to be doing well. Underwent cardiac catheterization today. Objective Data Vital Signs: Vital Signs Temp Pulse Resp BP Pulse Ox O2 Del Method 97.8 F 81 18 128/83 H 99 Room Air 08/12/24 04:20 08/12/24 04:20 08/12/24 04:20 08/12/24 06:00 08/12/24 04:20 08/12/24 07:26 Oxygen Delivery Method Room Air Weight: 270 lb 0.002 oz Body Mass Index (BMI) 19.1 Intake & Output: Intake and Output for Last 24 Hours 08/10/24 08/11/24 08/12/24 23:59 23:59 23:59 Intake Total 350 / 350 1394.07 / 1396.32 149.25 / 149.25 Balance 350 / 350 1394.07 / 1396.32 149.25 / 149.25 Lab / Micro Data 08/12/24 03:20 08/12/24 03:20 Labs: Laboratory Results - last 24 hr 08/11/24 12:23: APTT 43.5 H, D-Dimer Quant (PE/DVT) 0.30 08/11/24 19:47: APTT 48.1 H 08/12/24 03:20: WBC 10.1, RBC 4.62, Hgb 13.1, Hct 41.9, MCV 90.7, MCH 28.4, MCHC 31.3 L, RDW Std Deviation 46.5 H, RDW Coeff of Cristal 14.0, Plt Count 314, MPV 9.1, APTT 63.1 H, Sodium 141, Potassium 3.4 L, Chloride 108 H, Carbon Dioxide 29.0, A nion Gap 4 L, BUN 14, Creatinine 0.74, Estim Creat Clear Calc 137.12, Est GFR (MDRD) Af Amer 112, Est GFR (MDRD) Non-Af 92, BUN/Creatinine Ratio 18.9, Glucose 114 H, Calcium 8.9 Cardiology Labs/Tests 08/11/24 12:23: APTT 43.5 H, D-Dimer Quant (PE/DVT) 0.30 08/11/24 19:47: APTT 48.1 H 08/12/24 03:20: WBC 10.1, RBC 4.62, Hgb 13.1, Hct 41.9, MCV 90.7, MCH 28.4, MCHC 31.3 L, Plt Count 314, MPV 9.1, APTT 63.1 H, Sodium 141, Potassium 3.4 L, C hloride 108 H, Carbon Dioxide 29.0, Anion Gap 4 L, BUN 14, Creatinine 0.74, Est GFR (MDRD) Af Amer 112, Est GFR (MDRD) Non-Af 92, BUN/Creatinine Ratio 18.9, G lucose 114 H, Calcium 8.9 Rhythm: EKG: ECHO: Stress Test: Cardiac Cath: PCI: CT Surgery: Holter monitor: EPS: PPM: CXR: Chest CT Scan: Physical Exam Const alert, oriented x3 and no apparent distress General Appearance: cooperative HEENT hearing grossly normal bilaterally Head and Scalp: atraumatic Eyes EOMs intact bilaterally Neck General: normal visual inspection Chest inspection of chest normal and palpation of chest normal Resp normal respiratory effort Auscultation: clear to auscultation bilaterally Cardio regular rate, regular rhythm, S1 normal heart sound and S2 normal heart sound Jugular Venous Distention: JVD GI normal to inspection, nondistended, normoactive bowel sounds Extremity normal capillary refill and no pedal edema Peripheral Pulses: Yes pulses 2+ throughout and femoral pulses present Skin no rashes or lesions noted Neuro oriented x3 and CN's II-XII intact bilaterally Psych Appearance: grossly normal and appropriate Assessment & Plan Assessment/Plan (1) NSTEMI, initial episode of care: PLAN: Patient presented with a non-ST elevation myocardial infarction underwent a cardiac catheterization which demonstrated no obstructive coronary disease. Ejection fraction was also preserved. The troponin elevation was likely secondary to spasm. Will recommend the following: Continue current medical therapy. Discontinue vaping or smoking. Aggressive risk factor modification with high intensity statin Will continue aspirin for 3 months Patient can be discharged for outpatient follow-up (2) HTN (hypertension): PLAN: Recommend continuation of amlodipine Continue LANIE inhibitor or ARB The beta-sabrina can be discontinued as her ejection fraction is normal. Thank you for allowing me to participate in the care of your patient. Please don't hesitate to call if any issues arise.
--- NOTE | 2024-08-12 08:50 | CL.D_ITS ---
Patient Name: TINO BARRIGA Study Date: 08/12/2024 Performing: Ger Tillman MD Ht: 67 inches 170.18 cm : 1985 Wt: 270.4 lbs 122.47 kg Age: 39 Gender: female BSA: 2.3 PROCEDURE(S) PERFORMED DC01-(05914)LHC/COR/LV CLINICAL PROFILE AND INDICATIONS Indications: ACS <= 24 hrs Heart Failure: None Stress/Imaging Stress/Image Study Performed: No CAD Presentations: Non-STEMI. Symptom onset Date/Time: 08/11/24 Time Not Available CONCLUSIONS Normal coronary arteries Normal LV size, wall motion,and systolic function RECOMMENDATIONS Aggressive risk factor modification. DESCRIPTION OF PROCEDURE The patient arrived to the procedure lab. The risks and benefits of the procedure as well as a full description of our services here and current unavailability of surgical backup were fully explained to the patient and/or their significant other prior to the catheterization. The Timeout was completed, verifying the correct patient and procedure. The patient's procedural site was prepped and draped in the usual fashion. Local anesthetic was given subcutaneously to right radial region with Lidocaine 2%. Using a modified Seldinger technique, Left Coronary Artery selective angiography was performed in multiple views using a 5 Fr. 4.0 [place] catheter. Right Coronary Artery selective angiography was then performed in multiple views using a 5 Fr. JR 5 catheter. Left Ventriculography was performed in DUTTON projection using a 5 Fr. Pigtail catheter. LV to AO pullback pressures were then recorded.The arterial sheath was pulled and a TR Band was applied for hemostasis 10cc air CORONARY ANGIOGRAPHY DOMINANCE: Right Dominant LEFT HEART ASSESSMENT Left Ventricular Ejection Fraction: by LV Gram 65 % Normal LV wall motion Normal Left Ventricular systolic function Normal Left Ventricular systolic function LEFT MAIN: Angiographically normal LEFT ANTERIOR DESCENDING ARTERY: Angiographically normal CIRCUMFLEX ARTERY: Angiographically normal RIGHT CORONARY ARTERY: Angiographically normal COMPLICATIONS No Complications PROCEDURE MEDICATIONS Fentanyl 50 mcg IV Versed 1 mg IV Oxygen: 2 L/min via nasal cannula Heparin given IA 08/12/2024 07:40:41 Nitro glycerin 25mg / 250ml D5W @ mcg/min discontinued 08/12/2024 08:08:15 Potassium Chloride 40 mEq PO 08/12/2024 07:33:57 Verapamil 2.5mg, 3000 units of Heparin given IA 08/12/2024 07:40:41 SUMMARY OF HEMODYNAMIC DATA Time AIR REST ECG 07:27:20 AO 127/85 (106) SA 07:47:36 LV 118/16, 24 08:01:29 LV 124/15, 21 08:01:37 LV 124/18, 32 08:02:39 LVp 123/18, 29 08:02:44 Signed By Ger Tillman MD On 08/13/2024 13:34:26 Signed By Ger Tillman MD On 08/12/2024 08:49:40 Ger Tillman MD
[2024-08-12 09:55] LABS: Partial Thromboplast Time 43.1 Seconds (24.1-36.2)
--- NOTE | 2024-08-12 10:22 | PN.CARD_ITS ---
Objective Data Vital Signs: Vital Signs Temp Pulse Resp BP Pulse Ox O2 Del Method 97.2 F L 73 18 123/71 H 96 Room Air 08/12/24 08:26 08/12/24 10:13 08/12/24 10:13 08/12/24 10:13 08/12/24 10:13 08/12/24 10:13 Oxygen Delivery Method Room Air Weight: 270 lb 0.002 oz Body Mass Index (BMI) 19.1 Intake & Output: Intake and Output for Last 24 Hours 08/10/24 08/11/24 08/12/24 23:59 23:59 23:59 Intake Total 350 / 350 1394.07 / 1396.32 155.25 / 155.25 Balance 350 / 350 1394.07 / 1396.32 155.25 / 155.25 Lab / Micro Data 08/12/24 03:20 08/12/24 03:20 Labs: Laboratory Results - last 24 hr 08/11/24 12:23: APTT 43.5 H, D-Dimer Quant (PE/DVT) 0.30 08/11/24 19:47: APTT 48.1 H 08/12/24 03:20: WBC 10.1, RBC 4.62, Hgb 13.1, Hct 41.9, MCV 90.7, MCH 28.4, MCHC 31.3 L, RDW Std Deviation 46.5 H, RDW Coeff of Cristal 14.0, Plt Count 314, MPV 9.1, APTT 63.1 H, Sodium 141, Potassium 3.4 L, Chloride 108 H, Carbon Dioxide 29.0, A nion Gap 4 L, BUN 14, Creatinine 0.74, Estim Creat Clear Calc 137.12, Est GFR (MDRD) Af Amer 112, Est GFR (MDRD) Non-Af 92, BUN/Creatinine Ratio 18.9, Glucose 114 H, Calcium 8.9 08/12/24 09:27: APTT 43.1 H Cardiology Labs/Tests 08/11/24 12:23: APTT 43.5 H, D-Dimer Quant (PE/DVT) 0.30 08/11/24 19:47: APTT 48.1 H 08/12/24 03:20: WBC 10.1, RBC 4.62, Hgb 13.1, Hct 41.9, MCV 90.7, MCH 28.4, MCHC 31.3 L, Plt Count 314, MPV 9.1, APTT 63.1 H, Sodium 141, Potassium 3.4 L, C hloride 108 H, Carbon Dioxide 29.0, Anion Gap 4 L, BUN 14, Creatinine 0.74, Est GFR (MDRD) Af Amer 112, Est GFR (MDRD) Non-Af 92, BUN/Creatinine Ratio 18.9, G lucose 114 H, Calcium 8.9 08/12/24 09:27: APTT 43.1 H Rhythm: EKG: ECHO: Stress Test: Cardiac Cath: PCI: CT Surgery: Holter monitor: EPS: PPM: CXR: Chest CT Scan: Physical Exam Cardio Cardio Narrative: Patient alert or
--- NOTE | 2024-08-12 11:03 | CASEMGMT ---
FERNANDO LOPEZ Assessment Face to Face with patient for initial transition planning/care coordination assessment. RN JOHN introduced self and role at [facility], pt voices understanding. Pt is A&Ox4 and is resting comfortably in bed and is calm. Pt at bedside. Care providers, pharmacy, and demographics verified. Admitting dx: NSTEMI LACE Strata: 2 PCP: Kaylan Brown Specialists: Primo (Cardio) Preferred [facility]acy: [facility] Insurance: [place], [place] Secondary through the pt Prescription Benefit: Yes LNOK: Edgar Fiore (H) Living Arrangements: Pt lives with her and 2 children (Ages 4 and 6) in a split level home with 8-10 steps between floors with only one step to enter the home ADLs/IADLs: Ind Transportation: Self, DME: BP Monitor, Pulse Ox HHC/SNF: Denies history or needs Pt?s goal: Home Plan: Home no needs. 6-Click is 24. Pt states that she plans to f/u with Dr. Tillman in his office after DC. Pt denies needs moving forward. CM to follow for potential blood thinning prescription. Report given to TRAFFIC COORDINATORFERNANDO Schmidt RN, CM
--- NOTE | 2024-08-12 12:01 | DCINST_ITS ---
Discharge Instructions Diet Discharge Diet: Low fat / Low cholesterol Activity Discharge Activity: Return to Normal Activity Weight Bearing Status: Weight bearing as tolerated Dressing / Incision Call your doctor if you observe: Fever of 101 or Higher, Shortness of breath, Dizziness, Swelling in the ankles and Chest pain Follow Up Care Test Results: Test results from this visit will be discussed in further detail at your follow- up appointment, if applicable. Discharge Plan Admission Admit Date/Time: 08/10/24 17:50 Primary Reason for Your Visit: nonstemi Attending Provider: Colleen Zhang Primary Care Provider: Kaylan Brown Consulting Providers: Jatin Baker; Estefanía Albert; Beverly Hwang Instructions Patient Instructions: Heart Attack Dc, Heart Attack Meds Additional Instructions / Restrictions: counseled to quit vaping. Also counseled on DASH diet, weight loss and exercise. Discharge Orders/Prescriptions Prescriptions: New amlodipine 10 mg Tablet 10 mg PO DAILY Qty: 30 2RF aspirin 81 mg Tablet,Chewable 81 mg PO BREAKFAST Qty: 90 0RF atorvastatin 80 mg Tablet 80 mg PO QHS Qty: 30 2RF lisinopril 10 mg Tablet 10 mg PO DAILY Qty: 30 2RF Continued sertraline 100 mg tablet 100 mg PO DAILY Discontinued amlodipine 10 mg tablet 10 mg PO DAILY Referrals / Follow Up: Kaylan Brown, [employer] [Primary Care Provider] - Within 1 Week Disposition Disposition (needs filled in before D/C Order can be placed): Home, Self Care
--- NOTE | 2024-08-12 12:02 | PCM.DC.SUM ---
Providers Date of Admission: 08/10/24 Date of Discharge: 08/12/24 Primary Care Physician: Kaylan Brown, HILDA-Kolby Consultations 08/10/24 19:27 Consult: Cardiology Routine Consulting Provider: Estefanía Albert Reason for Consult: NSTEMI EMERGENT Consult: No MD Notified: Yes Date Notified: 08/11/24 Time Notified: 06:52 Method of Notification: Text Reason For Visit: NSTEMI Diagnosis Discharge Diagnosis (1) NSTEMI, initial episode of care: Status: Acute Code(s): I21.4 - Non-ST elevation (NSTEMI) myocardial infarction (2) HTN (hypertension): Status: Chronic Code(s): I10 - Essential (primary) hypertension Medications at Discharge Home Medications sertraline 100 mg tablet 100 mg PO DAILY depression/mood 08/10/24 amlodipine 10 mg tablet 10 mg PO DAILY #30 tabs 08/12/24 aspirin 81 mg chewable tablet 81 mg PO BREAKFAST #90 tabs 08/12/24 atorvastatin 80 mg tablet 80 mg PO QHS #30 tabs 08/12/24 lisinopril 10 mg tablet 10 mg PO DAILY #30 tabs 08/12/24 Hospital Course Operations None Procedures 2-D Echocardiogram and Cardiac catheterization Summary of Care Provided Minutes Spent on Discharge: 55 Hospital Course: Patient is a 39 y/o female with a PMH as outlined who was admitted via the ED on 08/12/2024 with a complaitn of chest pain. She was in [facility] earlier on the day of admission, and says she started having chest pain whilst eating lunch. She went to an urgent care center and an EKG was done which she says she was told was normal. Chest pain however persisted so she came to the ED at [facility]. EKG showed no acute ST changes but initial troponin was 6104 and delta troponin trended upwards further to 11,610. She had a strong family history of cardiac disease with her father and grandfather both having had heart attacks in their 40s. She also had a history of high blood pressure depression with anxiety for which she took amlodipine and sertraline again and says she was compliant with his medications. CXR showed no acute cardiopulmonary pathology. She was admitted and managed for nonstemi. Seh drank alcohol occasionally but said she used a vape pen with marijuana on a daily basis. Cardiology was consulted. She had cardiac cath on 08/12/2024 which showed no patent coronaries and showed normal LV size, wall motion and systolic function. A1C was 5. 2D echo showed EF of 55% with no regional wall motion abnormalities noted and structurally normal valves. Cardiology recommended patient could be discharged on p.o. amlodipine 10 mg daily as well as p.o. lisinopril 10 mg daily, atorvastatin 80 mg nightly and p.o. amlodipine 81 mg daily. She was counseled to quit vaping and to try to lose weight and also adhere to DASH diet and healthy lifestyle. She was discharged on 08/12/2024 is follow-up with her primary care doctor within 1 to 2 weeks as well as follow-up with cardiology. Patient seen and examined prior to discharge. She felt well and had no active complaints. She had an uneventful night and review of systems otherwise negative. Labs and vitals reviewed. Home medication reviewed and reconciled. Physical Exam Const alert, oriented x3 and no apparent distress Constitutional Narrative: morbidly obese General Appearance: cooperative and comfortable Orientation / Consciousness: awake Exam Limitations: no limitations HEENT normocephalic, head/scalp atraumatic, hearing grossly normal bilaterally, moist oral mucous membranes and oropharynx normal Mouth: oral and palatal mucosa normal Eyes PERRL, EOMs intact bilaterally and conjunctivae normal Neck no lymphadenopathy and supple Resp normal respiratory effort, no retractions, no use of accessory muscles and clear to auscultation bilaterally Cardio regular rate, regular rhythm, S1 normal heart sound, S2 normal heart sound and no murmurs GI normal to inspection, nondistended, normoactive bowel sounds, soft to palpation, non-tender and non-distended Extremity normal to inspection, full ROM and no clubbing, cyanosis or edema Skin no rashes or lesions noted, no wounds and skin turgor normal Neuro oriented x3, CN's II-XII intact bilaterally, moves all extremities, no focal motor deficits and no sensory deficits noted Sensorium / Orientation: awake and alert Motor Exam: strength 5/5 throughout Psych affect normal Weight / BMI Weight Weight: 270 lb 0.002 oz Body Mass Index (BMI) 19.1 ABG / Lab / Microbiology Data 08/12/24 03:20 08/12/24 03:20 Laboratory: Laboratory Results - last 24 hr 08/11/24 12:23: APTT 43.5 H, D-Dimer Quant (PE/DVT) 0.30 08/11/24 19:47: APTT 48.1 H 08/12/24 03:20: WBC 10.1, RBC 4.62, Hgb 13.1, Hct 41.9, MCV 90.7, MCH 28.4, MCHC 31.3 L, RDW Std Deviation 46.5 H, RDW Coeff of Cristal 14.0, Plt Count 314, MPV 9.1, APTT 63.1 H, Sodium 141, Potassium 3.4 L, Chloride 108 H, Carbon Dioxide 29.0, Anion Gap 4 L, BUN 14, Creatinine 0.74, Estim Creat Clear Calc 137.12, Est GFR (MDRD) Af Amer 112, Est GFR (MDRD) Non-Af 92, BUN/Creatinine Ratio 18.9, Glucose 114 H, Calcium 8.9 08/12/24 09:27: APTT 43.1 H D/C Instructions Discharge Diet: Low fat / Low cholesterol Discharge Activity: Return to Normal Activity Weight Bearing Status: Weight bearing as tolerated Call your doctor if you observe: Fever of 101 or Higher, Shortness of breath, Dizziness, Swelling in the ankles and Chest pain Meaningful Use Info Meaningful Use Meaningful Use Diagnoses (Choose all that apply): AMI AMI/Post PCI/Angioplasty Aspirin given w/in 24hrs of arrival?: Yes ASA at discharge?: Yes Antiplatelet Therapy at Discharge:: No Reason Antiplatelet Therapy not ordered:: not indicated Statins at discharge?: Yes Dov/ARB at discharge?: Yes Beta Alvarado at discharge?: No Reason Beta Alvarado not ordered:: Allergy (not indicated) Done w/ Acute [place] measure.: Yes Documented LVEF (%): 55 Ischemic Stroke Statin Dosing Therapy Reference: STATIN DOSE THERAPY REFERENCE: * Patients > 75 years receive moderate or high dose statin therapy. * Patients 75 years or YOUNGER should receive HIGH intensity statin dose unless contraindicated. You will be required to document reason for non-treatment if statin daily dose does not meet guidelines. HIGH DOSE STATIN THERAPY DAILY Atorvastatin > than or = to 40 mg Rosuvastatin > than or = to 20 mg Amlodipine + Atorvastatin > than or = to 2.5/40 mg Ezetimibe + Simvastatin 10/80 mg Simvastatin 80mg Discharge Plan Admission Admit Date/Time: 08/10/24 17:50 Primary Reason for Your Visit: nonstemi Attending Provider: Colleen Zhang Primary Care Provider: Kaylan Brown Consulting Providers: Jatin Baker; Estefanía Albert; Beverly Hwang Instructions Patient Instructions: Heart Attack Dc, Heart Attack Meds Additional Instructions / Restrictions: counseled to quit vaping. Also counseled on DASH diet, weight loss and exercise. Discharge Orders/Prescriptions Prescriptions: New amlodipine 10 mg Tablet 10 mg PO DAILY Qty: 30 2RF aspirin 81 mg Tablet,Chewable 81 mg PO BREAKFAST Qty: 90 0RF atorvastatin 80 mg Tablet 80 mg PO QHS Qty: 30 2RF lisinopril 10 mg Tablet 10 mg PO DAILY Qty: 30 2RF Continued sertraline 100 mg tablet 100 mg PO DAILY Discontinued amlodipine 10 mg tablet 10 mg PO DAILY Referrals / Follow Up: Kaylan Brown, EMERGENCY SERVICES DIRECTOR-C [Primary Care Provider] - Within 1 Week Ger Tillman MD [Med Staff - Active Staff] - Within 2 Weeks Disposition Disposition (needs filled in before D/C Order can be placed): Home, Self Care Charges/Coding Visit Charges Inpatient E&M: 82022 Disch Hosp >30min
[2024-08-12] MEDS: amLODIPine 10 MG Tablet PO (12:04)
[2024-08-12] MEDS: Lisinopril 10 MG Tablet PO (12:05)
== END 2024-08-12 13:34 | disposition home or self-care (01) | DRG 281 ==
LOC: ED 17:00 → PCU 18:40
PROVIDERS: Internal Medicine; Internal Medicine Interventional Cardiology; Admitting Provider Hospitalist; Emergency Provider Emergency Medicine; PCP Nurse Practitioner Family; Referring Provider Hospitalist; Visit Provider Student in an Organized Health Care Education/Training Program
DX: I21.4 Non-ST elevation (NSTEMI) myocardial infarction (principal); Z68.41 Body mass index [BMI] 40.0-44.9, adult; E66.01 Morbid (severe) obesity due to excess calories; I10 Essential (primary) hypertension; F32.A Depression, unspecified; F12.90 Cannabis use, unspecified, uncomplicated; E87.6 Hypokalemia; F41.9 Anxiety disorder, unspecified; Z79.82 Long term (current) use of aspirin
CPT/HCPCS: 36415; 71045; 80048; 80061; 83036; 83735; 83880; 84100; 84443; 84484; 85025; 85027; 85379; 85610; 85730; 90656; 93005; 93306; 93458; 99152; 99153; 99285; J7040; Q9957; Q9967; A4216; C1769; C1894; C8929